=== PATIENT | male | born 1940 | race Caucasian/White ===

== ENCOUNTER 2020-03-07 14:46 | Emergency (ER) | payer MEDICARE, SELFPAY ==
[2020-03-07 14:57] VITALS: BP 207/82; PULSE 69; RESP 16; TEMP 36.8; O2SAT 96; BMI 23.0
--- NOTE | 2020-03-07 15:05 | CTR_ITS ---
PROCEDURE INFORMATION: Exam: CT Head Without Contrast Exam date and time: 03/07/2020 3:22 PM Age: 79 years old Clinical indication: Injury or trauma; Fall; Additional info: Head injury TECHNIQUE: Imaging protocol: Computed tomography of the head without contrast. Radiation optimization: All CT scans at this facility use at least one of these dose optimization techniques: automated exposure control; mA and/or kV adjustment per patient size (includes targeted exams where dose is matched to clinical indication); or iterative reconstruction. COMPARISON: No relevant prior studies available. RADIATION DOSE METRICS: Total DLP (mGy-cm): 750 FINDINGS: Brain: Moderate white matter disease and volume loss are identified. There is no acute infarct or edema. No hemorrhage. Ventricles: Normal. No ventriculomegaly. Bones/joints: Unremarkable. No acute fracture. Sinuses: Visualized sinuses are unremarkable. No fluid levels. Mastoid air cells: Visualized mastoid air cells are well aerated. Soft tissues: There is soft tissue swelling along the right frontal calvarium and in the right periorbital region. CT/CT head wo con* [id number] IMPRESSION: No acute fracture or intracranial hemorrhage. Radiation Dose CTDIVOL = (mGy): DLP = 750 (mGy-cm)
--- NOTE | 2020-03-07 15:06 | CTR_ITS ---
PROCEDURE INFORMATION: Exam: CT Maxillofacial Without Contrast Exam date and time: 03/07/2020 3:22 PM Age: 79 years old Clinical indication: Injury or trauma; Fall; Initial encounter; Blunt trauma (contusions or hematomas); Orbit/periorbital; Right; Injury date: Today; Additional info: Head trauma TECHNIQUE: Imaging protocol: Computed tomography images of the face without contrast. Radiation optimization: All CT scans at this facility use at least one of these dose optimization techniques: automated exposure control; mA and/or kV adjustment per patient size (includes targeted exams where dose is matched to clinical indication); or iterative reconstruction. COMPARISON: No relevant prior studies available. RADIATION DOSE METRICS: Total DLP (mGy-cm): 856.91 FINDINGS: Orbits: The globes are intact. Bones/joints: No acute fracture. Sinuses: Normal. No air-fluid levels. Soft tissues: There is right periorbital hematoma. CT/CT facial bones wo con* [id number] IMPRESSION: There is no evidence for acute fracture or malalignment. Radiation Dose CTDIVOL = (mGy): DLP = 856.91 (mGy-cm)
--- NOTE | 2020-03-07 15:07 | XRR_ITS ---
PROCEDURE INFORMATION: Exam: XR Right Tibia and Fibula Exam date and time: 03/07/2020 3:07 PM Age: 79 years old Clinical indication: Injury or trauma; Fall; Initial encounter; Blunt trauma; Lower leg; Right TECHNIQUE: Imaging protocol: XR Right tibia and fibula. Views: 2 views. COMPARISON: No relevant prior studies available. FINDINGS: Bones/joints: Negative for acute bony abnormality Soft tissues: Normal. XR/XR tibia fibula RT 2V [id number] IMPRESSION: No acute findings.
[2020-03-07 15:08] VITALS: BP 201/107; O2SAT 96
--- NOTE | 2020-03-07 15:10 | ED_ITS ---
HPI - Head Injury General: Chief complaint: Head Injury Stated complaint: fall-hit head Time Seen by Provider: 03/07/20 14:56 History of Present Illness: HPI Narrative: 79-year-old male patient presents to the emergency department with his , he sustained a fall prior to arrival. Reports was walking down steps, carrying pizza boxes while at [employer] when he lost his footing and fell down the stairs. He reports may have fell down 5 flights of stairs. He is sustained swelling of the right eye, several abrasions. He denies neck pain. He denies loss of consciousness or nausea vomiting. Right ear laceration. Associated symptoms: Deny nausea or vomiting Review of Systems General: Reports: 10 or more systems reviewed and unremarkable except in HPI and below Const: Denies: fever(s), chills or diaphoresis Eyes: Reports: other (Inability to open the right eye due to swelling); Denies: blurry vision or eye redness ENMT: Reports: ear or mastoid pain (Right, right ear abrasion); Denies: throat pain, mouth pain, dental pain or disequilibrium Card: Denies: chest pain, palpitations or irregular heart rhythm Resp: Denies: dyspnea, productive cough, non-productive cough or wheezing GI: Denies: abdominal pain, nausea or vomiting : Denies: dysuria Musc: Reports: extremity pain (Right lower extremity, tib-fib); Denies: back pain Skin/Breast: Reports: skin tenderness (Skin tear to the thenar rt hand, abrasion to the RLE shaver); Denies: rash or pruritus Neuro: Reports: headache(s) and difficulty walking (RLE pain - lower leg); Denies: numbness in extremities, weakness in extremities or behavioral changes Williams/Lymph: Denies: easy bruising Physical Exam Const: COMMON NORMALS: no acute distress, patient oriented x3, healthy appearing and alert GENERAL APPEARANCE: cooperative and well hydrated HENMT: COMMON NORMALS: Normal external nose present and moist oral mucous membranes FACE & SINUS: sinuses nontender FACE & SINUS IMAGES: 1. ecchymosis and edema with tenderness 2. large superficial abrasion NOSE: Normal external nose present EAR IMAGES: 1. 2 cm laceration/abrasion 2. abrasion THROAT: posterior oropharynx normal Eye: COMMON NORMALS: Equal, round and reactive pupils present and EOMs intact bilaterally GENERAL EYE: appearance normal, both eyes and all related structures and other (robert-orbital ecchymosis and edema due to hematoma/contusion) VISUAL ACUITY: Yes other (right eye opened to evaluate pu pil and cornea/sclera) EYELID: eyelid abnormality right upper eyelid erythema and swelling and right lower eyelid erythema and swelling PUPIL: Yes Equal, round and reactive pupils present Neck/C-Spine: COMMON NORMALS: full ROM and no lymphadenopathy GENERAL: Yes normal visual inspection and Yes trachea midline CERVICAL SPINE: Yes cervical ROM normal, No Paracervical muscle tenderness and Yes other (no point tenderness - pain could be distracted due to pain of the right eye) OTHER: and pain to the tib/fib Lymph: LYMPHATIC: no lymphadenopathy noted Chest: COMMONS NORMALS: normal inspection of the chest Resp: COMMON NORMALS: normal respiratory effort and clear to auscultation b ilaterally AUSCULTATION: clear to auscultation bilaterally Cardio: COMMON NORMALS: regular rhythm, S1 normal heart sound present and S2 normal heart sound present RHYTHM: regular rhythm HEART SOUNDS: S1 normal heart sound present and S2 normal heart sound present GI: COMMON NORMALS: Soft to palpation and non-tender INSPECTION: Yes normal to inspection PALPATION: Yes Soft to palpation : COMMON NORMALS: Yes no CVA tenderness BLADDER/KIDNEY EXAM: Yes no CVA tenderness Back/Pelvis: COMMON NORMALS: no CVA tenderness and thoracic and lumbar spine normal to inspection Extremity: COMMON NORMALS: normal to inspection and capillary refill normal EXTREMITY IMAGE (FRONT): 1. abrasion - no bleeding - pain with palpation of the middle tib/fib anterior - bowing deformity EXTREMITY IMAGE (BACK): 1. skin avulsion 2 cm x 3 cm Neuro: COMMON NORMALS: patient oriented x3 and no focal motor deficits SENSORIUM/ORIENTATION: Yes alert Psych: COMMON NORMALS: mental status grossly normal, Normal thought process present and cooperative ACTIVITY/MOTOR BEHAVIOR: Yes appropriate eye contact THOUGHT PROCESS: Normal thought process present Skin: COMMON NORMALS: no rashes or lesions noted and turgor normal GENERAL SKIN EXAM: no rashes or lesions noted and turgor normal Procedures Laceration Laceration 1: Site: face (right ear - antetrugus - flap laceration) Size (cm): 2 Description: flap Depth: simple, single layer Local Anesthetic: lidocaine 1% (3) Pre-repair: wound explored, irrigated extensively, deep structures intact, extensive debridement and wound margins revised Skin layer closed with: nylon Number of sutures: 4 Course Vital Signs: Vital signs: Vital Signs Temperature 98.2 F 03/07/20 14:57 Pulse Rate 70 03/07/20 17:19 Respiratory Rate 18 03/07/20 17:19 Blood Pressure 168/87 03/07/20 17:19 Pulse Oximetry 95 03/07/20 17:19 MDM - Head Injury MDM Narrative: Medical decision making narrative: 79-year-old male patient presents to the emergency department status post fall, he had presents with ear laceration, scattered abrasions and skin tears. He also is complaining of right tib-fib pain, difficulty walking with ambulation due to right lower extremity pain. CT completed of the head and facial bones, negative fractures, CT completed of the cervical spine due to severity of ear laceration and multiple skin tears/abrasion he sustained during the fall. Results were explained to the patient and spouse, questions were answered, ear was repaired with wound care instructions. Family and patient denied questions -patient able to ambulate in the ED without difficulty prior to discharge. He has not exhibited nausea vomiting. Discharge Plan Discharge Patient Disposition: Home, Self-Care Clinical Impression: Fall (on) (from) other stairs and steps, initial encounter Closed head injury Qualifiers: Encounter type: initial encounter Qualified Code(s): S09.90XA - Unspecified injury of head, initial encounter Laceration of ear lobe Qualifiers: Encounter type: initial encounter Laterality: right Qualified Code(s): S01.311A - Laceration without foreign body of right ear, initial encounter Abrasion head Qualifiers: Encounter type: initial encounter Qualified Code(s): S00.91XA - Abrasion of unspecified part of head, initial encounter Contusion, eye Qualifiers: Encounter type: initial encounter Laterality: right Qualified Code(s): S05.11XA - Contusion of eyeball and orbital tissues, right eye, initial encounter Condition: Stable Prescriptions: New Keflex 500 mg capsule 500 mg PO TID 7 Days Qty: 21 RF: 0 No Action atorvastatin 80 mg tablet 80 mg PO DAILY RF: 0 glipizide 10 mg tablet extended release 24hr 20 mg PO DAILY RF: 0 metoprolol succinate 200 mg tablet extended release 24 hr 200 mg PO DAILY RF: 0 lisinopril 20 mg tablet 20 mg PO BID RF: 0 metformin 850 mg tablet See Rx Instructions .ROUTE .COMPLEX RF: 0 potassium chloride 10 mEq tablet extended release 20 meq PO BID RF: 0 Aspir-81 81 mg Tablet,Delayed Release (Dr/Ec) 81 mg PO DAILY RF: 0 triamterene-hydrochlorothiazid 37.5-25 mg capsule 1 cap PO DAILY RF: 0 tamsulosin 0.4 mg capsule 0.4 mg PO DAILY RF: 0 amlodipine 10 mg tablet 15 mg PO DAILY RF: 0 ICaps [id number] Tablet Extended Release 1 tab PO DAILY RF: 0 Fish Oil 1,000 mg (120 mg-180 mg) Capsule 2 cap PO TID RF: 0 Jardiance 25 mg tablet 25 mg PO DAILY RF: 0 Vitamin C 1 tab PO DAILY RF: 0 Discharge Orders: Discharge Order (Routine); Ordered 03/07/20 Ordered By: Anu Fregoso Referrals: Harjit Marc MD [Primary Care Provider] - Discharge Diet: Usual diet Discharge Activity: Limit activity as instructed Patient Instructions: Suture Care (ED), Laceration (ED), Contusion in Adults (ED), Abrasion (ED) Activity Restrictions/Additional Instructions: Sleep with the head of your bed elevated. Cool compresses to the swollen area several times daily. Take Keflex as prescribed, antibiotic May change dressings to the right hand twice daily Cleanse with soap and water twice daily Follow-up with your primary care physician in 7 to 10 days for suture removal Return to the emergency department if you develop any nausea vomiting, dizziness, personality change or worsening symptoms. May take Tylenol as needed for pain Discharge Date/Time: 03/07/20 17:21 Coding Level of Care Code ED Inspector [employer] for Ranjeetg Fwd Exam Comprehensive
--- NOTE | 2020-03-07 15:11 | CTR_ITS ---
PROCEDURE INFORMATION: Exam: CT Cervical Spine Without Contrast Exam date and time: 03/07/2020 3:22 PM Age: 79 years old Clinical indication: Injury or trauma; Fall; Initial encounter; Blunt trauma; Injury date: Today; Additional info: Fall, cerivcal spine point tenderness TECHNIQUE: Imaging protocol: Computed tomography images of the cervical spine without contrast. Radiation optimization: All CT scans at this facility use at least one of these dose optimization techniques: automated exposure control; mA and/or kV adjustment per patient size (includes targeted exams where dose is matched to clinical indication); or iterative reconstruction. COMPARISON: No relevant prior studies available. RADIATION DOSE METRICS: Total DLP (mGy-cm): 567.12 FINDINGS: Vertebrae: No acute fracture. Normal alignment. Degenerative change is identified in the spine. There is disc space narrowing and osteophyte formation especially at C5/6 and C6/7. Soft tissues: Unremarkable. Lungs: Lung apices are normal. CT/CT cervical spin wo con* [id number] IMPRESSION: There is no evidence for fracture or facet dislocation. Radiation Dose CTDIVOL = (mGy): DLP = 567.12 (mGy-cm)
[2020-03-07 15:37] VITALS: BP 188/102; PULSE 72; RESP 15; O2SAT 95
[2020-03-07] MEDS: tetanus-diphtheria tox (adult) 0.5 mL SDV IM (16:37)
[2020-03-07] MEDS: lidocaine 1% INJ 20 mL INJECTION (16:45)
[2020-03-07] MEDS: acetaminophen 325 mg Tablet 650 MG PO (16:52)
[2020-03-07 17:19] VITALS: BP 168/87; PULSE 70; RESP 18; O2SAT 95
== END 2020-03-07 17:21 | disposition home or self-care (01) ==
PROVIDERS: Emergency Provider Nurse Practitioner Family; PCP Family Medicine
DX: S00.91XA Abrasion of unspecified part of head, initial encounter (principal); S05.11XA Contusion of eyeball and orbital tissues, right eye, initial encounter; S01.311A Laceration without foreign body of right ear, initial encounter; W10.8XXA Fall (on) (from) other stairs and steps, initial encounter; Z79.82 Long term (current) use of aspirin; Z23 Encounter for immunization
CPT/HCPCS: 12011; 12345; 70450; 70486; 72125; 73590; 90471; 90714; 99282; 99283

== ENCOUNTER 2020-06-03 11:47 | Outpatient (RCR) | payer MEDICARE, SELFPAY | END 2020-06-19 23:59 | disposition home or self-care (01) | LOC: SPT 11:47 | PROVIDERS: PCP Family Medicine; Referring Provider Family Medicine; Visit Provider Family Medicine | DX: M54.5 Low back pain (principal) | CPT/HCPCS: 97110; 97162; G0283 ==

== ENCOUNTER 2020-06-09 08:53 | Outpatient (CLI) | payer MEDICARE, SELFPAY ==
--- NOTE | 2020-06-09 08:57 | MR_ITS ---
WS: [id number] MRI LUMBAR SPINE NONCONTRAST TECHNIQUE: Sagittal T1, T2 and STIR imaging. Axial T1 and T2 imaging. CLINICAL INFORMATION: SCIATICA OF RT SIDE COMPARISON: None. FINDINGS: In the central cauda equina nerve rootlets at the L1-2 level there is a T2 hyperintense solid nodule measuring 5.6 x 5.9 x 10.0 mm AP by transverse by craniocaudal. This most likely represents a schwann jay and recommend further evaluation MRI lumbar spine with gadolinium enhancement. L1-L2: Normal. L2-L3: No significant disc bulging. Mild facet arthropathy. Mild right and no significant left forami nal narrowing. Spinal canal is patent. L3-L4: Mild annular bulging. Mild facet arthropathy. Spinal canal and foramen are patent. L4-L5: Right subarticular disc extrusion extending into the right subarticular recess. Disc material measures 12 x 8 mm. This impinges the traversing right L5 nerve root with mild central canal stenosis . Mild right greater than left foraminal narrowing. Mild to moderate facet arthropathy. L5-S1: Tiny central disc protrusion with a small annular tear. Contact of the traversing S1 nerve ashley ts. No significant central canal stenosis. Foramen are patent. Mild facet arthropathy. Visualized pelvic bony structures: Normal. Paravertebral soft tissues: Normal. MR/MR lumbar spine wo con* [id number] IMPRESSION: 1. Well-circumscribed T2 hyperintense nodule in the cauda equina nerve rootlet s at L1-2 suspicious for schwannoma measuring 5.6 x 5.9 x 10 mm. Recommend furt her evaluation with gadolinium. 2. Right pericentral and subarticular disc protrusion L4-5 with filling of the right subarticular recess. This impinges the traversing right L5 nerve root wi th mild central canal stenosis. Mild right L4-5 foraminal narrowing. 3. Tiny left pericentral protrusion L5-S1 with a small annular tear. Slight en croachment on traversing left greater than right S1 nerve roots. Spinal canal i s patent.
== END 2020-06-09 08:54 | disposition home or self-care (01) ==
LOC: RADSHAW 08:56
PROVIDERS: PCP Family Medicine; Visit Provider Family Medicine
DX: M54.31 Sciatica, right side (principal); M51.26 Other intervertebral disc displacement, lumbar region; M51.27 Other intervertebral disc displacement, lumbosacral region
CPT/HCPCS: 72148

== ENCOUNTER 2020-06-20 06:00 | Outpatient (RCR) | payer MEDICARE, SELFPAY | END 2020-07-19 23:59 | disposition home or self-care (01) | LOC: SPT 06:00 | PROVIDERS: PCP Family Medicine; Referring Provider Family Medicine; Visit Provider Family Medicine | DX: M54.5 Low back pain (principal) | CPT/HCPCS: 97110; G0283 ==

== ENCOUNTER → 2020-08-27 10:19 | Outpatient (BNVA) | payer MEDICARE, SELFPAY | PROVIDERS: PCP Family Medicine; Referring Provider Orthopaedic Surgery; Visit Provider Anesthesiology Pain Medicine | DX: M47.816 Spondylosis without myelopathy or radiculopathy, lumbar region (principal); M51.9 Unspecified thoracic, thoracolumbar and lumbosacral intervertebral disc disorder; M54.9 Dorsalgia, unspecified | CPT/HCPCS: 99205 ==

== ENCOUNTER → 2020-09-06 14:16 | Outpatient (BNVA) | payer MEDICARE, SELFPAY | PROVIDERS: PCP Family Medicine; Visit Provider Anesthesiology Pain Medicine | DX: M54.16 Radiculopathy, lumbar region (principal); M54.9 Dorsalgia, unspecified | CPT/HCPCS: 64483; 64484; J1100; J3490 ==

== ENCOUNTER → 2020-12-21 10:28 | Outpatient (BNVA) | payer MEDICARE, SELFPAY | PROVIDERS: PCP Family Medicine; Visit Provider Anesthesiology Pain Medicine | DX: M54.9 Dorsalgia, unspecified (principal); M47.816 Spondylosis without myelopathy or radiculopathy, lumbar region; M54.16 Radiculopathy, lumbar region; M51.9 Unspecified thoracic, thoracolumbar and lumbosacral intervertebral disc disorder | CPT/HCPCS: 99214 ==

== ENCOUNTER → 2020-12-22 12:35 | Outpatient (BNVA) | payer MEDICARE, SELFPAY | PROVIDERS: PCP Family Medicine; Visit Provider Anesthesiology Pain Medicine | DX: M54.16 Radiculopathy, lumbar region (principal); M54.9 Dorsalgia, unspecified | CPT/HCPCS: 64483; 64484 ==

== ENCOUNTER → 2020-12-29 11:21 | Outpatient (BNVA) | payer MEDICARE, SELFPAY | PROVIDERS: PCP Family Medicine; Visit Provider Anesthesiology Pain Medicine | DX: M47.816 Spondylosis without myelopathy or radiculopathy, lumbar region (principal); M54.16 Radiculopathy, lumbar region; M51.9 Unspecified thoracic, thoracolumbar and lumbosacral intervertebral disc disorder; M54.9 Dorsalgia, unspecified; Z79.891 Long term (current) use of opiate analgesic | CPT/HCPCS: 99214 ==

== ENCOUNTER → 2021-01-06 09:54 | Outpatient (BNVA) | payer MEDICARE, SELFPAY | PROVIDERS: PCP Family Medicine; Visit Provider Orthopaedic Surgery | DX: M54.16 Radiculopathy, lumbar region (principal); M47.816 Spondylosis without myelopathy or radiculopathy, lumbar region; Z20.822 Contact with and (suspected) exposure to COVID-19 | CPT/HCPCS: 72100; 87635 ==

== ENCOUNTER 2021-01-10 08:02 | Day surgery (SDC) | payer MEDICARE, SELFPAY ==
[2021-01-07 13:42] VITALS: BMI 23.7
[2021-01-10] VITALS (9 sets, daily range): BP systolic 163–230; BP diastolic 75–108; PULSE 61–73; RESP 12–250; TEMP 36.1–36.4; O2SAT 95–99
--- NOTE | 2021-01-10 | XR_ITS ---
WS: [id number] Exam: XR lumbar spine 2-3V* [id number] Date/Time of Exam: 01/10/2021 12:00 AM Reason For Exam: OR PICS A single intraoperative lateral C-arm image of the lower lumbar spine is submitted for evaluation. The image depicts a surgical port positioned in the posterior paraspinal soft tissues at the L4-5 dis c level. No other significant finding on this limited image.
--- NOTE | 2021-01-10 | SCC_ITS ---
Procedure: laminectomy L4/5 on Right 19.5 seconds of fluoroscopic guidance, for a cumulative dose of 4.90 mGy, was provided to Dr. Teixeira by the radiology department. C-arm images of the lumbar spine were saved for the patient's permanent record. [facility]
--- NOTE | 2021-01-10 07:02 | W.PM.OPSUD ---
Surgery/Procedure H&P Update DATE OF PROCEDURE: January 10, 2021 DATE H&P PERFORMED: 01/06/21 H&P UPDATE INFORMATION: I have reviewed H&P completed within last 30 days, I have examined patient prior to procedure and No changes to prior documentation PLANNED PROCEDURE: Operation Date: 01/10/21 12:40 Proposed Procedures p Lumbar Spine Decompression L4/5 27949 m48.061(Bilateral) - Ken Teixeira DO
--- NOTE | 2021-01-10 08:25 | ECG_ITS ---
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 Measurements Intervals [place] Rate: 61 P: 40 IN: 195 QRS: 24 QRSD: 102 T: 31 QT: 444 QTc: 451 Interpretive Statements SINUS RHYTHM MODERATE VOLTAGE CRITERIA FOR LVH, CONSIDER NORMAL VARIANT [MEETS CRITERIA IN ONE OF: R(aVL), S(V1), R(V5), R(V5/V6)+S(V1)] NONSPECIFIC T-WAVE ABNORMALITY No previous ECG available for comparison Electronically Signed On 01-11-2021 18:42:11 CDT by Dora Nolen M.D. [email or web address]
[2021-01-10 08:26] LABS: Glucose Point of Care 124 mg/dL (70-110)
[2021-01-10] MEDS: sodium chloride 0.9% 1,000 ML 30 ML IV (08:27)
[2021-01-10] MEDS: fentaNYL 50 mcg/mL INJ 2mL IVP (08:30)
--- NOTE | 2021-01-10 08:46 | ANES.PREANE2 ---
Pre-Anesthetic Assessment Pre-Anesthetic Assessment: Height/Weight: Height 1.8 m Weight 77.111 kg Temp Pulse Resp BP Pulse Ox 97.4 F L 65 20 H 230/108 95 01/10/21 08:19 01/10/21 08:19 01/10/21 08:30 01/10/21 08:19 01/10/21 08:30 Preop Diagnosis: Lumbar stenosis L4/5 Proposed Procedure: Operation Date: 01/10/21 12:40 Proposed Procedures p Lumbar Spine Decompression L4/5 52175 m48.061(Bilateral) - Ken Teixeira, Familial anesthetic complications: none Was Beta Sathish taken within 24 hours: Yes Was Clonidine taken within 24 hours: N/A Last intake: Intake Last Liquid Date 01/09/21 Last Liquid Time 22:00 Last Solid Date 01/09/21 Last Solid Time 22:00 Social: Social History: No alcohol and No tobacco Exam: Pre-Anes Outpt Exam: alert, oriented x 3, clear to auscultation bilaterally and regular rate & rhythm Airway: Cervical ROM: WNL MP: 3 Dentition: Full CV/HEM: CV/HEM: CAD (2012 RCA stent - only on ASA) and HTN Comments: CONCLUSION: 1. Normal right and left ventricular systolic function. 2. Left ventricular hypertrophy with diastolic noncompliance. Metabolic: Metabolic: DM and Hyperlipidemia Musc/skel: Musc/skel: OA/DJD Comments: hip pain Anesthetic Plan: ASA status: 3 Anesthesia: General Risk of > 500 ml blood loss (7ml/kg in children): No Meds/Allergies Current Medications: Current Medications Generic Name Dose Route Start Last Admin Trade Name Freq PRN Reason Stop Dose Admin Fentanyl 50 mcg 01/10/21 08:10 01/10/21 08:30 Fentanyl 50 Mcg/ Ml Inj 2ml IVP 50 mcg Q10M PRN Administration Preop Pain Sodium Chloride 1,000 mls @ 30 ml s/hr 01/10/21 08:15 01/10/21 08:27 Sodium Chloride 0.9% IV 01/11/21 08:14 30 mls/hr .Q24H STACIE Administration PFSH Anesthesia PFSH: Social History Smoking and tobacco status: never smoked Second hand smoke exposure: No Alcohol intake: never Lives independently: Yes Household members: spouse History of recent travel: No Data Anesthesia CBC & Chem 7: 01/10/21 08:25 Other Labs: Laboratory Results - last 48 hr 01/10/21 08:24 POC Glucose 124 H Cardiac Studies: No Data to Display
[2021-01-10 09:02] LABS: Anion Gap 19.4 (5-19); Blood Urea Nitrogen 21 mg/dL (8-23); Calcium 8.6 mg/dL (8.5-10.5); Carbon Dioxide 26 mmol/L (22-29); Chloride 102 mmol/L (98-107); Glucose 122 mg/dL (65-115); Osmolality Calculated 302 mOsm/kg (285-295); Potassium 3.4 mmol/L (3.5-5.1); Sodium 144 mmol/L (136-145)
--- NOTE | 2021-01-10 10:45 | PM.OP ---
Operative Report Date of procedure: January 10, 2021 Pre-op Diagnosis: Lumbar stenosis L4/5 Post-op diagnosis: same Post-op Findings: laminectomy L4/5 on Right Procedure: laminectomy L4/5 on Right Patient is brought to the operative suite. After undergoing anesthesia they are placed in the supine position. All areas of impingement are well padded. Patient is then prepped and draped in the normal sterile fashion. A skin incision is made over the L4/5 level. This is confirmed under c-arm guidance. A series of dilators are passed and the tubular retractor is docked on the L4 lamina. A bovie is used to clear the soft tissue off the lamina and the L 4/5 facet joint. A high speed alina is then used to perform the laminectomy and take down the medial aspect of the L 4/5 facet joint. A kerrison rongeure was then used to take down the remaining lamina and smooth the edge of the laminectomy up to the point where the ligamentum flavum attaches. Attention was then brought to the medial aspect of the facet joint. The remaining medial aspect of the superior and inferior aspect of the facet joint were taken down with the kerrison from the pedicle of L4 to L 5. The facet joint had significant hypertrophy. Attention was then brought to the Ligamentum Flavum. The ligament was taken down from the lamina of L4 to L5 and out medially to the remaining facet joint. The ligament was significantly thickened. The dura was then exposed. The dura was in good repair. The L4 nerve was then traced with a curette out the L4/5 foramen and found to be adequately decompressed. The L5 nerve was traced with a curette around the L5 pedicle. The lateral recess was opened with a kerrison helping to further decompress the L5 nerve. Wound is then irrigated copiously with saline and surgiflo is used to stop any bleeding. The tubular retractor is removed and the wound is closed with vicryl and monocryl suture. Glue is then used to protect the wound. A sterile dressing is then placed. Patient was then placed in the supine position and transferred to the PACU in stable condition.
--- NOTE | 2021-01-10 10:59 | P.PCN_ITS ---
PACU note PACU note: VSS, Good respiratory effort, report to GAS COLLECTION SYSTEM OPERATOR Post-Anesthesia Exam: awake
--- NOTE | 2021-01-10 10:59 | PM.PACU ---
PACU note PACU note: VSS, Good respiratory effort, report to CREDIT ANALYSIS MANAGER Post-Anesthesia Exam: awake
--- NOTE | 2021-01-10 11:03 | SUR.PHASEI ---
PT AWAKE ALERT ON RA TAKING ICE CHIPS PT ABLE TO MOVE ALL EXT TO COMMAND, PT DENIES PAIN AND NAUSEA, VSS.BP IN RANGE WITH PT PRE SURGERY BP.
[2021-01-10 11:10] LABS: Glucose Point of Care 127 mg/dL (70-110)
[2021-01-10] MEDS: HYDROcodone-acetaminophen 5-325 mg Tablet 1 TAB PO (11:45)
--- NOTE | 2021-01-10 17:45 | ANE.PACU2 ---
Inpatient post-anesthesia follow up: Airway intact: Yes Vital signs: Temperature 96.9 F Pulse Rate 61 Respiratory Rate 18 Blood Pressure 167/103 Pulse Oximetry 96 Oxygen Delivery Me thod Room Air Oxygen Flow Rate Fraction of Inspir ed Oxygen Hydration adequate: Yes Nausea and vomiting: No Pain level: 1 Mental status: Baseline
== END 2021-01-10 12:25 | disposition home or self-care (01) ==
PROVIDERS: Anesthesiology; PCP Family Medicine; Visit Provider Orthopaedic Surgery
PROC: (CPT 63005; principal; 2021-01-10 12:20)
DX: M48.061 Spinal stenosis, lumbar region without neurogenic claudication (principal); I25.10 Atherosclerotic heart disease of native coronary artery without angina pectoris; Z95.5 Presence of coronary angioplasty implant and graft; I10 Essential (primary) hypertension; Z79.82 Long term (current) use of aspirin; E11.9 Type 2 diabetes mellitus without complications; E78.5 Hyperlipidemia, unspecified
CPT/HCPCS: 63047; 36416; 72100; 76000; 80048; 82962; 93005; 96365; 96372; J0330; J0690; J2405; J2704; J3010; J3490; J7030

== ENCOUNTER → 2021-02-24 10:04 | Outpatient (BNVA) | payer MEDICARE, SELFPAY | PROVIDERS: PCP Family Medicine; Visit Provider Orthopaedic Surgery | DX: M47.896 Other spondylosis, lumbar region (principal); M54.16 Radiculopathy, lumbar region; M47.816 Spondylosis without myelopathy or radiculopathy, lumbar region; M54.9 Dorsalgia, unspecified; M48.061 Spinal stenosis, lumbar region without neurogenic claudication; Z48.89 Encounter for other specified surgical aftercare | CPT/HCPCS: 72100 ==

== ENCOUNTER → 2021-05-26 09:45 | Outpatient (BNVA) | payer MEDICARE, SELFPAY | PROVIDERS: PCP Family Medicine; Visit Provider Physician Assistant | DX: M54.16 Radiculopathy, lumbar region (principal) | CPT/HCPCS: 72120 ==

== ENCOUNTER → 2022-05-23 13:22 | Outpatient (BNVA) | payer MEDICARE, SELFPAY | PROVIDERS: PCP Family Medicine; Visit Provider Physician Assistant | DX: M51.36 Other intervertebral disc degeneration, lumbar region (principal); Z98.890 Other specified postprocedural states | CPT/HCPCS: 72100; 99213; 99214 ==

== ENCOUNTER 2022-06-12 06:26 | Outpatient (CLI) | payer MEDICARE, SELFPAY ==
--- NOTE | 2022-06-12 06:55 | CT_ITS ---
WS: [id number] CT NECK TECHNIQUE: Noncontrast CT of the neck with coronal and sagittal reformatted images. CLINICAL INFORMATION: LUMP IN NECK COMPARISON: Ultrasound May 22, 2022 DLP: 245.[address] scans at [facility] use at least one of these dose optimization techniques: automated e xposure control; mA and/or kV adjustment per patient size (includes targeted exams where dose is matc hed to clinical indication); or iterative reconstruction. FINDINGS: Small to moderate bilateral pleural effusions partially visualized. Paranasal sinuses and mastoid air cells well aerated. Normal posterior nasopharynx. Normal parapharyngeal fat. No evidence of supraglo ttic or glottic mass. Normal subglottic airway. Normal thyroid gland. No cervical lymphadenopathy. Palpable marker over the RIGHT lower neck. Low-attenuation ovoid fluid collection in the RIGHT parave rtebral musculature in the lower neck measuring 1.7 x 1.5 x 2.7 cm. This likely corresponds to findin gs on prior ultrasound. This abuts the RIGHT C7 transverse process and may be related to the spine or facet. CT/CT neck wo con [id number] IMPRESSION: 1. Palpable marker RIGHT lower neck. In the RIGHT paravertebral musculature in the lower neck there is a low-attenuation ovoid fluid collection measuring1.7 x 1.5 x 2.7 cm likely corresponding to the previously described collection on t he prior ultrasound. This is indeterminant but may represent resolving hematoma or inflammatory fluid. Contrast not administered today. Recommend 4-[address] follow-up with contrast to assess change. 2. Small to moderate bilateral pleural effusions partially visualized. Recomme nd chest CT for further evaluation. 3. No evidence of supraglottic or glottic mass. 4. Salivary glands are normal normal. 5. No cervical lymphadenopathy.
== END 2022-06-12 06:27 | disposition home or self-care (01) ==
LOC: RAD 06:28
PROVIDERS: PCP Family Medicine; Visit Provider Family Medicine
DX: R22.1 Localized swelling, mass and lump, neck (principal); J90 Pleural effusion, not elsewhere classified
CPT/HCPCS: 70490

== ENCOUNTER → 2022-06-15 14:02 | Outpatient (BNVA) | payer MEDICARE, SELFPAY | PROVIDERS: PCP Family Medicine; Visit Provider Physician Assistant | DX: M54.50 Low back pain, unspecified (principal); M79.604 Pain in right leg | CPT/HCPCS: 99212; 99213 ==

== ENCOUNTER 2022-06-30 19:52 | Inpatient (IN) | payer MEDICARE, SELFPAY ==
[2022-06-30 20:19] VITALS: BP 181/73; PULSE 92; RESP 18; TEMP 37; O2SAT 95; BMI 25.8
--- NOTE | 2022-06-30 20:29 | ECG_ITS ---
[facility] Test Date: 2022-06-30 Pat Name: Quang Hunter Department: Room: Gender: Male Home Based Assistant: : 1940 Requested By: Raymon Aaron Order Number: [id number] Ivan MD: Alexus Hutson M.D. Measurements Intervals [place] Rate: 81 P: 54 [place]: 201 QRS: 53 QRSD: 88 T: 83 QT: 414 QTc: 483 Interpretive Statements SINUS RHYTHM MINIMAL VOLTAGE CRITERIA FOR LVH, CONSIDER NORMAL VARIANT [MEETS CRITERIA IN ONE OF: R(aVL), S(V1), R(V5), R(V5/V6)+S(V1)] Compared to ECG 01/10/2021 08:46:00 T-wave abnormality no longer present Electronically Signed On 07-01-2022 15:08:03 SUPERVISOR URANIUM PROCESSING by Alexus Hutson M.D. [id number]
--- NOTE | 2022-06-30 20:30 | XRR_ITS ---
PROCEDURE INFORMATION: Exam: XR Chest Exam date and time: 06/30/2022 9:04 PM Age: 81 years old Clinical indication: Shortness of breath and other: Weakness; Additional info: SOB TECHNIQUE: Imaging protocol: Radiologic exam of the chest. Views: 1 view. COMPARISON: CT neck wo con [id number] 06/12/2022 7:01 AM FINDINGS: Lungs: There is some mild atelectasis at the lung bases. There is question of some minimal infiltrate in the right mid lung. Pleural spaces: There is moderate bilateral pleural effusions. Heart/Mediastinum: Heart is within normal limits of size. Vasculature: There are atherosclerotic calcifications of the aortic arch. Bones/joints: Unremarkable. XR/XR chest 1V portable [id number] IMPRESSION: 1. Bilateral pleural effusion 2. Question of minimal infiltrate right mid lung 3. Mild basilar atelectasis.
[2022-06-30 21:28] LABS: Basophils % 0.5 %; Eosinophils # 0.1 10^3/uL (0.0-0.8); Eosinophils % 0.9 %; Hemoglobin 9.3 g/dL (11.7-16.6); Lymphocytes # 0.9 10^3/uL (0.8-4.8); Lymphocytes % 11.8 %; Mean Corpuscular HGB Conc 33.2 g/dL (30.0-36.0); Mean Corpuscular Hemoglobin 29.2 pg (28.0-34.0); Mean Corpuscular Volume 88.1 fl (80-94); Mean Platelet Volume 9.3 fL (7.4-10.4); Monocytes # 0.5 10^3/uL (0.2-0.9); Monocytes % 7.2 %; Neutrophils # 5.96 10^3/uL (1.8-7.7); Neutrophils % 79.1 %; Nucleated Red Blood Cells % 0 %; Platelet Count 257 10^3/cmm (130-400); Red Blood Count 3.18 10^6/uL (4.1-5.3); Red Cell Distribution Width 13.9 % (12.1-15.1); White Blood Count 7.5 10^3/uL (4.0-10.0)
[2022-06-30] MEDS: nitroglycerin 1 gm/inch oint Pkt 2 INCH TOPICAL (21:32)
[2022-06-30] MEDS: labetalol 5 mg/mL SDV 20mL 20 MG IVP (21:33)
[2022-06-30 21:34] VITALS: BP 199/87; PULSE 72; O2SAT 95
[2022-06-30] MEDS: FUROsemide 10 mg/mL SDV 10mL 60 MG IVP (21:36)
[2022-06-30 21:48] LABS: Troponin(5th) Baseline 74 ng/L (0-15)
[2022-06-30 21:57] LABS: Anion Gap 18.8 (5-19); Blood Urea Nitrogen 26 mg/dL (8-23); Calcium 8.1 mg/dL (8.5-10.5); Carbon Dioxide 19 mmol/L (22-29); Chloride 103 mmol/L (98-107); Glucose 155 mg/dL (65-115); NT Pro B Type Natriuretic Pept 3433 pg/mL (0-450); Osmolality Calculated 292 mOsm/kg (285-295); Potassium 3.8 mmol/L (3.5-5.1); Sodium 137 mmol/L (136-145)
[2022-06-30 22:30] VITALS: BP 145/71; PULSE 65; RESP 18; O2SAT 96
--- NOTE | 2022-06-30 23:23 | ECG_ITS ---
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 Measurements Intervals [place] Rate: 70 P: 61 AL: 191 QRS: 60 QRSD: 90 T: 81 QT: 460 QTc: 497 Interpretive Statements SINUS RHYTHM MINIMAL VOLTAGE CRITERIA FOR LVH, CONSIDER NORMAL VARIANT [MEETS CRITERIA IN ONE OF: R(aVL), S(V1), R(V5), R(V5/V6)+S(V1)] PROLONGED QT INTERVAL Compared to ECG 06/30/2022 20:34:33 Prolonged QT interval now present Electronically Signed On 07-01-2022 15:30:04 SUPERVISOR PRODUCT INSPECTION by Alexus Hutson M.D. [id number]
[2022-06-30 23:41] VITALS: BP 173/83; PULSE 64; RESP 18; O2SAT 96
[2022-06-30 23:45] LABS: Add Urine Microscopic? YES; Bilirubin Urine Neg (Negative); Blood Urine Neg (Negative); Glucose Urine UA Trace (Normal); Ketones Urine Negative (Negative); Leukocyte Esterase Urine Negative (Negative); Nitrate Urine Negative (Negative); Protein Urine 3+ (Negative); Specific Gravity, Urine 1.015 (1.005-1.030); Urine Appearance Clear (CLEAR); Urine Color Yellow (Yellow); Urobilinogen Urine Neg (Negative); pH Urine 5 (5-7)
[2022-06-30 23:47] LABS: Add Urine Culture? No; Hyaline Casts Urine 0-4 /lpf; Squamous Epithelial Cell Urine 0-4 /hpf (0-5)
--- NOTE | 2022-06-30 23:47 | ED_ITS ---
HPI - SOB/Dyspnea General: Chief Complaint: Shortness of Breath/Dyspnea Stated Complaint: SOB\Weakness Time Seen by Provider: 06/30/22 21:14 Source: patient and family History of Present Illness: HPI Narrative: [id number] male with a history of coronary disease. He tells me that he had stents placed in [facility]. He also tells me he has a history of some kidney disease even prior to his stent placement. He presents with shortness of breath last couple of days it seems to be worse at night. He notes that when he sits down at night it is very hard to breathe. He denies significant cough or fever. He does note some lower extremity swelling. MD elicited complaint: shortness of breath Pertinent past history: congestive heart failure and other Onset (ago): hour(s) Context: occurred during exertion Timing: intermittent and progressively worsening Severity: moderate Exacerbating factors: lying flat, exertion, movement and coughing Relieving factors: rest Known history of: congestive heart failure Associated symptoms: Reports lightheadedness; Deny abdominal pain, chest congestion, chest pain, dizziness, fever(s) or palpitations Review of Systems Const: Denies: fever(s) or chills Eyes: Denies: change in vision ENMT: Denies: throat pain Card: Reports: lightheadedness; Denies: chest pain or palpitations Resp: Reports: dyspnea; Denies: productive cough, non-productive cough or chest congestion GI: Denies: abdominal pain Neuro: Denies: headache(s) or dizziness PFSH ED PFSH: Medical History CAD (coronary artery disease) CKD (chronic kidney disease) Diabetes mellitus Hypercholesterolemia Hypertension Lumbosacral radiculopathy Surgical History History of back surgery Stented coronary artery Family History Father Cancer Other Diabetes Hypertension Social History Smoking and tobacco status: never smoked Second hand smoke exposure: No Alcohol intake: never Substance/Drug Use: never Lives independently: Yes Household members: spouse Marital status: History of recent travel: No Physical Exam Const: GENERAL APPEARANCE: cooperative, ill appearing and frail appearing HENMT: COMMON NORMALS: normocephalic, atraumatic and Normal external nose present HEAD & SCALP: normocephalic and atraumatic NOSE: Normal external nose present Eye: COMMON NORMALS: Equal, round and reactive pupils present and EOMs intact bilaterally PUPIL: Yes Equal, round and reactive pupils present Neck/C-Spine: COMMON NORMALS: full ROM Chest: CHEST: Yes Symmetrical chest wall rise Resp: COMMON NORMALS: clear to auscultation bilaterally EFFORT & INSPECTION: Yes tachypneic and No respiratory distress AUSCULTATION: clear to auscultation bilaterally and diminished lung sounds Cardio: COMMON NORMALS: regular rate and regular rhythm RATE: regular rate RHYTHM: regular rhythm GI: COMMON NORMALS: Normal to inspection, nondistended, normoactive bowel sounds present, Soft to palpation and non-tender PALPATION: Yes Soft to palpation Extremity: GENERAL: Yes edema (2+) Neuro: BECK COMA SCALE: document GCS findings [place] coma scale eye opening: Spontaneous Beck coma scale verbal response: Orientated Beck coma scale motor response: Obey commands Beck coma scale total score: 15 Course Vital Signs: Vital signs: Vital Signs Temperature 97.6 F 07/01/22 01:30 Pulse Rate 77 07/01/22 01:30 Respiratory Rate 15 07/01/22 01:30 Blood Pressure 198/80 07/01/22 01:30 Pulse Oximetry 93 07/01/22 01:30 Oxygen Delivery Me thod 07/01/22 00:22 MDM - SOB/Dyspnea Medical Decision Making Patient with significant shortness of breath, worse at night. He has lower extremity edema. X-ray shows bilateral pleural effusions. He has hemoglobin of 9. A creatinine of 2.8. White blood cell count of 7.5. There may be a minimal infiltrate in the right lung, although the patient does not have clinical signs of pneumonia. He is given nitroglycerin paste for hypertension, and afterload effect. He is given Lasix IV here. He will be admitted for diuresis with careful observation of his kidney function. Lab Data : 06/30/22 21:20 06/30/22 21:20 Labs/Radiology: Radiology Impressions Chest X-Ray 06/30/22 20:30 IMPRESSION: 1. Bilateral pleural effusion 2. Question of minimal infiltrate right mid lung 3. Mild basilar atelectasis. Laboratory Results WBC 7.5 10^3/uL (4.0-10.0) 06/30/22 21:20 RBC 3.18 10^6/uL (4.1-5.3) L 06/30/22 21:20 Hgb 9.3 g/dL (11.7-16.6) L 06/30/22 21:20 Hct 28.0 % (42.0-52.0) L 06/30/22 21:20 MCV 88.1 fl (80-94) 06/30/22 21:20 MCH 29.2 pg (28.0-34.0) 06/30/22 21:20 MCHC 33.2 g/dL (30.0-36.0) 06/30/22 21:20 RDW 13.9 % (12.1-15.1) 06/30/22 21:20 Plt Count 257 10^3/cmm (130-400) 06/30/22 21:20 MPV 9.3 fL (7.4-10.4) 06/30/22 21:20 Neut % (Auto) 79.1 % 06/30/22 21:20 Lymph % (Auto) 11.8 % 06/30/22 21:20 Wheeler % (Auto) 7.2 % 06/30/22 21:20 Eos % (Auto) 0.9 % 06/30/22 21:20 Baso % (Auto) 0.5 % 06/30/22 21:20 Neut # (Auto) 5.96 10^3/uL (1.8-7.7) 06/30/22 21:20 Lymph # (Auto) 0.9 10^3/uL (0.8-4.8) 06/30/22 21:20 Wheeler # (Auto) 0.5 10^3/uL (0.2-0.9) 06/30/22 21:20 Eos # (Auto) 0.1 10^3/uL (0.0-0.8) 06/30/22 21:20 Baso # (Auto) 0.0 10^3/uL (0.0-0.1) 06/30/22 21:20 Nucleated RBC % (auto) 0 % 06/30/22 21:20 Nucleated RBCs # 0.0 /100WBC 06/30/22 21:20 Sodium 137 mmol/L (136-145) 06/30/22 21:20 Potassium 3.8 mmol/L (3.5-5.1) 06/30/22 21:20 Chloride 103 mmol/L (98-107) 06/30/22 21:20 Carbon Dioxide 19 mmol/L (22-29) L 06/30/22 21:20 Anion Gap 18.8 (5-19) 06/30/22 21:20 BUN 26 mg/dL (8-23) H 06/30/22 21:20 Creatinine 2.8 mg/dL (0.7-1.2) H 06/30/22 21:20 GFR Calculation Not Reportable 06/30/22 21:20 Glucose 155 mg/dL (65-115) H 06/30/22 21:20 Calculated Osmolality 292 mOsm/kg (285-295) 06/30/22 21:20 Calcium 8.1 mg/dL (8.5-10.5) L 06/30/22 21:20 Troponin T Baseline 74 ng/L (0-15) H 06/30/22 21:20 NT-Pro-B Natriuret Pep 3433 pg/mL (0-450) H 06/30/22 21:20 Discharge Plan Discharge Patient Disposition: Admitted As Inpatient Admit Provider: Louis Cruz Clinical Impression: Congestive heart failure, Acute kidney injury superimposed on chronic kidney disease Condition: Stable Coding Level of Care Code ED Public Health Aides Teacher for Mervat Ignacio
[2022-06-30 23:52] VITALS: BP 159/79; PULSE 60; RESP 18; O2SAT 96
[2022-07-01] VITALS (9 sets, daily range): BP systolic 148–209; BP diastolic 68–84; PULSE 65–83; RESP 15–18; TEMP 36.3–36.8; O2SAT 92–96
[2022-07-01 00:03] LABS: Troponin 5 2HR 75.38 ng/L (0-15)
[2022-07-01 00:06] LABS: Troponin 5 2HR Delta 1.38 ABS# (0-10)
--- NOTE | 2022-07-01 01:47 | USCV_ITS ---
Quang Hunter Age: 81 Gender: M : 1940 Exam Date: 07/01/2022 07:43 Ordering Phys: Louis Cruz MD Technologist: DENISA Exam Location: [facility] [place] Indication: CHRONIC HEART FAILURE, CAD BP: 159 / 79 HR: 72 Rhythm: Sinus Technical Quality: Adequate MEASUREMENTS (Male / Female) Normal Values 2D ECHO LVOT Diameter 2.0 cm LV Ejection Fraction MOD 2C 59.4 % LV Ejection Fraction 2C AL 60.2 % LA Diameter 3.4 cm LA Width 3.7 cm LA Height 4.4 cm RA Width 4.3 cm RA Height 4.8 cm Aorta at Sinotubular Diameter 2.1 cm IVC Diameter 1.5 cm M-MODE Aortic Annulus Diameter 2.8 cm LA Ao Ratio MM 1.2 MV E Point Septal Separation 0.4 cm DOPPLER AV Peak Velocity 179.5 cm/s LVOT Peak Velocity 113.0 cm/s AV Area Cont Eq vti 2.0 cm squared AV Area Cont Eq pk 2.0 cm squared MV Peak Velocity 126.0 cm/s MV Area PHT 4.0 cm squared Mitral E to A Ratio 0.8 MV E' Velocity 60.5 cm/s Mitral E to MV E' Ratio 11.3 Mitral E to LV E' Lateral Ratio 10.7 Mitral E to LV E' Septal Ratio 11.9 TR Peak Velocity 256.2 cm/s TR Peak Gradient 26.3 mmHg TR Mean Velocity 188.0 cm/s TR Mean Gradient 15.7 mmHg TR Velocity Time Integral 72.1 cm TV Peak E Velocity 75.0 cm/s Right Atrial Pressure 3.0 mmHg Pulmonary Artery Systolic Pressu 29.3 mmHg PV Peak Velocity 100.0 cm/s RV Acceleration Time 0.1 s RV Ejection Time 0.3 s RV AcT/ET 0.4 FINDINGS Left Ventricle Normal left ventricular size and systolic function, EF 59 %. No regional wall motion abnormalities. Mild left ventricular hypertrophy. Grade I/IV diastolic dysfunction (abnormal relaxation filling pattern), normal to mildly elevated filling pressures. Right Ventricle The right ventricle is normal in size and function. Right Atrium The right atrium is normal in size. Left Atrium Thickened atrial septum, suggesting lipomatous dystrophy.mildly increased left atrial size. Mitral Valve Trace mitral valve regurgitation. Aortic Valve Thickened aortic valve. Aortic valve sclerosis. Tricuspid Valve Mild tricuspid valve regurgitation. Pulmonic Valve No gross abnormalities noted Pericardium Normal pericardium without effusion. Aorta Normal ascending aorta dimension. IVC Normal inferior vena cava. CONCLUSIONS Normal left ventricular size and systolic function, EF 59 %. No regional wall motion abnormalities. Mild left ventricular hypertrophy. Grade I/IV diastolic dysfunction (abnormal relaxation filling pattern), normal to mildly elevated filling pressures. Features of aortic valve sclerosis Mild tricuspid valve regurgitation. Estimated pulmonary artery peak systolic pressure 29 mmHg There is no pericardial effusion. There are no intracardiac masses. No similar previous studies are available for comparison Dr Alexus Hutson MD FACC (Electronically Signed) Final Date: 01 July 2022 10:58 S
--- NOTE | 2022-07-01 01:49 | P.HP_ITS ---
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 Reaching his thighs. Denies any chest pain or pressure. He denies any fever, chills, cough, phlegm production. ER he is noted with lower extremity edema, saturation is good on room air. Hemoglobin noted 9.3, known prior. Creatinine 2.8, BUN 26. Bicarb 19. Baseline troponin 74, 12.25.38. NT proBNP 3433. G with sinus rhythm LVH. Chest x-ray with moderate bilateral pleural effusions. Question minimal protruding right midlung. Mild basilar atelectasis. Review of Systems Const: Denies: fever(s), chills, body aches or malaise Eyes: Denies: change in vision, eye discomfort or eye redness ENMT: Denies: throat pain, oral sores or ear or mastoid pain Card: Reports: edema and dyspnea on exertion; Denies: chest pain or pre-syncope Resp: Reports: dyspnea; Denies: productive cough, change in phlegm color or hemoptysis GI: Denies: abdominal pain, nausea, vomiting, diarrhea, constipation, hematochezia or melena : Denies: flank pain, difficulty urinating, urinary frequency or hematuria Musc: Denies: back pain, joint swelling or joint redness Skin/Breast: Denies: rash or new lesions Neuro: Denies: headache(s), numbness in extremities, weakness in extremities, dizziness, confusion or seizure-like activity Endo: Denies: polyuria or polydipsia Williams/Lymph: Denies: easy bleeding or tender lymph nodes All/Imm: Denies: urticaria or tongue swelling Medications/Allergies Home Medications Medication Instructions Recorded Confirmed Last Taken Type aspirin 81 mg tablet,delayed 81 mg PO DAILY 03/07/20 07/01/22 06/30/22 History release (Aspir-) atorvastatin 80 mg tablet 80 mg PO BEDTIME 03/07/20 07/01/22 06/30/22 History glipizide 10 mg tablet, extended 10 mg PO BID 03/07/20 07/01/22 06/30/22 History release 24 hr lisinopril 20 mg tablet 20 mg PO BID 03/07/20 07/01/22 06/30/22 History metformin 850 mg tablet See Rx Instructions .Route .COMPLEX 03/07/20 07/01/22 06/30/22 History metoprolol succinate 200 mg 200 mg PO BEDTIME 03/07/20 07/01/22 06/30/22 History tablet,extended release 24 hr omega 5-wjw-vlu-fish oil 1,000 mg 3 cap PO BID 03/07/20 07/01/22 06/30/22 History (120 mg-180 mg) capsule (Fish Oil) potassium chloride 10 mEq 30 meq PO BID 03/07/20 07/01/22 06/30/22 History tablet,extended release tamsulosin 0.4 mg capsule 0.4 mg PO BEDTIME 03/07/20 07/01/22 06/30/22 History insulin glargine 100 unit/mL 10 unit SUBCUT DAILY 12/21/20 07/01/22 06/30/22 History subcutaneous solution (Lantus U-100 Insulin) amlodipine 10 mg tablet 10 mg PO BEDTIME 01/10/21 07/01/22 06/30/22 History hydrocodone 5 mg-acetaminophen 325 1 - 2 tab PO .Q4-6H #40 tabs 01/10/21 07/01/22 06/30/22 Rx mg tablet hydralazine 50 mg tablet 50 mg PO TID 07/01/22 07/01/22 06/30/22 History isosorbide mononitrate 30 mg 30 mg PO DAILY 07/01/22 07/01/22 06/30/22 History tablet,extended release 24 hr multivitamin 1 tab PO DAILY 07/01/22 07/01/22 06/30/22 History ticagrelor 90 mg tablet 90 mg PO BID 07/01/22 07/01/22 06/30/22 History Allergies Allergy/AdvReac Type Severity Reaction Status Date / Time [facility] Allergy Unknown Verified 06/15/22 15:10 sitagliptin [From Januvia] Allergy ADR-Blurry Verified 06/15/22 15:10 Vision PFSH Acute PFSH: Medical History CAD (coronary artery disease) CKD (chronic kidney disease) Diabetes mellitus Hypercholesterolemia Hypertension Lumbosacral radiculopathy Surgical History History of back surgery Stented coronary artery Family History Father Cancer Other Diabetes Hypertension Social History Smoking and tobacco status: never smoked Second hand smoke exposure: No Alcohol intake: never Substance/Drug Use: never Lives independently: Yes Household members: spouse Marital status: History of recent travel: No Vitals/I&O/Wt Last Vital Signs Temp 98.6 F 06/30/22 20:19 Pulse 60 06/30/22 23:52 Resp 18 06/30/22 23:52 BP 159/79 06/30/22 23:52 Pulse Ox 96 06/30/22 23:52 O2 Del Method 07/01/22 00:22 Weight last 48 hrs Weight 81.647 kg Physical Exam Narrative: at bedside. Const: COMMON NORMALS: patient oriented x3 and alert GENERAL APPEARANCE: cooperative ORIENTATION/CONSCIOUSNESS: Yes awake HENMT: COMMON NORMALS: oropharynx normal Neck/C-Spine: COMMON NORMALS: no JVD Resp: COMMON NORMALS: normal respiratory effort and clear to auscultation bilaterally AUSCULTATION: clear to auscultation bilaterally Cardio: COMMON NORMALS: no JVD, regular rhythm, S1 normal heart sound present, S2 normal heart sound present and No murmurs present (Cardio) RHYTHM: regular rhythm HEART SOUNDS: S1 normal heart sound present and S2 normal heart sound present GI: COMMON NORMALS: Normal to inspection, nondistended, normoactive bowel sounds present, Soft to palpation and non-tender PALPATION: Yes Soft to palpation Extremity: COMMON NORMALS: no joint enlargement GENERAL: Yes edema (Edema extends up to proximal thighs. Lower legs 3+, thighs 1+) Neuro: COMMON NORMALS: patient oriented x3 and moves all extremities SENSORIUM/ORIENTATION: Yes alert Skin: COMMON NORMALS: no rashes or lesions noted GENERAL SKIN EXAM: no rashes or lesions noted Data : 06/30/22 21:20 06/30/22 21:20 A&P Assessment and plan (1) Congestive heart failure: Acute congestive heart failure, type undetermined at this time. With lower extremity edema, exertional intolerance. New bilateral moderate pleural effusions. Diuresis with Lasix 60 mg IV every 12 hours for now. Please reassess volume status, response and renal function. Hold lisinopril for now. Complete troponin EKG series. Noted moderate troponin abnormality although without rise. He is chest pain-free. Assess TTE Consider follow-up in response of pleural effusions. Amlodipine possibly contributing to lower extremity edema as well. Hold for now. Should be medicated by FELIBERTO inhibitor. (2) Acute kidney injury superimposed on chronic kidney disease: Possible LEANNE on CKD or progression of CKD, creatinine is 2.8. Last creatinine in December 2020 was 1.2. Unfortunately he is also fluid overloaded, possibly with right heart failure, possibly just nephropathy contributing to LEANNE. Hold lisinopril for now. Diuresis as above. Urine electrolytes. Will assess also with kidney ultrasound. (3) Pleural effusion, bilateral: Suspect related to congestive heart failure. As above. Follow-up response/resolution. (4) Anemia: Unknown chronicity of anemia. Normocytic. May be related to CKD. Will start work-up with iron studies, Hemoccult. Antiplatelets with recent stenting. Continue. Reassess hemoglobin. Plan Questionable infiltrate right middle lobe: Clinically does not present with signs or symptoms of pneumonia. Possibly related to some asymmetric edema. Di uresis as above. Does have atelectasis as well, I-S. Please reassess for any change in symptoms that may suggest active infection. CAD: Continue aspirin, Brilinta, metoprolol, atorvastatin, Imdur DM2: Continue Lantus, SSI. CC diet. HTN: Continue metoprolol, hydralazine, Imdur. Hold lisinopril for now. If not resumed, please reassess if needs to be resumed depending on blood pressures. HLD: Continue statin DDD, lumbosacral radiculopathy Attestations Medical Necessity Statement*: Admission of over 2 midnights anticipated for assessment of management of CHF and gentleman with underlying CAD with prior stenting. Coding Level of Care Code Acute Well Logging Mud Analysis Captain for Chg Fwd Diagnoses Congestive heart failure I50.9 Acute kidney injury superimposed on chronic kidney disease N17.9; N18.9 Pleural effusion, bilateral J90 Anemia D64.9
--- NOTE | 2022-07-01 02:01 | USR_ITS ---
PROCEDURE INFORMATION: Exam: US Retroperitoneal Complete, Kidneys Aorta IVC. Exam date and time: 07/01/2022 7:57 AM Age: 81 years old Clinical indication: Abnormal findings; Abnormal lab test; Abnormal function test of other organs/systems; Additional info: Jarrett TECHNIQUE: Imaging protocol: Real-time ultrasound of the retroperitoneum with image documentation. Complete exam. COMPARISON: US renal BI* [id number] 06/01/2022 10:53 AM FINDINGS: Right kidney: The right kidney measures 9.8 x 4.0 x 4.4 cm. Right renal cortical diameter 1.3 cm. Left kidney: The left kidney measures 10.4 x 4.1 x 5.4 cm. Left renal cortical diameter 1.3 cm. Aorta: Abdominal aorta diameter 1.8 cm. The aorta is limited in visualization. Common iliac arteries: Not visualized. Inferior vena cava: Not well visualized. Urinary bladder: Bladder diameter 9.9 x 11.0 x 8.2 cm with a calculated bladder volume 469 mL. Other findings: No hydronephrosis. US/US renal BI* [id number] IMPRESSION: 1. Maintenance of renal size without hydronephrosis. 2. Prominent bladder distension.
[2022-07-01 02:23] LABS: Urine Creatinine 69 mg/dL (39-259); Urine Random Sodium 61 mmol/L
--- NOTE | 2022-07-01 03:23 | ECG_ITS ---
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 Measurements Intervals [place] Rate: 68 P: 56 NV: 203 QRS: 52 QRSD: 82 T: 75 QT: 449 QTc: 480 Interpretive Statements SINUS RHYTHM MODERATE VOLTAGE CRITERIA FOR LVH, CONSIDER NORMAL VARIANT [MEETS CRITERIA IN ONE OF: R(aVL), S(V1), R(V5), R(V5/V6)+S(V1)] POSSIBLE SEPTAL MYOCARDIAL INFARCTION , PROBABLY OLD [30 ms Q WAVE IN V1/V2] Compared to ECG 06/30/2022 23:23:32 Myocardial infarct finding now present Prolonged QT interval no longer present Electronically Signed On 07-01-2022 15:31:21 RADIO OFFICER by Alexus Hutson M.D. [id number]
[2022-07-01 03:56] LABS: Troponin 5 6HR 70.75 ng/L (0-15)
[2022-07-01 03:58] LABS: Troponin 5 6HR Delta -3.25 ng/L (0-12)
[2022-07-01 04:03] LABS: Iron 26 ug/dL (59-158); Percent Saturation 11.2 % (20-50); Total Iron Binding Capacity 231 mcg/dl; Unsaturated Iron Binding 205 ug/dL (112-347)
[2022-07-01 04:04] LABS: Ferritin 43 ng/mL (30-400)
[2022-07-01] MEDS: FUROsemide 10 mg/mL SDV 10mL 60 MG IVP ×2 (05:34→15:08)
[2022-07-01] MEDS: isosorbide mononitrate ER 30 mg Tablet PO (08:11)
[2022-07-01] MEDS: potassium chloride ER 10 mEq Tablet 30 MEQ PO ×2 (08:11→17:58)
[2022-07-01] MEDS: hyDRALAzine 50 mg Tablet PO ×2 (08:12→12:42)
[2022-07-01] MEDS: aspirin 81 mg EC Tablet PO (08:13)
[2022-07-01] MEDS: ticagrelor 90 mg Tablet PO ×2 (08:19→17:58)
[2022-07-01 10:07] LABS: Glucose Point of Care 118 mg/dL (70-110)
--- NOTE | 2022-07-01 10:08 | PC.NURSE ---
Dr. Weber notified that patients insulin held for blood sugar of 108
[2022-07-01 11:42] LABS: Glucose Point of Care 178 mg/dL (70-110)
--- NOTE | 2022-07-01 12:38 | PM.MISC ---
Miscellaneous Note Note: BP high throughout the night and this AM Increase hydralazine to 100 TID. Will give additional 50 mg x1 to equal 100 morning dose. Rest of management as per HnP. Pt seen at bedside. No longer feeling SOB. Cr 2.8 last night. Rechecks labs today. labs consistent with Iron def anemia order IV iron Echo Normal left ventricular size and systolic function, EF 59 %. ?No regional wall motion abnormalities. ?Mild left ventricular hypertrophy. ?Grade I/IV diastolic dysfunction (abnormal relaxation filling ?pattern), normal to mildly elevated filling pressures. ?Features of aortic valve sclerosis ?Mild tricuspid valve regurgitation. ?Estimated pulmonary artery peak systolic pressure 29 mmHg ?There is no pericardial effusion. ?There are no intracardiac masses. ?No similar previous studies are available for comparison
[2022-07-01] MEDS: insulin lispro 100 unit/1 mL SUBCUT ×3 (12:42→20:57)
[2022-07-01] MEDS: iron sucrose 200 MG in sodium chloride 0.9% (100 ml) 100 ML 220 MG IV (13:14)
[2022-07-01 13:53] LABS: Anion Gap 18.9 (5-19); Blood Urea Nitrogen 26 mg/dL (8-23); Calcium 7.9 mg/dL (8.5-10.5); Carbon Dioxide 21 mmol/L (22-29); Chloride 101 mmol/L (98-107); Glucose 274 mg/dL (65-115); Osmolality Calculated 299 mOsm/kg (285-295); Potassium 3.9 mmol/L (3.5-5.1); Sodium 137 mmol/L (136-145)
[2022-07-01] MEDS: hyDRALAzine 50 mg Tablet 100 MG PO ×2 (15:08→20:56)
[2022-07-01] MEDS: heparin 5,000 unit/mL INJ 1 mL 5000 UNIT SUBCUT (15:16)
[2022-07-01] MEDS: amlodipine 10 mg Tablet PO (15:42)
[2022-07-01 17:27] LABS: Glucose Point of Care 202 mg/dL (70-110)
[2022-07-01] MEDS: ondansetron 2 mg/ML SDV 2 mL 4 MG IVP (19:12)
[2022-07-01] MEDS: HYDROcodone-acetaminophen 5-325 mg Tablet 1 TAB PO (19:12)
--- NOTE | 2022-07-01 19:17 | PC.NURSE ---
Pt c/o left hip pain and nausea w/epigastric discomfort. PRN [place]/apap and zofran administered. remains at bedside. Pt requests to have already scheduled MRI completed prior to d/c home.
[2022-07-01 20:06] LABS: Glucose Point of Care 282 mg/dL (70-110)
[2022-07-01] MEDS: atorvastatin 40 mg Tablet 80 MG PO (20:56)
[2022-07-01] MEDS: metoprolol succinate ER (24 HR) 100 mg Tablet 200 MG PO (20:56)
[2022-07-01] MEDS: tamsulosin 0.4 mg Capsule PO (20:57)
[2022-07-02] VITALS (8 sets, daily range): BP systolic 131–201; BP diastolic 58–81; PULSE 57–76; RESP 15–18; TEMP 36.4–36.7; O2SAT 91–95
--- NOTE | 2022-07-02 00:06 | PC.NURSE ---
Pt resting quielty in bed at this time. No s/sx of pain present or voiced, remains asleep at bedside.
[2022-07-02] MEDS: heparin 5,000 unit/mL INJ 1 mL 5000 UNIT SUBCUT (02:06)
[2022-07-02 05:26] LABS: Basophils % 0.5 %; Eosinophils # 0.1 10^3/uL (0.0-0.8); Eosinophils % 1.2 %; Hematocrit 22.9 % (42.0-52.0); Hemoglobin 7.4 g/dL (11.7-16.6); Lymphocytes # 0.8 10^3/uL (0.8-4.8); Lymphocytes % 17.9 %; Mean Corpuscular HGB Conc 32.3 g/dL (30.0-36.0); Mean Corpuscular Hemoglobin 28.7 pg (28.0-34.0); Mean Corpuscular Volume 88.8 fl (80-94); Mean Platelet Volume 9.7 fL (7.4-10.4); Monocytes # 0.4 10^3/uL (0.2-0.9); Monocytes % 9.3 %; Neutrophils # 3.05 10^3/uL (1.8-7.7); Neutrophils % 70.9 %; Nucleated Red Blood Cells % 0 %; Platelet Count 202 10^3/cmm (130-400); Red Blood Count 2.58 10^6/uL (4.1-5.3); Red Cell Distribution Width 14.2 % (12.1-15.1); White Blood Count 4.3 10^3/uL (4.0-10.0)
[2022-07-02] MEDS: FUROsemide 10 mg/mL SDV 10mL 60 MG IVP ×2 (05:37→16:52)
[2022-07-02 05:48] LABS: Alanine Aminotransferase 13 U/L (0-41); Albumin Level 2.8 g/dL (3.5-5.2); Alkaline Phosphatase 80 U/L (40-130); Anion Gap 14.2 (5-19); Aspartate Amino Transferase 16 U/L (0-40); Blood Urea Nitrogen 29 mg/dL (8-23); Calcium 7.5 mg/dL (8.5-10.5); Carbon Dioxide 25 mmol/L (22-29); Chloride 107 mmol/L (98-107); Globulin 2.1 g/dL (1.3-4.6); Glucose 90 mg/dL (65-115); Magnesium 1.7 mg/dL (1.7-2.3); Osmolality Calculated 301 mOsm/kg (285-295); Potassium 3.2 mmol/L (3.5-5.1); Sodium 143 mmol/L (136-145); Total Bilirubin 0.3 mg/dL (0.15-1.2); Total Protein 4.9 g/dL (6.6-8.7)
--- NOTE | 2022-07-02 05:52 | PC.NURSE ---
Received Pt CBC results back 06/30 9.3 now 7.1. Referred to corporation secretary physician for review. NO received and noted. Lab to type and cross pt for blood products. Pt and made aware of lab results and new orders. Pt and verbalized understanding.
[2022-07-02] MEDS: pantoprazole 40 mg SDV IVP ×2 (06:02→16:52)
[2022-07-02 06:36] LABS: Glucose Point of Care 111 mg/dL (70-110)
[2022-07-02] MEDS: sodium chloride 0.9% (100 ml) 100 ML (08:39)
[2022-07-02] MEDS: isosorbide mononitrate ER 30 mg Tablet PO (08:40)
[2022-07-02] MEDS: hyDRALAzine 50 mg Tablet 100 MG PO ×3 (08:40→20:57)
[2022-07-02] MEDS: amlodipine 10 mg Tablet PO (08:40)
[2022-07-02] MEDS: potassium chloride ER 10 mEq Tablet 30 MEQ PO ×2 (08:40→16:52)
[2022-07-02] MEDS: ticagrelor 90 mg Tablet PO ×2 (10:06→16:53)
[2022-07-02 11:52] LABS: Glucose Point of Care 346 mg/dL (70-110)
--- NOTE | 2022-07-02 12:21 | P.PN_ITS ---
Subjective Subjective: Seen this morning. Overnight hemoglobin dropped to 7.4. He was ordered 1 unit of blood. Aspirin was held. Heparin DVT prophylaxis was also stopped. Patient to continue on Brilinta. He recently had a stent placed in April 2022. This was in [place]. We will request his cardiology r ecords. He does state he has blood in his stool from time to time. Colonoscopy was years ago. Has not had a bowel movement in hospital yet. FOBT has been ordered. Denies any shortness of breath or chest pain at this time. Creatinine worsened today. I did discuss with him regarding his situation of being on aspirin and Brilinta and having a low hemoglobin. Risk of ID and stent thrombosis is present. Patient voiced understanding. Vitals/I&O/Wt Last Vital Signs Temp 97.7 F 07/02/22 11:53 Pulse 73 07/02/22 11:53 Resp 16 07/02/22 11:53 BP 176/79 07/02/22 11:53 Pulse Ox 93 07/02/22 11:53 O2 Del Method 07/02/22 11:53 07/01/22 07/02/22 07/02/22 22:59 06:59 14:59 Intake Total 480 / 830 480 / 480 Output Total 600 / 600 600 / 1200 Balance -120 / 230 -600 / -370 480 / 480 Weight last 48 hrs Weight 65.272 kg Weight 81.647 kg Physical Exam Narrative: at bedside. Const: COMMON NORMALS: patient oriented x3 and alert GENERAL APPEARANCE: co operative ORIENTATION/CONSCIOUSNESS: Yes awake HENMT: COMMON NORMALS: oropharynx normal Neck/C-Spine: COMMON NORMALS: no JVD Resp: COMMON NORMALS: normal respiratory effort and clear to auscultation bilaterally AUSCULTATION: clear to auscultation bilaterally Cardio: COMMON NORMALS: no JVD, regular rhythm, S1 normal heart sound present, S2 normal heart sound present and No murmurs present (Cardio) RHYTHM: regular rhythm HEART SOUNDS: S1 normal heart sound present and S2 normal heart sound present GI: COMMON NORMALS: Normal to inspection, nondistended, normoactive bowel sounds present, Soft to palpation and non-tender PALPATION: Yes Soft to palpation Extremity: COMMON NORMALS: no joint enlargement GENERAL: Yes edema (Edema extends up to proximal thighs. Lower legs 3+, thighs 1+) Neuro: COMMON NORMALS: patient oriented x3 and moves all extremities SENSORIUM/ORIENTATION: Yes alert Skin: COMMON NORMALS: no rashes or lesions noted GENERAL SKIN EXAM: no rashes or lesions noted Data : 07/02/22 04:39 07/02/22 04:39 A&P Assessment and plan (1) Congestive heart failure: Acute congestive heart failure, type undetermined at this time. With lower extremity edema, exertional intolerance. New bilateral moderate pleural effusions. Lasix 60 mg IV every 12 hours for now. Complete troponin EKG series. Noted moderate troponin abnormality although without rise. He is chest pain-free. Echo showed normal LVEF 59%, no regional wall motion abnormalities Chest chest xray today Request cardiac records from [place]. RN notified. Medical records closed today. They will obtain records sunday. chest xray of pleural effusions. (2) Acute kidney injury superimposed on chronic kidney disease: Possible LEANNE on CKD or progression of CKD, creatinine is 2.8. Last creatinine in December 2020 was 1.2. Unfortunately he is also fluid overloaded, possibly with right heart failure, possibly just nephropathy contributing to LEANNE. Hold lisinopril for now. Diuresis as above. Urine electrolytes. Renal u/s no hydronephroris Consult nephrology (3) Pleural effusion, bilateral: Suspect related to congestive heart failure. As above. Follow-up response/resolution. (4) Anemia: Unknown chronicity of anemia. Normocytic. May be related to CKD?. Will start work-up with iron studies, Hemoccult. Order 1 unit PRBC overnight Order iron for iron def anemia. Will give 3 doses total Antiplatelets with recent stenting. Continue. Reassess hemoglobin. hold aspirin today.Continue brilinta hold heparin sub c discussed with patient regarding dual antiplatelet and low hb. r/o GI bleed. May consider restarting within 24 hours if clinically no sign of bleeding. So far no hematochezia or hematamasis COntinue brilinta today. Request records from [place]. Plan Questionable infiltrate right middle lobe: Clinically does not present with signs or symptoms of pneumonia. Possibly related to some asymmetric edema. Diuresis as above. Does have atelectasis as well, I-S. Please reassess for any change in symptoms that may suggest active infection. CAD: Continue aspirin, Brilinta, metoprolol, atorvastatin, Imdur DM2: Continue Lantus, SSI. CC diet. HTN: Continue metoprolol, hydralazine, Imdur. Hold lisinopril for now. If not resumed, please reassess if needs to be resumed depending on blood pressures. HLD: Continue statin DDD, lumbosacral radiculopathy Hypertension - hydralazine 100 tid - amlodipine 10 daily - continue metoprolol - Continue imdur - Hold lisinopril 2/2 leanne. Attestations Medical Necessity Statement*: Admission of over 2 midnights anticipated for assessment of management of CHF and gentleman with underlying CAD with prior stenting. Coding Level of Care Code Acute Building Construction Ironworker for Mervat Ignacio Diagnoses Congestive heart failure I50.9 Acute kidney injury superimposed on chronic kidney disease N17.9; N18.9 Pleural effusion, bilateral J90 Anemia D64.9
[2022-07-02] MEDS: insulin lispro 100 unit/1 mL SUBCUT ×3 (12:37→20:58)
--- NOTE | 2022-07-02 12:44 | XRR_ITS ---
PROCEDURE INFORMATION: Exam: XR Chest Exam date and time: 07/02/2022 3:24 PM Age: 81 years old Clinical indication: Other: F/u pleural effusion TECHNIQUE: Imaging protocol: Radiologic exam of the chest. Views: 1 view. COMPARISON: CR (CHEST, ) 06/30/2022 9:04 PM FINDINGS: Lungs: No consolidation. Limited evaluation of the right lung base in the setting of pleural effusion. Pleural spaces: The moderate volume layering right pleural effusion appears unchanged. Minimal left effusion appears improved. No visible pneumothorax. Heart/Mediastinum: Cardiac silhouette upper normal. Bones/joints: No acute bony abnormality. XR/XR chest 1V portable [id number] IMPRESSION: Moderate volume layering right pleural effusion unchanged. Minimal left effusion appears improved.
[2022-07-02 12:45] LABS: Hematocrit 29.6 % (42.0-52.0); Hemoglobin 9.7 g/dL (11.7-16.6)
[2022-07-02] MEDS: iron sucrose 200 MG in sodium chloride 0.9% (100 ml) 100 ML 220 MG IV (14:38)
[2022-07-02 16:35] LABS: Glucose Point of Care 264 mg/dL (70-110)
[2022-07-02 20:19] LABS: Glucose Point of Care 224 mg/dL (70-110)
[2022-07-02 20:28] LABS: Hematocrit 27.7 % (42.0-52.0); Hemoglobin 9.3 g/dL (11.7-16.6)
[2022-07-02] MEDS: metoprolol succinate ER (24 HR) 100 mg Tablet 200 MG PO (20:57)
[2022-07-02] MEDS: tamsulosin 0.4 mg Capsule PO (20:57)
[2022-07-02] MEDS: atorvastatin 40 mg Tablet 80 MG PO (20:58)
[2022-07-03] VITALS (12 sets, daily range): BP systolic 152–199; BP diastolic 69–95; PULSE 56–72; RESP 15–16; TEMP 36.4–36.8; O2SAT 93–97
[2022-07-03 05:04] LABS: Basophils % 0.4 %; Eosinophils # 0.1 10^3/uL (0.0-0.8); Eosinophils % 2.3 %; Hematocrit 27.1 % (42.0-52.0); Hemoglobin 9.1 g/dL (11.7-16.6); Lymphocytes # 0.9 10^3/uL (0.8-4.8); Mean Corpuscular HGB Conc 33.6 g/dL (30.0-36.0); Mean Corpuscular Hemoglobin 29.3 pg (28.0-34.0); Mean Corpuscular Volume 87.1 fl (80-94); Mean Platelet Volume 9.8 fL (7.4-10.4); Monocytes # 0.4 10^3/uL (0.2-0.9); Monocytes % 9.2 %; Neutrophils # 3.29 10^3/uL (1.8-7.7); Neutrophils % 68.7 %; Nucleated Red Blood Cells % 0 %; Platelet Count 223 10^3/cmm (130-400); Red Blood Count 3.11 10^6/uL (4.1-5.3); Red Cell Distribution Width 14.8 % (12.1-15.1); White Blood Count 4.8 10^3/uL (4.0-10.0)
[2022-07-03] MEDS: FUROsemide 10 mg/mL SDV 10mL 60 MG IVP (05:13)
[2022-07-03] MEDS: pantoprazole 40 mg SDV IVP ×2 (05:13→17:28)
[2022-07-03 05:34] LABS: Alanine Aminotransferase 13 U/L (0-41); Albumin Level 3.1 g/dL (3.5-5.2); Alkaline Phosphatase 86 U/L (40-130); Anion Gap 17.1 (5-19); Aspartate Amino Transferase 16 U/L (0-40); Blood Urea Nitrogen 36 mg/dL (8-23); Calcium 7.7 mg/dL (8.5-10.5); Carbon Dioxide 25 mmol/L (22-29); Chloride 104 mmol/L (98-107); Globulin 2.4 g/dL (1.3-4.6); Glucose 167 mg/dL (65-115); Magnesium 1.7 mg/dL (1.7-2.3); Osmolality Calculated 308 mOsm/kg (285-295); Potassium 3.1 mmol/L (3.5-5.1); Sodium 143 mmol/L (136-145); Total Bilirubin 0.4 mg/dL (0.15-1.2); Total Protein 5.5 g/dL (6.6-8.7)
[2022-07-03 06:21] LABS: Glucose Point of Care 201 mg/dL (70-110)
[2022-07-03 06:26] LABS: Urine Appearance Clear (CLEAR); Urine Color Yellow (Yellow)
[2022-07-03 06:27] LABS: Bilirubin Urine Neg (Negative); Blood Urine Neg (Negative); Glucose Urine UA Trace (Normal); Ketones Urine Negative (Negative); Leukocyte Esterase Urine Negative (Negative); Nitrate Urine Negative (Negative); Protein Urine 3+ (Negative); Urobilinogen Urine Norm (Negative); pH Urine 6 (5-7)
[2022-07-03 06:29] LABS: Squamous Epithelial Cell Urine 0-4 /hpf (0-5)
[2022-07-03 06:30] LABS: Add Urine Culture? No
[2022-07-03 06:37] LABS: Potassium, Radom Urine 29 mmol/L; Urine Random Chloride 115 mmol/L; Urine Random Sodium 108 mmol/L
--- NOTE | 2022-07-03 06:42 | PC.NURSE ---
Referred pt to hospitalist manufacturing storeperson for review of downward trending K+ levels, and current medications he is receiving. Awaiting orders.
[2022-07-03] MEDS: potassium chloride ER 20 mEq Tablet PO (08:24)
[2022-07-03] MEDS: hyDRALAzine 50 mg Tablet 100 MG PO ×3 (08:25→21:55)
[2022-07-03] MEDS: isosorbide mononitrate ER 30 mg Tablet PO (08:25)
[2022-07-03] MEDS: amlodipine 10 mg Tablet PO (08:25)
[2022-07-03] MEDS: potassium chloride ER 10 mEq Tablet 30 MEQ PO ×2 (08:26→17:30)
[2022-07-03] MEDS: insulin glargine 100 units/1 mL 10 UNIT SUBCUT (08:31)
[2022-07-03] MEDS: ticagrelor 90 mg Tablet PO ×2 (08:31→18:17)
[2022-07-03] MEDS: insulin lispro 100 unit/1 mL SUBCUT ×4 (08:32→20:55)
[2022-07-03] MEDS: cloNIDine 0.1 mg Tablet PO ×2 (09:46→17:29)
[2022-07-03 11:33] LABS: Glucose Point of Care 238 mg/dL (70-110)
--- NOTE | 2022-07-03 12:23 | PC.CHAP ---
Pastoral Care Encounter/Spiritual Assessment Type of Contact [] Declined multi spindle operator visit [] Patient/Family/Request visit [] Outpatient visit [] Follow-up visit [] Physician referral [] Code/Alert [x] Routine visit [] Staff referral [] Actively dying [] Patient sleeping [x] Family support [] [] Out of room [] Palliative care [] [] Receiving care in room [] Pre-surgical visit [] Trauma [] Long length of stay [] ICU visit [] Other: Relational/Emotional Strength [] Patient feels connected with others/family/visitors/staff [] Distress [] Loneliness/isolation [] Abandonment Spirituality of Patient [] Person of Maru [] Attends Anabaptism of their Maru [] Believes in Prayer [] Reads Bible or Roman Catholic materials [] There are Spiritual issues to be addressed Firmware Software Verification Engineer Interventions [x] Prayer [] Active listening [] Non-anxious presence [] Spiritual/emotional support [] Crisis/trauma care [] Spiritual counseling [] Bereavement support [] Provided bereavement packet [] Provided Bible/devotional materials [] Provided toy/stuffed animal, coloring book to patient or family member [] Provided Communion [] Anointing/[place] [] Salvation [x] Completed spiritual assessment [] Other: Impact on Illness or Injury [] Angry [] Fearful [] Anxious [] Often cries [] Exhaustion [] Unable to work [] Unable to attend confucianist [] Unable to walk/stand [] Unable to read [] Unable to drive [] Unable to eat/drink [] Unable to sleep [] Unable to be with family [] Patient intubated [] Other: Summary Time spent with patient
--- NOTE | 2022-07-03 12:45 | P.CONIM_ITS ---
Providers/Reason For Consult Consulting Physician/Specialty*: Reason for Consult*: Acute on CKD Attending Physician: Angel Ortiz MD Primary Care Provider: Harjit Marc MD History of Present Illness History of Present Illness Patient is a 81-year-old male with past medical history of coronary artery disease status post stents, history of CHF, chronic kidney disease with a baseline creatinine of 1-2 range, diabetes presented to the hospital on 07/01/2022 for shortness of breath and worsening lower extremity edema and orthopnea. Lab data sent for creatinine of 2.8 proBNP ferritin more than 3000. Chest x-ray bilateral effusions and pulmonary vascular congestion. Patient was started on diuretics with IV Lasix 60 mg every 12 hours. Patient's creatinine was 2.8 on presentation, last creatinine was 1.2 in December 2020. Patient was supposed to see a leather goods sales representative as outpatient and has an appointment on July 24. Renal ultrasound with no hydronephrosis. Currently FELIBERTO inhibitor is on hold. Creatinine is up to 3.3 currently. Review of Systems Const: Denies: fever(s), chills, body aches or malaise Eyes: Denies: change in vision, eye discomfort or eye redness ENMT: Denies: throat pain, oral sores or ear or mastoid pain Card: Reports: edema and dyspnea on exertion; Denies: chest pain or pre-syncope Resp: Reports: dyspnea; Denies: productive cough, change in phlegm color or hemoptysis GI: Denies: abdominal pain, nausea, vomiting, diarrhea, constipation, hematochezia or melena : Denies: flank pain, difficulty urinating, urinary frequency or hematuria Musc: Denies: back pain, joint swelling or joint redness Skin/Breast: Denies: rash or new lesions Neuro: Denies: headache(s), numbness in extremities, weakness in extremities, dizziness, confusion or seizure-like activity Endo: Denies: polyuria or polydipsia Williams/Lymph: Denies: easy bleeding or tender lymph nodes All/Imm: Denies: urticaria or tongue swelling Medications/Allergies Home Medications Medication Instructions Recorded Confirmed Last Taken Type aspirin 81 mg tablet,delayed 81 mg PO DAILY 03/07/20 07/01/22 06/30/22 History release (Aspir-) atorvastatin 80 mg tablet 80 mg PO BEDTIME 03/07/20 07/01/22 06/30/22 History glipizide 10 mg tablet, extended 10 mg PO BID 03/07/20 07/01/22 06/30/22 History release 24 hr lisinopril 20 mg tablet 20 mg PO BID 03/07/20 07/01/22 06/30/22 History metformin 850 mg tablet See Rx Instructions .Route .COMPLEX 03/07/20 07/01/22 06/30/22 History metoprolol succinate 200 mg 200 mg PO BEDTIME 03/07/20 07/01/22 06/30/22 History tablet,extended release 24 hr omega 4-gtl-jht-fish oil 1,000 mg 3 cap PO BID 03/07/20 07/01/22 06/30/22 History (120 mg-180 mg) capsule (Fish Oil) potassium chloride 10 mEq 30 meq PO BID 03/07/20 07/01/22 06/30/22 History tablet,extended release tamsulosin 0.4 mg capsule 0.4 mg PO BEDTIME 03/07/20 07/01/22 06/30/22 History insulin glargine 100 unit/mL 10 unit SUBCUT DAILY 12/21/20 07/01/22 06/30/22 History subcutaneous solution (Lantus U-100 Insulin) amlodipine 10 mg tablet 10 mg PO BEDTIME 01/10/21 07/01/22 06/30/22 History hydrocodone 5 mg-acetaminophen 325 1 - 2 tab PO .Q4-6H #40 tabs 01/10/21 07/01/22 06/30/22 Rx mg tablet hydralazine 50 mg tablet 50 mg PO TID 07/01/22 07/01/22 06/30/22 History isosorbide mononitrate 30 mg 30 mg PO DAILY 07/01/22 07/01/22 06/30/22 History tablet,extended release 24 hr multivitamin 1 tab PO DAILY 07/01/22 07/01/22 06/30/22 History ticagrelor 90 mg tablet 90 mg PO BID 07/01/22 07/01/22 06/30/22 History Allergies Allergy/AdvReac Type Severity Reaction Status Date / Time dulaglutide [From Trulicity] Allergy Unknown Verified 06/15/22 15:10 sitagliptin [From Januvia] Allergy ADR-Blurry Verified 06/15/22 15:10 Vision Current Medications Generic Name Dose Route Start Last Admin Trade Name Rocio PRN Reason Stop Dose Admin Hydrocodone Bitart/Acetaminophen 1 tab 07/01/22 02:45 07/01/22 19:12 Hydrocodone-Acetaminophen 5-325 Mg Tablet PO 1 tab Q4H PRN Administration PAIN Amlodipine Besylate 10 mg 07/01/22 15:30 07/03/22 08:25 Amlodipine 10 Mg Tablet PO 10 mg DAILY STACIE Administration Aspirin 81 mg 07/01/22 09:00 07/03/22 09:47 Aspirin 81 Mg Ec Tablet PO Not Given DAILY STACIE Atorvastatin Calcium 80 mg 07/01/22 21:00 07/02/22 20:58 Atorvastatin 40 Mg Tablet PO 80 mg BEDTIME STACIE Administration Clonidine HCl 0.1 mg 07/03/22 09:00 07/03/22 09:46 Clonidine 0.1 Mg Tablet PO 0.1 mg BID STACIE Administration Hydralazine HCl 100 mg 07/01/22 15:00 07/03/22 08:25 Hydralazine 50 Mg Tablet PO 100 mg TID STACIE Administration Iron Sucrose 200 mg/ Sodium 110 mls @ 220 mls/hr 07/01/22 13:30 07/02/22 15:0 8 Chloride IV 07/03/22 13:59 Infused Q24H STACIE Infusion Insulin Glargine 10 unit 07/01/22 09:00 07/03/22 08:31 Insulin Glargine 100 Units/1 Ml SUBCUT 10 unit DAILY STACIE Administration Insulin Human Lispro 0 unit 07/01/22 08:00 07/03/22 12:04 Insulin Lispro 100 Unit/1 Ml SUBCUT 6 unit WM&BEDTIME STACIE Administration Protocol Isosorbide Mononitrate 30 mg 07/01/22 09:00 07/03/22 08:25 Isosorbide Mononitrate Er 30 Mg Tablet PO 30 mg DAILY STACIE Administration Metoprolol Succinate 200 mg 07/01/22 21:00 07/02/22 20:57 Metoprolol Succinate Er (24 Hr) 100 Mg Tablet PO 200 mg BEDTIME STACIE Administration Ondansetron HCl 4 mg 07/01/22 01:52 07/01/22 19:12 Ondansetron 2 Mg/Ml Sdv 2 Ml IVP 4 mg Q8H PRN Administration vomiting, or N/V if npo Pantoprazole Sodium 40 mg 07/02/22 05:45 07/03/22 05:13 Pantoprazole 40 Mg Sdv IVP 40 mg Q12H STACIE Administration Potassium Chloride 30 meq 07/01/22 09:00 07/03/22 08:26 Potassium Chloride Er 10 Meq Tablet PO 30 meq BID STACIE Administration Tamsulosin HCl 0.4 mg 07/01/22 21:00 07/02/22 20:57 Tamsulosin 0.4 Mg Capsule PO 0.4 mg BEDTIME STACIE Administration Ticagrelor 90 mg 07/01/22 09:00 07/03/22 08:31 Ticagrelor 90 Mg Tablet PO 90 mg BID STACIE Administration PFSH Acute PFSH: Medical History CAD (coronary artery disease) CKD (chronic kidney disease) Diabetes mellitus Hypercholesterolemia Hypertension Lumbosacral radiculopathy Surgical History History of back surgery Stented coronary artery Family History Father Cancer Other Diabetes Hypertension Social History Smoking and tobacco status: never smoked Second hand smoke exposure: No Alcohol intake: never Substance/Drug Use: never Lives independently: Yes Household members: spouse Marital status: History of recent travel: No Vitals/I&O/Wt Last Vital Signs Temp 97.6 F 07/03/22 11:38 Pulse 65 07/03/22 11:38 Resp 16 07/03/22 11:38 BP 160/95 07/03/22 11:38 Pulse Ox 94 07/03/22 11:38 O2 Del Method 07/03/22 11:38 07/02/22 07/03/22 07/03/22 22:59 06:59 14:59 Intake Total 830 / 1900 360 / 360 Output Total 600 / 600 Balance 830 / 1900 -600 / 1300 360 / 360 Weight last 48 hrs Weight 66.179 kg Weight 65.272 kg Physical Exam Const: COMMON NORMALS: alert GENERAL APPEARANCE: cooperative ORIENTATION/CONSCIOUSNESS: Yes awake Resp: COMMON NORMALS: normal respiratory effort Cardio: COMMON NORMALS: regular rhythm RHYTHM: regular rhythm GI: COMMON NORMALS: Normal to inspection, nondistended, normoactive bowel sounds present Extremity: COMMON NORMALS: no joint enlargement GENERAL: Yes edema (Edema extends up to proximal thighs. Lower legs 3+, thighs 1+) Neuro: COMMON NORMALS: moves all extremities SENSORIUM/ORIENTATION: Yes alert Skin: COMMON NORMALS: no rashes or lesions noted GENERAL SKIN EXAM: no deng hes or lesions noted Data : 07/03/22 04:26 07/03/22 04:26 A&P Assessment and plan (1) Acute kidney injury superimposed on chronic kidney disease: 1. ACute on chronic kidney disease stage III: Baseline creatinine probably in the 1-2 range, no recent creatinine available. Last creatinine was 1.2 in December 2020. Patient now presented with a creatinine of 2.8 currently at 3.3. Likely renal. Ultrasound with no hydronephrosis. Continue to monitor renal function. No indication for dialysis. -On Lasix 40 mg IV twice daily, will add IV albumin to augment diuresis -2 g sodium restriction and 1500 mL fluid restriction. -We will need to arrange nephrology follow-up at discharge 2. Hypertension: Blood pressure slightly elevated, above goal. Will adjust meds, FELIBERTO inhibitor's are on hold . 3. Hypokalemia: Repleted 4. Anemia : From CKD and iron deficiency, has low TSAT of 12%, would benefit from IV iron if acute infection and rule out, Hemoccult pending. Status post 1 unit of blood transfusion. 5. Coronary artery disease with recent stents: On dual antiplatelet therapy and statin Patient evaluated using audiovisual content. 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
[2022-07-03] MEDS: ipratropium-albuterol 3 mL Neb INHALATION (12:51)
[2022-07-03 12:55] LABS: Hematocrit 33.8 % (42.0-52.0); Hemoglobin 10.9 g/dL (11.7-16.6)
--- NOTE | 2022-07-03 13:38 | XR_ITS ---
WS: [id number] Exam: XR chest 1V portable [id number] Date/Time of Exam: 07/03/2022 1:38 PM Reason For Exam: sob Comparison 07/02/2022. The lungs are fully expanded. Improved right-sided pleural effusion since the last exam. Cardiomedias tinal silhouette is unremarkable for technique. Bony structures are intact. Monitoring leads superimp ose the chest. Areas of mild plaque atelectasis throughout the left lung and the right basal region. XR/XR chest 1V portable [id number] IMPRESSION: 1. Improved right sided pleural effusion. 2. No consolidating infiltrate or pneumothorax.
--- NOTE | 2022-07-03 13:41 | PM.PN ---
Subjective Subjective: Patient was seen this morning, patient's is at bedside, he continues to complain of weakness, fatigue, no shortness of breath, no lower edema, no chest pain, he tells me that he does monitor go home, but he feels too fatigued and tired, he tells me that his right hip has been bothering him, he has an outpatient MRI, he has severe disc disease in his back, he has had back surgery, now he has right-sided sciatic related pain that bothers him, he tries to use hydrocodone sparingly Vitals/I&O/Wt Last Vital Signs Temp 97.6 F 07/03/22 11:38 Pulse 72 07/03/22 12:57 Resp 16 07/03/22 12:54 BP 160/95 07/03/22 11:38 Pulse Ox 97 07/03/22 12:54 O2 Del Method 07/03/22 12:54 07/02/22 07/03/22 07/03/22 22:59 06:59 14:59 Intake Total 830 / 1900 720 / 720 Output Total 600 / 600 Balance 830 / 1900 -600 / 1300 720 / 720 Weight last 48 hrs Weight 66.179 kg Weight 65.272 kg Physical Exam Const: COMMON NORMALS: no acute distress and patient oriented x3 Resp: COMMON NORMALS: normal respiratory effort, No retractions, No use of accessory muscles and clear to auscultation bilaterally AUSCULTATION: clear to auscultation bilaterally Cardio: COMMON NORMALS: regular rate, regular rhythm, S1 normal heart sound present and S2 normal heart sound present RATE: regular rate RHYTHM: regular rhythm HEART SOUNDS: S1 normal heart sound present and S2 normal heart sound present GI: COMMON NORMALS: Normal to inspection, nondistended, normoactive bowel sounds present and non-tender Extremity: COMMON NORMALS: no clubbing, cyanosis or edema and no pedal edema Neuro: COMMON NORMALS: patient oriented x3 Psych: COMMON NORMALS: mental status grossly normal Data : 07/03/22 12:33 07/03/22 04:26 A&P Assessment and plan (1) Congestive heart failure: Acute congestive heart failure, type undetermined at this time. With lower extremity edema, exertional intolerance. New bilateral moderate pleural effusions. Decrease Lasix to 40 IV every 24 hours, hopefully will transition to p.o. in the next 24 hours Complete troponin EKG series. Noted moderate troponin abnormality although without rise. He is chest pain-free. Echo showed normal LVEF 59%, no regional wall motion abnormalities Request cardiac records from [place]. RN notified. Medical records closed today. They will obtain records sunday. chest xray of pleural effusions. (2) Acute kidney injury superimposed on chronic kidney disease: Possible LEANNE on CKD or progression of CKD, creatinine is 3.2. Last creatinine in December 2020 was 1.2. Unfortunately he is also fluid overloaded, possibly with right heart failure, possibly just nephropathy contributing to LEANNE. Hold lisinopril for now. Diuresis as above. Urine electrolytes. Renal u/s no hydronephroris Nephrology on consult (3) Pleural effusion, bilateral: Suspect related to congestive heart failure. As above. Follow-up response/resolution. (4) Anemia: Unknown chronicity of anemia. Normocytic. May be related to CKD?. Will start work-up with iron studies, Hemoccult. Order 1 unit PRBC overnight Order iron for iron def anemia. Will give 3 doses total Antiplatelets with recent stenting. Continue. Reassess hemoglobin. Resume aspirin, continue brilinta hold heparin sub c discussed with patient regarding dual antiplatelet and low hb. r/o GI bleed. May consider restarting within 24 hours if clinically no sign of bleeding. So far no hematochezia or hematamasis Plan Questionable infiltrate right middle lobe: Clinically does not present with signs or symptoms of pneumonia. Possibly related to some asymmetric edema. Diuresis as above. Does have atelectasis as well, I-S. Please reassess for any change in symptoms that may suggest active infection. CAD: Continue aspirin, Brilinta, metoprolol, atorvastatin, Imdur DM2: Continue Lantus, SSI. CC diet. HTN: Continue metoprolol, hydralazine, Imdur. Hold lisinopril for now. If not resumed, please reassess if needs to be resumed depending on blood pressures. HLD: Continue statin DDD, lumbosacral radiculopathy Hypertension - hydralazine 100 tid - amlodipine 10 daily - continue metoprolol - Continue imdur Deconditioning, PT OT Speech therapy eval Attestations Medical Necessity Statement*: Patient requires a position for fluid overload, anemia, CAD Coding Level of Care Code Acute Preload Supervisor for Chg Fwd Diagnoses Congestive heart failure I50.9 Acute kidney injury superimposed on chronic kidney disease N17.9; N18.9 Pleural effusion, bilateral J90 Anemia D64.9
[2022-07-03] MEDS: HYDROcodone-acetaminophen 5-325 mg Tablet 1 TAB PO (13:46)
--- NOTE | 2022-07-03 13:51 | ECG_ITS ---
[facility] Test Date: 2022-07-03 Pat Name: Quang Hunter Department: Room: 252 Gender: Male Manager Small Business: : 1940 Requested By: Angel Ortiz Order Number: [id number] Ivna MD: Alexus Hutson M.D. Measurements Intervals [place] Rate: 65 P: 18 GA: 187 QRS: 6 QRSD: 98 T: 20 QT: 459 QTc: 478 Interpretive Statements SINUS RHYTHM VOLTAGE CRITERIA FOR LVH [MEETS CRITERIA IN ONE OF: R(aVL), S(V1), R(V5), R(V5/V6)+S(V1)] NONSPECIFIC T-WAVE ABNORMALITY PROLONGED QT INTERVAL Compared to ECG 07/01/2022 03:34:25 T-wave abnormality now present Prolonged QT interval now present Myocardial infarct finding no longer present Electronically Signed On 07-04-2022 7:08:44 MAKE READY WORKER by Alexus Hutson M.D. [id number]
[2022-07-03 14:50] LABS: ABG PCO2 36.7 mmHg (35-45); ABG PH Result 7.49 (7.35-7.45); Arterial Blood Gas Hematocrit 28.5 % (42-52); Base Excess ABG 4.1 mmol/L (-2.0-2.0); Blood Gas Allen Test Pos; Blood Gas Operator Identificat glc; Blood Gas Sample Site Radial, left; Blood Gas Sample Type Arterial; HCO3 ABG 27.7 mmol/L (22-26); Oxygen Device ROOM AIR; PO2 ABG 71.4 mmHg (80.0-100.0)
--- NOTE | 2022-07-03 15:13 | ECG_ITS ---
[facility] Test Date: 2022-07-03 Pat Name: Quang Hunter Department: Room: 252 Gender: Male Chief Enterprise Architect: : 1940 Requested By: Angel Ortiz Order Number: [id number] Reading MD: Isra Simons Measurements Intervals [place] Rate: 63 P: 53 VT: 192 QRS: 61 QRSD: 94 T: 84 QT: 468 QTc: 480 Interpretive Statements SINUS RHYTHM VOLTAGE CRITERIA FOR LVH [MEETS CRITERIA IN ONE OF: R(aVL), S(V1), R(V5), R(V5/V6)+S(V1)] PROLONGED QT INTERVAL Compared to ECG 07/03/2022 13:51:37 T-wave abnormality no longer present Electronically Signed On 07-04-2022 18:12:04 COMPOUNDER STERILE PRODUCTS by Isra Simons [email or web address]
[2022-07-03 15:15] LABS: Troponin(5th) Baseline 69 ng/L (0-15)
[2022-07-03 15:25] LABS: NT Pro B Type Natriuretic Pept 2492 pg/mL (0-450)
[2022-07-03] MEDS: iron sucrose 200 MG in sodium chloride 0.9% (100 ml) 100 ML 220 MG IV (15:45)
[2022-07-03 16:46] LABS: Glucose Point of Care 215 mg/dL (70-110)
[2022-07-03] MEDS: FUROsemide 10 mg/mL SDV 4mL 40 MG IVP (17:27)
[2022-07-03] MEDS: CLONazepam 0.5 mg Tablet 0.25 MG PO (17:30)
[2022-07-03 17:36] LABS: Troponin 5 2HR 67.12 ng/L (0-15)
[2022-07-03 17:37] LABS: Troponin 5 2HR Delta -1.88 ABS# (0-10)
[2022-07-03 20:20] LABS: Glucose Point of Care 318 mg/dL (70-110)
[2022-07-03 20:50] LABS: Hematocrit 27.9 % (42.0-52.0); Hemoglobin 9.2 g/dL (11.7-16.6)
[2022-07-03] MEDS: atorvastatin 40 mg Tablet 80 MG PO (20:55)
[2022-07-03] MEDS: tamsulosin 0.4 mg Capsule PO (20:55)
[2022-07-03] MEDS: metoprolol succinate ER (24 HR) 100 mg Tablet 200 MG PO (21:56)
[2022-07-04] VITALS (11 sets, daily range): BP systolic 131–197; BP diastolic 65–80; PULSE 57–66; RESP 14–18; TEMP 36.4–36.8; O2SAT 94–98
[2022-07-04 05:35] LABS: Basophils % 0.4 %; Eosinophils # 0.1 10^3/uL (0.0-0.8); Eosinophils % 2.4 %; Hematocrit 27.6 % (42.0-52.0); Hemoglobin 9.1 g/dL (11.7-16.6); Lymphocytes # 0.8 10^3/uL (0.8-4.8); Mean Corpuscular Hemoglobin 29.2 pg (28.0-34.0); Mean Corpuscular Volume 88.5 fl (80-94); Mean Platelet Volume 9.9 fL (7.4-10.4); Monocytes # 0.4 10^3/uL (0.2-0.9); Monocytes % 7.8 %; Neutrophils # 4.01 10^3/uL (1.8-7.7); Neutrophils % 74.8 %; Nucleated Red Blood Cells % 0 %; Platelet Count 223 10^3/cmm (130-400); Red Blood Count 3.12 10^6/uL (4.1-5.3); Red Cell Distribution Width 14.6 % (12.1-15.1); White Blood Count 5.4 10^3/uL (4.0-10.0)
[2022-07-04] MEDS: FUROsemide 10 mg/mL SDV 4mL 40 MG IVP (05:53)
[2022-07-04] MEDS: pantoprazole 40 mg SDV IVP ×2 (05:54→18:07)
[2022-07-04 06:01] LABS: Alanine Aminotransferase 12 U/L (0-41); Albumin Level 3.1 g/dL (3.5-5.2); Alkaline Phosphatase 82 U/L (40-130); Anion Gap 17.2 (5-19); Aspartate Amino Transferase 16 U/L (0-40); Blood Urea Nitrogen 41 mg/dL (8-23); Calcium 7.9 mg/dL (8.5-10.5); Carbon Dioxide 25 mmol/L (22-29); Chloride 102 mmol/L (98-107); Globulin 2.2 g/dL (1.3-4.6); Glucose 119 mg/dL (65-115); Magnesium 1.8 mg/dL (1.7-2.3); Osmolality Calculated 303 mOsm/kg (285-295); Potassium 3.2 mmol/L (3.5-5.1); Sodium 141 mmol/L (136-145); Total Bilirubin 0.4 mg/dL (0.15-1.2); Total Protein 5.3 g/dL (6.6-8.7)
[2022-07-04 06:59] LABS: Glucose Point of Care 151 mg/dL (70-110)
[2022-07-04] MEDS: insulin lispro 100 unit/1 mL SUBCUT ×4 (08:17→21:15)
[2022-07-04] MEDS: cloNIDine 0.1 mg Tablet PO ×2 (08:18→21:16)
[2022-07-04] MEDS: amlodipine 10 mg Tablet PO (08:18)
[2022-07-04] MEDS: aspirin 81 mg EC Tablet PO (08:18)
[2022-07-04] MEDS: insulin glargine 100 units/1 mL 10 UNIT SUBCUT (08:19)
[2022-07-04] MEDS: isosorbide mononitrate ER 30 mg Tablet PO (08:19)
[2022-07-04] MEDS: hyDRALAzine 50 mg Tablet 100 MG PO ×3 (08:19→21:20)
[2022-07-04] MEDS: potassium chloride ER 10 mEq Tablet 30 MEQ PO ×2 (08:19→18:05)
[2022-07-04] MEDS: ticagrelor 90 mg Tablet PO ×2 (08:20→18:15)
[2022-07-04 11:32] LABS: Glucose Point of Care 322 mg/dL (70-110)
--- NOTE | 2022-07-04 11:39 | P.PN_ITS ---
Subjective Subjective: Patient was seen this morning, patient's is at bedside, he does continue to complain of weakness, no nausea, no vomiting, no chest pain, no bloody or black stools, he remains hypertensive, no headache, no blurry vision Vitals/I&O/Wt Last Vital Signs Temp 98.2 F 07/04/22 04:00 Pulse 63 07/04/22 08:41 Resp 18 07/04/22 08:41 BP 197/80 07/04/22 08:18 Pulse Ox 96 07/04/22 08:41 O2 Del Method 07/04/22 08:41 07/03/22 07/04/22 07/04/22 22:59 06:59 14:59 Intake Total 710 / 1430 0 / 1430 300 / 300 Output Total 400 / 400 700 / 1100 300 / 300 Balance 310 / 1030 -700 / 330 0 / 0 Weight last 48 hrs Weight 61.405 kg Weight 66.179 kg Physical Exam Const: COMMON NORMALS: no acute distress Resp: COMMON NORMALS: normal respiratory effort, No retractions, No use of accessory muscles and clear to auscultation bilaterally AUSCULTATION: clear to auscultation bilaterally Cardio: COMMON NORMALS: regular rate, regular rhythm, S1 normal heart sound present and S2 normal heart sound present RATE: regular rate RHYTHM: regular rhythm HEART SOUNDS: S1 normal heart sound present and S2 normal heart sound present GI: COMMON NORMALS: Normal to inspection, nondistended, normoactive bowel sounds present and non-tender Extremity: COMMON NORMALS: no pedal edema Data 07/04/22 04:07 07/04/22 04:07 A&P Assessment and plan (1) Congestive heart failure: Acute congestive heart failure, type undetermined at this time. With lower extremity edema, exertional intolerance. New bilateral moderate pleural effusions. Will transition to Lasix 40 p.o. twice daily starting at 6 PM, will give his kidney outbreak this morning, his creatinine is 3.5 Complete troponin EKG series. Noted moderate troponin abnormality although without rise. He is chest pain-free. Echo showed normal LVEF 59%, no regional wall motion abnormalities Request cardiac records from [place]. RN notified. Medical records closed today. They will obtain records sunday. chest xray of pleural effusions. (2) Acute kidney injury superimposed on chronic kidney disease: Possible LEANNE on CKD or progression of CKD, creatinine is 3.5. Last creatinine in December 2020 was 1.2. Unfortunately he is also fluid overloaded, possibly with right heart failure, possibly just nephropathy contributing to LEANNE. Hold lisinopril for now. Diuresis as above. Urine electrolytes. Renal u/s no hydronephroris Nephrology on consult (3) Pleural effusion, bilateral: Suspect related to congestive heart failure. As above. Follow-up response/resolution. (4) Anemia: Unknown chronicity of anemia. Normocytic. May be related to CKD?. Will start work-up with iron studies, Hemoccult. Order 1 unit PRBC overnight Order iron for iron def anemia. Will give 3 doses total Antiplatelets with recent stenting. Continue. Reassess hemoglobin. Resume aspirin, continue brilinta hold heparin sub c discussed with patient regarding dual antiplatelet and low hb. r/o GI bleed. May consider restarting within 24 hours if clinically no sign of bleeding. So fa r no hematochezia or hematamasis Plan Questionable infiltrate right middle lobe: Clinically does not present with signs or symptoms of pneumonia. Possibly related to some asymmetric edema. Diuresis as above. Does have atelectasis as well, I-S. Please reassess for any change in symptoms that may suggest active infection. CAD: Continue aspirin, Brilinta, metoprolol, atorvastatin, Imdur DM2: Continue Lantus, SSI. CC diet. HTN: Continue metoprolol, hydralazine, Imdur. Hold lisinopril for now. If not resumed, please reassess if needs to be resumed depending on blood pressures. 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
--- NOTE | 2022-07-04 12:10 | PM.PN ---
Subjective Subjective: off O2 no SOB Vitals/I&O/Wt Last Vital Signs Temp 98.2 F 07/04/22 04:00 Pulse 63 07/04/22 08:41 Resp 18 07/04/22 08:41 BP 197/80 07/04/22 08:18 Pulse Ox 96 07/04/22 08:41 O2 Del Method 07/04/22 08:41 07/03/22 07/04/22 07/04/22 22:59 06:59 14:59 Intake Total 710 / 1430 0 / 1430 300 / 300 Output Total 400 / 400 700 / 1100 300 / 300 Balance 310 / 1030 -700 / 330 0 / 0 Weight last 48 hrs Weight 61.405 kg Weight 66.179 kg Physical Exam Const: COMMON NORMALS: no acute distress Resp: COMMON NORMALS: normal respiratory effort, No retractions and No use of accessory muscles Cardio: COMMON NORMALS: regular rate and regular rhythm RATE: regular rate RHYTHM: regular rhythm Extremity: COMMON NORMALS: no pedal edema Data : 07/04/22 04:07 07/04/22 04:07 A&P Assessment and plan (1) Acute kidney injury superimposed on chronic kidney disease: [place] [address] Consult Note Signed Patient: Quang Hunter MR#: [id number] : 1940 Age/Sex: 82 / M ADM Date: 07/01/22 Loc: [facility]? Room/Bed: [facility] Encounter Date: 07/03/[address]: Angel Ortiz MD Report Number: [id number] Providers/Reason For Consult Consulting Physician/Specialty*:?? Reason for Consult*:?? Acute on CKD Attending Physician:?? Angel Ortiz MD ? Primary Care Provider:?? Harjit Marc MD ? History of Present Illness History of Present Illness Patient is a 81-year-old male with past medical history of coronary artery disease status post stents, history of CHF, chronic kidney disease with a baseline creatinine of 1-2 range, diabetes presented to the hospital on 07/01/2022 for shortness of breath and worsening lower extremity edema and orthopnea.? Lab data sent for creatinine of 2.8 proBNP ferritin more than 3000.? Chest x-ray bilateral effusions and pulmonary vascular congestion.? Patient was started on diuretics with IV Lasix 60 mg every 12 hours.? Patient's creatinine was 2.8 on presentation, last creatinine was 1.2 in December 2020.? Patient was supposed to see a ecotherapist as outpatient and has an appointment on July 24.? Renal ultrasound with no hydronephrosis.? Currently FELIBERTO inhibitor is on hold.? Creatinine is up to? 3.3 currently. ? Review of Systems Const:?? Denies: fever(s), chills, body aches or malaise Eyes:?? Denies: change in vision, eye discomfort or eye redness ENMT:?? Denies: throat pain, oral sores or ear or mastoid pain Card:?? Reports: edema and dyspnea on exertion; Denies: chest pain or pre-syncope Resp:?? Reports: dyspnea; Denies: productive cough, change in phlegm color or hemoptysis GI:?? Denies: abdominal pain, nausea, vomiting, diarrhea, constipation, hematochezia or melena :?? Denies: flank pain, difficulty urinating, urinary frequency or hematuria Musc:?? Denies: back pain, joint swelling or joint redness Skin/Breast:?? Denies: rash or new lesions Neuro:?? Denies: headache(s), numbness in extremities, weakness in extremities, dizziness, confusion or seizure-like activity Endo:?? Denies: polyuria or polydipsia Williams/Lymph:?? Denies: easy bleeding or tender lymph nodes All/Imm:?? Denies: urticaria or tongue swelling Medications/Allergies Home Medications ?Medication ?Instructions ?Recorded ?Confirmed ?Last Taken ?Type aspirin 81 mg tablet,delayed 81 mg PO DAILY 03/07/20 07/01/22 06/30/22 History release (Aspir-) ? atorvastatin 80 mg tablet 80 mg PO BEDTIME 03/07/20 07/01/22 06/30/22 History glipizide 10 mg tablet, extended 10 mg PO BID 03/07/20 07/01/22 06/30/22 History release 24 hr ? lisinopril 20 mg tablet 20 mg PO BID 03/07/20 07/01/2222 History metformin 850 mg tablet See Rx Instructions .Route .COMPLEX 03/07/20 07/01/22 06/30/22 History metoprolol succinate 200 mg 200 mg PO BEDTIME 03/07/20 07/01/22 06/30/22 History tablet,extended release 24 hr ? omega 6-pjw-hql-fish oil 1,000 mg 3 cap PO BID 03/07/20 07/01/22 06/30/22 History (120 mg-180 mg) capsule (Fish Oil) ? potassium chloride 10 mEq 30 meq PO BID 03/07/20 07/01/22 06/30/22 History tablet,extended release ? tamsulosin 0.4 mg capsule 0.4 mg PO BEDTIME 03/07/20 07/01/22 06/30/22 History insulin glargine 100 unit/mL 10 unit SUBCUT DAILY 12/21/20 07/01/22 06/30/22 History subcutaneous solution (Lantus ? U-100 Insulin) ? amlodipine 10 mg tablet 10 mg PO BEDTIME 01/10/21 07/01/22 06/30/22 History hydrocodone 5 mg-acetaminophen 325 1 - 2 tab PO .Q4-6H #40 tabs 01/10/21 07/01/22 06/30/22 Rx mg tablet ? hydralazine 50 mg tablet 50 mg PO TID 07/01/22 07/01/22 06/30/22 History isosorbide mononitrate 30 mg 30 mg PO DAILY 07/01/22 07/01/22 06/30/22 History tablet,extended release 24 hr ? multivitamin 1 tab PO DAILY 07/01/22 07/01/22 06/30/22 History ticagrelor 90 mg tablet 90 mg PO BID 07/01/22 07/01/22 06/30/22 History Allergies Allergy/AdvReac Type Severity Reaction Status Date / Time dulaglutide [From Trulicity] Allergy ? Unknown Verified 06/15/22 15:10 sitagliptin [From Januvia] Allergy ? ADR-Blurry Verified 06/15/22 15:10 ? ? ? Vision ? ? Current Medications Generic Name Dose Route Start Last Admin ? Trade Name Freq? PRN Reason Stop Dose Admin Hydrocodone Bitart/Acetaminophen ?1 tab ?07/01/22 02:45 ?07/01/22 19:12 ? Hydrocodone-Acetaminophen 5-325 Mg Tablet ?PO ? ?1 tab ? ?Q4H PRN ? ?Administration ? ?PAIN ? ? Amlodipine Besylate ?10 mg ?07/01/22 15:30 ?07/03/22 08:25 ? Amlodipine 10 Mg Tablet ?PO ? ?10 mg ? ?DAILY STACIE ? ?Administration Aspirin ?81 mg ?07/01/22 09:00 ?07/03/22 09:47 ? Aspirin 81 Mg Ec Tablet ?PO ? ?Not Given ? ?DAILY STACIE ? ? Atorvastatin Calcium ?80 mg ?07/01/22 21:00 ?07/02/22 20:58 ? Atorvastatin 40 Mg Tablet ?PO ? ?80 mg ? ?BEDTIME STACIE ? ?Administration Clonidine HCl ?0.1 mg ?07/03/22 09:00 ?07/03/22 09:46 ? Clonidine 0.1 Mg Tablet ?PO ? ?0.1 mg ? ?BID STACIE ? ?Administration Hydralazine HCl ?100 mg ?07/01/22 15:00 ?07/03/22 08:25 ? Hydralazine 50 Mg Tablet ?PO ? ?100 mg ? ?TID STACIE ? ?Administration Iron Sucrose 200 mg/ Sodium ?110 mls @ 220 mls/hr ?07/01/22 13:30 ?07/02/22 15:08 ? Chloride ?IV ?07/03/22 13:59 ?Infused ? ?Q24H STACIE ? ?Infusion Insulin Glargine ?10 unit ?07/01/22 09:00 ?07/03/22 08:31 ? Insulin Glargine 100 Units/1 Ml ?SUBCUT ? ?10 unit ? ?DAILY STACIE ? ?Administration Insulin Human Lispro ?0 unit ?07/01/22 08:00 ?07/03/22 12:04 ? Insulin Lispro 100 Unit/1 Ml ?SUBCUT ? ?6 unit ? ?WM&BEDTIME STACIE ? ?Administration ? ?Protocol ? ? Isosorbide Mononitrate ?30 mg ?07/01/22 09:00 ?07/03/22 08:25 ? Isosorbide Mononitrate Er 30 Mg Tablet ?PO ? ?30 mg ? ?DAILY STACIE ? ?Administration Metoprolol Succinate ?200 mg ?07/01/22 21:00 ?07/02/22 20:57 ? Metoprolol Succinate Er (24 Hr) 100 Mg Tablet ?PO ? ?200 mg ? ?BEDTIME STACIE ? ?Administration Ondansetron HCl ?4 mg ?07/01/22 01:52 ?07/01/22 19:12 ? Ondansetron 2 Mg/Ml Sdv 2 Ml ?IVP ? ?4 mg ? ?Q8H PRN ? ?Administration ? ?vomiting, or N/V if npo ? ? Pantoprazole Sodium ?40 mg ?07/02/22 05:45 ?07/03/22 05:13 ? Pantoprazole 40 Mg Sdv ?IVP ? ?40 mg ? ?Q12H STACIE ? ?Administration Potassium Chloride ?30 meq ?07/01/22 09:00 ?07/03/22 08:26 ? Potassium Chloride Er 10 Meq Tablet ?PO ? ?30 meq ? ?BID STACIE ? ?Administration Tamsulosin HCl ?0.4 mg ?07/01/22 21:00 ?07/02/22 20:57 ? Tamsulosin 0.4 Mg Capsule ?PO ? ?0.4 mg ? ?BEDTIME STACIE ? ?Administration Ticagrelor ?90 mg ?07/01/22 09:00 ?07/03/22 08:31 ? Ticagrelor 90 Mg Tablet ?PO ? ?90 mg ? ?BID STACIE ? ?Administration PFSH Acute PFSH:?? Medical History? CAD (coronary artery disease) CKD (chronic kidney disease) Diabetes mellitus Hypercholesterolemia Hypertension Lumbosacral radiculopathy ??Surgical History? History of back surgery Stented coronary artery ??Family History? Father CancerOther DiabetesHypertension ? Social History? Smoking and tobacco status:? never smoked Second hand smoke exposure:? No Alcohol intake:? never Substance/Drug Use:? never Lives independently:? Yes Household members:? spouse Marital status:? History of recent travel:? No ? Vitals/I&O/Wt Last Vital Signs Temp ?97.6 F ?07/03/22 11:38 Pulse ?65 ?07/03/22 11:38 Resp ?16 ?07/03/22 11:38 BP ?160/95 ?07/03/22 11:38 Pulse Ox ?94 ?07/03/22 11:38 O2 Del Method ? ?07/03/22 11:38 ? 07/02/22 07/03/22 07/03/22 ? 22:59 06:59 14:59 Intake Total 830 / 1900 ? 360 / 360 Output Total ? 600 / 600 ? Balance 830 / 1900 -600 / 1300 360 / 360 Weight last 48 hrs Weight? 66.179 kg ? Weight? 65.272 kg ? Physical Exam Const:?? COMMON NORMALS: alert? GENERAL APPEARANCE: cooperative? ORIENTATION/CONSCIOUSNESS: Yes awake Resp:?? COMMON NORMALS: normal respiratory effort Cardio:?? COMMON NORMALS: regular rhythm? RHYTHM: regular rhythm GI:?? COMMON NORMALS: Normal to inspection, nondistended, normoactive bowel sounds present Extremity:?? COMMON NORMALS: no joint enlargement? GENERAL: Yes edema (Edema extends up to proximal thighs.? Lower legs 3+, thighs 1+) Neuro:?? COMMON NORMALS: moves all extremities? SENSORIUM/ORIENTATION: Yes alert Skin:?? COMMON NORMALS: no rashes or lesions noted? GENERAL SKIN EXAM: no rashes or lesions noted Data : 07/03/22 04:26? 07/03/22 04:26? A&P Assessment and plan (1) Acute kidney injury superimposed on chronic kidney disease: 1.? ACute on chronic kidney disease stage III: Baseline creatinine probably in the 1-2 range, no recent creatinine available.? Last creatinine was 1.2 in December 2020.? Patient now presented with a creatinine of 2.8 currently at 3.3.? Likely renal.? Ultrasound with no hydronephrosis.? Continue to monitor renal function.? No indication for dialysis. -On Lasix 40 mg IV twice daily, decreased to 40 mg iv daily , will add IV albumin to augment diuresis -2 g sodium restriction and 1500 mL fluid restriction. -We will need to arrange nephrology follow-up at discharge 2.? Hypertension: Blood pressure slightly elevated, above goal.? Will adjust meds, FELIBERTO inhibitor's are on hold . 3. Hypokalemia: Repleted 4.? Anemia : From CKD and iron deficiency,? has low TSAT of 12%, would benefit from IV iron if acute infection and rule out, ? ? Hemoccult pending.? Status post 1 unit of blood transfusion. 5.? Coronary artery disease with recent stents: On dual antiplatelet therapy and statin Patient evaluated using audiovisual content.?? Plan [address] [address] Consult Note Signed Patient: Quang Hunter MR#: [id number] : 1940 Age/Sex: 82 / M ADM Date: 07/01/22 Loc: [facility]? Room/Bed: 252-1 Encounter Date: 07/03/[address]: Angel Ortiz MD Report Number: [id number] Providers/Reason For Consult Consulting Physician/Specialty*:?? Reason for Consult*:?? Acute on CKD Attending Physician:?? Angel Ortiz MD ? Primary Care Provider:?? Harjit Marc MD ? History of Present Illness History of Present Illness Patient is a 81-year-old male with past medical history of coronary artery disease status post stents, history of CHF, chronic kidney disease with a baseline creatinine of 1-2 range, diabetes presented to the hospital on 07/01/2022 for shortness of breath and worsening lower extremity edema and orthopnea.? Lab data sent for creatinine of 2.8 proBNP ferritin more than 3000.? Chest x-ray bilateral effusions and pulmonary vascular congestion.? Patient was started on diuretics with IV Lasix 60 mg every 12 hours.? Patient's creatinine was 2.8 on presentation, last creatinine was 1.2 in December 2020.? Patient was supposed to see a ecotherapist as outpatient and has an appointment on July 24.? Renal ultrasound with no hydronephrosis.? Currently FELIBERTO inhibitor is on hold.? Creatinine is up to? 3.3 currently. ? Review of Systems Const:?? Denies: fever(s), chills, body aches or malaise Eyes:?? Denies: change in vision, eye discomfort or eye redness ENMT:?? Denies: throat pain, oral sores or ear or mastoid pain Card:?? Reports: edema and dyspnea on exertion; Denies: chest pain or pre-syncope Resp:?? Reports: dyspnea; Denies: productive cough, change in phlegm color or hemoptysis GI:?? Denies: abdominal pain, nausea, vomiting, diarrhea, constipation, hematochezia or melena :?? Denies: flank pain, difficulty urinating, urinary frequency or hematuria Musc:?? Denies: back pain, joint swelling or joint redness Skin/Breast:?? Denies: rash or new lesions Neuro:?? Denies: headache(s), numbness in extremities, weakness in extremities, dizziness, confusion or seizure-like activity Endo:?? Denies: polyuria or polydipsia Williams/Lymph:?? Denies: easy bleeding or tender lymph nodes All/Imm:?? Denies: urticaria or tongue swelling Medications/Allergies Home Medications ?Medication ?Instructions ?Recorded ?Confirmed ?Last Taken ?Type aspirin 81 mg tablet,delayed 81 mg PO DAILY 03/07/20 07/01/22 06/30/22 History release (Aspir-) ? atorvastatin 80 mg tablet 80 mg PO BEDTIME 03/07/20 07/01/22 06/30/22 History glipizide 10 mg tablet, extended 10 mg PO BID 03/07/20 07/01/22 06/30/22 History release 24 hr ? lisinopril 20 mg tablet 20 mg PO BID 03/07/20 07/01/22 06/30/22 History metformin 850 mg tablet See Rx Instructions .Route .COMPLEX 03/07/20 07/01/22 06/30/22 History metoprolol succinate 200 mg 200 mg PO BEDTIME 03/07/20 07/01/22 06/30/22 History tablet,extended release 24 hr ? omega 0-bjq-uqz-fish oil 1,000 mg 3 cap PO BID 03/07/20 07/01/22 06/30/22 History (120 mg-180 mg) capsule (Fish Oil) ? potassium chloride 10 mEq 30 meq PO BID 03/07/20 07/01/22 06/30/22 History tablet,extended release ? tamsulosin 0.4 mg capsule 0.4 mg PO BEDTIME 03/07/20 07/01/22 06/30/22 History insulin glargine 100 unit/mL 10 unit SUBCUT DAILY 12/21/20 07/01/22 06/30/22 History subcutaneous solution (Lantus ? U-100 Insulin) ? amlodipine 10 mg tablet 10 mg PO BEDTIME 01/10/21 07/01/22 06/30/22 History hydrocodone 5 mg-acetaminophen 325 1 - 2 tab PO .Q4-6H #40 tabs 01/10/21 07/01/22 06/30/22 Rx mg tablet ? hydralazine 50 mg tablet 50 mg PO TID 07/01/22 07/01/22 06/30/22 History isosorbide mononitrate 30 mg 30 mg PO DAILY 07/01/22 07/01/22 06/30/22 History tablet,extended release 24 hr ? multivitamin 1 tab PO DAILY 07/01/22 07/01/22 06/30/22 History ticagrelor 90 mg tablet 90 mg PO BID 07/01/22 07/01/22 06/30/22 History Allergies Allergy/AdvReac Type Severity Reaction Status Date / Time dulaglutide [From Trulicity] Allergy ? Unknown Verified 06/15/22 15:10 sitagliptin [From Januvia] Allergy ? ADR-Blurry Verified 06/15/22 15:10 ? ? ? Vision ? ? Current Medications Generic Name Dose Route Start Last Admin ? Trade Name Freq? PRN Reason Stop Dose Admin Hydrocodone Bitart/Acetaminophen ?1 tab ?07/01/22 02:45 ?07/01/22 19:12 ? Hydrocodone-Acetaminophen 5-325 Mg Tablet ?PO ? ?1 tab ? ?Q4H PRN ? ?Administration ? ?PAIN ? ? Amlodipine Besylate ?10 mg ?07/01/22 15:30 ?07/03/22 08:25 ? Amlodipine 10 Mg Tablet ?PO ? ?10 mg ? ?DAILY STACIE ? ?Administration Aspirin ?81 mg ?07/01/22 09:00 ?07/03/22 09:47 ? Aspirin 81 Mg Ec Tablet ?PO ? ?Not Given ? ?DAILY STACIE ? ? Atorvastatin Calcium ?80 mg ?07/01/22 21:00 ?07/02/22 20:58 ? Atorvastatin 40 Mg Tablet ?PO ? ?80 mg ? ?BEDTIME STACIE ? ?Administration Clonidine HCl ?0.1 mg ?07/03/22 09:00 ?07/03/22 09:46 ? Clonidine 0.1 Mg Tablet ?PO ? ?0.1 mg ? ?BID STACIE ? ?Administration Hydralazine HCl ?100 mg ?07/01/22 15:00 ?07/03/22 08:25 ? Hydralazine 50 Mg Tablet ?PO ? ?100 mg ? ?TID STACIE ? ?Administration Iron Sucrose 200 mg/ Sodium ?110 mls @ 220 mls/hr ?07/01/22 13:30 ?07/02/22 15:08 ? Chloride ?IV ?07/03/22 13:59 ?Infused ? ?Q24H STACIE ? ?Infusion Insulin Glargine ?10 unit ?07/01/22 09:00 ?07/03/22 08:31 ? Insulin Glargine 100 Units/1 Ml ?SUBCUT ? ?10 unit ? ?DAILY STACIE ? ?Administration Insulin Human Lispro ?0 unit ?07/01/22 08:00 ?07/03/22 12:04 ? Insulin Lispro 100 Unit/1 Ml ?SUBCUT ? ?6 unit ? ?WM&BEDTIME STACIE ? ?Administration ? ?Protocol ? ? Isosorbide Mononitrate ?30 mg ?07/01/22 09:00 ?07/03/22 08:25 ? Isosorbide Mononitrate Er 30 Mg Tablet ?PO ? ?30 mg ? ?DAILY STACIE ? ?Administration Metoprolol Succinate ?200 mg ?07/01/22 21:00 ?07/02/22 20:57 ? Metoprolol Succinate Er (24 Hr) 100 Mg Tablet ?PO ? ?200 mg ? ?BEDTIME STACIE ? ?Administration Ondansetron HCl ?4 mg ?07/01/22 01:52 ?07/01/22 19:12 ? Ondansetron 2 Mg/Ml Sdv 2 Ml ?IVP ? ?4 mg ? ?Q8H PRN ? ?Administration ? ?vomiting, or N/V if npo ? ? Pantoprazole Sodium ?40 mg ?07/02/22 05:45 ?07/03/22 05:13 ? Pantoprazole 40 Mg Sdv ?IVP ? ?40 mg ? ?Q12H STACIE ? ?Administration Potassium Chloride ?30 meq ?07/01/22 09:00 ?07/03/22 08:26 ? Potassium Chloride Er 10 Meq Tablet ?PO ? ?30 meq ? ?BID STACIE ? ?Administration Tamsulosin HCl ?0.4 mg ?07/01/22 21:00 ?07/02/22 20:57 ? Tamsulosin 0.4 Mg Capsule ?PO ? ?0.4 mg ? ?BEDTIME STACIE ? ?Administration Ticagrelor ?90 mg ?07/01/22 09:00 ?07/03/22 08:31 ? Ticagrelor 90 Mg Tablet ?PO ? ?90 mg ? ?BID STACIE ? ?Administration PFSH Acute PFSH:?? Medical History? CAD (coronary artery disease) CKD (chronic kidney disease) Diabetes mellitus Hypercholesterolemia Hypertension Lumbosacral radiculopathy ??Surgical History? History of back surgery Stented coronary artery ??Family History? Father CancerOther DiabetesHypertension ? Social History? Smoking and tobacco status:? never smoked Second hand smoke exposure:? No Alcohol intake:? never Substance/Drug Use:? never Lives independently:? Yes Household members:? spouse Marital status:? History of recent travel:? No ? Vitals/I&O/Wt Last Vital Signs Temp ?97.6 F ?07/03/22 11:38 Pulse ?65 ?07/03/22 11:38 Resp ?16 ?07/03/22 11:38 BP ?160/95 ?07/03/22 11:38 Pulse Ox ?94 ?07/03/22 11:38 O2 Del Method ? ?07/03/22 11:38 ? 07/02/22 07/03/22 07/03/22 ? 22:59 06:59 14:59 Intake Total 830 / 1900 ? 360 / 360 Output Total ? 600 / 600 ? Balance 830 / 1900 -600 / 1300 360 / 360 Weight last 48 hrs Weight? 66.179 kg ? Weight? 65.272 kg ? Physical Exam Const:?? COMMON NORMALS: alert? GENERAL APPEARANCE: cooperative? ORIENTATION/CONSCIOUSNESS: Yes awake Resp:?? COMMON NORMALS: normal respiratory effort Cardio:?? COMMON NORMALS: regular rhythm? RHYTHM: regular rhythm GI:?? COMMON NORMALS: Normal to inspection, nondistended, normoactive bowel sounds present Extremity:?? COMMON NORMALS: no joint enlargement? GENERAL: Yes edema (Edema extends up to proximal thighs.? Lower legs 3+, thighs 1+) Neuro:?? COMMON NORMALS: moves all extremities? SENSORIUM/ORIENTATION: Yes alert Skin:?? COMMON NORMALS: no rashes or lesions noted? GENERAL SKIN EXAM: no rashes or lesions noted Data : 07/03/22 04:26? 07/03/22 04:26? 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
--- NOTE | 2022-07-04 12:12 | PC.CHAP ---
Pastoral Care Encounter/Spiritual Assessment Type of Contact [] Declined comparator operator visit [] Patient/Family/Request visit [] Outpatient visit [] Follow-up visit [] Physician referral [] Code/Alert [] Routine visit [] Staff referral [] Actively dying [] Patient sleeping [] Family support [] [] Out of room [] Palliative care [] [] Receiving care in room [] Pre-surgical visit [] Trauma [] Long length of stay [] ICU visit [] Other: Relational/Emotional Strength [] Patient feels connected with others/family/visitors/staff [] Distress [] Loneliness/isolation [] Abandonment Spirituality of Patient [] Person of Maru [] Attends Buddhist of their Maru [] Believes in Prayer [] Reads Bible or Judaism materials [] There are Spiritual issues to be addressed Diaper Folder Interventions [] Prayer [] Active listening [] Non-anxious presence [] Spiritual/emotional support [] Crisis/trauma care [] Spiritual counseling [] Bereavement support [] Provided bereavement packet [] Provided Bible/devotional materials [] Provided toy/stuffed animal, coloring book to patient or family member [] Provided Communion [] Anointing/[place] [] Salvation [] Completed spiritual assessment [] Other: Impact on Illness or Injury [] Angry [] Fearful [] Anxious [] Often cries [] Exhaustion [] Unable to work [] Unable to attend yazidism [] Unable to walk/stand [] Unable to read [] Unable to drive [] Unable to eat/drink [] Unable to sleep [] Unable to be with family [] Patient intubated [] Other: Summary Time spent with patient
[2022-07-04 17:10] LABS: Glucose Point of Care 306 mg/dL (70-110)
[2022-07-04 20:38] LABS: Glucose Point of Care 290 mg/dL (70-110)
[2022-07-04] MEDS: tamsulosin 0.4 mg Capsule PO (21:16)
[2022-07-04] MEDS: atorvastatin 40 mg Tablet 80 MG PO (21:16)
[2022-07-05] VITALS (8 sets, daily range): BP systolic 151–187; BP diastolic 65–83; PULSE 57–79; RESP 13–18; TEMP 36.5–36.8; O2SAT 92–98
[2022-07-05] MEDS: pantoprazole 40 mg SDV IVP (05:57)
[2022-07-05 06:04] LABS: Basophils % 0.7 %; Eosinophils # 0.1 10^3/uL (0.0-0.8); Eosinophils % 2.2 %; Hematocrit 27.7 % (42.0-52.0); Hemoglobin 8.9 g/dL (11.7-16.6); Lymphocytes # 0.8 10^3/uL (0.8-4.8); Lymphocytes % 17.5 %; Mean Corpuscular HGB Conc 32.1 g/dL (30.0-36.0); Mean Corpuscular Hemoglobin 28.4 pg (28.0-34.0); Mean Corpuscular Volume 88.5 fl (80-94); Monocytes # 0.4 10^3/uL (0.2-0.9); Monocytes % 9.4 %; Neutrophils # 3.19 10^3/uL (1.8-7.7); Neutrophils % 69.8 %; Nucleated Red Blood Cells % 0 %; Platelet Count 224 10^3/cmm (130-400); Red Blood Count 3.13 10^6/uL (4.1-5.3); Red Cell Distribution Width 14.5 % (12.1-15.1); White Blood Count 4.6 10^3/uL (4.0-10.0)
[2022-07-05 06:32] LABS: Anion Gap 17.6 (5-19); Blood Urea Nitrogen 46 mg/dL (8-23); Carbon Dioxide 25 mmol/L (22-29); Chloride 102 mmol/L (98-107); Glucose 159 mg/dL (65-115); Magnesium 1.9 mg/dL (1.7-2.3); NT Pro B Type Natriuretic Pept 1453 pg/mL (0-450); Osmolality Calculated 307 mOsm/kg (285-295); Potassium 3.6 mmol/L (3.5-5.1); Sodium 141 mmol/L (136-145)
[2022-07-05 06:50] LABS: Glucose Point of Care 288 mg/dL (70-110)
[2022-07-05] MEDS: insulin lispro 100 unit/1 mL SUBCUT ×2 (08:35→12:11)
[2022-07-05] MEDS: ticagrelor 90 mg Tablet PO (08:36)
[2022-07-05] MEDS: amlodipine 10 mg Tablet PO (08:36)
[2022-07-05] MEDS: aspirin 81 mg EC Tablet PO (08:36)
[2022-07-05] MEDS: cloNIDine 0.1 mg Tablet PO (08:36)
[2022-07-05] MEDS: hyDRALAzine 50 mg Tablet 100 MG PO (08:36)
[2022-07-05] MEDS: potassium chloride ER 10 mEq Tablet 30 MEQ PO (08:37)
[2022-07-05] MEDS: isosorbide mononitrate ER 30 mg Tablet PO (08:37)
[2022-07-05] MEDS: FUROsemide 40 mg Tablet PO (08:37)
[2022-07-05] MEDS: insulin glargine 100 units/1 mL 10 UNIT SUBCUT (08:43)
[2022-07-05] MEDS: HYDROcodone-acetaminophen 5-325 mg Tablet 1 TAB PO (08:43)
--- NOTE | 2022-07-05 10:49 | PM.PN ---
Subjective Subjective: doing well Medications: Reviewed: Yes Vitals/I&O/Wt Last Vital Signs Temp 97.7 F 07/05/22 08:00 Pulse 64 07/05/22 08:15 Resp 16 07/05/22 08:15 BP 187/73 07/05/22 08:36 Pulse Ox 98 07/05/22 08:15 O2 Del Method 07/05/22 08:15 07/04/22 07/05/22 07/05/22 22:59 06:59 14:59 Intake Total 480 / 1140 300 / 1440 480 / 480 Balance 480 / 840 300 / 1140 480 / 480 Weight last 48 hrs Weight 58.967 kg Weight 61.405 kg Physical Exam Const: COMMON NORMALS: no acute distress Resp: COMMON NORMALS: normal respiratory effort, No retractions and No use of accessory muscles Cardio: COMMON NORMALS: regular rate and regular rhythm RATE: regular rate RHYTHM: regular rhythm Extremity: COMMON NORMALS: no pedal edema Data 07/05/22 04:51 07/05/22 04:51 A&P Assessment and plan (1) Acute kidney injury superimposed on chronic kidney disease: Plan 1.? ACute on chronic kidney disease stage III: Baseline creatinine probably in the 1-2 range, no recent creatinine available.? Last creatinine was 1.2 in December 2020.? Patient now presented with a creatinine of 2.8 currently at 3.4.? Likely renal.? Ultrasound with no hydronephrosis.? Continue to monitor renal function.? No indication for dialysis. -On Lasix 40 mg PO twice daily, -2 g sodium restriction and 1500 mL fluid restriction. -We will need to arrange nephrology follow-up at discharge 2.? Hypertension: Blood pressure slightly elevated, above goal.? Will adjust meds, FELIBERTO inhibitor's are on hold . 3. Hypokalemia: Repleted 4.? Anemia : From CKD and iron deficiency,? has low TSAT of 12%, would benefit from IV iron if acute infection and rule out, ? ? Hemoccult pending.? Status post 1 unit of blood transfusion. 5.? Coronary artery disease with recent stents: On dual antiplatelet therapy and statin Patient evaluated using audiovisual content.? 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
[2022-07-05] MEDS: metoprolol tartrate 50 mg Tablet PO (10:58)
[2022-07-05 11:44] LABS: Glucose Point of Care 287 mg/dL (70-110)
--- NOTE | 2022-07-05 14:09 | P.DS_ITS ---
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 Reaching his thighs.? Denies any chest pain or pressure. Patient presented to [facility] for acute congestive heart failure, with lower extreme edema, bilateral pleural effusions, received diuretic therapy, overall clinically improved, with diuresis therapy, discharged on Lasix therapy 40 mg once daily with close follow-up with cardiology as outpatient Patient has CKD a baseline, developed LEANNE, creatinine as high as 3.5, nephrology was consulted, diuresis regiment was adjusted, renal ultrasound no hydronephrosis. Creatinine at discharge 3.4, recheck kidney function in 48 hours with primary care follow-up with nephrology as outpatient. Patient had evidence of iron deficiency anemia during his hospitalization, he is on aspirin, Brilinta, required 1 unit PRBC, hemoglobin remained stable at discharge. Discharged on Protonix, Carafate with close follow-up with primary care provider as recheck hemoglobin in 48 hours, follow with general surgery for consideration EGD in 1 month Patient also had elevated blood pressures throughout his hospitalization requiring blood pressure medication modification. Given his decreased GFR, his glipizide and metformin have been discontinued. Once his GFR improves, then can resume glipizide and metformin. Physical Exam Const: COMMON NORMALS: no acute distress and patient oriented x3 Resp: COMMON NORMALS: normal respiratory effort, No retractions, No use of accessory muscles and clear to auscultation bilaterally AUSCULTATION: clear to auscultation bilaterally Cardio: COMMON NORMALS: regular rate, regular rhythm, S1 normal heart sound present and S2 normal heart sound present RATE: regular rate RHYTHM: regular rhythm HEART SOUNDS: S1 normal heart sound present and S2 normal heart sound present GI: COMMON NORMALS: Normal to inspection, nondistended, normoactive bowel sounds present and non-tender Extremity: COMMON NORMALS: no pedal edema Neuro: COMMON NORMALS: patient oriented x3 Psych: COMMON NORMALS: mental status grossly normal Discharge Data Studies Completed and Pending Completed Studies During Hospitalization Category Date Time Status XR chest 1V portable [id number] Stat Exams 06/30/22 20:30 Completed XR chest 1V portable [id number] Stat Exams 07/03/22 13:38 Completed XR chest 1V portable [id number] Urgent Exams 07/02/22 12:44 Completed CV. echo complete* [id number] Routine Ultrasound 07/01/22 01:47 Completed US renal BI* [id number] Routine Ultrasound 07/01/22 02:01 Completed Pending at discharge Category Date Time Status Basic Metabolic Panel AM LABS Lab 07/06/22 04:00 Ordered Basic Metabolic Panel AM LABS Lab 07/07/22 04:00 Ordered Complete Blood Count w/Auto AM LABS Lab 07/06/22 04:00 Ordered Complete Blood Count w/Auto AM LABS Lab 07/07/22 04:00 Ordered Magnesium AM LABS Lab 07/06/22 04:00 Ordered Magnesium AM LABS Lab 07/07/22 04:00 Ordered NT Pro B Type Natriuretic Pept QAM Lab 07/06/22 06:00 Ordered NT Pro B Type Natriuretic Pept QAM Lab 07/07/22 06:00 Ordered Occult Blood Stool [Immunochemical Fecal OCB] Routine Lab 07/01/22 01:59 Uncollected Radiology Impressions Renal Ultrasound 07/01/22 02:01 IMPRESSION: 1. Maintenance of renal size without hydronephrosis. 2. Prominent bladder distension. Chest X-Ray 07/03/22 13:38 IMPRESSION: 1. Improved right sided pleural effusion. 2. No consolidating infiltrate or pneumothorax. Laboratory Results WBC 4.6 10^3/uL (4.0-10.0) 07/05/22 04:51 RBC 3.13 10^6/uL (4.1-5.3) L 07/05/22 04:51 Hgb 8.9 g/dL (11.7-16.6) L 07/05/22 04:51 Hct 27.7 % (42.0-52.0) L 07/05/22 04:51 MCV 88.5 fl (80-94) 07/05/22 04:51 MCH 28.4 pg (28.0-34.0) 07/05/22 04:51 MCHC 32.1 g/dL (30.0-36.0) 07/05/22 04:51 RDW 14.5 % (12.1-15.1) 07/05/22 04:51 Plt Count 224 10^3/cmm (130-400) 07/05/22 04:51 MPV 10.0 fL (7.4-10.4) 07/05/22 04:51 Neut % (Auto) 69.8 % 07/05/22 04:51 Lymph % (Auto) 17.5 % 07/05/22 04:51 [place] % (Auto) 9.4 % 07/05/22 04:51 Eos % (Auto) 2.2 % 07/05/22 04:51 Baso % (Auto) 0.7 % 07/05/22 04:51 Neut # (Auto) 3.19 10^3/uL (1.8-7.7) 07/05/22 04:51 Lymph # (Auto) 0.8 10^3/uL (0.8-4.8) 07/05/22 04:51 [place] # (Auto) 0.4 10^3/uL (0.2-0.9) 07/05/22 04:51 Eos # (Auto) 0.1 10^3/uL (0.0-0.8) 07/05/22 04:51 Baso # (Auto) 0.0 10^3/uL (0.0-0.1) 07/05/22 04:51 Nucleated RBC % (auto) 0 % 07/05/22 04:51 Nucleated RBCs # 0.0 /100WBC 07/05/22 04:51 Specimen Type Arterial 07/03/22 14:38 Sample Site Radial, left 07/03/22 14:38 ABG pH 7.49 (7.35-7.45) H 07/03/22 14:38 ABG pCO2 36.7 mmHg (35-45) 07/03/22 14:38 ABG pO2 71.4 mmHg (80.0-100.0) L 07/03/22 14:38 ABG HCO3 27.7 mmol/L (22-26) H 07/03/22 14:38 ABG Base Excess 4.1 mmol/L (-2.0-2.0) H 07/03/22 14:38 Livan Test Pos 07/03/22 14:38 Hematocrit 28.5 % (42-52) L 07/03/22 14:38 O2 Delivery Device Room air 07/03/22 14:38 FiO2 21.0 % 07/03/22 14:38 Roofer Helper Vinyl Coating ID glc 07/03/22 14:38 Sodium 141 mmol/L (136-145) 07/05/22 04:51 Potassium 3.6 mmol/L (3.5-5.1) 07/05/22 04:51 Chloride 102 mmol/L (98-107) 07/05/22 04:51 Carbon Dioxide 25 mmol/L (22-29) 07/05/22 04:51 Anion Gap 17.6 (5-19) 07/05/22 04:51 BUN 46 mg/dL (8-23) H 07/05/22 04:51 Creatinine 3.4 mg/dL (0.7-1.2) H 07/05/22 04:51 GFR Calculation Not Reportable 07/05/22 04:51 Glucose 159 mg/dL (65-115) H 07/05/22 04:51 POC Glucose 287 mg/dL (70-110) H 07/05/22 11:39 Calculated Osmolality 307 mOsm/kg (285-295) H 07/05/22 04:51 Calcium 8.0 mg/dL (8.5-10.5) L 07/05/22 04:51 Magnesium 1.9 mg/dL (1.7-2.3) 07/05/22 04:51 Iron 26 ug/dL (59-158) L 07/01/22 03:21 TIBC 231 mcg/dl 07/01/22 03:21 % Saturation 11.2 % (20-50) L 07/01/22 03:21 Unsat Iron Binding 205 ug/dL (112-347) 07/01/22 03:21 Ferritin 43 ng/mL (30-400) 07/01/22 03:21 Total Bilirubin 0.4 mg/dL (0.15-1.2) 07/04/22 04:07 AST 16 U/L (0-40) 07/04/22 04:07 ALT 12 U/L (0-41) 07/04/22 04:07 Alkaline Phosphatase 82 U/L (40-130) 07/04/22 04:07 Troponin T Baseline 69 ng/L (0-15) H 07/03/22 14:35 Troponin T 120 Minute 67.12 ng/L (0-15) H 07/03/22 16:35 Delta Troponin T -1.88 ABS# (0-10) L 07/03/22 16:35 Troponin T Hi Sens 6Hr 63.70 ng/L (0-15) H 07/03/22 20:38 Troponin T Hi Sens 6Hr Delta -5.30 ng/L (0-12) L 07/03/22 20:38 NT-Pro-B Natriuret Pep 1453 pg/mL (0-450) H 07/05/22 04:51 Total Protein 5.3 g/dL (6.6-8.7) L 07/04/22 04:07 Albumin 3.1 g/dL (3.5-5.2) L 07/04/22 04:07 Globulin 2.2 g/dL (1.3-4.6) 07/04/22 04:07 Urine Color Yellow (Yellow) 07/03/22 06:00 Urine Appearance Clear (CLEAR) 07/03/22 06:00 Urine pH 6 (5-7) 07/03/22 06:00 Ur Specific [place] 1.010 (1.005-1.030) 07/03/22 06:00 Urine Protein 3+ (Negative) H 07/03/22 06:00 Urine Glucose (UA) Trace (Normal) H 07/03/22 06:00 Urine Ketones Negative (Negative) 07/03/22 06:00 Urine Blood Neg (Negative) 07/03/22 06:00 Urine Nitrate Negative (Negative) 07/03/22 06:00 Urine Bilirubin Neg (Negative) 07/03/22 06:00 Urine Urobilinogen Norm mg/dL (Negative) 07/03/22 06:00 Ur Leukocyte Esterase Negative (Negative) 07/03/22 06:00 Urine RBC None /hpf (0-2) 07/03/22 06:00 Urine WBC None /hpf (0-5) 07/03/22 06:00 Ur Squamous Epith Cells 0-4 /hpf (0-5) H 07/03/22 06:00 Amorphous Sediment Not Reportable 07/03/22 06:00 Urine Bacteria None /hpf (NONE) 07/03/22 06:00 Hyaline Casts 0-4 /lpf H 06/30/22 23:25 Ur Random Sodium 108 mmol/L 07/03/22 06:00 Ur Random Potassium 29 mmol/L 07/03/22 06:00 Ur Random Chloride 115 mmol/L 07/03/22 06:00 Urine Creatinine 69 mg/dL (39-259) 06/30/22 23:25 Blood Type O Positive 07/02/22 05:52 Rho(D) Type Positive 07/02/22 05:52 Antibody Screen Negative 07/02/22 05:52 Crossmatch See Detail 07/02/22 05:52 Vitals Last Vital Signs Temp 98.3 F 07/05/22 12:00 Pulse 79 07/05/22 12:00 Resp 18 07/05/22 12:00 BP 152/83 07/05/22 12:00 Pulse Ox 94 07/05/22 12:00 O2 Del Method 07/05/22 12:00 Discharge Plan Discharge Patient Disposition: Home Condition: Stable Prescriptions: New clonazepam 0.5 mg Tablet 0.25 mg PO Q24H PRN (Reason: anxiety) 8 Days Qty: 4 0RF furosemide 40 mg Tablet 40 mg PO DAILY 30 Days Qty: 30 0RF metoprolol tartrate 50 mg Tablet 50 mg PO Q12H 30 Days Qty: 60 0RF pantoprazole [Protonix] 40 mg tablet,delayed release (DR/EC) 40 mg PO BID 30 Days Qty: 60 0RF sucralfate [Carafate] 1 gram tablet 1 g PO BID 30 Days Qty: 60 0RF Continued Lantus U-100 Insulin 100 unit/mL solution 10 unit SUBCUT DAILY amlodipine 10 mg tablet 10 mg PO BEDTIME hydrocodone-acetaminophen 5-325 mg tablet 1 - 2 tab PO .Q4-6H Qty: 40 0RF atorvastatin 80 mg tablet 80 mg PO BEDTIME potassium chloride 10 mEq tablet extended release 30 meq PO BID aspirin [Aspir-81] 81 mg Tablet,Delayed Release (Dr/Ec) 81 mg PO DAILY tamsulosin 0.4 mg capsule 0.4 mg PO BEDTIME omega 5-maz-gtw-fish oil [Fish Oil] 1,000 mg (120 mg-180 mg) Capsule 3 cap PO BID multivitamin Tablet 1 tab PO DAILY isosorbide mononitrate 30 mg Tablet Extended Release 24 Hr 30 mg PO DAILY ticagrelor 90 mg Tablet 90 mg PO BID Changed hydralazine 50 mg Tablet 100 mg PO TID 30 Days Qty: 120 0RF Discontinued glipizide 10 mg tablet extended release 24hr 10 mg PO BID metoprolol succinate 200 mg tablet extended release 24 hr 200 mg PO BEDTIME lisinopril 20 mg tablet 20 mg PO BID metformin 850 mg tablet See Rx Instructions .ROUTE .COMPLEX Rx Instructions: 1,700 mg orally qam and 850mg po qpm Discharge Orders: Discharge Order (Routine); Ordered 07/05/22 Ordered By: Angel Ortiz Referrals: Yuan Solano DO [Physician] - 1 month (egd) Magdaleno Almanzar MD [Referring] - 7-10 days Alexus Hutson MD [Physician] - 1 week Discharge Diet: Regular and Cardiac Discharge Activity: Resume usual activity Patient Instructions: Opioid Safety Activity Restrictions/Additional Instructions: - Please follow-up with your primary care provider in the next 48 hours for recheck blood pressure -Please take blood pressure medications as prescribed -Because of your kidney function we will have to discontinue glipizide, and metformin -Please continue to have your primary care provider monitor your kidney function, creatinine on discharge is 3.4 -I am going to discharge you with a close follow-up with nephrology -Follow-up with cardiology in 1 week -If any worsening shortness of breath please go to emergency room Discharge Attestations Time Spent in Discharge Care*: less than 30 min Quality Metrics Clinical Quality Measures [ No reported AMI, CVA or VTE this stay] Coding Level of Care Code Acute Chg FW DC note Diagnoses Acute kidney injury superimposed on chronic kidney disease N17.9; N18.9
--- NOTE | 2022-07-05 15:14 | PC.OT ---
OT TREATMENT HELD TODAY DUE TO SCHEDULED PATIENT D/C
--- NOTE | 2022-07-05 16:03 | PC.NURSE ---
Discharge Note Patient discharged to HOME via private vehicle accompanied by . Discharge instructions reviewed with patient and/or outside sales representative insurance. Mobile pharmacy medications and/or prescriptions provided. Belongings/home medications returned.
== END 2022-07-05 16:30 | disposition home or self-care (01) | DRG 291 ==
LOC: ER 23:06 → MEDSURG 23:49
PROVIDERS: Emergency Medicine; Internal Medicine; Admitting Provider Internal Medicine; Emergency Provider Emergency Medicine; PCP Family Medicine; Visit Provider Family Medicine
DX: I13.0 Hypertensive heart and chronic kidney disease with heart failure and stage 1 through stage 4 chronic kidney disease, or unspecified chronic kidney disease (principal); I50.43 Acute on chronic combined systolic (congestive) and diastolic (congestive) heart failure; N17.9 Acute kidney failure, unspecified; N18.30 Chronic kidney disease, stage 3 unspecified; E11.22 Type 2 diabetes mellitus with diabetic chronic kidney disease; I25.10 Atherosclerotic heart disease of native coronary artery without angina pectoris; Z95.5 Presence of coronary angioplasty implant and graft; E78.5 Hyperlipidemia, unspecified; M51.17 Intervertebral disc disorders with radiculopathy, lumbosacral region; E78.00 Pure hypercholesterolemia, unspecified; D63.1 Anemia in chronic kidney disease; D50.9 Iron deficiency anemia, unspecified; Z88.8 Allergy status to other drugs, medicaments and biological substances; E87.6 Hypokalemia; E87.70 Fluid overload, unspecified; Z79.4 Long term (current) use of insulin; Z79.891 Long term (current) use of opiate analgesic; Z79.82 Long term (current) use of aspirin
CPT/HCPCS: 12345; 36415; 36416; 36600; 71045; 76770; 80048; 80053; 81001; 82436; 82570; 82728; 82803; 82962; 83540; 83550; 83735; 83880; 84133; 84300; 84484; 85014; 85018; 85025; 86850; 86900; 86920; 92523; 92610; 93005; 93306; 94640; 96372; 96374; 96375; 97110; 97116; 97161; 97166; 97530; 97535; 99285; C9113; J1644; J1756; J1815; J1940; J2405; J3490; P9016; Q3014

== ENCOUNTER 2022-07-18 14:50 | Outpatient (CLI) | payer MEDICARE, SELFPAY ==
--- NOTE | 2022-07-18 15:15 | MR_ITS ---
WS: [id number] MRI LUMBAR SPINE NONCONTRAST HISTORY: lower back pain COMPARISON: 06/09/2020 TECHNIQUE: Sagittal and axial multisequence imaging is submitted. Posterior lumbar alignment is normal. Osteopenia and mild heterogeneity within the bones. Mild disc space narrowing and desiccation throughout the lumbar spine. The previously described nodul e within the cauda equina nerve rootlets at L1-2 is not as well seen today. Best seen on the axial im aging measuring 5.7 x 5.0 mm, unchanged. Conus terminates normally at L1. L1-L2: Mild facet disease. No stenosis. L2-L3: Mild annular disc bulging with ligamentum flavum and facet arthritis. No significant stenosis. L3-L4: Mild annular disc bulging with osteophytic ridging. Mild ligamentum flavum and facet arthritis with a small amount of fluid in the facet joints. Mild disc encroachment into the subarticular reces ses. No significant change or progression. L4-L5: Diffuse annular disc bulging with a large central to RIGHT paracentral and RIGHT subarticular recess disc protrusion. Disc extends 1.9 cm in length and extends caudad from the disc level and solano sversely by 1.6 cm. There is significant mass effect upon the central and RIGHT lateral thecal sac an d traversing L5 nerve root. Significant central and subarticular recess and foraminal stenosis. These findings were described on 06/09/2020 with progression and increase in size of the disc protrusion a nd stenosis. There is also moderate LEFT foraminal stenosis. Small amount of fluid in the facet joint s. RIGHT laminectomy defect. L5-S1: Mild disc bulging and facet arthritis. Paravertebral soft tissues are negative. MR/MR lumbar spine wo con* [id number] IMPRESSION: 1. Since the prior examination patient has undergone a RIGHT hemilaminectomy d efect at L4-5. 2. Previously described RIGHT paracentral and subarticular disc protrusion at L4-5 is reidentified and increased in size. There is significant mass effect up on the RIGHT lateral thecal sac and subarticular recess and nerve root encroach ment. Most significant nerve root encroachment upon the RIGHT traversing L5 ner ve root. Central and bilateral foraminal stenosis and subarticular recess steno sis. 3. Mild disc encroachment into the subarticular recesses at L3-4. 4. Well-circumscribed soft tissue nodule in the cauda equina nerve rootlets at L1-2 is not as well seen today but does appear to be present and not changed i n size.
== END 2022-07-18 14:51 | disposition home or self-care (01) ==
PROVIDERS: PCP Family Medicine; Visit Provider Physician Assistant
DX: M51.26 Other intervertebral disc displacement, lumbar region (principal)
CPT/HCPCS: 72148

== ENCOUNTER 2022-07-19 08:10 | Outpatient (CLI) | payer MEDICARE, SELFPAY ==
--- NOTE | 2022-07-19 08:26 | CT_ITS ---
WS: [id number] CT CHEST TECHNIQUE: Noncontrast CT of the chest with coronal and sagittal reformatted images. CLINICAL INFORMATION: PLEURAL EFFUSION COMPARISON: None. DLP: 662.[address] scans at [facility] use at least one of these dose optimization techniques: automated e xposure control; mA and/or kV adjustment per patient size (includes targeted exams where dose is matc hed to clinical indication); or iterative reconstruction. FINDINGS: Aortic calcification. Coronary calcification. No mediastinal or hilar lymphadenopathy. No axillary ly mphadenopathy. RIGHT adrenal adenoma measuring 2.1 cm. LEFT adrenal gland is normal. Splenic artery c alcification. Normal GE junction. Cholelithiasis. A few calcified granulomas. No focal pneumonia. Bibasilar atelectasis. Trace pleural effusions LEFT greater than RIGHT. Noncalcif ied nodule RIGHT lower lobe measuring 6.4 mm.. Noncalcified nodule LEFT lower lobe measuring 6 mm. Ti ny hazy nodule LEFT lower lobe measuring 3.3 mm. Additional subcentimeter pulmonary nodules in RIGHT upper lobe largest measuring 3.[address]/CT chest wo con [id number] IMPRESSION: 1. Tiny trace LEFT greater than RIGHT pleural effusions. 2. No acute pulmonary infiltrates. 3. Several noncalcified nodules largest in the lung bases measuring 6 mm. Job mmend 6 month follow-up chest CT. 4. Cholelithiasis. 5. 2.1 cm RIGHT adrenal adenoma. 6. Vascular calcification including coronary.
== END 2022-07-19 08:11 | disposition home or self-care (01) ==
LOC: RAD 08:11
PROVIDERS: PCP Family Medicine; Visit Provider Family Medicine
DX: J90 Pleural effusion, not elsewhere classified (principal); R91.8 Other nonspecific abnormal finding of lung field; K80.20 Calculus of gallbladder without cholecystitis without obstruction; D35.01 Benign neoplasm of right adrenal gland; I25.10 Atherosclerotic heart disease of native coronary artery without angina pectoris
CPT/HCPCS: 71250

== ENCOUNTER → 2022-07-20 11:14 | Outpatient (BNVA) | payer MEDICARE, SELFPAY | PROVIDERS: PCP Family Medicine; Visit Provider Physician Assistant | DX: M79.604 Pain in right leg (principal) | CPT/HCPCS: 99213 ==

== ENCOUNTER → 2022-08-08 08:08 | Outpatient (BNVA) | payer MEDICARE, SELFPAY | PROVIDERS: PCP Family Medicine; Visit Provider Surgery | DX: Z09 Encounter for follow-up examination after completed treatment for conditions other than malignant neoplasm (principal); D64.9 Anemia, unspecified | CPT/HCPCS: 99203 ==

== ENCOUNTER 2022-09-09 12:32 | Inpatient (IN) | payer MEDICARE, SELFPAY ==
[2022-09-09] VITALS (19 sets, daily range): BP systolic 153–222; BP diastolic 75–105; PULSE 72–98; RESP 16–28; TEMP 36.6–37.1; O2SAT 89–100
--- NOTE | 2022-09-09 12:48 | W.ED.SOB ---
HPI - SOB/Dyspnea General: Chief Complaint: Shortness of Breath/Dyspnea Stated Complaint: SOB Time Seen by Provider: 09/09/22 12:48 History of Present Illness: HPI Narrative: Mr. Hunter is an 82-year-old gentleman with significant past medical history of CKD, CHF, anemia presenting to the emergency department for respiratory symptoms. He notes 3 days of gradual onset dyspnea which is worse with exertion and laying flat. Has noticed mild associated leg swelling. Denies infectious symptoms. Intensity of symptoms is now moderate to severe. Course has worsened. Patient noted to be tachypneic and requiring new supplemental oxygen due to hypoxemia in triage. No other specific changes in health, exacerbating, or alleviating factors identified. Onset (ago): day(s) Timing: progressively worsening Exacerbating factors: lying flat and exertion Relieving factors: nothing Known history of: congestive heart failure Associated symptoms: Reports orthopnea Review of Systems General: Reports: 10 or more systems reviewed and unremarkable except in HPI and below Card: Reports: orthopnea [facility] ED PFSH: Medical History (Updated 09/14/22 @ 00:00 by CHRISTINE Lock) CAD (coronary artery disease) CKD (chronic kidney disease) Diabetes mellitus Hypercholesterolemia Hypertension Lumbosacral radiculopathy Surgical History History of back surgery Stented coronary artery Family History Father Cancer Other Diabetes Hypertension Social History Smoking and tobacco status: never smoked Second hand smoke exposure: No Alcohol intake: never Lives independently: Yes Household members: spouse Marital status: History of recent travel: No Physical Exam Const: COMMON NORMALS: alert GENERAL APPEARANCE: cooperative, well developed and ill appearing (Somewhat) HENMT: COMMON NORMALS: normocephalic and atraumatic HEAD & SCALP: normocephalic and atraumatic Eye: COMMON NORMALS: conjunctivae normal CONJUNCTIVA: Yes conjunctivae normal SCLERA: sclerae normal Neck/C-Spine: COMMON NORMALS: supple GENERAL: Yes trachea midline Resp: EFFORT & INSPECTION: Yes tachypneic AUSCULTATION: crackles (Bilateral bases) and wheezes (Right upper) Cardio: COMMON NORMALS: regular rhythm RATE: tachycardic RHYTHM: regular rhythm GI: COMMON NORMALS: Soft to palpation PALPATION: Yes Soft to palpation and No Tenderness to palpation present (GI) Extremity: GENERAL: Yes normal exam except as noted and Yes edema (1+ at ankles) Neuro: COMMON NORMALS: moves all extremities SENSORIUM/ORIENTATION: Yes alert and No Orientation impaired Psych: COMMON NORMALS: mental status grossly normal and Normal thought process present THOUGHT PROCESS: Normal thought process present Course Vital Signs: Vital signs: Vital Signs Temperature 97.3 F L 09/13/22 12:57 Pulse Rate 57 L 09/13/22 12:57 Respiratory Rate 18 09/13/22 12:57 Blood Pressure 142/67 09/13/22 12:57 Pulse Oximetry 93 09/13/22 12:57 Oxygen Delivery Me thod 09/13/22 12:00 Oxygen Flow Rate 2 09/12/22 08:00 Fraction of Inspir ed Oxygen 30 09/10/22 23:48 MDM - SOB/Dyspnea Medical Decision Making 82-year-old gentleman presenting with 3-day history of worsening respiratory symptoms. Patient does have tachypnea on exam and is requiring supplemental oxygen which is new. EKG notable for sinus rhythm with nonspecific ST segment abnormalities, normal intervals and axis, no STEMI. Similar on repeat and in comparison to prior. Labs notable for leukocytosis and normocytic anemia with normal platelet count and no evidence of active hemorrhage. Metabolic panel with elevated creatinine and no evidence of metabolic stress. Negative range 2-hour delta troponin. BNP is elevated. Chest x-ray demonstrates opacity within both lungs with possible superimposed increased pulmonary vascular congestion, no pneumothorax. ABG with hypoxemia. During ED course patient treated with DuoNeb, Lasix, antibiotics for community-acquired pneumonia. Patient appears mildly improved though still requiring oxygen. Most likely etiology of symptoms is community-acquired pneumonia, heart failure exacerbation, CKD with volume overload. Given combination of etiologies and clinical history as well as overall clinical appearance with new oxygen requirement I believe that inpatient management is the most appropriate as the patient is not low risk for morbidity/mortality. The results of ED evaluation were discussed with the patient including plan for admission due to requirement for level of care not available if discharged to prevent significant worsening/deterioration. Patient agreeable with plan. Discussed with hospitalist service who was agreeable to admit patient. Medical Records I reviewed the patient's medical records. Lab Data I reviewed the patient's lab results. 09/09/22 12:55 09/09/22 12:55 Labs/Radiology: Radiology Impressions Venous Duplex 09/09/22 18:59 IMPRESSION: No evidence of deep vein thrombosis. Pulmonary Perfusion Imaging 09/11/22 06:00 IMPRESSION: 1. Low probability for pulmonary embolus. Chest X-Ray 09/11/22 07:00 IMPRESSION: 1. Improving bilateral pulmonary infiltrates. Resolved small bibasal pleural effusions since prior study. Laboratory Results WBC 10.8 10^3/uL (4.0-10.0) H 09/09/22 12:55 RBC 3.23 10^6/uL (4.1-5.3) L 09/09/22 12:55 Hgb 9.5 g/dL (11.7-16.6) L 09/09/22 12:55 Hct 28.9 % (42.0-52.0) L 09/09/22 12:55 MCV 89.5 fl (80-94) 09/09/22 12:55 MCH 29.4 pg (28.0-34.0) 09/09/22 12:55 MCHC 32.9 g/dL (30.0-36.0) 09/09/22 12:55 RDW 13.8 % (12.1-15.1) 09/09/22 12:55 Plt Count 225 10^3/cmm (130-400) 09/09/22 12:55 MPV 9.3 fL (7.4-10.4) 09/09/22 12:55 Neut % (Auto) 80.3 % 09/09/22 12:55 Lymph % (Auto) 10.6 % 09/09/22 12:55 [place] % (Auto) 5.8 % 09/09/22 12:55 Eos % (Auto) 2.3 % 09/09/22 12:55 Baso % (Auto) 0.5 % 09/09/22 12:55 Neut # (Auto) 8.66 10^3/uL (1.8-7.7) H 09/09/22 12:55 Lymph # (Auto) 1.1 10^3/uL (0.8-4.8) 09/09/22 12:55 [place] # (Auto) 0.6 10^3/uL (0.2-0.9) 09/09/22 12:55 Eos # (Auto) 0.3 10^3/uL (0.0-0.8) 09/09/22 12:55 Baso # (Auto) 0.1 10^3/uL (0.0-0.1) 09/09/22 12:55 Nucleated RBC % (auto) 0 % 09/09/22 12:55 Nucleated RBCs # 0.0 /100WBC 09/09/22 12:55 D-Dimer 1.40 ug/mIFEU (0-0.59) H 09/09/22 12:58 Specimen Type Arterial 09/09/22 13:11 Sample Site Radial, left 09/09/22 13:11 ABG pH 7.42 (7.35-7.45) 09/09/22 13:11 ABG pCO2 33.6 mmHg (35-45) L 09/09/22 13:11 ABG pO2 79.4 mmHg (80.0-100.0) L 09/09/22 13:11 ABG HCO3 21.9 mmol/L (22-26) L 09/09/22 13:11 ABG O2 Saturation 96.8 09/09/22 13:11 ABG Base Excess -1.8 mmol/L (-2.0-2.0) 09/09/22 13:11 Livan Test Pos 09/09/22 13:11 A-a O2 Gradient 3.6 mmHg (5-10) L 09/09/22 13:11 Hematocrit 47.3 % (42-52) 09/09/22 13:11 Hgb O2 Saturation 94.7 % (95-100) L 09/09/22 13:11 Carboxyhemoglobin 1.3 %THgb (0.4-20.1) 09/09/22 13:11 Methemoglobin 0.8 % (0.4-1.5) 09/09/22 13:11 Total Hemoglobin 15.4 g/dL (14-18) 09/09/22 13:11 Sodium 144.0 mmol/L (131-143) H 09/09/22 13:11 Potassium 3.9 mmol/L (3.5-5.0) 09/09/22 13:11 Glucose 224.0 mg/dL (70-115) H 09/09/22 13:11 Ionized Calcium 1.0 mmol/L (1.1-1.4) L 09/09/22 13:11 O2 Delivery Device Nc 09/09/22 13:11 O2 Liters/Min 2.0 % 09/09/22 13:11 Cargo Vessel Stewardess ID Ramon 09/09/22 13:11 Sodium 140 mmol/L (136-145) 09/09/22 12:55 Potassium 4.0 mmol/L (3.5-5.1) 09/09/22 12:55 Chloride 104 mmol/L (98-107) 09/09/22 12:55 Carbon Dioxide 20 mmol/L (22-29) L 09/09/22 12:55 Anion Gap 20.0 (5-19) H 09/09/22 12:55 BUN 46 mg/dL (8-23) H 09/09/22 12:55 Creatinine 3.6 mg/dL (0.7-1.2) H 09/09/22 12:55 GFR Calculation Not Reportable 09/09/22 12:55 Glucose 194 mg/dL (65-115) H 09/09/22 12:55 Calculated Osmolality 307 mOsm/kg (285-295) H 09/09/22 12:55 Lactic Acid 0.7 mmol/L (0.5-2.2) 09/09/22 15:24 Calcium 8.1 mg/dL (8.5-10.5) L 09/09/22 12:55 Total Bilirubin 0.5 mg/dL (0.15-1.2) 09/09/22 12:55 AST 28 U/L (0-40) 09/09/22 12:55 ALT 19 U/L (0-41) 09/09/22 12:55 Alkaline Phosphatase 114 U/L (40-130) 09/09/22 12:55 Troponin T Baseline 80 ng/L (0-15) H 09/09/22 12:55 Troponin T 120 Minute 72.00 ng/L (0-15) H 09/09/22 15:02 Delta Troponin T -8.00 ABS# (0-10) L 09/09/22 15:02 NT-Pro-B Natriuret Pep 3269 pg/mL (0-450) H 09/09/22 12:55 Total Protein 6.8 g/dL (6.6-8.7) 09/09/22 12:55 Albumin 3.8 g/dL (3.5-5.2) 09/09/22 12:55 Globulin 3.0 g/dL (1.3-4.6) 09/09/22 12:55 Procalcitonin 0.17 ng/mL (0-0.5) 09/09/22 12:55 TSH 4.35 uIU/mL (0.27-4.20) H 09/09/22 12:55 Free T4 1.24 ng/dL (0.82-1.77) 09/09/22 12:55 Influenza Type A Ag negative (Negative) 09/09/22 13:09 Influenza Type B Ag negative (Negative) 09/09/22 13:09 SARS-CoV-2 Ag (Rapid) negative (Negative) 09/09/22 13:09 Discharge Plan Discharge Patient Disposition: Placed in Observation Admit Provider: Louis Cruz Clinical Impression: Acute on chronic congestive heart failure, Pulmonary edema, Pneumonia, CKD (chronic kidney disease), Hypoxia, Anemia Discharge Diet: Cardiac Discharge Activity: Resume usual activity Coding Level of Care Code ED Lithograph Printer for Mervat Fwd Exam Comprehensive
--- NOTE | 2022-09-09 12:54 | XRR_ITS ---
PROCEDURE INFORMATION: Exam: XR Chest Exam date and time: 09/09/2022 1:25 PM Age: 82 years old Clinical indication: Shortness of breath; Additional info: SOB TECHNIQUE: Imaging protocol: Radiologic exam of the chest. Views: 1 view. COMPARISON: CT chest con [id number] 07/19/2022 8:49 AM FINDINGS: Lungs: Mild increased markings with patchy infiltrate versus edema mid to upper right lung and both lung bases. Pleural spaces: Suggestion of trace effusion. No pneumothorax. Heart/Mediastinum: Cardiac silhouette is upper limits of normal in size. Vasculature: Arteriosclerosis of the thoracic aorta. Bones/joints: Degenerative change thoracic spine. XR/XR chest 1V portable [id number] IMPRESSION: Mild patchy infiltrate mid to upper right lung laterally and ill-defined opacity or infiltrate within both lung bases, along with mild increased pulmonary markings or pulmonary vascularity. Suggestion of trace effusions. Findings likely represent combination of CHF and pneumonia, for follow-up.
--- NOTE | 2022-09-09 12:56 | ECG_ITS ---
[facility] Test Date: 2022-09-09 Pat Name: Quang Hunter Department: Room: Gender: Male Clinical Education Manager: : 1940 Requested By: Fausto Tripp Order Number: [id number] Ivan MD: Dora Nolen M.D. Measurements Intervals [place] Rate: 92 P: 78 ME: 195 QRS: 74 QRSD: 92 T: 115 QT: 373 QTc: 462 Interpretive Statements SINUS RHYTHM NONSPECIFIC T-WAVE ABNORMALITY Compared to ECG 07/03/2022 15:13:57 T-wave abnormality now present Left ventricular hypertrophy no longer present Prolonged QT interval no longer present Electronically Signed On 09-10-2022 8:49:13 HOOP MACHINE OPERATOR by Dora Nolen M.D. [id number]
[2022-09-09] MEDS: ipratropium-albuterol 3 mL Neb INHALATION (13:03)
[2022-09-09 13:05] LABS: Basophils # 0.1 10^3/uL (0.0-0.1); Basophils % 0.5 %; Eosinophils # 0.3 10^3/uL (0.0-0.8); Eosinophils % 2.3 %; Hematocrit 28.9 % (42.0-52.0); Hemoglobin 9.5 g/dL (11.7-16.6); Lymphocytes # 1.1 10^3/uL (0.8-4.8); Lymphocytes % 10.6 %; Mean Corpuscular HGB Conc 32.9 g/dL (30.0-36.0); Mean Corpuscular Hemoglobin 29.4 pg (28.0-34.0); Mean Corpuscular Volume 89.5 fl (80-94); Mean Platelet Volume 9.3 fL (7.4-10.4); Monocytes # 0.6 10^3/uL (0.2-0.9); Monocytes % 5.8 %; Neutrophils # 8.66 10^3/uL (1.8-7.7); Neutrophils % 80.3 %; Nucleated Red Blood Cells % 0 %; Platelet Count 225 10^3/cmm (130-400); Red Blood Count 3.23 10^6/uL (4.1-5.3); Red Cell Distribution Width 13.8 % (12.1-15.1); White Blood Count 10.8 10^3/uL (4.0-10.0)
[2022-09-09 13:23] LABS: ABG PCO2 33.6 mmHg (35-45); ABG PH Result 7.42 (7.35-7.45); Alveolar-Arterial Oxygen Gradi 3.6 mmHg (5-10); Arterial Blood Gas Hematocrit 47.3 % (42-52); Base Excess ABG -1.8 mmol/L (-2.0-2.0); Blood Gas Allen Test Pos; Blood Gas Sample Site Radial, left; Blood Gas Sample Type Arterial; Carboxyhemoglobin 1.3 %THgb (0.4-20.1); HCO3 ABG 21.9 mmol/L (22-26); HGB O2 Sat 94.7 % (95-100); Methemoglobin 0.8 % (0.4-1.5); Oxygen Device NC; Oxygen Saturation ABG 96.8; PO2 ABG 79.4 mmHg (80.0-100.0); Potassium Level - ABG 3.9 mmol/L (3.5-5.0); Total Hemoglobin 15.4 g/dL (14-18)
[2022-09-09 13:37] LABS: Lactic Sepsis W/Reflex 1.3 mmol/L (0.5-2.2)
[2022-09-09 13:38] LABS: Troponin(5th) Baseline 80 ng/L (0-15)
[2022-09-09 13:44] LABS: SARS Covid-2 Antigen negative (Negative)
[2022-09-09 13:45] LABS: Influenza A by IFA negative (Negative); Influenza B by IFA negative (Negative)
[2022-09-09 13:45] LABS: NT Pro B Type Natriuretic Pept 3269 pg/mL (0-450); Procalcitonin 0.17 ng/mL (0-0.5); Thyroid Stimulating Hormone 4.35 uIU/mL (0.27-4.20)
[2022-09-09 13:56] LABS: Alanine Aminotransferase 19 U/L (0-41); Albumin Level 3.8 g/dL (3.5-5.2); Alkaline Phosphatase 114 U/L (40-130); Aspartate Amino Transferase 28 U/L (0-40); Blood Urea Nitrogen 46 mg/dL (8-23); Calcium 8.1 mg/dL (8.5-10.5); Carbon Dioxide 20 mmol/L (22-29); Chloride 104 mmol/L (98-107); Glucose 194 mg/dL (65-115); Osmolality Calculated 307 mOsm/kg (285-295); Sodium 140 mmol/L (136-145); Total Bilirubin 0.5 mg/dL (0.15-1.2); Total Protein 6.8 g/dL (6.6-8.7)
[2022-09-09 15:08] LABS: Free T4 Free Thyroxine 1.24 ng/dL (0.82-1.77)
[2022-09-09] MEDS: FUROsemide 10 mg/mL SDV 4mL 40 MG IVP (15:31)
[2022-09-09] MEDS: doxycycline 100 MG in sodium chloride 0.9% (plus) 100 ML IV (15:35)
[2022-09-09 16:02] LABS: Lactic Sepsis W/Reflex 0.7 mmol/L (0.5-2.2)
[2022-09-09] MEDS: cefTRIAXone 1,000 MG in sodium chloride 0.9% (plus) 50 ML 100 MG IV (16:59)
--- NOTE | 2022-09-09 17:27 | P.HP_ITS ---
Providers/Chief Complaint Primary Care Provider: Harjit Marc MD Chief Complaint: SOB History of Present Illness Pleasant 82-year-old gentleman with history of diastolic CHF, CAD S/p stenting in Apr 2022, CKD, DM2, HTN, HLD, lumbosacral radiculopathy with bulged disc and chronic back pain, he thinks may be contributing to his hypertension with blood pressures running high, presents to the hospital due to chronic progressive dy spnea on exertion, recently also at rest, states he has gained about 8 or 9 pounds in the last 3 months. He has not contacted his cardiology office about it. He has been having worsening lower extremity edema. Symptoms particularly worsening for the last 3 days. He is unable to lie down flat. He gets very dyspneic with exertion. He has almost persistent dyspnea. He denies using oxygen at home normally. He has dry cough. Denies chest pain. Denies hemoptysis. Bilateral lower extremity edema is symmetrical. CXR with CHF, possibly also pneumonia. He is afebrile. Minimal leukocytosis 1 0.8. Review of Systems Const: Denies: fever(s), chills, body aches or malaise Eyes: Denies: change in vision, eye discomfort or eye redness ENMT: Denies: throat pain, oral sores or ear or mastoid pain Card: Reports: edema, swelling of feet/ankles, dyspnea on exertion and orthopnea; Denies: chest pain or pre-syncope Resp: Reports: dyspnea and non-productive cough; Denies: productive cough, change in phlegm color or hemoptysis GI: Denies: abdominal pain, nausea, vomiting, diarrhea, constipation, hematochezia or melena : Denies: flank pain, difficulty urinating, urinary frequency or hematuria Musc: Denies: back pain, joint swelling or joint redness Skin/Breast: Reports: other (Follows with emergency generator mechanic regarding scalp and left ear lesions.); Denies: rash or new lesions Neuro: Denies: headache(s), numbness in extremities, weakness in extremities, dizziness, confusion or seizure-like activity Endo: Denies: polyuria or polydipsia Williams/Lymph: Denies: easy bleeding or tender lymph nodes All/Imm: Denies: urticaria or tongue swelling Medications/Allergies Home Medications Medication Instructions Recorded Confirmed Last Taken Type aspirin 81 mg tablet,delayed 81 mg PO DAILY 03/07/20 09/09/22 09/09/22 History release (Aspir-) atorvastatin 80 mg tablet 80 mg PO BEDTIME 03/07/20 09/09/22 09/08/22 History omega 5-qew-myh-fish oil 1,000 mg 3 cap PO BID 03/07/20 09/09/22 09/09/22 History (120 mg-180 mg) capsule (Fish Oil) potassium chloride 10 mEq 20 meq PO TID 03/07/20 09/09/22 09/09/22 History tablet,extended release tamsulosin 0.4 mg capsule 0.4 mg PO BEDTIME 03/07/20 09/09/22 09/08/22 History insulin glargine 100 unit/mL 20 - 40 unit SUBCUT DAILY 12/21/20 09/09/22 09/09/22 History subcutaneous solution (Lantus U-100 Insulin) amlodipine 10 mg tablet 10 mg PO BEDTIME 01/10/21 09/09/22 09/08/22 History multivitamin 1 tab PO DAILY 07/01/22 09/09/22 09/09/22 History hydralazine 50 mg tablet 100 mg PO TID 30 days #120 tabs 07/05/22 09/09/22 09/09/22 Rx clopidogrel 75 mg tablet (Plavix) 75 mg PO DAILY 08/08/22 09/09/22 09/09/22 History ferrous sulfate 325 mg (65 mg 325 mg PO DAILY 09/09/22 09/09/22 09/09/22 History iron) tablet (FeroSul) furosemide 40 mg tablet 40 mg PO DAILY 09/09/22 09/09/22 09/09/22 History hydrocodone 5 mg-acetaminophen 325 1 - 2 tab PO .Q4-6H PRN Pain 09/09/22 09/09/22 Unknown History mg tablet isosorbide mononitrate 60 mg 60 mg PO DAILY 09/09/22 09/09/22 09/09/22 History tablet,extended release 24 hr metoprolol tartrate 50 mg tablet 50 mg PO DAILY 09/09/22 09/09/22 09/09/22 History turmeric 400 mg capsule 400 mg PO DAILY 09/09/22 09/09/22 09/09/22 History Allergies Allergy/AdvReac Type Severity Reaction Status Date / Time dulaglutide [From Trulicity] Allergy Unknown Verified 08/31/22 09:45 sitagliptin [From Januvia] Allergy ADR-Blurry Verified 08/31/22 09:45 Vision PFSH Acute PFSH: Medical History (Updated 09/09/22 @ 17:39 by Louis Cruz MD) CAD (coronary artery disease) CKD (chronic kidney disease) Diabetes mellitus Hypercholesterolemia Hypertension Lumbosacral radiculopathy Surgical History History of back surgery Stented coronary artery Family History Father Cancer Other Diabetes Hypertension Social History Smoking and tobacco status: never smoked Second hand smoke exposure: No Alcohol intake: never Lives independently: Yes Household members: spouse Marital status: History of recent travel: No Vitals/I&O/Wt Last Vital Signs Temp 97.9 F 09/09/22 12:43 Pulse 77 09/09/22 17:00 Resp 16 09/09/22 17:00 BP 184/105 09/09/22 17:00 Pulse Ox 95 09/09/22 17:00 O2 Del Method 09/09/22 17:00 O2 Flow Rate 2 09/09/22 17:00 09/09/22 09/09/22 09/09/22 06:59 14:59 22:59 Intake Total 150 / 150 Balance 150 / 150 Weight last 48 hrs Weight 79.379 kg Physical Exam Narrative: Accompanied by his Const: COMMON NORMALS: patient oriented x3 and alert GENERAL APPEARANCE: cooperative ORIENTATION/CONSCIOUSNESS: Yes awake HENMT: COMMON NORMALS: oropharynx normal Neck/C-Spine: COMMON NORMALS: no JVD Resp: COMMON NORMALS: normal respiratory effort and clear to auscultation bilaterally AUSCULTATION: rales bilateral at the base and wheezes lower bilaterally Cardio: COMMON NORMALS: no JVD, regular rhythm, S1 normal heart sound present, S2 normal heart sound present and No murmurs present (Cardio) RHYTHM: regular rhythm HEART SOUNDS: S1 normal heart sound present and S2 normal heart sound present GI: COMMON NORMALS: Normal to inspection, nondistended, normoactive bowel sounds present, Soft to palpation and non-tender PALPATION: Yes Soft to palpation Extremity: COMMON NORMALS: no joint enlargement GENERAL: Yes edema (3+ BL) Neuro: COMMON NORMALS: patient oriented x3 and moves all extremities SENSORIUM/ORIENTATION: Yes alert Skin: COMMON NORMALS: no rashes or lesions noted GENERAL SKIN EXAM: no rashes or lesions noted Data 09/09/22 12:55 09/09/22 12:55 Micro: Microbiology 09/09/22 15:24 Blood Culture - Preliminary Blood SPECIMEN COLLECTED 09/09/22 15:26 Blood Culture - Preliminary Blood SPECIMEN COLLECTED A&P Assessment and plan (1) Acute on chronic congestive heart failure: Acute diastolic congestive heart failure. Received 40 mg IV Lasix. Continue Lasix 60 twice daily, continue Imdur. Discussed with him possible difficulties with treatment of CHF given underlying CKD. Monitor I&O, weights. Monitor on telemetry. Reassess limited TTE. Complete troponin EKG series. Denies chest pain. Unclear trigger, has been hypotensive, also possible pneumonia. (2) Pulmonary edema: As above. (3) Pneumonia: Possible combination CHF and pneumonia as per x-ray. He does have a dry cough. No sputum production. Minimal leukocytosis, afebrile. Discussed with him additional assessment for possibility of PE which will be more challenging due to his chronic kidney disease. D-dimer has been requested. Bilateral lower extremity swelling, assess duplex ultrasound for DVT. Received ceftriaxone and doxycycline. For now continue antibiotic. Will reassess symptoms and check procalcitonin. Rapid COVID-19 and rapid flu negative. (4) CKD (chronic kidney disease): Creatinine appears close to or possibly slightly worse than baseline. 3.6. May make treatment of CHF difficult. Follow renal function. I&O. (5) Hypoxia: New hypoxia with new oxygen requirement, combination acute congestive heart failure and possibly pneumonia. (6) Anemia: Normocytic anemia, appears at baseline. With history of combined ACD and iron deficiency anemia. (7) Hypertension: Poorly controlled hypertension. Hypertensive in ER 184/105. Diuretic use escalated. Continue Imdur, hydralazine, amlodipine. (8) Subclinical hypothyroidism: TSH 4.35, free T4 1.24. Follow-up outpatient. Plan CAD: Status post stenting in April, on aspirin and Plavix. BPH DM2 HLD Lumbosacral radiculopathy Attestations Medical Necessity Statement*: Patient of over 2 midnights anticipated for assessment of management of decompensated HFpEF, possibly with combination with pneumonia and gentleman with underlying CKD, with new hypoxia, poorly controlled hypertension. Coding Level of Care Code Acute Code for Chg Fwd Diagnoses Acute on chronic congestive heart failure I50.9 Pulmonary edema J81.1 Pneumonia J18.9 CKD (chronic kidney disease) N18.9 Hypoxia R09.02 Anemia D64.9 Hypertension I10 Subclinical hypothyroidism E03.8
--- NOTE | 2022-09-09 18:54 | ECG_ITS ---
[facility] Test Date: 2022-09-09 Pat Name: Quang Hunter Department: Room: 258 Gender: Male Design Project Manager: : 1940 Requested By: Fausto Tripp Order Number: [id number] Ivan MD: Dora Nolen M.D. Measurements Intervals [place] Rate: 84 P: 36 [place]: 176 QRS: 37 QRSD: 94 T: 60 QT: 402 QTc: 477 Interpretive Statements SINUS RHYTHM NONSPECIFIC T-WAVE ABNORMALITY Compared to ECG 09/09/2022 12:56:00 No significant changes Electronically Signed On 09-10-2022 9:14:04 CHIEF ENTERPRISE ARCHITECT by Dora Nolen M.D. [id number]
--- NOTE | 2022-09-09 18:59 | USR_ITS ---
PROCEDURE INFORMATION: Exam: US Duplex Lower Extremity Veins, Bilateral Exam date and time: 09/09/2022 7:44 PM Age: 82 years old Clinical indication: Edema, localized; Lower extremity, bilateral; Additional info: Assess for dvt TECHNIQUE: Imaging protocol: Real-time duplex ultrasound of the bilateral extremities with 2-D gillette scale, color Doppler flow and spectral waveform analysis including responses to compression and other maneuvers (when performed) with image documentation. Complete exam focused on the lower extremity veins. COMPARISON: US renal BI* [id number] 06/01/2022 10:53 AM FINDINGS: Right deep veins: Unremarkable. The common femoral, femoral, proximal profunda femoral and popliteal veins are patent without thrombus. Normal Doppler waveforms. Normal compressibility and/or augmentation response. Right superficial veins: Saphenofemoral junction is patent without thrombus. Left deep veins: Unremarkable. The common femoral, femoral, proximal profunda femoral and popliteal veins are patent without thrombus. Normal Doppler waveforms. Normal compressibility and/or augmentation response. Left superficial veins: Saphenofemoral junction is patent without thrombus. Soft tissues: Soft tissue edema within the lower legs bilaterally. US/[place] [id number] IMPRESSION: No evidence of deep vein thrombosis.
[2022-09-09 19:06] LABS: Troponin 5 6HR 73.23 ng/L (0-15)
[2022-09-09 19:07] LABS: Troponin 5 6HR Delta -6.77 ng/L (0-12)
[2022-09-09] MEDS: hyDRALAzine 50 mg Tablet 100 MG PO (19:28)
[2022-09-09] MEDS: atorvastatin 40 mg Tablet 80 MG PO (19:29)
[2022-09-09] MEDS: amlodipine 10 mg Tablet PO (19:29)
[2022-09-09] MEDS: tamsulosin 0.4 mg Capsule PO (19:29)
[2022-09-09] MEDS: azithromycin 500 MG in sodium chloride 0.9% 250 ML 250 MG IV (19:36)
[2022-09-09] MEDS: heparin 5,000 unit/mL INJ 1 mL 5000 UNIT SUBCUT (19:37)
[2022-09-09 20:48] LABS: ABG PCO2 32.5 mmHg (35-45); ABG PH Result 7.45 (7.35-7.45); Base Excess ABG -0.9 mmol/L (-2.0-2.0); Blood Gas Allen Test Pos; Blood Gas Sample Site Radial, right; Blood Gas Sample Type Arterial; HCO3 ABG 22.7 mmol/L (22-26); Oxygen Device NC; PO2 ABG 68.1 mmHg (80.0-100.0)
[2022-09-09] MEDS: FUROsemide 10 mg/mL SDV 10mL 60 MG IVP (21:18)
[2022-09-09] MEDS: heparin drip 25,000 UNIT/500 ML PREMIX 23 UNIT IV (21:28)
[2022-09-09] MEDS: nitroglycerin 1 gm/inch oint Pkt 1 INCH TOPICAL (21:42)
[2022-09-09] MEDS: metOLazone 5 MG Tablet PO (21:42)
[2022-09-09 21:46] LABS: Partial Thromboplastin Time 36.1 SECONDS (23.9-36.7)
[2022-09-10] VITALS (11 sets, daily range): BP systolic 151–180; BP diastolic 73–81; PULSE 50–79; RESP 15–18; TEMP 36.6–37; O2SAT 95–96
[2022-09-10] MEDS: nitroglycerin 1 gm/inch oint Pkt 1 INCH TOPICAL ×4 (03:29→21:44)
[2022-09-10 03:59] LABS: Basophils % 0.6 %; Eosinophils # 0.2 10^3/uL (0.0-0.8); Eosinophils % 4.4 %; Hematocrit 22.8 % (42.0-52.0); Hemoglobin 7.4 g/dL (11.7-16.6); Lymphocytes # 0.7 10^3/uL (0.8-4.8); Lymphocytes % 14.6 %; Mean Corpuscular HGB Conc 32.5 g/dL (30.0-36.0); Mean Corpuscular Hemoglobin 29.8 pg (28.0-34.0); Mean Corpuscular Volume 91.9 fl (80-94); Mean Platelet Volume 9.7 fL (7.4-10.4); Monocytes # 0.4 10^3/uL (0.2-0.9); Monocytes % 9.1 %; Neutrophils # 3.41 10^3/uL (1.8-7.7); Neutrophils % 70.9 %; Nucleated Red Blood Cells % 0 %; Platelet Count 179 10^3/cmm (130-400); Red Blood Count 2.48 10^6/uL (4.1-5.3); Red Cell Distribution Width 13.9 % (12.1-15.1); White Blood Count 4.8 10^3/uL (4.0-10.0)
[2022-09-10 04:15] LABS: Partial Thromboplastin Time 129.3 SECONDS (23.9-36.7)
[2022-09-10 04:22] LABS: Anion Gap 17.4 (5-19); Blood Urea Nitrogen 48 mg/dL (8-23); Calcium 7.6 mg/dL (8.5-10.5); Carbon Dioxide 22 mmol/L (22-29); Chloride 107 mmol/L (98-107); Glucose 136 mg/dL (65-115); Osmolality Calculated 311 mOsm/kg (285-295); Potassium 3.4 mmol/L (3.5-5.1); Sodium 143 mmol/L (136-145)
[2022-09-10 04:24] LABS: Procalcitonin 0.27 ng/mL (0-0.5)
--- NOTE | 2022-09-10 05:39 | PC.NURSE ---
Notified Dr. Ortiz of patient's hemogloibin of 7.4. No new orders.
--- NOTE | 2022-09-10 06:00 | USCV_ITS ---
Quang Hunter Age: 82 Gender: M : 1940 Exam Date: 09/10/2022 13:25 Ordering Phys: Louis Cruz MD Technologist: MINGO [place] [facility] [place]: chf, ef BP: 164 / 77 HR: 77 Rhythm: Sinus Technical Quality: Adequate MEASUREMENTS (Male / Female) Normal Values 2D ECHO LV Diastolic Diameter PLAX 4.6 cm 4.2 - 5.9 / 3.9 - 5.3 cm LV Systolic Diameter PLAX 3.1 cm IVS Diastolic Thickness 0.7 cm 0.6 - 1.0 / 0.6 - 0.9 cm IVS Systolic Thickness 1.1 cm LVPW Diastolic Thickness 0.7 cm 0.6 - 1.0 / 0.6 - 0.9 cm LVPW Systolic Thickness 0.9 cm LV Ejection Fraction 2D Teich 61.1 % DOPPLER TR Peak Velocity 151.0 cm/s TR Peak Gradient 9.1 mmHg FINDINGS Left Ventricle Normal left ventricular size, systolic function and increased wall thickness, with no regional wall motion abnormalities. Left ventricular ejection fraction is estimated at 60 %. Right Ventricle Normal right ventricular size and systolic function. RVSP could not be calculated due to incomplete tricuspid regurgitation velocity profile. Right Atrium Normal right atrial size. Left Atrium Mildly increased left atrial size. Mitral Valve Mildly thickened mitral valve. No mitral valve regurgitation. Aortic Valve Structurally normal trileaflet aortic valve. Tricuspid Valve Structurally normal tricuspid valve. Mild tricuspid valve regurgitation. Pulmonic Valve Structurally normal pulmonic valve. Pericardium No pericardial effusion. Aorta Normal size aortic root and proximal ascending aorta. IVC Normal IVC dimension with >50% respiratory change of the inferior vena cava. CONCLUSIONS 1. Normal left ventricular size, systolic function and increased wall thickness, with no regional wall motion abnormalities. Left ventricular ejection fraction is estimated at 60 %. 2. No significant change when compared to study dated 07/01/2022. Dora Nolen MD (Electronically Signed) Final Date: 10 September 2022 22:45 S
[2022-09-10] MEDS: ferrous sulfate EC 325 mg Tablet PO (10:12)
[2022-09-10] MEDS: clopidogrel 75 mg Tablet PO (10:13)
[2022-09-10] MEDS: FUROsemide 10 mg/mL SDV 10mL 60 MG IVP ×2 (10:13→20:37)
[2022-09-10] MEDS: isosorbide mononitrate ER 60 mg Tablet PO (10:13)
[2022-09-10] MEDS: hyDRALAzine 50 mg Tablet 100 MG PO ×3 (10:13→20:36)
[2022-09-10] MEDS: metoprolol tartrate 50 mg Tablet PO (10:14)
[2022-09-10] MEDS: insulin glargine 100 units/1 mL 20 UNIT SUBCUT (10:35)
[2022-09-10 11:08] LABS: Partial Thromboplastin Time 94.7 SECONDS (23.9-36.7)
[2022-09-10] MEDS: heparin drip 25,000 UNIT/500 ML PREMIX 15 UNIT IV (12:11)
[2022-09-10] MEDS: cefTRIAXone 1,000 MG in sodium chloride 0.9% (plus) 50 ML 100 MG IV (15:54)
[2022-09-10] MEDS: azithromycin 500 MG in sodium chloride 0.9% 250 ML 250 MG IV (17:50)
[2022-09-10 18:01] LABS: Partial Thromboplastin Time 67.3 SECONDS (23.9-36.7)
[2022-09-10] MEDS: tamsulosin 0.4 mg Capsule PO (20:35)
[2022-09-10] MEDS: atorvastatin 40 mg Tablet 80 MG PO (20:36)
[2022-09-10] MEDS: amlodipine 10 mg Tablet PO (20:36)
--- NOTE | 2022-09-10 20:40 | P.PN_ITS ---
Subjective Subjective: Today he is feeling better. Last night he had a difficult evening being short of breath, with wheezing. Currently wheezing has subsided. He denies chest pain. Some dry cough. No headache, nausea or vomiting. Vitals/I&O/Wt Last Vital Signs Temp 98.6 F 09/10/22 20:00 Pulse 77 09/10/22 20:00 Resp 16 09/10/22 20:00 BP 180/78 09/10/22 20:00 Pulse Ox 95 09/10/22 20:00 O2 Del Method 09/10/22 20:00 O2 Flow Rate 3 09/10/22 20:00 FiO2 30 09/10/22 03:07 09/10/22 09/10/22 09/10/22 06:59 14:59 22:59 Intake Total 161.383 / 561.383 858.6 / 858.6 540 / 1398.6 Output Total 1200 / 1525 200 / 200 Balance -1038.617 / -963.617 858.6 / 858.6 340 / 1198.6 Weight last 48 hrs Weight 85.899 kg Weight 79.379 kg Physical Exam Narrative: Accompanied by his and daughter Const: COMMON NORMALS: patient oriented x3 and alert GENERAL APPEARANCE: cooperative ORIENTATION/CONSCIOUSNESS: Yes awake HENMT: COMMON NORMALS: oropharynx normal Neck/C-Spine: COMMON NORMALS: no JVD Resp: COMMON NORMALS: normal respiratory effort AUSCULTATION: no wheezes and diminished lung sounds bilateral in the lower lung uribe Cardio: COMMON NORMALS: no JVD, regular rhythm, S1 normal heart sound present, S2 normal heart sound present and No murmurs present (Cardio) RHYTHM: regular rhythm HEART SOUNDS: S1 normal heart sound present and S2 normal heart sound present GI: COMMON NORMALS: Normal to inspection, nondistended, normoactive bowel sounds present, Soft to palpation and non-tender PALPATION: Yes Soft to palpation Extremity: COMMON NORMALS: no joint enlargement GENERAL: Yes edema (2+ BL) Neuro: COMMON NORMALS: patient oriented x3 and moves all extremities SENSORIUM/ORIENTATION: Yes alert Skin: COMMON NORMALS: no rashes or lesions noted GENERAL SKIN EXAM: no rashes or lesions noted Data 09/10/22 03:25 09/10/22 03:25 Micro: Microbiology 01/21/23 15:26 Blood Culture - Preliminary Blood NEGATIVE TO DATE 09/09/22 15:24 Blood Culture - Preliminary Blood NEGATIVE TO DATE A&P Assessment and plan (1) Acute on chronic congestive heart failure: Yesterday difficult evening with more dyspnea, also hypertensive. Was started on BiPAP, added Nitropaste. Received a dose of metolazone. With improving CHF symptoms and blood pressure. As per discussion unfortunately some worsening of renal function, this may make treatment of CHF difficult. His edema is better today, however. He may not require prolonged diuretic therapy. Pending assessment also by TTE for reassessment of ejection fraction, valves. Long-term will need optimization of control of hypertension due to poorly contro lled blood pressures which may have triggered the CHF. Discussed with him and his family also limiting fluid and salt intake, as well as contacting his cardiology office in case of weight gain, edema, orthopnea, RANGEL to adjust diuretic dosing earlier. He is still having some dry cough. Questionable pneumonia. Remains without leukocytosis, afebrile. Have continued antibiotics for now, although procalcitonin appears to also not be elevated. In case no further signs of infection may be able to de-escalate antibiotics. Discussed with him possible difficulties with treatment of CHF given underlying CKD. Monitor I&O, weights. Monitor on telemetry. Reassess limited TTE. Unclear trigger, has been hypertensive, also possible pneumonia. Empirically also has been started on heparin drip due to abnormal D-dimer, no CTA due to concern for renal function. Once respiratory failure improving, lungs are clear, may be able to undergo VQ scan to exclude PE and de-escalate anticoagulation. (2) Pulmonary edema: As above. (3) Pneumonia: Possible combination CHF and pneumonia as per x-ray. He does have a dry cough. No sputum production. Minimal leukocytosis, afebrile. Pro-Main is not elevated. If continues without signs of acute infection may be able to de-escalate antibiotics. Rapid COVID-19 and rapid flu negative. (4) CKD (chronic kidney disease): Creatinine was worsening up to 4. LEANNE on CKD. Poorly controlled hypertension. Monitor renal function with diuresis. Poor renal response to CHF treatment may portend worse prognosis. Creatinine appears close to or possibly slightly worse than baseline. 3.6. May make treatment of CHF difficult. Follow renal function. I&O. (5) Hypoxia: Today with mild improvement. New hypoxia with new oxygen requirement, combination acute congestive heart failure and possibly pneumonia. (6) Anemia: Normocytic anemia, appears at baseline. With history of combined ACD and iron deficiency anemia. (7) Hypertension: Poorly controlled hypertension. Hypertensive in ER 184/105. Diuretic use escalated. Continue Imdur, hydralazine, amlodipine. (8) Subclinical hypothyroidism: TSH 4.35, free T4 1.24. Follow-up outpatient. Plan CAD: Status post stenting in April, on aspirin and Plavix. BPH DM2 HLD Lumbosacral radiculopathy Attestations Medical Necessity Statement*: Continue admission for management of decompensated CHF with acute hypoxic respiratory failure, and a gentleman with LEANNE on CKD. Possible pneumonia. Coding Level of Care Code Acute Code for [facility] Fwd Diagnoses Acute on chronic congestive heart failure I50.9 Pulmonary edema J81.1 Pneumonia J18.9 CKD (chronic kidney disease) N18.9 Hypoxia R09.02 Anemia D64.9 Hypertension I10 Subclinical hypothyroidism E03.8
[2022-09-11] VITALS (11 sets, daily range): BP systolic 153–181; BP diastolic 69–76; PULSE 63–87; RESP 14–18; TEMP 36.7–36.8; O2SAT 92–97
[2022-09-11] MEDS: heparin drip 25,000 UNIT/500 ML PREMIX 15 UNIT IV ×2 (01:04→11:09)
[2022-09-11 01:50] LABS: Basophils % 0.6 %; Eosinophils # 0.2 10^3/uL (0.0-0.8); Eosinophils % 4.2 %; Hematocrit 24.2 % (42.0-52.0); Hemoglobin 7.9 g/dL (11.7-16.6); Lymphocytes % 20.7 %; Mean Corpuscular HGB Conc 32.6 g/dL (30.0-36.0); Mean Corpuscular Hemoglobin 29.9 pg (28.0-34.0); Mean Corpuscular Volume 91.7 fl (80-94); Mean Platelet Volume 9.4 fL (7.4-10.4); Monocytes # 0.6 10^3/uL (0.2-0.9); Monocytes % 11.9 %; Neutrophils # 2.97 10^3/uL (1.8-7.7); Neutrophils % 62.2 %; Nucleated Red Blood Cells % 0 %; Platelet Count 187 10^3/cmm (130-400); Red Blood Count 2.64 10^6/uL (4.1-5.3); Red Cell Distribution Width 13.8 % (12.1-15.1); White Blood Count 4.8 10^3/uL (4.0-10.0)
[2022-09-11 02:12] LABS: Anion Gap 17.2 (5-19); Blood Urea Nitrogen 52 mg/dL (8-23); Calcium 7.6 mg/dL (8.5-10.5); Carbon Dioxide 24 mmol/L (22-29); Chloride 103 mmol/L (98-107); Glucose 169 mg/dL (65-115); Osmolality Calculated 310 mOsm/kg (285-295); Potassium 3.2 mmol/L (3.5-5.1); Sodium 141 mmol/L (136-145)
[2022-09-11 02:13] LABS: C Reactive Protein 23.7 mg/L (0.0-4.9)
[2022-09-11 02:23] LABS: D Dimer 0.89 ug/mIFEU (0-0.59)
[2022-09-11 02:24] LABS: NT Pro B Type Natriuretic Pept 2839 pg/mL (0-450); Procalcitonin 0.32 ng/mL (0-0.5)
[2022-09-11 02:43] LABS: Partial Thromboplastin Time 53.4 SECONDS (23.9-36.7)
[2022-09-11] MEDS: nitroglycerin 1 gm/inch oint Pkt 1 INCH TOPICAL ×4 (03:15→20:21)
[2022-09-11] MEDS: heparin 5,000 unit/mL INJ 1 mL IV (03:15)
--- NOTE | 2022-09-11 06:00 | NM_ITS ---
WS: [id number] NUCLEAR MEDICINE LUNG VENTILATION AND PERFUSION CLINICAL INFORMATION: sob TECHNIQUE: Ventilation/perfusion lung scan with 30.5 mCi technetium 99m DTPA. 5.0 mCi mAA COMPARISON: Chest radiograph September 11, 2022 FINDINGS: Relatively symmetric bilateral slightly heterogeneous perfusion bilaterally. Patchy radiotracer depos ition on the ventilatory images compatible with COPD. Radiotracer deposition along the central bronch i on the ventilatory images. No mismatched or lobar ventilation/perfusion defects to indicate pulmona ry embolus. NM/NM pul vent and perfus* [id number] IMPRESSION: 1. Low probability for pulmonary embolus.
[2022-09-11] MEDS: potassium chloride ER 20 mEq Tablet 40 MEQ PO (06:25)
[2022-09-11 06:43] LABS: Ferritin 124 ng/mL (30-400); Iron 34 ug/dL (59-158)
[2022-09-11 06:59] LABS: Vitamin B12 477 pg/mL (232-1245)
--- NOTE | 2022-09-11 07:00 | XR_ITS ---
WS: [id number] Exam: XR chest 1V portable [id number] Date/Time of Exam: 09/11/2022 7:00 AM Reason For Exam: sob Comparison 09/09/2022. Bibasal infiltrates have improved. Small pleural effusions have resolved. There are still patchy infi ltrates in the mid right lung and along the left heart border. Cardiomediastinal silhouette is unrema rkable for technique. No pneumothorax. Bony structures are intact. XR/XR chest 1V portable [id number] IMPRESSION: 1. Improving bilateral pulmonary infiltrates. Resolved small bibasal pleural ef fusions since prior study.
[2022-09-11 07:06] LABS: Folate Level 19.3 ng/mL (4.5-32.2)
[2022-09-11] MEDS: metoprolol tartrate 50 mg Tablet PO (09:52)
[2022-09-11] MEDS: clopidogrel 75 mg Tablet PO (09:52)
[2022-09-11] MEDS: ferrous sulfate EC 325 mg Tablet PO (09:52)
[2022-09-11] MEDS: isosorbide mononitrate ER 60 mg Tablet PO (09:52)
[2022-09-11] MEDS: hyDRALAzine 50 mg Tablet 100 MG PO ×3 (09:53→20:21)
[2022-09-11] MEDS: insulin glargine 100 units/1 mL 20 UNIT SUBCUT (10:00)
[2022-09-11 10:59] LABS: Partial Thromboplastin Time 79.1 SECONDS (23.9-36.7)
[2022-09-11] MEDS: cefTRIAXone 1,000 MG in sodium chloride 0.9% (plus) 50 ML 100 MG IV (15:42)
[2022-09-11 17:23] LABS: Partial Thromboplastin Time 37.5 SECONDS (23.9-36.7)
--- NOTE | 2022-09-11 17:33 | PM.PN ---
Subjective Subjective: Patient was seen this morning, is at bedside, he feels a lot better, no fevers, no chills, no nausea, no vomiting he is able to ambulate he is on 3 L Vitals/I&O/Wt Last Vital Signs Temp 98.3 F 09/11/22 15:51 Pulse 68 09/11/22 15:51 Resp 16 09/11/22 15:51 BP 174/76 09/11/22 15:51 Pulse Ox 93 09/11/22 15:51 O2 Del Method 09/11/22 15:51 O2 Flow Rate 2 09/11/22 09:10 FiO2 30 09/10/22 23:48 09/11/22 09/11/22 09/11/22 06:59 14:59 22:59 Intake Total 226.75 / 1625.35 1093.45 / 1093.45 117.5 / 1210.95 Output Total 450 / 950 Balance -223.25 / 675.35 1093.45 / 1093.45 117.5 / 1210.95 Weight last 48 hrs Weight 83.489 kg Weight 85.899 kg Physical Exam Const: COMMON NORMALS: no acute distress and patient oriented x3 Resp: COMMON NORMALS: normal respiratory effort, No retractions, No use of accessory muscles and clear to auscultation bilaterally AUSCULTATION: clear to auscultation bilaterally Cardio: COMMON NORMALS: regular rate, regular rhythm, S1 normal heart sound present and S2 normal heart sound present RATE: regular rate RHYTHM: regular rhythm HEART SOUNDS: S1 normal heart sound present and S2 normal heart sound present GI: COMMON NORMALS: Normal to inspection, nondistended, normoactive bowel sounds present and non-tender Extremity: COMMON NORMALS: no pedal edema Neuro: COMMON NORMALS: patient oriented x3 Psych: COMMON NORMALS: mental status grossly normal Data 09/11/22 01:25 09/11/22 01:25 Micro: Microbiology 09/09/22 15:26 Blood Culture - Preliminary Blood NEGATIVE TO DATE 09/09/22 15:24 Blood Culture - Preliminary Blood NEGATIVE TO DATE A&P Assessment and plan (1) Acute on chronic congestive heart failure: (2) Pulmonary edema: (3) Pneumonia: (4) CKD (chronic kidney disease): (5) Hypoxia: (6) Anemia: (7) Hypertension: (8) Subclinical hypothyroidism: Plan Acute CHF exacerbation -We will give his kidneys a break hold Lasix for today -Monitor respiratory status closely Pneumonia, continue azithromycin, continue Rocephin LEANNE on CKD creatinine 4.0 hold Lasix for today creatinine seems like its plateaued Evidence of iron deficiency anemia, with low iron levels, low ferritin levels, Protonix, Carafate Concerns for pulmonary embolism, VQ scan low probability, heparin drip stopped Deconditioning, continue PT OT plan on discharge home with Plan today is to continue to clinically monitor, monitor hemoglobin, monitor creatinine, monitor respiratory status potentially discharge tomorrow morning CAD: Status post stenting in April, on aspirin and Plavix. BPH DM2 HLD Lumbosacral radiculopathy Attestations Medical Necessity Statement*: Patient requires hospitalization, for CHF exacerbation, developing LEANNE, iron deficiency anemia Coding Level of Care Code Acute Code for [facility] Fwd Diagnoses Acute on chronic congestive heart failure I50.9 Pulmonary edema J81.1 Pneumonia J18.9 CKD (chronic kidney disease) N18.9 Hypoxia R09.02 Anemia D64.9 Hypertension I10 Subclinical hypothyroidism E03.8
[2022-09-11] MEDS: pantoprazole 40 mg SDV IVP (18:37)
[2022-09-11] MEDS: sucralfate 1 gm Tablet PO (18:37)
--- NOTE | 2022-09-11 20:16 | PC.NURSE ---
at bedside and states she has been dumping patient's urinal. educated that we need to document measurements and to let us know when it needs to be emptied.
[2022-09-11] MEDS: azithromycin 500 MG in sodium chloride 0.9% 250 ML 250 MG IV (20:20)
[2022-09-11] MEDS: heparin 5,000 unit/mL INJ 1 mL 5000 UNIT SUBCUT (20:21)
[2022-09-11] MEDS: amlodipine 10 mg Tablet PO (20:21)
[2022-09-11] MEDS: tamsulosin 0.4 mg Capsule PO (20:21)
[2022-09-11] MEDS: atorvastatin 40 mg Tablet 80 MG PO (20:21)
[2022-09-12] VITALS (17 sets, daily range): BP systolic 153–180; BP diastolic 70–80; PULSE 63–91; RESP 15–18; TEMP 36.6–36.9; O2SAT 91–96
[2022-09-12] MEDS: nitroglycerin 1 gm/inch oint Pkt 1 INCH TOPICAL ×4 (03:32→20:13)
[2022-09-12] MEDS: pantoprazole 40 mg SDV IVP ×2 (05:13→18:22)
[2022-09-12] MEDS: sucralfate 1 gm Tablet PO ×2 (05:13→18:32)
[2022-09-12 06:29] LABS: Basophils % 0.5 %; Eosinophils # 0.2 10^3/uL (0.0-0.8); Eosinophils % 3.8 %; Hematocrit 23.2 % (42.0-52.0); Hemoglobin 7.5 g/dL (11.7-16.6); Lymphocytes # 0.8 10^3/uL (0.8-4.8); Lymphocytes % 19.6 %; Mean Corpuscular HGB Conc 32.3 g/dL (30.0-36.0); Mean Corpuscular Hemoglobin 29.4 pg (28.0-34.0); Mean Platelet Volume 9.4 fL (7.4-10.4); Monocytes # 0.4 10^3/uL (0.2-0.9); Monocytes % 9.7 %; Neutrophils # 2.79 10^3/uL (1.8-7.7); Neutrophils % 65.9 %; Nucleated Red Blood Cells % 0 %; Platelet Count 179 10^3/cmm (130-400); Red Blood Count 2.55 10^6/uL (4.1-5.3); Red Cell Distribution Width 13.7 % (12.1-15.1); White Blood Count 4.2 10^3/uL (4.0-10.0)
[2022-09-12 07:10] LABS: Anion Gap 16.2 (5-19); Blood Urea Nitrogen 60 mg/dL (8-23); Calcium 7.8 mg/dL (8.5-10.5); Carbon Dioxide 25 mmol/L (22-29); Chloride 105 mmol/L (98-107); Glucose 134 mg/dL (65-115); NT Pro B Type Natriuretic Pept 2321 pg/mL (0-450); Osmolality Calculated 315 mOsm/kg (285-295); Potassium 3.2 mmol/L (3.5-5.1); Sodium 143 mmol/L (136-145)
[2022-09-12] MEDS: aspirin 81 mg EC Tablet PO (08:11)
[2022-09-12] MEDS: hyDRALAzine 50 mg Tablet 100 MG PO ×3 (08:11→20:12)
[2022-09-12] MEDS: clopidogrel 75 mg Tablet PO (08:12)
[2022-09-12] MEDS: metoprolol tartrate 50 mg Tablet PO ×2 (08:12→20:13)
[2022-09-12] MEDS: ferrous sulfate EC 325 mg Tablet PO (08:12)
[2022-09-12] MEDS: isosorbide mononitrate ER 60 mg Tablet PO (08:12)
[2022-09-12] MEDS: heparin 5,000 unit/mL INJ 1 mL 5000 UNIT SUBCUT ×2 (08:13→20:13)
[2022-09-12] MEDS: insulin glargine 100 units/1 mL 20 UNIT SUBCUT (08:15)
[2022-09-12] MEDS: cloNIDine 0.1 mg Tablet PO ×2 (08:44→18:31)
[2022-09-12] MEDS: potassium chloride ER 20 mEq Tablet 40 MEQ PO (08:44)
[2022-09-12] MEDS: amlodipine 10 mg Tablet PO (08:45)
[2022-09-12] MEDS: sodium chloride 0.9% 100 ML 50 ML IV (11:41)
--- NOTE | 2022-09-12 13:08 | PM.PN ---
Subjective Subjective: - Patient was seen, he feels better, still having intermittent wheezing, no nausea, no vomiting, no chest pain Vitals/I&O/Wt Last Vital Signs Temp 98.0 F 09/12/22 12:28 Pulse 71 09/12/22 12:28 Resp 18 09/12/22 12:28 BP 162/73 09/12/22 12:13 Pulse Ox 95 09/12/22 12:28 O2 Del Method 09/12/22 11:26 O2 Flow Rate 2 09/12/22 08:00 FiO2 30 09/10/22 23:48 09/11/22 09/12/22 09/12/22 22:59 06:59 14:59 Intake Total 607.5 / 1700.95 360 / 2060.95 720 / 720 Output Total 700 / 700 530 / 1230 400 / 400 Balance -92.5 / 1000.95 -170 / 830.95 320 / 320 Weight last 48 hrs Weight 85.842 kg Weight 83.489 kg Physical Exam Const: COMMON NORMALS: no acute distress and patient oriented x3 Resp: COMMON NORMALS: normal respiratory effort, No retractions and No use of accessory muscles AUSCULTATION: wheezes Cardio: COMMON NORMALS: regular rate, regular rhythm, S1 normal heart sound present and S2 normal heart sound present RATE: regular rate RHYTHM: regular rhythm HEART SOUNDS: S1 normal heart sound present and S2 normal heart sound present GI: COMMON NORMALS: Normal to inspection, nondistended, normoactive bowel sounds present Extremity: COMMON NORMALS: no pedal edema Neuro: COMMON NORMALS: patient oriented x3 Psych: COMMON NORMALS: mental status grossly normal Data 09/12/22 05:59 09/12/22 05:59 A&P Assessment and plan (1) Acute on chronic congestive heart failure: (2) Pulmonary edema: (3) Pneumonia: (4) CKD (chronic kidney disease): (5) Hypoxia: (6) Anemia: (7) Hypertension: (8) Subclinical hypothyroidism: Plan Acute CHF exacerbation -We will give his kidneys a break hold Lasix for today -Monitor respiratory status closely -Continues to have wheezing today, will do 1 dose of Solu-Medrol Pneumonia, continue azithromycin, continue Rocephin LEANNE on CKD creatinine 4.3 hold Lasix for today creatinine seems like its plateaued Evidence of iron deficiency anemia, with low iron levels, low ferritin levels, Protonix, Carafate -Transfuse 1 unit PRBC Concerns for pulmonary embolism, VQ scan low probability, heparin drip stopped Deconditioning, continue PT OT plan on discharge home with Plan today is to continue to clinically monitor, transfuse 1 unit PRBC, monitor hemoglobin, monitor creatinine, monitor respiratory status potentially discharge tomorrow morning CAD: Status post stenting in April, on aspirin and Plavix. BPH DM2 HLD Lumbosacral radiculopathy Attestations Medical Necessity Statement*: Patient requires hospitalization for CHF exacerbation persistent wheezing, LEANNE, anemia requiring transfusion Coding Level of Care Code Acute Code for [facility] Fwd Diagnoses Acute on chronic congestive heart failure I50.9 Pulmonary edema J81.1 Pneumonia J18.9 CKD (chronic kidney disease) N18.9 Hypoxia R09.02 Anemia D64.9 Hypertension I10 Subclinical hypothyroidism E03.8
[2022-09-12] MEDS: cefTRIAXone 1,000 MG in sodium chloride 0.9% (plus) 50 ML 100 MG IV (15:55)
[2022-09-12 18:09] LABS: Hematocrit 30.9 % (42.0-52.0); Hemoglobin 10.3 g/dL (11.7-16.6)
[2022-09-12] MEDS: azithromycin 500 MG in sodium chloride 0.9% 250 ML 250 MG IV (18:23)
[2022-09-12] MEDS: atorvastatin 40 mg Tablet 80 MG PO (20:13)
[2022-09-12] MEDS: tamsulosin 0.4 mg Capsule PO (20:13)
[2022-09-12] MEDS: lanolin oint 7 gm 1 APPLIC TOPICAL (20:44)
--- NOTE | 2022-09-12 21:31 | PC.NURSE ---
Patient c/o shortness of breath with exertion. Patient states he does not feel short of breath when at rest, but states that when he walks to the bathroom, he becomes short of breath. Oxygen saturation currently 92 percent on room air. Will monitor.
--- NOTE | 2022-09-12 22:37 | PC.NURSE ---
Addendum entered by Tamiko Aguero RN 09/12/22 22:38: RT notified. Original Note: Patient states I'll wear my Bipap if I absolutely have to, but I'd really prefer not to. Patient's oxygen saturation currently 92 percent on room air. Will monitor.
[2022-09-13] VITALS (8 sets, daily range): BP systolic 142–191; BP diastolic 67–81; PULSE 57–79; RESP 15–18; TEMP 36.3–36.6; O2SAT 92–98
[2022-09-13] MEDS: nitroglycerin 1 gm/inch oint Pkt 1 INCH TOPICAL ×2 (03:52→08:03)
[2022-09-13] MEDS: sucralfate 1 gm Tablet PO (03:52)
[2022-09-13] MEDS: pantoprazole 40 mg SDV IVP (03:52)
[2022-09-13 04:49] LABS: Hematocrit 27.6 % (42.0-52.0); Hemoglobin 9.2 g/dL (11.7-16.6); Lymphocytes # 0.5 10^3/uL (0.8-4.8); Lymphocytes % 14.2 %; Mean Corpuscular HGB Conc 33.3 g/dL (30.0-36.0); Mean Corpuscular Hemoglobin 30.1 pg (28.0-34.0); Mean Corpuscular Volume 90.2 fl (80-94); Mean Platelet Volume 9.9 fL (7.4-10.4); Monocytes # 0.1 10^3/uL (0.2-0.9); Monocytes % 3.2 %; Neutrophils # 2.85 10^3/uL (1.8-7.7); Neutrophils % 82.3 %; Nucleated Red Blood Cells % 0 %; Platelet Count 180 10^3/cmm (130-400); Red Blood Count 3.06 10^6/uL (4.1-5.3); Red Cell Distribution Width 13.3 % (12.1-15.1); White Blood Count 3.5 10^3/uL (4.0-10.0)
[2022-09-13 05:08] LABS: Anion Gap 19.3 (5-19); Blood Urea Nitrogen 63 mg/dL (8-23); Calcium 7.6 mg/dL (8.5-10.5); Carbon Dioxide 21 mmol/L (22-29); Chloride 99 mmol/L (98-107); Glucose 452 mg/dL (65-115); Osmolality Calculated 318 mOsm/kg (285-295); Potassium 4.3 mmol/L (3.5-5.1); Sodium 135 mmol/L (136-145)
[2022-09-13] MEDS: metoprolol tartrate 50 mg Tablet PO (07:50)
[2022-09-13] MEDS: amlodipine 10 mg Tablet PO (07:51)
[2022-09-13] MEDS: insulin glargine 100 units/1 mL 20 UNIT SUBCUT (08:02)
[2022-09-13] MEDS: hyDRALAzine 50 mg Tablet 100 MG PO (08:02)
[2022-09-13] MEDS: potassium chloride ER 20 mEq Tablet 40 MEQ PO (08:02)
[2022-09-13] MEDS: isosorbide mononitrate ER 60 mg Tablet PO (08:02)
[2022-09-13] MEDS: prazosin 1 mg Capsule PO (08:02)
[2022-09-13] MEDS: aspirin 81 mg EC Tablet PO (08:02)
[2022-09-13] MEDS: cloNIDine 0.1 mg Tablet PO (08:03)
[2022-09-13] MEDS: ferrous sulfate EC 325 mg Tablet PO (08:03)
[2022-09-13] MEDS: heparin 5,000 unit/mL INJ 1 mL 5000 UNIT SUBCUT (08:03)
[2022-09-13] MEDS: clopidogrel 75 mg Tablet PO (08:14)
--- NOTE | 2022-09-13 09:40 | P.DS_ITS ---
Discharge Providers Date of Admission: 09/09/22 16:47 Date of Discharge: September 13, 2022 Attending Provider at Admission: Louis Cruz Attending Provider at Discharge: Angel Ortiz MD Primary Care Provider: Harjit Marc MD Diagnoses at Discharge Discharge Diagnosis (1) Acute on chronic congestive heart failure: Status: Acute (2) Pulmonary edema: Status: Acute (3) Pneumonia: Status: Acute (4) CKD (chronic kidney disease): Status: Acute (5) Hypoxia: Status: Acute (6) Anemia: Status: Acute (7) Hypertension: Status: Acute (8) Subclinical hypothyroidism: Status: Acute Reason for Visit Reason for Visit: SOB Brief History: Pleasant 82-year-old gentleman with history of diastolic CHF, CAD S/p stenting in Apr 2022, CKD, DM2, HTN, HLD, lumbosacral radiculopathy with bulged disc and chronic back pain, he thinks may be contributing to his hypertension with blood pressures running high, presents to the hospital due to chronic progressive dyspnea on exertion, recently also at rest, states he has gained about 8 or 9 pounds in the last 3 months.? He has not contacted his cardiology office about it.? He has been having worsening lower extremity edema.? Symptoms particularly worsening for the last 3 days.? He is unable to lie down flat.? He gets very dyspneic with exertion.? He has almost persistent dyspnea.? He denies using oxygen at home normally.? He has dry cough.? Denies chest pain.? Denies hemoptysis.? Bilateral lower extremity edema is symmetrical. CXR with CHF, possibly also pneumonia.? He is afebrile.? Minimal leukocytosis 10.8. Patient was admitted to [facility] for acute on chronic systolic diastolic CHF exacerbation received inpatient diuresis, overall clinically improved however developed LEANNE. Lasix had to be held for 24 hours, resumed at 40 mg once daily with potassium replacement on discharge. Creatinine on discharge was 4.0, follow-up with primary care provider in the next few days for recheck kidney function LEANNE on CKD, creatinine on discharge 4.0, follow-up with primary care provider in the next few days for recheck kidney function For patient's pneumonia, managed with broad-spectrum antibiotic therapy, discharged on doxycycline Initially there was concerns for pulmonary embolism given elevated D-dimer, managed with heparin drip, VQ Q scan low probability, anticoagulation stopped. Patient had evidence of iron deficiency anemia during his hospitalization, with low iron levels, low ferritin levels, transfuse 1 unit PRBC. Discharged on Protonix, Carafate and iron replacement therapy follow-up primary care provider recheck hemoglobin in 1 week. Follow-up with general surgery in 1 month for consideration of EGD given he that he is on aspirin and Plavix. For type 2 diabetes mellitus, discharged on Lantus and an insulin sliding scale with instructions as below Hospital Course Hospital Course Pleasant 82-year-old gentleman with history of diastolic CHF, CAD S/p stenting in Apr 2022, CKD, DM2, HTN, HLD, lumbosacral radiculopathy with bulged disc and chronic back pain, he thinks may be contributing to his hypertension with blood pressures running high, presents to the hospital due to chronic progressive dyspnea on exertion, recently also at rest, states he has gained about 8 or 9 pounds in the last 3 months.? He has not contacted his cardiology office about it.? He has been having worsening lower extremity edema.? Symptoms particularly worsening for the last 3 days.? He is unable to lie down flat.? He gets very dyspneic with exertion.? He has almost persistent dyspnea.? He denies using oxygen at home normally.? He has dry cough.? Denies chest pain.? Denies hemoptysis.? Bilateral lower extremity edema is symmetrical. CXR with CHF, possibly also pneumonia.? He is afebrile.? Minimal leukocytosis 10.8. Patient was admitted to [facility] for acute on chronic systolic diastolic CHF exacerbation received inpatient diuresis, overall clinically improved however developed LEANNE. Lasix had to be held for 24 hours, resumed at 40 mg once daily with potassium replacement on discharge. Creatinine on discharge was 4.0, follow-up with primary care provider in the next few days for recheck kidney function LEANNE on CKD, creatinine on discharge 4.0, follow-up with primary care provider in the next few days for recheck kidney function For patient's pneumonia, managed with broad-spectrum antibiotic therapy, discharged on doxycycline Initially there was concerns for pulmonary embolism given elevated D-dimer, managed with heparin drip, VQ Q scan low probability, anticoagulation stopped. Patient had evidence of iron deficiency anemia during his hospitalization, with low iron levels, low ferritin levels, transfuse 1 unit PRBC. Discharged on Protonix, Carafate and iron replacement therapy follow-up primary care provider recheck hemoglobin in 1 week. Follow-up with general surgery in 1 month for consideration of EGD given he that he is on aspirin and Plavix. For type 2 diabetes mellitus, discharged on Lantus and an insulin sliding scale with instructions as below -For heart failure exacerbation discharge on Lasix 40 mg once daily with potassium -For your pneumonia and discharged on doxycycline -For blood pressure at discharge on metoprolol 50 twice daily, prazosin 1 mg twice daily clonidine 0.1 mg twice daily -Take Lantus 20 units every 24 hours ?-Inject?humalog 3 times daily, after meals, based on sliding provided below -Insulin sliding fingerstick? Insulin 141-180?2 units/sq 181-220?4 units/sq 221-260?6 units/sq 261-300?8 units/sq 301-350 10 units/sq 351-400 12 units/sq > 400? 14 units/sq ? -Please monitor your blood sugars closely -Monitor your blood sugars 3 times daily as after meals -Please record your blood sugars, and a blood sugar log -For your NovoLog -Please inject blood sugar after meals based on sliding scale provided -Do not inject insulin if you do not eat as hypoglycemia kills -This is a NovoLog sliding scale -Insulin sliding ?fingerstick? Insulin ?141-180?2 units/sq 181-220?4 units/sq ?221-260?6 units/sq ?261-300?8 units/sq ?301-350 10 units/sq ?351-400 12 units/sq > 400? 14 units/sq -If your blood sugar is greater than 500 go to the emergency room -If your blood sugar is less than 60 or at anytime you feel lightheaded or dizzy or diaphoretic or have chest palpitations check your blood sugar, and eat a hard candy or drink orange juice and go immediately to the emergency room -Remember hypoglycemia kills, so if his blood sugar is less than 60 we have to increase it by taking in a sugary meal such as a hard candy or orange juice and go to the emergency room -If you have any questions please call us where here to help -Please see your primary care provider 1 week Physical Exam Const: COMMON NORMALS: no acute distress and patient oriented x3 Resp: COMMON NORMALS: normal respiratory effort, No retractions, No use of accessory muscles and clear to auscultation bilaterally AUSCULTATION: clear to auscultation bilaterally Cardio: COMMON NORMALS: regular rate, regular rhythm, S1 normal heart sound present and S2 normal heart sound present RATE: regular rate RHYTHM: regular rhythm HEART SOUNDS: S1 normal heart sound present and S2 normal heart sound present GI: COMMON NORMALS: Normal to inspection, nondistended, normoactive bowel sounds present and non-tender Extremity: COMMON NORMALS: no pedal edema Neuro: COMMON NORMALS: patient oriented x3 Psych: COMMON NORMALS: mental status grossly normal Discharge Data Studies Completed and Pending Completed Studies During Hospitalization Category Date Time Status XR chest 1V portable [id number] Routine Exams 09/11/22 07:00 Completed XR chest 1V portable [id number] Stat Exams 09/09/22 12:54 Completed NM pulmonary ventilation and perfusion [NM pul vent and Nuc Med 09/11/22 06:00 Completed perfus* [id number]] [place] [id number] Routine Ultrasound 09/09/22 18:59 Completed CV. echo limited [id number] Stat Ultrasound 09/10/22 06:00 Completed Pending at discharge Category Date Time Status Basic Metabolic Panel AM LABS Lab 09/14/22 04:00 Ordered Basic Metabolic Panel AM LABS Lab 09/15/22 04:00 Ordered Blood Culture Stat Lab 09/09/22 15:24 Results Complete Blood Count w/Auto AM LABS Lab 09/14/22 04:00 Ordered Complete Blood Count w/Auto AM LABS Lab 09/15/22 04:00 Ordered Occult Blood Stool [Immunochemical Fecal OCB] Routine Lab 09/10/22 23:48 Uncollected Radiology Impressions Venous Duplex 09/09/22 18:59 IMPRESSION: No evidence of deep vein thrombosis. Pulmonary Perfusion Imaging 09/11/22 06:00 IMPRESSION: 1. Low probability for pulmonary embolus. Chest X-Ray 09/11/22 07:00 IMPRESSION: 1. Improving bilateral pulmonary infiltrates. Resolved small bibasal pleural effusions since prior study. Laboratory Results WBC 3.5 10^3/uL (4.0-10.0) L 09/13/22 04:23 RBC 3.06 10^6/uL (4.1-5.3) L 09/13/22 04: Hgb 9.2 g/dL (11.7-16.6) L 09/13/22 04: Hct 27.6 % (42.0-52.0) L 09/13/22 04: MCV 90.2 fl (80-94) 09/13/22 04: MCH 30.1 pg (28.0-34.0) 09/13/22 04: MCHC 33.3 g/dL (30.0-36.0) 09/13/22 04: RDW 13.3 % (12.1-15.1) 09/13/22 04: Plt Count 180 10^3/cmm (130-400) 09/13/22 04: MPV 9.9 fL (7.4-10.4) 09/13/22 04: Neut % (Auto) 82.3 % 09/13/22 04: Lymph % (Auto) 14.2 % 09/13/22 04: [place] % (Auto) 3.2 % 09/13/22 04: Eos % (Auto) 0.0 % 09/13/22 04: Baso % (Auto) 0.0 % 09/13/22 04: Neut # (Auto) 2.85 10^3/uL (1.8-7.7) 09/13/22 04: Lymph # (Auto) 0.5 10^3/uL (0.8-4.8) L 09/13/22 04: [place] # (Auto) 0.1 10^3/uL (0.2-0.9) L 09/13/22 04: Eos # (Auto) 0.0 10^3/uL (0.0-0.8) 09/13/22 04: Baso # (Auto) 0.0 10^3/uL (0.0-0.1) 09/13/22 04: Nucleated RBC % (auto) 0 % 09/13/22 04: Nucleated RBCs # 0.0 /100WBC 09/13/22 04: APTT 37.5 SECONDS (23.9-36.7) H D 09/11/22 16:45 D-Dimer 0.89 ug/mIFEU (0-0.59) H 09/11/22 01:25 Specimen Type Arterial 09/09/22 20:30 Sample Site Radial, right 09/09/22 20:30 ABG pH 7.45 (7.35-7.45) 09/09/22 20:30 ABG pCO2 32.5 mmHg (35-45) L 09/09/22 20:30 ABG pO2 68.1 mmHg (80.0-100.0) L 09/09/22 20:30 ABG HCO3 22.7 mmol/L (22-26) 09/09/22 20:30 ABG O2 Saturation 96.8 09/09/22 13:11 ABG Base Excess -0.9 mmol/L (-2.0-2.0) 09/09/22 20:30 Livan Test Pos 09/09/22 20:30 A-a O2 Gradient 3.6 mmHg (5-10) L 09/09/22 13:11 Hematocrit 25.0 % (42-52) L 09/09/22 20:30 Hgb O2 Saturation 94.7 % (95-100) L 09/09/22 13:11 Carboxyhemoglobin 1.3 %THgb (0.4-20.1) 09/09/22 13:11 Methemoglobin 0.8 % (0.4-1.5) 09/09/22 13:11 Total Hemoglobin 15.4 g/dL (14-18) 09/09/22 13:11 Sodium 144.0 mmol/L (131-143) H 09/09/22 13:11 Potassium 3.9 mmol/L (3.5-5.0) 09/09/22 13:11 Glucose 224.0 mg/dL (70-115) H 09/09/22 13:11 Ionized Calcium 1.0 mmol/L (1.1-1.4) L 09/09/22 13:11 O2 Delivery Device Nc 09/09/22 20:30 O2 Liters/Min 3.0 % 09/09/22 20:30 Communications Assistant ID boris 09/09/22 20:30 Sodium 135 mmol/L (136-145) L 09/13/22 04:23 Potassium 4.3 mmol/L (3.5-5.1) 01/25/23 04:23 Chloride 99 mmol/L (98-107) 09/13/22 04:23 Carbon Dioxide 21 mmol/L (22-29) L 09/13/22 04:23 Anion Gap 19.3 (5-19) H 09/13/22 04:23 BUN 63 mg/dL (8-23) H 09/13/22 04:23 Creatinine 4.0 mg/dL (0.7-1.2) H 09/13/22 04:23 GFR Calculation Not Reportable 09/13/22 04:23 Glucose 452 mg/dL (65-115) H 09/13/22 04:23 Calculated Osmolality 318 mOsm/kg (285-295) H 09/13/22 04:23 Lactic Acid 0.7 mmol/L (0.5-2.2) 09/09/22 15:24 Calcium 7.6 mg/dL (8.5-10.5) L 09/13/22 04:23 Iron 34 ug/dL (59-158) L 09/11/22 01:25 Ferritin 124 ng/mL (30-400) 09/11/22 01:25 Total Bilirubin 0.5 mg/dL (0.15-1.2) 09/09/22 12:55 AST 28 U/L (0-40) 09/09/22 12:55 ALT 19 U/L (0-41) 09/09/22 12:55 Alkaline Phosphatase 114 U/L (40-130) 09/09/22 12:55 Troponin T Baseline 80 ng/L (0-15) H 09/09/22 12:55 Troponin T 120 Minute 72.00 ng/L (0-15) H 09/09/22 15:02 Delta Troponin T -8.00 ABS# (0-10) L 09/09/22 15:02 Troponin T Hi Sens 6Hr 73.23 ng/L (0-15) H 09/09/22 18:40 Troponin T Hi Sens 6Hr Delta -6.77 ng/L (0-12) L 09/09/22 18:40 C-Reactive Protein 23.7 mg/L (0.0-4.9) H 09/11/22 01:25 NT-Pro-B Natriuret Pep 2321 pg/mL (0-450) H 09/12/22 05:59 Total Protein 6.8 g/dL (6.6-8.7) 09/09/22 12:55 Albumin 3.8 g/dL (3.5-5.2) 09/09/22 12:55 Globulin 3.0 g/dL (1.3-4.6) 09/09/22 12:55 Vitamin B12 477 pg/mL (232-1245) 09/11/22 01:25 Folate 19.3 ng/mL (4.5-32.2) 09/11/22 01:25 Procalcitonin 0.32 ng/mL (0-0.5) 09/11/22 01:25 TSH 4.35 uIU/mL (0.27-4.20) H 09/09/22 12:55 Free T4 1.24 ng/dL (0.82-1.77) 09/09/22 12:55 Influenza Type A Ag negative (Negative) 09/09/22 13:09 Influenza Type B Ag negative (Negative) 09/09/22 13:09 SARS-CoV-2 Ag (Rapid) negative (Negative) 09/09/22 13:09 Blood Type O Positive 09/12/22 08:45 Rho(D) Type Positive 09/12/22 08:45 Antibody Screen Negative 09/12/22 08:45 Crossmatch See Detail 09/12/22 08:45 Vitals Last Vital Signs Temp 97.8 F 09/13/22 08:00 Pulse 79 09/13/22 08:00 Resp 16 09/13/22 08:00 BP 189/81 09/13/22 08:03 Pulse Ox 94 09/13/22 08:00 O2 Del Method 09/13/22 08:00 O2 Flow Rate 2 09/12/22 08:00 FiO2 30 09/10/22 23:48 Discharge Plan Discharge Patient Disposition: Home Condition: Stable Prescriptions: New clonidine HCl 0.1 mg Tablet 0.1 mg PO BID 30 Days Qty: 60 0RF prazosin 1 mg Capsule 1 mg PO Q12H 30 Days Qty: 60 0RF sucralfate 1 gram Tablet 1 g PO Q12H 30 Days Qty: 60 0RF Klor-Con M20 20 mEq Tablet,Er Particles/Crystals 40 meq PO DAILY 30 Days Qty: 30 0RF Humalog KwikPen Insulin 100 unit/mL insulin pen See Rx Instructions .ROUTE .COMPLEX MDD 40 Qty: 15 0RF Rx Instructions: Inject, subcu, 3 times daily, after meals, based on sliding scale provided doxycycline hyclate 100 mg tablet 100 mg PO BID 7 Days Qty: 14 0RF pantoprazole [Protonix] 40 mg tablet,delayed release (DR/EC) 40 mg PO BID 30 Days Qty: 60 0RF Continued clopidogrel [Plavix] 75 mg tablet 75 mg PO DAILY amlodipine 10 mg tablet 10 mg PO BEDTIME atorvastatin 80 mg tablet 80 mg PO BEDTIME aspirin [Aspir-81] 81 mg Tablet,Delayed Release (Dr/Ec) 81 mg PO DAILY tamsulosin 0.4 mg capsule 0.4 mg PO BEDTIME omega 6-aau-fms-fish oil [Fish Oil] 1,000 mg (120 mg-180 mg) Capsule 3 cap PO BID multivitamin Tablet 1 tab PO DAILY hydralazine 50 mg Tablet 100 mg PO TID 30 Days Qty: 120 0RF isosorbide mononitrate 60 mg tablet extended release 24 hr 60 mg PO DAILY FeroSul 325 mg (65 mg iron) tablet 325 mg PO DAILY turmeric 400 mg Capsule 400 mg PO DAILY hydrocodone-acetaminophen 5-325 mg tablet 1 - 2 tab PO .Q4-6H PRN (Reason: Pain) furosemide 40 mg tablet 40 mg PO DAILY 30 Days Qty: 30 0RF Changed insulin glargine 100 unit/mL solution 20 unit SUBCUT DAILY 30 Days Qty: 10 0RF metoprolol tartrate 50 mg tablet 50 mg PO Q12H 30 Days Qty: 60 0RF Discontinued potassium chloride 10 mEq tablet extended release 20 meq PO TID Discharge Orders: Discharge Order (Routine); Ordered 09/13/22 Ordered By: Angel Ortiz Referrals: Alexus Hutson MD [Physician] - 1-3 days Harjit Marc MD [Primary Care Provider] - 1 week Discharge Diet: Cardiac Discharge Activity: Resume usual activity Patient Instructions: Opioid Safety Activity Restrictions/Additional Instructions: -For heart failure exacerbation discharge on Lasix 40 mg once daily with potassium -For your pneumonia and discharged on doxycycline -For blood pressure at discharge on metoprolol 50 twice daily, prazosin 1 mg twice daily clonidine 0.1 mg twice daily -Take Lantus 20 units every 24 hours ?-Inject?humalog 3 times daily, after meals, based on sliding provided below -Insulin sliding fingerstick? Insulin 141-180?2 units/sq 181-220?4 units/sq 221-260?6 units/sq 261-300?8 units/sq 301-350 10 units/sq 351-400 12 units/sq > 400? 14 units/sq ? -Please monitor your blood sugars closely -Monitor your blood sugars 3 times daily as after meals -Please record your blood sugars, and a blood sugar log -For your NovoLog -Please inject blood sugar after meals based on sliding scale provided -Do not inject insulin if you do not eat as hypoglycemia kills -This is a NovoLog sliding scale -Insulin sliding ?fingerstick? Insulin ?141-180?2 units/sq 181-220?4 units/sq ?221-260?6 units/sq ?261-300?8 units/sq ?301-350 10 units/sq ?351-400 12 units/sq > 400? 14 units/sq -If your blood sugar is greater than 500 go to the emergency room -If your blood sugar is less than 60 or at anytime you feel lightheaded or dizzy or diaphoretic or have chest palpitations check your blood sugar, and eat a hard candy or drink orange juice and go immediately to the emergency room -Remember hypoglycemia kills, so if his blood sugar is less than 60 we have to increase it by taking in a sugary meal such as a hard candy or orange juice and go to the emergency room -If you have any questions please call us where here to help -Please see your primary care provider 1 week Discharge Attestations Time Spent in Discharge Care*: greater than 30 min Quality Metrics Clinical Quality Measures [ No reported AMI, CVA or VTE this stay] Coding Level of Care Code Acute Chg FW DC note Diagnoses Acute on chronic congestive heart failure I50.9 Pulmonary edema J81.1 Pneumonia J18.9 CKD (chronic kidney disease) N18.9 Hypoxia R09.02 Anemia D64.9 Hypertension I10 Subclinical hypothyroidism E03.8
[2022-09-13] MEDS: spironolactone 25 mg Tablet PO (10:00)
[2022-09-13] MEDS: FUROsemide 10 mg/mL SDV 4mL 40 MG IVP (10:00)
[2022-09-13] MEDS: insulin lispro 100 unit/1 mL 14 UNIT SUBCUT (10:01)
[2022-09-13 11:15] LABS: Glucose Point of Care 356 mg/dL (70-110)
[2022-09-13 11:15] LABS: Glucose Point of Care 457 mg/dL (70-110)
[2022-09-13] MEDS: insulin lispro 100 unit/1 mL SUBCUT (11:21)
--- NOTE | 2022-09-13 13:00 | PC.NURSE ---
Discharge education reviewed with patient at bedside, in depth detail education on medications patient is being sent home on along with changes to medications. All questions answered at this time and verbally acknowledges discharge plan.
== END 2022-09-13 13:32 | disposition home or self-care (01) | DRG 291 ==
LOC: ER 16:04 → MEDSURG 18:49
PROVIDERS: Admitting Provider Internal Medicine; Emergency Provider Emergency Medicine; PCP Family Medicine; Visit Provider Family Medicine
DX: I13.0 Hypertensive heart and chronic kidney disease with heart failure and stage 1 through stage 4 chronic kidney disease, or unspecified chronic kidney disease (principal); I50.33 Acute on chronic diastolic (congestive) heart failure; J18.9 Pneumonia, unspecified organism; N17.9 Acute kidney failure, unspecified; N18.9 Chronic kidney disease, unspecified; E11.22 Type 2 diabetes mellitus with diabetic chronic kidney disease; D63.1 Anemia in chronic kidney disease; E03.8 Other specified hypothyroidism; I25.10 Atherosclerotic heart disease of native coronary artery without angina pectoris; Z95.5 Presence of coronary angioplasty implant and graft; E78.5 Hyperlipidemia, unspecified; G89.29 Other chronic pain; M54.17 Radiculopathy, lumbosacral region; D50.9 Iron deficiency anemia, unspecified; Z79.02 Long term (current) use of antithrombotics/antiplatelets; Z79.82 Long term (current) use of aspirin; Z79.891 Long term (current) use of opiate analgesic; E78.00 Pure hypercholesterolemia, unspecified
CPT/HCPCS: 36415; 36416; 36430; 36600; 71045; 78014; 80048; 80051; 80053; 82330; 82607; 82728; 82746; 82803; 82805; 82962; 83540; 83605; 83880; 84145; 84439; 84443; 84484; 85014; 85018; 85025; 85378; 85730; 86140; 86850; 86900; 86920; 87040; 87426; 87804; 93005; 93308; 93970; 94640; 94660; 94664; 94760; 96365; 96367; 96372; 96375; 97110; 97116; 97161; 97530; 99285; A9540; A9567; C9113; J0456; J0696; J1644; J1815; J1940; J2930; J3490; J7050; P9016

== ENCOUNTER 2022-11-24 23:07 | Emergency (ER) | payer MEDICARE, SELFPAY ==
[2022-11-24 23:17] VITALS: BP 197/89; PULSE 78; RESP 93; TEMP 36.6; O2SAT 93; BMI 26.2
--- NOTE | 2022-11-24 23:35 | PC.NURSE ---
Pt's indwelling hyman catheter removed, tolerated well.
--- NOTE | 2022-11-24 23:41 | ED_ITS ---
HPI - Male Genitourinary General: Chief complaint: Urogenital-Male Stated complaint: cath problems Time Seen by Provider: 11/24/22 23:12 Source: patient Mode of arrival: ambulatory Limitations: no limitations History of Present Illness: 82-year-old male states he had a Alcaraz placed a month ago due to urinary retention has been following with urologist at [place] he states he had this Alcaraz in place for a month states tonight he has had difficulty with any urination out of the Alcaraz states he is having some suprapubic pain and is not emptying his bladder he denies any fevers denies any worsening proving factors denies any vomiting. Review of Systems Const: Denies: fever(s), chills, body aches or change in appetite Eyes: Denies: blurry vision or eye discomfort ENMT: Denies: throat pain or dental pain Card: Denies: chest pain Resp: Denies: dyspnea GI: Reports: abdominal pain : Reports: difficulty urinating Musc: Denies: neck pain or back pain Skin/Breast: Denies: rash Neuro: Denies: headache(s) Psych: Denies: depression Williams/Lymph: Denies: easy bruising All/Imm: Denies: urticaria PFSH ED PFSH: Medical History CAD (coronary artery disease) CKD (chronic kidney disease) Diabetes mellitus Hypercholesterolemia Hypertension Lumbosacral radiculopathy Surgical History History of back surgery Stented coronary artery Family History Father Cancer Other Diabetes Hypertension Social History Smoking and tobacco status: never smoked Second hand smoke exposure: No Alcohol intake: never Lives independently: Yes Household members: spouse Marital status: Physical Exam Const: COMMON NORMALS: no acute distress, patient oriented x3 and healthy appearing HENMT: COMMON NORMALS: normocephalic and atraumatic HEAD & SCALP: normocephalic and atraumatic Eye: COMMON NORMALS: Equal, round and reactive pupils present and EOMs intact bilaterally PUPIL: Yes Equal, round and reactive pupils present Neck/C-Spine: COMMON NORMALS: full ROM and supple Chest: COMMONS NORMALS: normal inspection of the chest and normal palpation of entire chest wall Resp: COMMON NORMALS: normal respiratory effort, No retractions, No use of accessory muscles and clear to auscultation bilaterally AUSCULTATION: clear to auscultation bilaterally Cardio: COMMON NORMALS: regular rate, regular rhythm and No murmurs present (Cardio) RATE: regular rate RHYTHM: regular rhythm GI: COMMON NORMALS: Normal to inspection, nondistended, normoactive bowel sounds present, Soft to palpation and no masses PALPATION: Yes Soft to palpation OTHER: suprapubic tenderness Extremity: COMMON NORMALS: normal to inspection and full ROM Neuro: COMMON NORMALS: patient oriented x3, moves all extremities and no focal motor deficits Psych: COMMON NORMALS: mental status grossly normal, Normal thought process present and cooperative THOUGHT PROCESS: Normal thought process present Skin: COMMON NORMALS: no rashes or lesions noted and no wounds GENERAL SKIN EXAM: no rashes or lesions noted Course Vital Signs: Vital signs: Vital Signs Temperature 97.9 F 11/24/22 23:17 Pulse Rate 78 11/24/22 23:17 Respiratory Rate 93 H 11/24/22 23:17 Blood Pressure 197/89 11/24/22 23:17 Pulse Oximetry 93 11/24/22 23:17 MDM - Male Medical Decision Making Patient presents here with clogged Alcaraz catheter he did replace his catheter he had over 800 out in the Alcaraz he feels much improved we will place him on antibiotics and he is to follow-up with his urologist [place] he is return if worsening he understands agrees plan. Discharge Plan Discharge Patient Disposition: Home Clinical Impression: Complication, blocked Alcaraz catheter Condition: Stable Prescriptions: New sulfamethoxazole-trimethoprim [Bactrim DS] 800-160 mg tablet 1 tab PO BID 10 Days Qty: 20 0RF No Action clopidogrel [Plavix] 75 mg tablet 75 mg PO DAILY amlodipine 10 mg tablet 10 mg PO BEDTIME atorvastatin 80 mg tablet 80 mg PO BEDTIME aspirin [Aspir-81] 81 mg Tablet,Delayed Release (Dr/Ec) 81 mg PO DAILY tamsulosin 0.4 mg capsule 0.4 mg PO BEDTIME omega 4-cfu-dcn-fish oil [Fish Oil] 1,000 mg (120 mg-180 mg) Capsule 3 cap PO BID multivitamin Tablet 1 tab PO DAILY hydralazine 50 mg Tablet 100 mg PO TID 30 Days Qty: 120 0RF isosorbide mononitrate 60 mg tablet extended release 24 hr 60 mg PO DAILY FeroSul 325 mg (65 mg iron) tablet 325 mg PO DAILY turmeric 400 mg Capsule 400 mg PO DAILY hydrocodone-acetaminophen 5-325 mg tablet 1 - 2 tab PO .Q4-6H PRN (Reason: Pain) Humalog KwikPen Insulin 100 unit/mL insulin pen See Rx Instructions .ROUTE .COMPLEX MDD 40 Qty: 15 0RF Rx Instructions: Inject, subcu, 3 times daily, after meals, based on sliding scale provided furosemide 40 mg tablet 40 mg PO DAILY 30 Days Qty: 30 0RF insulin glargine 100 unit/mL solution 20 unit SUBCUT DAILY 30 Days Qty: 10 0RF metoprolol tartrate 50 mg tablet 50 mg PO Q12H 30 Days Qty: 60 0RF Discharge Orders: Discharge ED (Routine); Ordered 11/25/22 Ordered By: Og Matthews Referrals: Harjit Marc MD [Primary Care Provider] - Discharge Diet: Advance as tolerated Discharge Activity: Resume usual activity Patient Instructions: Alcaraz Catheter Placement and Care (ED) Coding Level of Care Code ED Client Service Coordinator for Mervat Ignacio
[2022-11-25 00:28] LABS: Protein Urine 3+ (Negative); Specific Gravity, Urine 1.015 (1.005-1.030); Urine Appearance Hazy (CLEAR); Urine Color Straw (Yellow); pH Urine 5 (5-7)
[2022-11-25 00:29] LABS: Add Urine Microscopic? YES; Bilirubin Urine Neg (Negative); Blood Urine 3+ (Negative); Glucose Urine UA 4+ (Normal); Ketones Urine 1+ (Negative); Leukocyte Esterase Urine 1+ (Negative); Nitrate Urine Negative (Negative); Urobilinogen Urine Norm (Negative)
--- NOTE | 2022-11-25 00:30 | PC.NURSE ---
Leg bag placed
[2022-11-25 00:31] LABS: RBC Urine 50-80 /hpf (0-2); Squamous Epithelial Cell Urine 0-4 /hpf (0-5); WBC Urine >100 /hpf (0-5)
[2022-11-25 00:32] LABS: Add Urine Culture? Yes; Bacteria Urine 4+ /hpf
== END 2022-11-25 00:59 | disposition home or self-care (01) ==
PROVIDERS: Emergency Provider Emergency Medicine; PCP Family Medicine
DX: T83.098A Other mechanical complication of other urinary catheter, initial encounter (principal); Y73.8 Miscellaneous gastroenterology and urology devices associated with adverse incidents, not elsewhere classified; Z79.82 Long term (current) use of aspirin; Z79.02 Long term (current) use of antithrombotics/antiplatelets; Z79.4 Long term (current) use of insulin; I25.10 Atherosclerotic heart disease of native coronary artery without angina pectoris; E11.22 Type 2 diabetes mellitus with diabetic chronic kidney disease; I12.9 Hypertensive chronic kidney disease with stage 1 through stage 4 chronic kidney disease, or unspecified chronic kidney disease; N18.9 Chronic kidney disease, unspecified
CPT/HCPCS: 51702; 81001; 87077; 87086; 87186; 99283

== ENCOUNTER 2022-11-28 13:47 | Emergency (ER) | payer MEDICARE, SELFPAY ==
[2022-11-28 13:56] VITALS: BP 172/67; PULSE 77; RESP 16; TEMP 36.6; O2SAT 96
--- NOTE | 2022-11-28 14:43 | ED_ITS ---
HPI - Male Genitourinary General: Chief complaint: Urogenital-Male Stated complaint: catheter problems Time Seen by Provider: 11/28/22 14:33 History of Present Illness: Patient is an 82-year-old male comes to the ED for StatLock for catheter. Patient says he had a Alcaraz catheter placed here in the ED back on November 24. His StatLock fell off and needs to get it replaced. Denies any other symptoms such as fevers, chills, nausea/vomiting, abdominal pain, flank pain, dysuria or hematuria. Associated symptoms: Deny dysuria, hematuria, nausea or vomiting Review of Systems Const: Denies: fever(s), chills or fatigue Eyes: Denies: change in vision or eye discomfort ENMT: Denies: throat pain, odynophagia, nasal discharge or nasal congestion Card: Denies: chest pain, palpitations, edema, swelling of feet/ankles, dyspnea on exertion or orthopnea Resp: Denies: dyspnea, productive cough or non-productive cough GI: Denies: abdominal pain, nausea, vomiting, diarrhea, constipation or hematochezia : Reports: other (Alcaraz catheter problem-needs StatLock); Denies: flank pain, difficulty urinating, dysuria, hematuria or genital pain Musc: Denies: neck pain, back pain or extremity swelling Skin/Breast: Denies: rash or new lesions Neuro: Denies: headache(s), numbness in extremities or weakness in extremities PFS ED PFSH: Medical History CAD (coronary artery disease) CKD (chronic kidney disease) Diabetes mellitus Hypercholesterolemia Hypertension Lumbosacral radiculopathy Surgical History History of back surgery Stented coronary artery Family History Father Cancer Other Diabetes Hypertension Social History Smoking and tobacco status: never smoked Second hand smoke exposure: No Alcohol intake: never Lives independently: Yes Household members: spouse Marital status: Physical Exam Const: COMMON NORMALS: patient oriented x3 HENMT: COMMON NORMALS: normocephalic HEAD & SCALP: normocephalic MOUTH: Normal oral and palatal mucosa present THROAT: posterior oropharynx normal and uvula midline Neck/C-Spine: COMMON NORMALS: supple GENERAL: Yes normal visual inspection Resp: COMMON NORMALS: normal respiratory effort, No retractions, No use of accessory muscles and clear to auscultation bilaterally AUSCULTATION: clear to auscultation bilaterally Cardio: COMMON NORMALS: regular rate, regular rhythm, S1 normal heart sound present, S2 normal heart sound present, No gallops present (Cardio), No clicks present (Cardio), No murmurs present (Cardio) and Peripheral pulses 2+ throughout RATE: regular rate RHYTHM: regular rhythm HEART SOUNDS: S1 normal heart sound present and S2 normal heart sound present PERIPHERAL PULSES: Peripheral pulses 2+ throughout GI: COMMON NORMALS: Normal to inspection, nondistended, normoactive bowel sounds present, Soft to palpation, non-tender and no masses PALPATION: Yes Soft to palpation : COMMON NORMALS: Yes no CVA tenderness BLADDER/KIDNEY EXAM: Yes no CVA tenderness Back/Pelvis: COMMON NORMALS: no CVA tenderness Extremity: COMMON NORMALS: normal to inspection Neuro: COMMON NORMALS: patient oriented x3 GAIT: Yes Normal gait present Skin: GENERAL SKIN EXAM: dry skin Course Vital Signs: Vital signs: Vital Signs Temperature 97.8 F 11/28/22 13:56 Pulse Rate 77 11/28/22 13:56 Respiratory Rate 16 11/28/22 13:56 Blood Pressure 172/67 11/28/22 13:56 Pulse Oximetry 96 11/28/22 13:56 Oxygen Delivery Me thod 11/28/22 13:56 [facility] - Male Medical Decision Making Patient is a 82-year-old male comes to the ED with Alcaraz catheter complaint. Patient Alcaraz catheter placed in ED back on November 24. His StatLock fell off and he needs a new one. Denies any other complaints or problems with Alcaraz catheter. Denies any fevers, chills, nausea/vomiting, abdominal pain, flank pain, dysuria or hematuria. Nurse applied new StatLock for Alcaraz catheter and he was stable for discharge home. He has a follow-up with Dr. Gutiérrez's office in 2 weeks. Return to ED precautions given. Patient understood and agreed with plan. Discharge Plan Discharge Patient Disposition: Home Clinical Impression: Alcaraz catheter problem Qualifiers: Encounter type: initial encounter Qualified Code(s): T83.9XXA - Unspecified complication of genitourinary prosthetic device, implant and graft, initial encounter Condition: Stable Prescriptions: No Action clopidogrel [Plavix] 75 mg tablet 75 mg PO DAILY amlodipine 10 mg tablet 10 mg PO BEDTIME atorvastatin 80 mg tablet 80 mg PO BEDTIME aspirin [Aspir-81] 81 mg Tablet,Delayed Release (Dr/Ec) 81 mg PO DAILY tamsulosin 0.4 mg capsule 0.4 mg PO BEDTIME omega 1-cow-hjo-fish oil [Fish Oil] 1,000 mg (120 mg-180 mg) Capsule 3 cap PO BID multivitamin Tablet 1 tab PO DAILY hydralazine 50 mg Tablet 100 mg PO TID 30 Days Qty: 120 0RF isosorbide mononitrate 60 mg tablet extended release 24 hr 60 mg PO DAILY FeroSul 325 mg (65 mg iron) tablet 325 mg PO DAILY turmeric 400 mg Capsule 400 mg PO DAILY hydrocodone-acetaminophen 5-325 mg tablet 1 - 2 tab PO .Q4-6H PRN (Reason: Pain) Humalog KwikPen Insulin 100 unit/mL insulin pen See Rx Instructions .ROUTE .COMPLEX MDD 40 Qty: 15 0RF Rx Instructions: Inject, subcu, 3 times daily, after meals, based on sliding scale provided furosemide 40 mg tablet 40 mg PO DAILY 30 Days Qty: 30 0RF insulin glargine 100 unit/mL solution 20 unit SUBCUT DAILY 30 Days Qty: 10 0RF metoprolol tartrate 50 mg tablet 50 mg PO Q12H 30 Days Qty: 60 0RF Bactrim DS 800-160 mg tablet 1 tab PO BID 10 Days Qty: 20 0RF Discharge Orders: Discharge ED (Routine); Ordered 11/28/22 Ordered By: Jef Ling Referrals: Harjit Marc MD [Primary Care Provider] - Discharge Diet: Regular Discharge Activity: Increase activity as tolerated Activity Restrictions/Additional Instructions: Follow-up with medical provider as directed. Return to the ER or your medical provider if condition worsens. Please read and understand discharge instructions. Thank you for choosing [facility] for your healthcare needs today. Leroy barron realize this is an emergency room and that we are providing you with a medical screening exam and this may not be complete and all inclusive of all the testing and or work up that you may need to determine your ailment or severity of your illness. It is very important that you follow up as instructed or that you return to the Emergency Department should you have concerns or if your condition changes or worsens in any way. Coding Level of Care Code ED Ticket Speculator for Mervat Ignacio
--- NOTE | 2022-11-29 11:19 | DCPLANNER ---
international project manager had message to speak with patient about his catheter and supplies - case supervisor unable to speak with patient at this time, and unable to leave a voicemail for patient.
== END 2022-11-28 15:26 | disposition home or self-care (01) ==
PROVIDERS: Emergency Provider Physician Assistant; PCP Family Medicine
DX: T83.098A Other mechanical complication of other urinary catheter, initial encounter (principal); Z79.82 Long term (current) use of aspirin; Z79.02 Long term (current) use of antithrombotics/antiplatelets; Z79.4 Long term (current) use of insulin; I25.10 Atherosclerotic heart disease of native coronary artery without angina pectoris; I12.9 Hypertensive chronic kidney disease with stage 1 through stage 4 chronic kidney disease, or unspecified chronic kidney disease; E11.22 Type 2 diabetes mellitus with diabetic chronic kidney disease; N18.9 Chronic kidney disease, unspecified; X58.XXXA Exposure to other specified factors, initial encounter
CPT/HCPCS: 99282

== ENCOUNTER 2022-12-05 21:47 | Emergency (ER) | payer MEDICARE, SELFPAY ==
[2022-12-05 21:56] VITALS: BP 177/73; PULSE 85; RESP 18; TEMP 36.6; O2SAT 97; BMI 26.4
--- NOTE | 2022-12-05 21:56 | ECG_ITS ---
[facility] Test Date: 2022-12-05 Pat Name: Quang Hunter Department: Room: Gender: Male Occupational Medicine Officer: : 1940 Requested By: Og Matthews Order Number: [id number] Ivan MD: David Ochoa M.D. Measurements Intervals [place] Rate: 70 P: 63 MS: 176 QRS: 45 QRSD: 91 T: 125 QT: 411 QTc: 446 Interpretive Statements SINUS RHYTHM ABNORMAL QRS-T ANGLE [QRS-T AXIS DIFFERENCE > 60] Compared to ECG 09/09/2022 19:29:12 T-wave abnormality no longer present Electronically Signed On 12-06-2022 1:42:49 CDT by David Ochoa M.D. [id number]
--- NOTE | 2022-12-05 23:15 | XRR_ITS ---
PROCEDURE INFORMATION: Exam: XR Chest Exam date and time: 12/05/2022 11:31 PM Age: 82 years old Clinical indication: Shortness of breath; Prior surgery; Surgery date: 6+ months; Surgery type: Stents; Additional info: SOB TECHNIQUE: Imaging protocol: Radiologic exam of the chest. Views: 1 view. COMPARISON: CR XR chest 1V portable [id number] 09/11/2022 7:00 AM FINDINGS: Lungs: Bibasilar atelectasis versus infiltrate. Pleural spaces: Small bilateral pleural effusions. Heart/Mediastinum: Cardiomegaly and mild pulmonary vascular congestion. Bones/joints: Unremarkable. XR/XR chest 1V portable [id number] IMPRESSION: 1. Small bilateral pleural effusions. 2. Bibasilar atelectasis versus infiltrate. 3. Cardiomegaly and mild pulmonary vascular congestion.
[2022-12-06] VITALS (8 sets, daily range): BP systolic 159–179; BP diastolic 69–85; PULSE 67–72; RESP 14–25; O2SAT 93–98
--- NOTE | 2022-12-06 01:05 | W.ED.SOB ---
HPI - SOB/Dyspnea General: Chief Complaint: Shortness of Breath/Dyspnea Stated Complaint: sob Time Seen by Provider: 12/05/22 22:49 Source: patient Mode of arrival: ambulatory Limitations: no limitations History of Present Illness: HPI Narrative: 82-year-old male has a history congestive heart failure he states he also has chronic kidney disease he states he had been on Lasix and then stopped in August due to his kidney function. States that since then he has been having intermittent worsening shortness of breath and has had multiple admissions he states over the last week he has had increasing dyspnea and is felt like he is put on water weight he denies any pain currently denies any cough or fever he states usually he cannot breathe at this time. Associated symptoms: Deny abdominal pain, chest pain, fever(s), nausea or vomiting Review of Systems Const: Denies: fever(s), chills, body aches or change in appetite Eyes: Reports: eye discomfort ENMT: Denies: throat pain or dental pain Card: Denies: chest pain Resp: Reports: dyspnea GI: Denies: abdominal pain, nausea, vomiting or diarrhea : Denies: dysuria Musc: Denies: neck pain or back pain Skin/Breast: Denies: rash Neuro: Denies: headache(s) Psych: Denies: depression PFSH ED PFSH: Medical History CAD (coronary artery disease) CKD (chronic kidney disease) Diabetes mellitus Hypercholesterolemia Hypertension Lumbosacral radiculopathy Surgical History History of back surgery Stented coronary artery Family History Father Cancer Other Diabetes Hypertension Social History Smoking and tobacco status: never smoked Second hand smoke exposure: No Alcohol intake: never Lives independently: Yes Household members: spouse Marital status: Physical Exam Const: COMMON NORMALS: patient oriented x3 HENMT: COMMON NORMALS: normocephalic and atraumatic HEAD & SCALP: normocephalic and atraumatic Eye: COMMON NORMALS: conjunctivae normal CONJUNCTIVA: Yes conjunctivae normal Neck/C-Spine: COMMON NORMALS: full ROM and supple Chest: COMMONS NORMALS: normal inspection of the chest and normal palpation of entire chest wall Resp: COMMON NORMALS: No retractions and No use of accessory muscles EFFORT & INSPECTION: Yes tachypneic and Yes labored Cardio: COMMON NORMALS: regular rate, regular rhythm and No murmurs present (Cardio) RATE: regular rate RHYTHM: regular rhythm GI: COMMON NORMALS: Normal to inspection, nondistended, normoactive bowel sounds present, Soft to palpation, non-tender and no masses PALPATION: Yes Soft to palpation Extremity: COMMON NORMALS: normal to inspection and full ROM Neuro: COMMON NORMALS: patient oriented x3, moves all extremities and no focal motor deficits Psych: COMMON NORMALS: mental status grossly normal, Normal thought process present and cooperative THOUGHT PROCESS: Normal thought process present Skin: COMMON NORMALS: no rashes or lesions noted and no wounds GENERAL SKIN EXAM: no rashes or lesions noted Course Vital Signs: Vital signs: Vital Signs Temperature 97.9 F 12/05/22 21:56 Pulse Rate 85 12/05/22 21:56 Respiratory Rate 18 12/05/22 21:56 Blood Pressure 177/73 12/05/22 21:56 Pulse Oximetry 97 12/05/22 21:56 Oxygen Delivery Me thod Room Air 12/05/22 21:56 MDM - SOB/Dyspnea Medical Decision Making Patient presented here with shortness of breath he does appear to be fluid overloaded he does have acute on chronic renal failure with hyperkalemia and an acidosis likely from his renal failure. Do not have ICU availability here I did give him albuterol along with insulin and calcium gluconate he does not appear to have any EKG changes at this time. I did speak to physician at [place] and will transfer there for higher level of care by ICU availability he has been stable while here. Lab Data 12/06/22 01:38 12/06/22 Unknown Labs/Radiology: Radiology Impressions Chest X-Ray 12/05/22 23:15 IMPRESSION: 1. Small bilateral pleural effusions. 2. Bibasilar atelectasis versus infiltrate. 3. Cardiomegaly and mild pulmonary vascular congestion. Laboratory Results WBC 5.1 10^3/uL (4.0-10.0) 12/06/22 01:38 RBC 2.89 10^6/uL (4.1-5.3) L 12/06/22 01:38 Hgb 8.6 g/dL (11.7-16.6) L 12/06/22 01:38 Hct 28.3 % (42.0-52.0) L 12/06/22 01:38 MCV 97.9 fl (80-94) H 12/06/22 01:38 MCH 29.8 pg (28.0-34.0) 12/06/22 01:38 MCHC 30.4 g/dL (30.0-36.0) 12/06/22 01:38 RDW 13.6 % (12.1-15.1) 12/06/22 01:38 Plt Count 180 10^3/cmm (130-400) 12/06/22 01:38 MPV 9.4 fL (7.4-10.4) 12/06/22 01:38 Neut % (Auto) 84.9 % 12/06/22 01:38 Lymph % (Auto) 8.6 % 12/06/22 01:38 Mineral % (Auto) 4.7 % 12/06/22 01:38 Eos % (Auto) 1.2 % 12/06/22 01:38 Baso % (Auto) 0.2 % 12/06/22 01:38 Neut # (Auto) 4.33 10^3/uL (1.8-7.7) 12/06/22 01:38 Lymph # (Auto) 0.4 10^3/uL (0.8-4.8) L 12/06/22 01:38 Mineral # (Auto) 0.2 10^3/uL (0.2-0.9) 12/06/22 01:38 Eos # (Auto) 0.1 10^3/uL (0.0-0.8) 12/06/22 01:38 Baso # (Auto) 0.0 10^3/uL (0.0-0.1) 12/06/22 01:38 Nucleated RBC % (auto) 0 % 12/06/22 01:38 Nucleated RBCs # 0.0 /100WBC 12/06/22 01:38 Specimen Type Arterial 12/06/22 02:25 Sample Site Radial, right 12/06/22 02:25 ABG pH 7.30 (7.35-7.45) L 12/06/22 02:25 ABG pCO2 28.6 mmHg (35-45) L 12/06/22 02:25 ABG pO2 75.8 mmHg (80.0-100.0) L 12/06/22 02:25 ABG HCO3 14.0 mmol/L (22-26) L 12/06/22 02:25 ABG Base Excess -11.3 mmol/L (-2.0-2.0) L 12/06/22 02:25 Livan Test Pos 12/06/22 02:25 Hematocrit 26.3 % (42-52) L 12/06/22 02:25 O2 Delivery Device None 12/06/22 02:25 FiO2 21.0 % 12/06/22 02:25 Record Changer Tester ID [email or web address] 12/06/22 02:25 Sodium 136 mmol/L (136-145) 12/06/22 Unknown Potassium 6.9 mmol/L (3.5-5.1) H* 12/06/22 Unknown Chloride 108 mmol/L (98-107) H 12/06/22 Unknown Carbon Dioxide 13 mmol/L (22-29) L 12/06/22 Unknown Anion Gap 21.9 (5-19) H 12/06/22 Unknown BUN 62 mg/dL (8-23) H 12/06/22 Unknown Creatinine 5.2 mg/dL (0.7-1.2) H 12/06/22 Unknown GFR Calculation Not Reportable 12/06/22 Unknown Glucose 163 mg/dL (65-115) H 12/06/22 Unknown Calculated Osmolality 303 mOsm/kg (285-295) H 12/06/22 Unknown Calcium 7.4 mg/dL (8.5-10.5) L 12/06/22 Unknown Total Bilirubin 0.2 mg/dL (0.15-1.2) 12/06/22 01:38 AST 27 U/L (0-40) 12/06/22 01:38 ALT 27 U/L (0-41) 12/06/22 01:38 Alkaline Phosphatase 102 U/L (40-130) 12/06/22 01:38 NT-Pro-B Natriuret Pep 5293 pg/mL (0-450) H 12/06/22 01:38 Total Protein 6.6 g/dL (6.6-8.7) 12/06/22 01:38 Albumin 3.8 g/dL (3.5-5.2) 12/06/22 01:38 Globulin 2.8 g/dL (1.3-4.6) 12/06/22 01:38 EKG Data EKG 1: I personally reviewed and interpreted this EKG as follows: EKG Interpretation Date: 12/05/22 EKG interpretation time: 21:56 Interpretation: nsr hr [address] or t wave abnormalities qrs 91 qtc 432 Critical Care Time Critical Care Time: Critical Care Time: Yes Total Critical Care Time: 45 Attestation: The high probability of a clinically significant, sudden or life threatening deterioration of the patient's renal system(s) required my full and direct attention, intervention and personal management. The critical care time is as shown. This time is in addition to time spent performing any reported procedures but includes the following: [x] Data and vital sign review and interpretation [x] Patient assessment, examination and intervention [x] Documentation [x] Medication orders and management Discharge Plan Discharge Patient Disposition: Xfer Short-Term Hosp Clinical Impression: Acute on chronic kidney failure, Acute hyperkalemia Condition: Stable Prescriptions: No Action clopidogrel [Plavix] 75 mg tablet 75 mg PO DAILY amlodipine 10 mg tablet 10 mg PO BEDTIME atorvastatin 80 mg tablet 80 mg PO BEDTIME aspirin [Aspir-81] 81 mg Tablet,Delayed Release (Dr/Ec) 81 mg PO DAILY tamsulosin 0.4 mg capsule 0.4 mg PO BEDTIME omega 2-txu-kck-fish oil [Fish Oil] 1,000 mg (120 mg-180 mg) Capsule 3 cap PO BID multivitamin Tablet 1 tab PO DAILY hydralazine 50 mg Tablet 100 mg PO TID 30 Days Qty: 120 0RF isosorbide mononitrate 60 mg tablet extended release 24 hr 60 mg PO DAILY FeroSul 325 mg (65 mg iron) tablet 325 mg PO DAILY turmeric 400 mg Capsule 400 mg PO DAILY hydrocodone-acetaminophen 5-325 mg tablet 1 - 2 tab PO .Q4-6H PRN (Reason: Pain) Humalog KwikPen Insulin 100 unit/mL insulin pen See Rx Instructions .ROUTE .COMPLEX MDD 40 Qty: 15 0RF Rx Instructions: Inject, subcu, 3 times daily, after meals, based on sliding scale provided furosemide 40 mg tablet 40 mg PO DAILY 30 Days Qty: 30 0RF insulin glargine 100 unit/mL solution 20 unit SUBCUT DAILY 30 Days Qty: 10 0RF metoprolol tartrate 50 mg tablet 50 mg PO Q12H 30 Days Qty: 60 0RF Referrals: Harjit Marc MD [Primary Care Provider] - Coding Level of Care Code ED Chemical Strength Tester for Mervat Ignacio
[2022-12-06 01:46] LABS: Basophils % 0.2 %; Eosinophils # 0.1 10^3/uL (0.0-0.8); Eosinophils % 1.2 %; Hematocrit 28.3 % (42.0-52.0); Hemoglobin 8.6 g/dL (11.7-16.6); Lymphocytes # 0.4 10^3/uL (0.8-4.8); Lymphocytes % 8.6 %; Mean Corpuscular HGB Conc 30.4 g/dL (30.0-36.0); Mean Corpuscular Hemoglobin 29.8 pg (28.0-34.0); Mean Corpuscular Volume 97.9 fl (80-94); Mean Platelet Volume 9.4 fL (7.4-10.4); Monocytes # 0.2 10^3/uL (0.2-0.9); Monocytes % 4.7 %; Neutrophils # 4.33 10^3/uL (1.8-7.7); Neutrophils % 84.9 %; Nucleated Red Blood Cells % 0 %; Platelet Count 180 10^3/cmm (130-400); Red Blood Count 2.89 10^6/uL (4.1-5.3); Red Cell Distribution Width 13.6 % (12.1-15.1); White Blood Count 5.1 10^3/uL (4.0-10.0)
[2022-12-06 02:12] LABS: Alanine Aminotransferase 27 U/L (0-41); Albumin Level 3.8 g/dL (3.5-5.2); Alkaline Phosphatase 102 U/L (40-130); Anion Gap 21.3 (5-19); Aspartate Amino Transferase 27 U/L (0-40); Blood Urea Nitrogen 62 mg/dL (8-23); Calcium 7.6 mg/dL (8.5-10.5); Carbon Dioxide 14 mmol/L (22-29); Chloride 108 mmol/L (98-107); Globulin 2.8 g/dL (1.3-4.6); Glucose 174 mg/dL (65-115); NT Pro B Type Natriuretic Pept 5293 pg/mL (0-450); Osmolality Calculated 304 mOsm/kg (285-295); Sodium 136 mmol/L (136-145); Total Bilirubin 0.2 mg/dL (0.15-1.2); Total Protein 6.6 g/dL (6.6-8.7)
[2022-12-06 02:14] LABS: Creatinine Clr Calc Pharmacy 12.6497
[2022-12-06 02:16] LABS: Potassium 7.3 mmol/L (3.5-5.1)
[2022-12-06 02:33] LABS: ABG PCO2 28.6 mmHg (35-45); Arterial Blood Gas Hematocrit 26.3 % (42-52); Base Excess ABG -11.3 mmol/L (-2.0-2.0); Blood Gas Allen Test Pos; Blood Gas Sample Site Radial, right; Blood Gas Sample Type Arterial; PO2 ABG 75.8 mmHg (80.0-100.0)
[2022-12-06] MEDS: insulin regular-human 100 units/1 mL 10 UNIT IVP (02:41)
[2022-12-06] MEDS: calcium gluconate 0.1 gm/mL 10% SDV 10mL 1 GM IVP (02:41)
[2022-12-06 02:57] LABS: Anion Gap 21.9 (5-19); Blood Urea Nitrogen 62 mg/dL (8-23); Calcium 7.4 mg/dL (8.5-10.5); Carbon Dioxide 13 mmol/L (22-29); Chloride 108 mmol/L (98-107); Glucose 163 mg/dL (65-115); Osmolality Calculated 303 mOsm/kg (285-295); Sodium 136 mmol/L (136-145)
[2022-12-06 02:59] LABS: Potassium 6.9 mmol/L (3.5-5.1)
[2022-12-06] MEDS: albuterol 2.5 mg/3 mL Neb INHALATION (03:48)
[2022-12-06] MEDS: hyDRALAzine 20 mg/mL INJ 1 mL 10 MG IVP (04:25)
== END 2022-12-06 05:28 | disposition short-term general hospital (02) ==
PROVIDERS: Emergency Provider Emergency Medicine; PCP Family Medicine
DX: E11.22 Type 2 diabetes mellitus with diabetic chronic kidney disease (principal); I12.9 Hypertensive chronic kidney disease with stage 1 through stage 4 chronic kidney disease, or unspecified chronic kidney disease; N18.9 Chronic kidney disease, unspecified; I25.10 Atherosclerotic heart disease of native coronary artery without angina pectoris; E87.5 Hyperkalemia; Z79.02 Long term (current) use of antithrombotics/antiplatelets; Z79.82 Long term (current) use of aspirin; Z79.4 Long term (current) use of insulin; J90 Pleural effusion, not elsewhere classified
CPT/HCPCS: 36600; 71045; 80048; 80053; 82803; 83880; 85025; 93005; 94640; 96374; 96375; 99291; J0360; J0612; J1815; J7613

== ENCOUNTER 2022-12-30 23:03 | Emergency (ER) | payer MEDICARE, SELFPAY ==
[2022-12-30 23:14] VITALS: BP 133/61; PULSE 58; RESP 15; TEMP 36.7; O2SAT 100; BMI 24.8
--- NOTE | 2022-12-30 23:18 | XRR_ITS ---
PROCEDURE INFORMATION: Exam: XR Chest Exam date and time: 12/30/2022 11:23 PM Age: 82 years old Clinical indication: Other: Weakness/hypotensive; Prior surgery; Surgery date: 6+ months; Surgery type: Coronary stents. Dialysis cath; Patient HX: C/O weakness with hypotension after dialysis this morning. TECHNIQUE: Imaging protocol: Radiologic exam of the chest. Views: 1 view. COMPARISON: CR (CHEST, ) 12/05/2022 11:31 PM FINDINGS: Tubes, catheters and devices: Right central venous catheter tip in superior vena cava. Lungs: Unremarkable. No consolidation. Pleural spaces: Unremarkable. No pleural effusion. No pneumothorax. Heart/Mediastinum: Unremarkable. No cardiomegaly. Bones/joints: Unremarkable. XR/XR chest 1V portable [id number] IMPRESSION: Negative for infiltrate.
--- NOTE | 2022-12-30 23:20 | ECG_ITS ---
[facility] Test Date: 2022-12-31 Pat Name: Quang Hunter Department: Room: Gender: Male Steward/Stewardess Room: : 1940 Requested By: Ravi Whitehead Order Number: [id number] Ivan MD: Alexus Hutson M.D. Measurements Intervals [place] Rate: 55 P: 54 MO: 200 QRS: 42 QRSD: 101 T: 66 QT: 512 QTc: 490 Interpretive Statements SINUS BRADYCARDIA POSSIBLE LEFT VENTRICULAR HYPERTROPHY [VOLTAGE CRITERIA PLUS LAE OR QRS WIDENING] PROLONGED QT INTERVAL CRITICAL TEST RESULT Compared to ECG 12/05/2022 21:56:44 Prolonged QT interval now present Sinus rhythm no longer present Electronically Signed On 12-31-2022 21:06:34 CDT by Alexus Hutson M.D. [id number]
--- NOTE | 2022-12-30 23:21 | W.ED.DIZZY ---
HPI - Dizziness General: Chief Complaint: Dizziness Stated Complaint: low bp Time Seen by Provider: 12/30/22 23:18 History of Present Illness: HPI Narrative: 82-year-old male patient comes in today for complaints of lightheadedness. Patient had dialysis this morning and everything seemed fine he went home at around 4:30 in the afternoon and stated he felt well. This evening he started feeling lightheaded when he started to get up and get around to get ready for bed. Patient checked his blood pressure several times and noted a systolic blood pressure of 90-100. Patient had no improvement in symptoms and came into the ER. Patient was also concerned to decrease in the amount of fluid output from his Alcaraz catheter. Associated symptoms: Denies chest pain, headache(s), nausea or vomiting Review of Systems General: Reports: 10 or more systems reviewed and unremarkable except in HPI and below Card: Denies: chest pain Resp: Denies: dyspnea GI: Denies: nausea or vomiting : Reports: other (Decreased urine output) Musc: Denies: neck pain or back pain Skin/Breast: Reports: other; Denies: rash Neuro: Denies: headache(s) PFSH ED PFSH: Medical History CAD (coronary artery disease) CKD (chronic kidney disease) Diabetes mellitus Hypercholesterolemia Hypertension Lumbosacral radiculopathy Surgical History History of back surgery Stented coronary artery Family History Father Cancer Other Diabetes Hypertension Social History Smoking and tobacco status: never smoked Second hand smoke exposure: No Alcohol intake: never Substance/Drug Use: never Lives independently: Yes Household members: spouse Marital status: Physical Exam Const: COMMON NORMALS: alert HENMT: COMMON NORMALS: normocephalic HEAD & SCALP: normocephalic Neck/C-Spine: COMMON NORMALS: full ROM and no JVD Resp: COMMON NORMALS: normal respiratory effort and clear to auscultation bilaterally AUSCULTATION: clear to auscultation bilaterally Cardio: COMMON NORMALS: no JVD, regular rate and regular rhythm RATE: regular rate RHYTHM: regular rhythm GI: COMMON NORMALS: non-tender Extremity: COMMON NORMALS: no pedal edema Neuro: SENSORIUM/ORIENTATION: Yes alert Skin: COMMON NORMALS: turgor normal GENERAL SKIN EXAM: turgor normal Course Vital Signs: Vital signs: Vital Signs Temperature 98.0 F 12/30/22 23:14 Pulse Rate 58 L 12/30/22 23:14 Respiratory Rate 15 12/30/22 23:14 Blood Pressure 133/61 12/30/22 23:14 Pulse Oximetry 100 12/30/22 23:14 MDM - Dizziness Medical Decision Making 82-year-old male patient comes in for lightheadedness and low blood pressure this evening. Patient was seen for dialysis today and stated he felt fine after dialysis but after going home and watching TV and enjoying his evening he started getting around from bed and felt really lightheaded. At that time patient notices blood pressure was 100 systolic and as low as 90 systolic. Patient reports no other abnormalities except for some changes in his urine of his indwelling Alcaraz catheter. On exam respirations are even lungs are clear to auscultation. Skin is warm and dry. Vital signs are normal. Differential diagnosis includes but not limited to hypovolemia due to dialysis, UTI, anemia, electrolyte imbalance. Laboratory values noted some mild anemia at 9.2 hemoglobin, sodium was 135 and potassium was 4.1, creatinine was 3.1. Chest x-ray showed no effusion or signs of infiltrate. Urinalysis noted large amount of white blood cells. We will go ahead and treat with cephalexin for abnormality relating urine. Patient was infused with 500 mL of saline and blood pressure came up to 160 systolic and patient felt better. Patient was released to home with recommendations to continue routine care and follow-up with primary care with need to return for worsening symptoms or new concerns. Lab Data 12/30/22 23:26 12/30/22 23:26 Laboratory Results WBC 3.8 10^3/uL (4.0-10.0) L 12/30/22 23:26 RBC 3.07 10^6/uL (4.1-5.3) L 12/30/22 23:26 Hgb 9.2 g/dL (11.7-16.6) L 12/30/22 23:26 Hct 28.8 % (42.0-52.0) L 12/30/22 23: MCV 93.8 fl (80-94) 12/30/22 23: MCH 30.0 pg (28.0-34.0) 12/30/22: MCHC 31.9 g/dL (30.0-36.0) 12/30/22: RDW 13.7 % (12.1-15.1) 12/30/22: Plt Count 210 10^3/cmm (130-400) 12/30/22: MPV 9.5 fL (7.4-10.4) 12/30/22: Neut % (Auto) 64.1 % 12/30/22: Lymph % (Auto) 22.9 % 12/30/22: [place] % (Auto) 10.4 % 12/30/22: Eos % (Auto) 1.8 % 12/30/22: Baso % (Auto) 0.5 % 12/30/22: Neut # (Auto) 2.46 10^3/uL (1.8-7.7) 12/30/22: Lymph # (Auto) 0.9 10^3/uL (0.8-4.8) 12/30/22: [place] # (Auto) 0.4 10^3/uL (0.2-0.9) 12/30/22: Eos # (Auto) 0.1 10^3/uL (0.0-0.8) 12/30/22: Baso # (Auto) 0.0 10^3/uL (0.0-0.1) 12/30/22: Nucleated RBC % (auto) 0 % 12/30/22: Nucleated RBCs # 0.0 /100WBC 12/30/22: Sodium 135 mmol/L (136-145) L 12/30/22: Potassium 4.1 mmol/L (3.5-5.1) 12/30/22: Chloride 93 mmol/L (98-107) L 12/30/22: Carbon Dioxide 26 mmol/L (22-29) 12/30/22:26 Anion Gap 20.1 (5-19) H 12/30/22 23:26 BUN 22 mg/dL (8-23) 12/30/22 23:26 Creatinine 3.1 mg/dL (0.7-1.2) H 12/30/22 23:26 GFR Calculation Not Reportable 12/30/22 23:26 Glucose 157 mg/dL (65-115) H 12/30/22 23:26 Calculated Osmolality 287 mOsm/kg (285-295) 12/30/22 23: Lactate 1.2 mmol/L (0.5-2.2) 12/30/22 23: Calcium 8.2 mg/dL (8.5-10.5) L 12/30/22 23:26 Magnesium 2.0 mg/dL (1.7-2.3) 12/30/22 23: Total Bilirubin 0.3 mg/dL (0.15-1.2) 12/30/22 23:26 AST 20 U/L (0-40) 12/30/22 23: ALT 11 U/L (0-41) 12/30/22 23:26 Alkaline Phosphatase 77 U/L (40-130) 12/30/22 23:26 NT-Pro-B Natriuret Pep 3181 pg/mL (0-450) H 12/30/22 23:26 Total Protein 6.7 g/dL (6.6-8.7) 12/30/22 23:26 Albumin 4.0 g/dL (3.5-5.2) 12/30/22 23:26 Globulin 2.7 g/dL (1.3-4.6) 12/30/22 23:26 Urine Color Brown (Yellow) 12/30/22 23:57 Urine Appearance Hazy (CLEAR) A 12/30/22 23:57 Urine pH 6.5 (5-7) 12/30/22 23:57 Ur Specific [place] 1.010 (1.005-1.030) 12/30/22 23:57 Urine Protein 3+ (Negative) H 12/30/22 23:57 Urine Glucose (UA) 2+ (Normal) H 12/30/22 23:57 Urine Ketones Negative (Negative) 12/30/22 23: Urine Blood 3+ (Negative) H 12/30/22 23:57 Urine Nitrate Negative (Negative) 12/30/22 23:57 Urine Bilirubin 1+ (Negative) H 12/30/22 23:57 Urine Urobilinogen Norm mg/dL (Negative) 12/30/22 23:57 Ur Leukocyte Esterase 2+ (Negative) H 12/30/22 23:57 Urine RBC 80-100 /hpf (0-2) H 12/30/22 23:57 Urine WBC Too numerous to cnt /hpf (0-5) H 12/30/22 23:57 Ur Squamous Epith Cells 5-10 /hpf (0-5) H 12/30/22 23:57 Amorphous Sediment Not Reportable 12/30/22 23:57 Urine Bacteria 3+ /hpf (NONE) H 12/30/22 23:57 EKG Data EKG 1: EKG interpretation date: 12/31/22 EKG interpretation time: 00:11 Prior EKG tracings: not available for review Interpretation: EKG shows sinus bradycardia with prolonged QT interval. Regular rate at [address] elevation or ectopy is noted. No prior EKG was noted for comparison. Discharge Plan Discharge Patient Disposition: Home Clinical Impression: Hypovolemia UTI (urinary tract infection) due to urinary indwelling catheter Qualifiers: Indwelling urinary catheter type: indwelling urethral catheter Encounter type: initial encounter Qualified Code(s): T83.511A - Infection and inflammatory reaction due to indwelling urethral catheter, initial encounter Condition: Stable Prescriptions: New cephalexin 500 mg capsule 500 mg PO BID 7 Days Qty: 14 0RF No Action clopidogrel [Plavix] 75 mg tablet 75 mg PO DAILY amlodipine 10 mg tablet 10 mg PO BEDTIME atorvastatin 80 mg tablet 80 mg PO BEDTIME aspirin [Aspir-81] 81 mg Tablet,Delayed Release (Dr/Ec) 81 mg PO DAILY tamsulosin 0.4 mg capsule 0.4 mg PO BEDTIME omega 3-uws-kce-fish oil [Fish Oil] 1,000 mg (120 mg-180 mg) Capsule 3 cap PO BID multivitamin Tablet 1 tab PO DAILY hydralazine 50 mg Tablet 100 mg PO TID 30 Days Qty: 120 0RF isosorbide mononitrate 60 mg tablet extended release 24 hr 60 mg PO DAILY FeroSul 325 mg (65 mg iron) tablet 325 mg PO DAILY turmeric 400 mg Capsule 400 mg PO DAILY hydrocodone-acetaminophen 5-325 mg tablet 1 - 2 tab PO .Q4-6H PRN (Reason: Pain) Humalog KwikPen Insulin 100 unit/mL insulin pen See Rx Instructions .ROUTE .COMPLEX MDD 40 Qty: 15 0RF Rx Instructions: Inject, subcu, 3 times daily, after meals, based on sliding scale provided furosemide 40 mg tablet 40 mg PO DAILY 30 Days Qty: 30 0RF insulin glargine 100 unit/mL solution 20 unit SUBCUT DAILY 30 Days Qty: 10 0RF metoprolol tartrate 50 mg tablet 50 mg PO Q12H 30 Days Qty: 60 0RF Discharge Orders: Discharge ED (Routine); Ordered 12/31/22 Ordered By: Ravi Zambrano Referrals: Harjit Marc MD [Primary Care Provider] - Discharge Diet: Usual diet Discharge Activity: Increase activity as tolerated Patient Instructions: Urinary Tract Infection in Older Adults (ED) Activity Restrictions/Additional Instructions: Continue with routine care as directed. Drink plenty of fluids with antibiotic. Follow-up with primary care in 1 week for recheck of urine. Return to emergency room for high fever, inability to hold fluids down, or new concerns. Continue with routine dialysis care as directed. Coding Level of Care Code ED Mainstreaming Facilitator for Mervat Ignacio
[2022-12-30 23:35] LABS: Basophils % 0.5 %; Eosinophils # 0.1 10^3/uL (0.0-0.8); Eosinophils % 1.8 %; Hematocrit 28.8 % (42.0-52.0); Hemoglobin 9.2 g/dL (11.7-16.6); Lymphocytes # 0.9 10^3/uL (0.8-4.8); Lymphocytes % 22.9 %; Mean Corpuscular HGB Conc 31.9 g/dL (30.0-36.0); Mean Corpuscular Volume 93.8 fl (80-94); Mean Platelet Volume 9.5 fL (7.4-10.4); Monocytes # 0.4 10^3/uL (0.2-0.9); Monocytes % 10.4 %; Neutrophils # 2.46 10^3/uL (1.8-7.7); Neutrophils % 64.1 %; Nucleated Red Blood Cells % 0 %; Platelet Count 210 10^3/cmm (130-400); Red Blood Count 3.07 10^6/uL (4.1-5.3); Red Cell Distribution Width 13.7 % (12.1-15.1); White Blood Count 3.8 10^3/uL (4.0-10.0)
[2022-12-30 23:46] LABS: Lactate (Lactic Acid level) 1.2 mmol/L (0.5-2.2)
[2022-12-30] MEDS: sodium chloride 0.9% 500 ML IV (23:53)
[2022-12-30 23:56] LABS: Alanine Aminotransferase 11 U/L (0-41); Alkaline Phosphatase 77 U/L (40-130); Aspartate Amino Transferase 20 U/L (0-40); Blood Urea Nitrogen 22 mg/dL (8-23); Carbon Dioxide 26 mmol/L (22-29); Globulin 2.7 g/dL (1.3-4.6); Osmolality Calculated 287 mOsm/kg (285-295); Total Bilirubin 0.3 mg/dL (0.15-1.2); Total Protein 6.7 g/dL (6.6-8.7)
[2022-12-30 23:58] LABS: Slide Review Slide Review Perform
[2022-12-31 00:07] LABS: Chloride 93 mmol/L (98-107); Glucose 157 mg/dL (65-115); NT Pro B Type Natriuretic Pept 3181 pg/mL (0-450); Sodium 135 mmol/L (136-145)
[2022-12-31 00:08] LABS: Anion Gap 20.1 (5-19); Calcium 8.2 mg/dL (8.5-10.5); Potassium 4.1 mmol/L (3.5-5.1)
[2022-12-31 00:23] LABS: Add Urine Microscopic? YES; Bilirubin Urine 1+ (Negative); Blood Urine 3+ (Negative); Glucose Urine UA 2+ (Normal); Ketones Urine Negative (Negative); Leukocyte Esterase Urine 2+ (Negative); Nitrate Urine Negative (Negative); Protein Urine 3+ (Negative); Urine Appearance Hazy (CLEAR); Urine Color Brown (Yellow); Urobilinogen Urine Norm (Negative); pH Urine 6.5 (5-7)
[2022-12-31 00:24] LABS: WBC Urine TOO NUMEROUS TO CNT /hpf (0-5)
[2022-12-31 00:25] LABS: RBC Urine 80-100 /hpf (0-2)
[2022-12-31 00:26] LABS: Add Urine Culture? Yes; Bacteria Urine 3+ /hpf
[2022-12-31 00:48] VITALS: BP 124/53; BP 154/64; PULSE 57; PULSE 58; PULSE 60
[2022-12-31] MEDS: cephALEXin 500 mg Capsule PO (00:50)
== END 2022-12-31 00:53 | disposition home or self-care (01) ==
PROVIDERS: Emergency Provider Nurse Practitioner Family; PCP Family Medicine
DX: T83.511A Infection and inflammatory reaction due to indwelling urethral catheter, initial encounter (principal); E86.1 Hypovolemia; Z79.82 Long term (current) use of aspirin; Z79.02 Long term (current) use of antithrombotics/antiplatelets; Z79.4 Long term (current) use of insulin; I25.10 Atherosclerotic heart disease of native coronary artery without angina pectoris; I12.9 Hypertensive chronic kidney disease with stage 1 through stage 4 chronic kidney disease, or unspecified chronic kidney disease; E11.22 Type 2 diabetes mellitus with diabetic chronic kidney disease; N18.9 Chronic kidney disease, unspecified; Y73.8 Miscellaneous gastroenterology and urology devices associated with adverse incidents, not elsewhere classified
CPT/HCPCS: 71045; 80053; 81001; 83605; 83735; 83880; 85025; 87077; 87086; 87186; 93005; 99285; J7040

== ENCOUNTER 2023-01-17 13:25 | Oncology outpatient (recurring) (ONCR) | payer MEDICARE, SELFPAY ==
[2023-01-17 16:06] LABS: Basophils % 0.5 %; Eosinophils # 0.1 10^3/uL (0.0-0.8); Eosinophils % 1.9 %; Hematocrit 35.1 % (42.0-52.0); Hemoglobin 11.5 g/dL (11.7-16.6); Lymphocytes % 26.9 %; Mean Corpuscular HGB Conc 32.8 g/dL (30.0-36.0); Mean Corpuscular Volume 94.6 fl (80-94); Mean Platelet Volume 9.5 fL (7.4-10.4); Monocytes # 0.3 10^3/uL (0.2-0.9); Monocytes % 8.8 %; Neutrophils # 2.31 10^3/uL (1.8-7.7); Neutrophils % 61.6 %; Nucleated Red Blood Cells % 0 %; Platelet Count 156 10^3/cmm (130-400); Red Blood Count 3.71 10^6/uL (4.1-5.3); Red Cell Distribution Width 13.2 % (12.1-15.1); Reticulocyte % 1.6 % (0.5-2.0); White Blood Count 3.8 10^3/uL (4.0-10.0)
[2023-01-17 16:27] LABS: LAB Peripheral Smear Sent for Review
[2023-01-17 18:33] LABS: Alanine Aminotransferase 15 U/L (0-41); Albumin Level 4.5 g/dL (3.5-5.2); Alkaline Phosphatase 88 U/L (40-130); Anion Gap 18.9 (5-19); Aspartate Amino Transferase 20 U/L (0-40); Blood Urea Nitrogen 37 mg/dL (8-23); Calcium 7.5 mg/dL (8.5-10.5); Carbon Dioxide 27 mmol/L (22-29); Chloride 95 mmol/L (98-107); Globulin 2.4 g/dL (1.3-4.6); Glucose 184 mg/dL (65-115); Iron 64 ug/dL (59-158); Lactate Dehydrogenase 181 U/L (135-225); Osmolality Calculated 297 mOsm/kg (285-295); Percent Saturation 27.1 % (20-50); Potassium 3.9 mmol/L (3.5-5.1); Sodium 137 mmol/L (136-145); Total Bilirubin 0.4 mg/dL (0.15-1.2); Total Iron Binding Capacity 236 mcg/dl; Total Protein 6.9 g/dL (6.6-8.7); Unsaturated Iron Binding 172 ug/dL (112-347)
[2023-01-17 18:42] LABS: Folate Level 17.8 ng/mL (4.5-32.2)
[2023-01-17 18:43] LABS: Vitamin B12 632 pg/mL (232-1245)
[2023-01-18 15:19] LABS: KAPPA LIGHT CHAIN, FREE, SERUM 117.5 mg/L (3.3-19.4); KAPPA/LAMBDA LIGHT CHAINS FREE 1.82 (0.26-1.65); LAMBDA LIGHT CHAIN, FREE, SERU 64.4 mg/L (5.7-26.3)
[2023-01-19 13:30] LABS: PROTEIN, TOTAL 6.9 g/dL (6.1-8.1)
[2023-01-22 10:14] LABS: Erythropoietin 45.9 mIU/mL (2.6-18.5)
[2023-01-23 11:14] LABS: ABNORMAL PROTEIN BAND 1 0.2 g/dL (NONE DETECTED); ALBUMIN 4.5 g/dL (3.8-4.8); ALPHA 1 GLOBULIN 0.3 g/dL (0.2-0.3); ALPHA 2 GLOBULIN 0.7 g/dL (0.5-0.9); BETA 1 GLOBULIN 0.4 g/dL (0.4-0.6); BETA 2 GLOBULIN 0.2 g/dL (0.2-0.5); GAMMA GLOBULIN 0.8 g/dL (0.8-1.7)
== END 2023-01-17 23:59 | disposition home or self-care (01) ==
PROVIDERS: PCP Family Medicine; Visit Provider Internal Medicine Medical Oncology
DX: I12.0 Hypertensive chronic kidney disease with stage 5 chronic kidney disease or end stage renal disease (principal); N18.6 End stage renal disease; D63.1 Anemia in chronic kidney disease; D50.9 Iron deficiency anemia, unspecified; D47.2 Monoclonal gammopathy; Z79.899 Other long term (current) drug therapy; Z87.891 Personal history of nicotine dependence; Z99.2 Dependence on renal dialysis
CPT/HCPCS: 36415; 80053; 82607; 82668; 82746; 83010; 83540; 83550; 83615; 83883; 84155; 84165; 85025; 85045; 99204

== ENCOUNTER 2023-02-05 11:01 | Outpatient (CLI) | payer MEDICARE, SELFPAY ==
--- NOTE | 2023-02-05 11:15 | US_ITS ---
WS: [id number] RENAL ULTRASOUND REASON FOR EXAM: ACUTE KIDNEY INJURY COMPARISON: None available. ORDER DATE: 02/05/2023 11:40 AM TECHNIQUE: Grayscale and Doppler ultrasound examination of the kidneys. FINDINGS: Right kidney: Right kidney measures 8.8 cm x 4.3 cm x 4.3 cm. Renal cortex 10.6 mm Left kidney: Left kidney measures 9.4 cm x 4.6 cm x 4.8 cm. Renal cortex 13.8 mm The urinary bladder is decompressed by a Alcaraz catheter US/US renal BI with PV bladder IMPRESSION: No acute abnormality.
== END 2023-02-05 11:02 | disposition home or self-care (01) ==
PROVIDERS: PCP Family Medicine; Visit Provider Nurse Practitioner Gerontology
DX: N17.9 Acute kidney failure, unspecified (principal)
CPT/HCPCS: 76770; 76857

== ENCOUNTER 2023-03-25 16:21 | Emergency (ER) | payer MEDICARE, SELFPAY ==
[2023-03-25 16:24] VITALS: BP 235/87; PULSE 67; RESP 14; TEMP 36.6; O2SAT 99; BMI 25.1
--- NOTE | 2023-03-25 16:33 | ED_ITS ---
HPI - Abdominal Pain General: Chief Complaint: Abdominal Pain Stated Complaint: constipation Time Seen by Provider: 03/25/23 16:32 History of Present Illness: 82-year-old male presents emerged department complaints of constipation. He states his last bowel movement was approximately 3 days ago. He states he has tried multiple times to have a bowel movement and feels like he is unable to. He states he does have dialysis on Sunday and Sunday. He states he is also taken to by mouth pills of senna stool softener. He states that he feels like his blood pressure slightly elevated as well and has not taken his evening medications. Associated Symptoms: Reports constipation Review of Systems General: Reports: 10 or more systems reviewed and unremarkable except in HPI and below GI: Reports: constipation; Denies: abdominal pain PFSH ED PFSH: Medical History (Updated 03/25/23 @ 19:08 by Ming Del Valle MD) CAD (coronary artery disease) DDD (degenerative disc disease), lumbar Diabetes mellitus End-stage renal disease on hemodialysis Hypercholesterolemia Hypertension Lumbosacral radiculopathy Surgical History (Updated 01/17/23 @ 19:33 by Quang Sheridan MD) History of coronary artery stent placement (01/10/21) History of hernia repair History of lumbar laminectomy (2021) Family History Father Cancer Other Diabetes Hypertension Social History (Updated 01/17/23 @ 14:07 by Stacey Nicole LPN) Smoking and tobacco status: former smoker Quit status (tobacco): has quit using tobacco Former quit date comment: smoked x 1 year in teen years Second hand smoke exposure: No Alcohol intake: never Substance/Drug Use: never Lives independently: Yes Household members: spouse Marital status: Physical Exam Const: COMMON NORMALS: no acute distress, patient oriented x3 and alert HENMT: COMMON NORMALS: normocephalic and moist oral mucous membranes HEAD & SCALP: normocephalic Eye: COMMON NORMALS: Equal, round and reactive pupils present and EOMs intact bilaterally PUPIL: Yes Equal, round and reactive pupils present Neck/C-Spine: COMMON NORMALS: full ROM, supple and no meningeal signs Resp: COMMON NORMALS: normal respiratory effort and clear to auscultation bilaterally AUSCULTATION: clear to auscultation bilaterally Cardio: COMMON NORMALS: regular rate, regular rhythm, S1 normal heart sound present and S2 normal heart sound present RATE: regular rate RHYTHM: regular rhythm HEART SOUNDS: S1 normal heart sound present and S2 normal heart sound present GI: COMMON NORMALS: Normal to inspection, nondistended, normoactive bowel sounds present, Soft to palpation and non-tender PALPATION: Yes Soft to palpation Extremity: COMMON NORMALS: normal to inspection, capillary refill normal and no pedal edema Neuro: COMMON NORMALS: patient oriented x3, moves all extremities, no sensory deficits noted and deep tendon reflexes 2+ bilaterally SENSORIUM/ORIENTATION: Yes alert MENINGEAL SIGNS: Yes no meningeal signs Psych: COMMON NORMALS: mental status grossly normal and Normal thought process present THOUGHT PROCESS: Normal thought process present Skin: COMMON NORMALS: no rashes or lesions noted GENERAL SKIN EXAM: no rashes or lesions noted Course Vital Signs: Vital signs: Vital Signs Temperature 97.9 F 03/25/23 16:24 Pulse Rate 63 03/25/23 18:04 Respiratory Rate 16 03/25/23 18:04 Blood Pressure 237/87 03/25/23 18:27 Pulse Oximetry 95 03/25/23 18:04 Oxygen Delivery Me thod Room Air 03/25/23 18:04 MDM - Abdominal Pain Medical Decision Making Physical exam completed and documented we will obtain a plain film abdominal x- ray to evaluate the patient's concern for constipation. We will also provide him by mouth medication for his uncontrolled hypertension. If there is no significant improvement we will provide him IV access as well as IV hydralazine. I have discussed supportive care regarding his constipation to include senna S and enemas as needed. Medical Records I reviewed the patient's medical records. Lab Data Labs/Radiology: Radiology Impressions Abdomen X-Ray 03/25/23 17:20 IMPRESSION: Limited portable exam. I personally reviewed the abdominal plain film there does appear to be a mo derate amount of stool burden and gaseous distention Discharge Plan Discharge Patient Disposition: Home Clinical Impression: Hypertension, uncontrolled, Constipation Condition: Stable Prescriptions: New Senna-S 8.6-50 mg tablet 2 tab-cap PO BID Qty: 60 0RF Fleet Mineral Oil Enema [address] DAILY PRN (Reason: constipation) Qty: 133 0RF Rx Instructions: discard any unused portion No Action clopidogrel [Plavix] 75 mg tablet 75 mg PO DAILY nifedipine 30 mg tablet extended release 24hr 30 mg PO TID atorvastatin 40 mg tablet 40 mg PO DAILY clonidine HCl 0.1 mg tablet 0.05 mg PO BID bisacodyl 10 mg suppository [address] DAILY PRN calcitriol 0.25 mcg capsule 0.25 mcg PO DAILY finasteride 5 mg tablet 5 mg PO DAILY Farxiga 10 mg tablet 10 mg PO DAILY prazosin 1 mg capsule 1 mg PO BID spironolactone 25 mg tablet 25 mg PO DAILY pantoprazole 40 mg tablet,delayed release (DR/EC) 40 mg PO DAILY nitroglycerin 0.4 mg tablet, sublingual 0.4 mg sublingual Q5M PRN Rx Instructions: do not exceed 3 doses per episode aspirin [Aspir-81] 81 mg Tablet,Delayed Release (Dr/Ec) 81 mg PO DAILY tamsulosin 0.4 mg capsule 0.4 mg PO BEDTIME hydralazine 50 mg Tablet 100 mg PO TID 30 Days Qty: 120 0RF Humalog KwikPen Insulin 100 unit/mL insulin pen See Rx Instructions .ROUTE .COMPLEX MDD 40 Qty: 15 0RF Rx Instructions: Inject, subcu, 3 times daily, after meals, based on sliding scale provided furosemide 40 mg tablet 40 mg PO DAILY 30 Days Qty: 30 0RF insulin glargine 100 unit/mL solution 20 unit SUBCUT DAILY 30 Days Qty: 10 0RF metoprolol tartrate 50 mg tablet 50 mg PO Q12H 30 Days Qty: 60 0RF Discharge Orders: Discharge ED (Routine); Ordered 03/25/23 Ordered By: Ming Del Valle Referrals: Harjit Marc MD [Primary Care Provider] - Patient Instructions: Opioid Safety, Pain Management Coding Level of Care Code ED Chemistry Quality Control Technician for Mervat Ignacio
[2023-03-25 17:13] VITALS: BP 243/101; PULSE 50; RESP 16; O2SAT 99
--- NOTE | 2023-03-25 17:20 | XRR_ITS ---
PROCEDURE INFORMATION: Exam: XR Abdomen Exam date and time: 03/25/2023 5:26 PM Age: 82 years old Clinical indication: Constipation; Additional info: Abdominal pain, R/O constipation TECHNIQUE: Imaging protocol: Radiologic exam of the abdomen. Views: Frontal supine view of the abdomen. 1 View. COMPARISON: CR XR chest 1V portable [id number] 12/30/2022 11:23 PM FINDINGS: Tubes, catheters and devices: Central venous catheter tip is in the region of the cavoatrial junction. Lungs: There is some subsegmental atelectasis at the lung bases. Gastrointestinal tract: Bowel gas pattern is grossly unremarkable. Bones/joints: Unremarkable. XR/XR abdomen 1V* [id number] IMPRESSION: Limited portable exam.
[2023-03-25 18:04] VITALS: BP 233/92; PULSE 63; RESP 16; O2SAT 95
[2023-03-25 18:27] VITALS: BP 237/87
[2023-03-25] MEDS: cloNIDine 0.1 mg Tablet PO (18:27)
[2023-03-25] MEDS: hyDRALAzine 20 mg/mL INJ 1 mL 10 MG IVP ×2 (19:47→20:35)
[2023-03-25 20:36] VITALS: BP 238/85; PULSE 66; O2SAT 95
[2023-03-25 21:15] VITALS: BP 213/77; PULSE 67; RESP 16; O2SAT 96
--- NOTE | 2023-03-25 21:20 | PC.NURSE ---
PT SENT HOME WITH MINERAL OIL ENEMA PER MD ORDERS.
== END 2023-03-25 21:10 | disposition home or self-care (01) ==
PROVIDERS: Emergency Provider Internal Medicine; PCP Family Medicine
DX: K59.00 Constipation, unspecified (principal); I12.0 Hypertensive chronic kidney disease with stage 5 chronic kidney disease or end stage renal disease; N18.6 End stage renal disease; E11.22 Type 2 diabetes mellitus with diabetic chronic kidney disease; I25.10 Atherosclerotic heart disease of native coronary artery without angina pectoris; E78.00 Pure hypercholesterolemia, unspecified; Z79.899 Other long term (current) drug therapy; Z79.4 Long term (current) use of insulin; Z87.891 Personal history of nicotine dependence; Z95.5 Presence of coronary angioplasty implant and graft; Z99.2 Dependence on renal dialysis
CPT/HCPCS: 74018; 96374; 96376; 99284; J0360

== ENCOUNTER 2023-04-19 22:21 | Emergency (ER) | payer MEDICARE, SELFPAY ==
[2023-04-19 22:33] VITALS: BP 146/66; PULSE 58; RESP 16; TEMP 36.4; O2SAT 96; BMI 24.7
--- NOTE | 2023-04-19 23:01 | ED_ITS ---
HPI - Male Genitourinary General: Chief complaint: Urogenital-Male Stated complaint: hyman issues Time Seen by Provider: 04/19/23 22:48 History of Present Illness: 82-year-old male patient comes in today for complaints of of a tear in his Hyman catheter leg bag. Patient is needing a replacement for his leg bag. Patient denies any other concerns or complaints. Patient appears nontoxic. Patient denies any fever. Review of Systems General: Reports: 10 or more systems reviewed and unremarkable except in HPI and below Const: Denies: fever(s) PFSH ED PFSH: Medical History (Updated 04/19/23 @ 22:49 by GABI Georges) CAD (coronary artery disease) DDD (degenerative disc disease), lumbar Diabetes mellitus End-stage renal disease on hemodialysis Hypercholesterolemia Hypertension Lumbosacral radiculopathy Surgical History (Updated 01/17/23 @ 19:33 by Quang Sheridan MD) History of coronary artery stent placement (01/10/21) History of hernia repair History of lumbar laminectomy (2021) Family History Father Cancer Other Diabetes Hypertension Social History (Updated 01/17/23 @ 14:07 by Stacey Nicole LPN) Smoking and tobacco status: former smoker Quit status (tobacco): has quit using tobacco Former quit date comment: smoked x 1 year in teen years Second hand smoke exposure: No Alcohol intake: never Substance/Drug Use: never Lives independently: Yes Household members: spouse Marital status: Physical Exam Const: COMMON NORMALS: alert HENMT: COMMON NORMALS: normocephalic HEAD & SCALP: normocephalic Neck/C-Spine: COMMON NORMALS: full ROM Resp: COMMON NORMALS: normal respiratory effort Cardio: COMMON NORMALS: regular rate RATE: regular rate GI: COMMON NORMALS: non-tender Neuro: SENSORIUM/ORIENTATION: Yes alert Skin: COMMON NORMALS: turgor normal GENERAL SKIN EXAM: turgor normal Course Vital Signs: Vital signs: Vital Signs Temperature 97.6 F 04/19/23 22:33 Pulse Rate 58 L 04/19/23 22:33 Respiratory Rate 16 04/19/23 22:33 Blood Pressure 146/66 04/19/23 22:33 Pulse Oximetry 96 04/19/23 22:33 Oxygen Delivery Me thod Room Air 04/19/23 22:33 MDM - Male Medical Decision Making 82-year-old male patient comes in for change of his Hyman catheter leg bag that had developed a hole in it. Leg bag was replaced patient tolerated well. Patient was released to home. Discharge Plan Discharge Patient Disposition: Home Clinical Impression: Complication of Hyman catheter Qualifiers: Encounter type: initial encounter Qualified Code(s): T83.9XXA - Unspecified complication of genitourinary prosthetic device, implant and graft, initial encounter Condition: Stable Prescriptions: No Action clopidogrel [Plavix] 75 mg tablet 75 mg PO DAILY nifedipine 30 mg tablet extended release 24hr 30 mg PO TID atorvastatin 40 mg tablet 40 mg PO DAILY clonidine HCl 0.1 mg tablet 0.05 mg PO BID bisacodyl 10 mg suppository 10 mg [place] DAILY PRN calcitriol 0.25 mcg capsule 0.25 mcg PO DAILY finasteride 5 mg tablet 5 mg PO DAILY Farxiga 10 mg tablet 10 mg PO DAILY prazosin 1 mg capsule 1 mg PO BID spironolactone 25 mg tablet 25 mg PO DAILY pantoprazole 40 mg tablet,delayed release (DR/EC) 40 mg PO DAILY nitroglycerin 0.4 mg tablet, sublingual 0.4 mg sublingual Q5M PRN Rx Instructions: do not exceed 3 doses per episode aspirin [Aspir-81] 81 mg Tablet,Delayed Release (Dr/Ec) 81 mg PO DAILY tamsulosin 0.4 mg capsule 0.4 mg PO BEDTIME hydralazine 50 mg Tablet 100 mg PO TID 30 Days Qty: 120 0RF Senna-S 8.6-50 mg tablet 2 tab-cap PO BID Qty: 60 0RF Fleet Mineral Oil Enema 118 ml [place] DAILY PRN (Reason: constipation) Qty: 133 0RF Rx Instructions: discard any unused portion Humalog KwikPen Insulin 100 unit/mL insulin pen See Rx Instructions .ROUTE .COMPLEX MDD 40 Qty: 15 0RF Rx Instructions: Inject, subcu, 3 times daily, after meals, based on sliding scale provided furosemide 40 mg tablet 40 mg PO DAILY 30 Days Qty: 30 0RF insulin glargine 100 unit/mL solution 20 unit SUBCUT DAILY 30 Days Qty: 10 0RF metoprolol tartrate 50 mg tablet 50 mg PO Q12H 30 Days Qty: 60 0RF Discharge Orders: Discharge ED (Routine); Ordered 04/19/23 Ordered By: Ravi Zambrano Referrals: Harjit Marc MD [Primary Care Provider] - Discharge Diet: Usual diet Discharge Activity: Increase activity as tolerated Patient Instructions: Hyman Catheter Care, How to Change a Catheter Drainage Bag (DC) Activity Restrictions/Additional Instructions: Continue routine care. Coding Level of Care Code ED Post Doctoral Researcher for Mervat Ignacio
== END 2023-04-19 23:02 | disposition home or self-care (01) ==
PROVIDERS: Emergency Provider Nurse Practitioner Family; PCP Family Medicine
DX: T83.098A Other mechanical complication of other urinary catheter, initial encounter (principal); Y73.1 Therapeutic (nonsurgical) and rehabilitative gastroenterology and urology devices associated with adverse incidents; Z79.82 Long term (current) use of aspirin; Z79.02 Long term (current) use of antithrombotics/antiplatelets; Z79.4 Long term (current) use of insulin; Z87.891 Personal history of nicotine dependence; I25.10 Atherosclerotic heart disease of native coronary artery without angina pectoris; E11.22 Type 2 diabetes mellitus with diabetic chronic kidney disease; I12.0 Hypertensive chronic kidney disease with stage 5 chronic kidney disease or end stage renal disease; N18.6 End stage renal disease; Z99.2 Dependence on renal dialysis
CPT/HCPCS: 99283

== ENCOUNTER → 2023-05-04 07:42 | Outpatient (BNVA) | payer MEDICARE, SELFPAY | PROVIDERS: PCP Family Medicine; Referring Provider Family Medicine; Visit Provider Internal Medicine | DX: E78.2 Mixed hyperlipidemia; E11.22 Type 2 diabetes mellitus with diabetic chronic kidney disease; E11.319 Type 2 diabetes mellitus with unspecified diabetic retinopathy without macular edema; E11.40 Type 2 diabetes mellitus with diabetic neuropathy, unspecified; E11.59 Type 2 diabetes mellitus with other circulatory complications; Z79.4 Long term (current) use of insulin | CPT/HCPCS: 99204 ==

== ENCOUNTER 2023-05-09 15:11 | Oncology outpatient (recurring) (ONCR) | payer MEDICARE, SELFPAY ==
[2023-05-02 13:16] VITALS: BP 177/72; PULSE 60; RESP 16; TEMP 36.6; O2SAT 98
[2023-05-02 13:35] LABS: Basophils % 0.2 %; Eosinophils # 0.1 10^3/uL (0.0-0.8); Eosinophils % 3.2 %; Lymphocytes # 0.8 10^3/uL (0.8-4.8); Lymphocytes % 20.1 %; Mean Corpuscular HGB Conc 33.9 g/dL (30-55); Mean Corpuscular Hemoglobin 31.6 pg (27-33); Mean Corpuscular Volume 93.2 fl (82-101); Mean Platelet Volume 9.2 fL (7.4-10.4); Monocytes # 0.4 10^3/uL (0.2-0.9); Monocytes % 9.1 %; Neutrophils # 2.73 10^3/uL (1.8-7.7); Neutrophils % 66.9 %; Nucleated Red Blood Cells % 0 %; Platelet Count 142 10^3/cmm (157-399); Red Blood Count 3.54 10^6/uL (3.85-5.65); Red Cell Distribution Width 14.2 % (12.1-15.1); White Blood Count 4.08 10^3/uL (3.29-11.43)
[2023-05-02 14:03] LABS: Alanine Aminotransferase 16 U/L (0-41); Albumin Level 4.3 g/dL (3.5-5.2); Alkaline Phosphatase 105 U/L (40-130); Anion Gap 15.2 (5-19); Aspartate Amino Transferase 20 U/L (0-40); Blood Urea Nitrogen 36 mg/dL (8-23); Calcium 7.8 mg/dL (8.5-10.5); Carbon Dioxide 31 mmol/L (22-29); Chloride 93 mmol/L (98-107); Globulin 2.2 g/dL (1.3-4.6); Glucose 227 mg/dL (65-115); Immunoglobulin IGA 79 mg/dL (70-400); Immunoglobulin IGG 785 mg/dL (700-1600); Immunoglobulin IGM 41 mg/dL (40-230); Osmolality Calculated 295 mOsm/kg (285-295); Potassium 4.2 mmol/L (3.5-5.1); Sodium 135 mmol/L (136-145); Total Bilirubin 0.6 mg/dL (0.15-1.2); Total Protein 6.5 g/dL (6.6-8.7)
[2023-05-03 11:46] LABS: PROTEIN, TOTAL 6.4 g/dL (6.1-8.1)
[2023-05-03 12:08] LABS: KAPPA LIGHT CHAIN, FREE, SERUM 92.8 mg/L (3.3-19.4); LAMBDA LIGHT CHAIN, FREE, SERU 51.5 mg/L (5.7-26.3)
[2023-05-03 16:58] LABS: ALBUMIN 4.3 g/dL (3.8-4.8); ALPHA 1 GLOBULIN 0.3 g/dL (0.2-0.3); ALPHA 2 GLOBULIN 0.6 g/dL (0.5-0.9); BETA 1 GLOBULIN 0.3 g/dL (0.4-0.6); BETA 2 GLOBULIN 0.2 g/dL (0.2-0.5); GAMMA GLOBULIN 0.7 g/dL (0.8-1.7)
== END 2023-05-19 23:59 | disposition home or self-care (01) ==
PROVIDERS: PCP Family Medicine; Visit Provider Internal Medicine Medical Oncology
DX: R22.2 Localized swelling, mass and lump, trunk (principal); D47.2 Monoclonal gammopathy; D64.9 Anemia, unspecified; N18.9 Chronic kidney disease, unspecified
CPT/HCPCS: 36591; 80053; 82784; 83883; 84155; 84165; 85025; 86334; 99214

== ENCOUNTER 2023-06-02 00:50 | Emergency (ER) | payer MEDICARE, SELFPAY ==
[2023-06-02 00:54] VITALS: BP 166/78; PULSE 73; RESP 16; TEMP 36.5; O2SAT 98; BMI 24.3
--- NOTE | 2023-06-02 01:05 | W.ED.GENADLT ---
HPI - General Adult General: Chief complaint: Urogenital-Male Stated complaint: Can't use restroom (4 days) prostate surgery 05/26 Time Seen by Provider: 06/02/23 00:55 Source: patient Mode of arrival: ambulatory Limitations: no limitations History of Present Illness: 82-year-old male states he had prostate surgery a week ago at [place] he states that he had a Alcaraz and had a Alcaraz pulled earlier today states that since he had his Alcaraz pulled at 3 yesterday afternoon he has not been able to urinate. He states he has felt the urge to urinate but not been able to go. He is on dialysis he gets dialysis Sunday. He denies any vomiting or diarrhea. Associated symptoms: Deny chest pain, dyspnea, headache(s), nausea, rash or vomiting Review of Systems Const: Denies: fever(s), chills, body aches or change in appetite ENMT: Denies: throat pain or dental pain Card: Denies: chest pain Resp: Denies: dyspnea GI: Denies: abdominal pain, nausea, vomiting or diarrhea : Reports: difficulty urinating Musc: Denies: neck pain or back pain Skin/Breast: Denies: rash Neuro: Denies: headache(s) PFSH ED PFSH: Medical History CAD (coronary artery disease) DDD (degenerative disc disease), lumbar Diabetes mellitus End-stage renal disease on hemodialysis Hypercholesterolemia Hypertension Lumbosacral radiculopathy Surgical History History of coronary artery stent placement (01/10/21) History of hernia repair History of lumbar laminectomy (2021) Family History Father Cancer Other Diabetes Hypertension Social History Smoking and tobacco/nicotine status: former use of tobacco/nicotine Quit status (tobacco/nicotine): has quit using Former quit date comment: smoked x 1 year in teen years Second hand smoke exposure: No Alcohol intake: never Substance/Drug Use: never Lives independently: Yes Household members: spouse Marital status: Physical Exam Const: COMMON NORMALS: no acute distress, patient oriented x3 and healthy appearing HENMT: COMMON NORMALS: normocephalic and atraumatic HEAD & SCALP: normocephalic and atraumatic Eye: COMMON NORMALS: Equal, round and reactive pupils present and EOMs intact bilaterally PUPIL: Yes Equal, round and reactive pupils present Neck/C-Spine: COMMON NORMALS: full ROM and supple Chest: COMMONS NORMALS: normal inspection of the chest and normal palpation of entire chest wall Resp: COMMON NORMALS: normal respiratory effort, No retractions, No use of accessory muscles and clear to auscultation bilaterally AUSCULTATION: clear to auscultation bilaterally Cardio: COMMON NORMALS: regular rate, regular rhythm and No murmurs present (Cardio) RATE: regular rate RHYTHM: regular rhythm GI: COMMON NORMALS: Normal to inspection, nondistended, normoactive bowel sounds present, Soft to palpation, non-tender and no masses PALPATION: Yes Soft to palpation Extremity: COMMON NORMALS: normal to inspection and full ROM Neuro: COMMON NORMALS: patient oriented x3, moves all extremities and no focal motor deficits Psych: COMMON NORMALS: mental status grossly normal, Normal thought process present and cooperative THOUGHT PROCESS: Normal thought process present Skin: COMMON NORMALS: no rashes or lesions noted and no wounds GENERAL SKIN EXAM: no rashes or lesions noted Course Vital Signs: Vital signs: Vital Signs Temperature 97.7 F 06/02/23 00:54 Pulse Rate 64 06/02/23 02:40 Respiratory Rate 18 06/02/23 02:40 Blood Pressure 193/99 06/02/23 02:40 Pulse Oximetry 98 06/02/23 02:40 [facility] - General Adult Medical Decision Making Patient presents with urinary retention patient had a Alcaraz placed had urine out and feels much improved patient is stable for discharge he is to follow-up with his urologist next week return if worsening. Medical Records I reviewed the patient's medical records. No radiology studies performed this visit Discharge Plan Discharge Patient Disposition: Home Clinical Impression: Acute urinary retention Condition: Stable Prescriptions: No Action nifedipine 30 mg tablet extended release 24hr 30 mg PO TID atorvastatin 40 mg tablet 40 mg PO DAILY clonidine HCl 0.1 mg tablet 0.05 mg PO BID finasteride 5 mg tablet 5 mg PO DAILY spironolactone 25 mg tablet 25 mg PO DAILY pantoprazole 40 mg tablet,delayed release (DR/EC) 40 mg PO DAILY nitroglycerin 0.4 mg tablet, sublingual 0.4 mg sublingual Q5M PRN Rx Instructions: do not exceed 3 doses per episode bumetanide 1 mg tablet 1 mg PO BID RenaPlex-D 800 mcg-12.5 mg -2,000 unit tablet 1 tab PO DAILY sevelamer carbonate [Renvela] 800 mg tablet 800 mg PO DAILY Rx Instructions: must administer with a meal/food aspirin [Aspir-81] 81 mg Tablet,Delayed Release (Dr/Ec) 81 mg PO DAILY tamsulosin 0.4 mg capsule 0.4 mg PO BEDTIME hydralazine 50 mg Tablet 100 mg PO TID 30 Days Qty: 120 0RF Humalog KwikPen Insulin 100 unit/mL insulin pen See Rx Instructions .ROUTE .COMPLEX MDD 40 Qty: 15 0RF Rx Instructions: Inject, subcu, 3 times daily, after meals, based on sliding scale provided insulin glargine 100 unit/mL solution 20 unit SUBCUT DAILY 30 Days Qty: 10 0RF metoprolol tartrate 50 mg tablet 50 mg PO Q12H 30 Days Qty: 60 0RF Discharge Orders: Discharge ED (Routine); Ordered 06/02/23 Ordered By: Og Matthews Referrals: Harjit Marc MD [Primary Care Provider] - Discharge Diet: Advance as tolerated Discharge Activity: Resume usual activity Patient Instructions: Urinary Retention in Men (ED) Coding Level of Care Code ED Accounting Support Specialist for Mervat Ignacio
[2023-06-02] MEDS: lidocaine 2% Urojet 20 mL TOPICAL (01:18)
--- NOTE | 2023-06-02 02:25 | PC.NURSE ---
This nurse inserted hymna and 500 ml of hematuria came out. Doctor Cassie was notified and he ordered to instill 1000ml of sterile water for irrigation. After the irrigation was completed , the hematuria got tattoo technician.
[2023-06-02 02:40] VITALS: BP 193/99; PULSE 64; RESP 18; O2SAT 98
== END 2023-06-02 02:43 | disposition home or self-care (01) ==
PROVIDERS: Emergency Provider Emergency Medicine; PCP Family Medicine
DX: R33.9 Retention of urine, unspecified (principal); Z79.82 Long term (current) use of aspirin; Z79.4 Long term (current) use of insulin; I25.10 Atherosclerotic heart disease of native coronary artery without angina pectoris; E11.22 Type 2 diabetes mellitus with diabetic chronic kidney disease; I12.0 Hypertensive chronic kidney disease with stage 5 chronic kidney disease or end stage renal disease; N18.6 End stage renal disease; Z99.2 Dependence on renal dialysis; Z87.891 Personal history of nicotine dependence
CPT/HCPCS: 51702; 99283

== ENCOUNTER 2023-06-12 08:00 | Outpatient (CLI) | payer MEDICARE, SELFPAY ==
[2023-06-12 17:52] LABS: Basophils % 0.5 %; Eosinophils # 0.1 10^3/uL (0.0-0.8); Hematocrit 28.4 % (37-53); Lymphocytes # 0.9 10^3/uL (0.8-4.8); Lymphocytes % 14.8 %; Mean Corpuscular HGB Conc 33.1 g/dL (30-55); Mean Corpuscular Hemoglobin 31.2 pg (27-33); Mean Corpuscular Volume 94.4 fl (82-101); Mean Platelet Volume 9.9 fL (7.4-10.4); Monocytes # 0.4 10^3/uL (0.2-0.9); Monocytes % 6.8 %; Neutrophils # 4.45 10^3/uL (1.8-7.7); Neutrophils % 75.6 %; Nucleated Red Blood Cells % 0 %; Platelet Count 269 10^3/cmm (157-399); Red Blood Count 3.01 10^6/uL (3.85-5.65); Red Cell Distribution Width 12.8 % (12.1-15.1); White Blood Count 5.89 10^3/uL (3.29-11.43)
[2023-06-12 18:16] LABS: Alanine Aminotransferase 7 U/L (0-41); Albumin Level 4.1 g/dL (3.5-5.2); Alkaline Phosphatase 92 U/L (40-130); Anion Gap 14.7 (5-19); Aspartate Amino Transferase 22 U/L (0-40); Blood Urea Nitrogen 15 mg/dL (8-23); C Reactive Protein 5.6 mg/L (0.0-4.9); Calcium 8.3 mg/dL (8.5-10.5); Carbon Dioxide 31 mmol/L (22-29); Chloride 97 mmol/L (98-107); Globulin 2.7 g/dL (1.3-4.6); Glucose 106 mg/dL (65-115); Osmolality Calculated 289 mOsm/kg (285-295); Potassium 3.7 mmol/L (3.5-5.1); Sodium 139 mmol/L (136-145); Total Bilirubin 0.4 mg/dL (0.15-1.2); Total Protein 6.8 g/dL (6.6-8.7)
== END 2023-06-12 08:01 | disposition home or self-care (01) ==
LOC: LAB 10-09 08:11
PROVIDERS: PCP Family Medicine; Visit Provider Internal Medicine Infectious Disease
DX: Z48.816 Encounter for surgical aftercare following surgery on the genitourinary system (principal)
CPT/HCPCS: 80053; 85025; 86140

== ENCOUNTER 2023-07-25 08:39 | Outpatient (CLI) | payer MEDICARE, SELFPAY ==
[2023-07-25 09:09] LABS: Estmated Average Glucose 140; Hemoglobin A1C 6.5 % (4.0-6.0)
[2023-07-25 09:11] LABS: Alanine Aminotransferase 20 U/L (0-41); Albumin Level 4.5 g/dL (3.5-5.2); Alkaline Phosphatase 88 U/L (40-130); Anion Gap 15.8 (5-19); Aspartate Amino Transferase 23 U/L (0-40); Blood Urea Nitrogen 37 mg/dL (8-23); Carbon Dioxide 31 mmol/L (22-29); Chloride 96 mmol/L (98-107); Chol HDL Ratio 2.47 mg/dL (1.0-5.00); Cholesterol 116 mg/dL (0-200); Globulin 2.7 g/dL (1.3-4.6); Glucose 130 mg/dL (65-115); HDL Cholesterol 47 mg/dL (60-100); LDL Cholesterol Calculated 47 mg/dL (50-129); Osmolality Calculated 298 mOsm/kg (285-295); Potassium 3.8 mmol/L (3.5-5.1); Sodium 139 mmol/L (136-145); Total Bilirubin 0.6 mg/dL (0.15-1.2); Total Protein 7.2 g/dL (6.6-8.7); Triglycerides 110 mg/dL (0-150)
[2023-07-25 15:20] LABS: Creatinine Urine, Random 143 mg/dL (39-259)
[2023-07-25 15:36] LABS: Microalbum Creatinine Ratio Ur 2594 mg/dL (0-20); Microalbumin Random Urine 371 ug/dL (0-20)
== END 2023-07-25 08:40 | disposition home or self-care (01) ==
LOC: LAB 08:40
PROVIDERS: PCP Family Medicine; Visit Provider Internal Medicine
DX: E11.9 Type 2 diabetes mellitus without complications (principal); E78.2 Mixed hyperlipidemia; Z79.899 Other long term (current) drug therapy
CPT/HCPCS: 36415; 80053; 80061; 82044; 83036

== ENCOUNTER → 2023-08-03 08:41 | Outpatient (BNVA) | payer MEDICARE, SELFPAY | PROVIDERS: PCP Family Medicine; Visit Provider Internal Medicine | DX: E11.9 Type 2 diabetes mellitus without complications (principal); E78.2 Mixed hyperlipidemia; Z79.4 Long term (current) use of insulin | CPT/HCPCS: 99214 ==

== ENCOUNTER 2023-08-24 12:32 | Emergency (ER) | payer MEDICARE, SELFPAY ==
[2023-08-24 12:49] VITALS: BP 208/80; PULSE 59; RESP 15; TEMP 36.5; O2SAT 100
== END 2023-08-24 13:26 | disposition left against medical advice (07) ==
PROVIDERS: Emergency Provider Family Medicine; PCP Family Medicine
DX: Z53.21 Procedure and treatment not carried out due to patient leaving prior to being seen by health care provider (principal); E11.649 Type 2 diabetes mellitus with hypoglycemia without coma; E78.2 Mixed hyperlipidemia; I16.0 Hypertensive urgency; Z79.4 Long term (current) use of insulin
CPT/HCPCS: 99215

== ENCOUNTER 2023-09-23 11:38 | Inpatient (IN) | payer MEDICARE, SELFPAY ==
[2023-09-23] VITALS (8 sets, daily range): BP systolic 166–210; BP diastolic 72–107; PULSE 64–89; RESP 17–22; TEMP 36.3–36.9; O2SAT 98–100; BMI 26.5
--- NOTE | 2023-09-23 11:38 | XRR_ITS ---
PROCEDURE INFORMATION: Exam: XR Chest Exam date and time: 09/23/2023 12:22 PM Age: 83 years old Clinical indication: Pain; Chest pressure; Prior surgery; Surgery date: 6+ months; Surgery type: Stents; Additional info: Cp TECHNIQUE: Imaging protocol: Radiologic exam of the chest. Views: 1 view. COMPARISON: CR XR chest 1V portable [id number] 12/30/2022 11:23 PM FINDINGS: Tubes, catheters and devices: A right-sided tunneled central venous dialysis catheter is in good position. Lungs: Unremarkable. No consolidation or mass. Pleural spaces: Unremarkable. No pleural effusion. No pneumothorax. Heart/Mediastinum: Unremarkable. No cardiomegaly. Bones/joints: Unremarkable. XR/XR chest 1V portable [id number] IMPRESSION: I see no acute abnormality.
--- NOTE | 2023-09-23 11:43 | ECG_ITS ---
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 Measurements Intervals [place] Rate: 76 P: 44 [place]: 201 QRS: 42 QRSD: 90 T: 66 QT: 407 QTc: 459 Interpretive Statements SINUS RHYTHM LEFT VENTRICULAR HYPERTROPHY AND ST-T CHANGE [VOLTAGE CRITERIA PLUS ST/T ABNORMALITY] Compared to ECG 12/31/2022 00:01:10 ST (T wave) deviation now present Sinus bradycardia no longer present Prolonged QT interval no longer present Electronically Signed On 09-24-2023 8:38:27 NEWS VIDEO EDITOR by David Ochoa M.D. [id number]
--- NOTE | 2023-09-23 12:00 | ED_ITS ---
HPI - Chest Pain 2 General: Chief Complaint: Chest Pain Stated Complaint: chest pain Time Seen by Provider: 09/23/23 11:47 Source: patient Mode of arrival: ambulatory Limitations: no limitations History of Present Illness: 83-year-old male has a history of heart disease along with chronic kidney disease he is on dialysis he states he started having some chest pain while at [employer] today he states he is standing is having pressure in his chest states the pain is improved but still having a pain he rates a 3 out of 10 he has not taken any of his morning meds. Denies any fever denies any vomiting denies any worsening improving factors Patient also states he had right arm swelling since a procedure with his AV fistula months ago denies any pain Associated symptoms: Deny abdominal pain, dyspnea, fever(s), nausea or vomiting Review of Systems 2 Const: Denies: fever(s), chills, body aches or change in appetite ENMT: Denies: throat pain or dental pain Card: Reports: chest pain Resp: Denies: dyspnea GI: Denies: abdominal pain, nausea, vomiting or diarrhea Musc: Denies: neck pain or back pain Skin/Breast: Denies: rash Neuro: Denies: headache(s) PFSH ED 2 PFSH: Medical History End-stage renal disease on hemodialysis CAD (coronary artery disease) Lumbosacral radiculopathy Diabetes mellitus Hypertension Hypercholesterolemia DDD (degenerative disc disease), lumbar Surgical History History of hernia repair History of coronary artery stent placement (01/10/21) History of lumbar laminectomy (2021) Family History Father Cancer Other Diabetes Hypertension Social History Smoking and tobacco/nicotine status: former use of tobacco/nicotine Quit status (tobacco/nicotine): has quit using Former quit date comment: smoked x 1 year in teen years Second hand smoke exposure: No Alcohol intake: never Substance/Drug Use: never Lives independently: Yes Household members: spouse Marital status: Physical Exam 2 Const: COMMON NORMALS: patient oriented x3 HENMT: COMMON NORMALS: normocephalic and atraumatic HEAD & SCALP: n ormocephalic and atraumatic Neck/C-Spine: COMMON NORMALS: full ROM and supple Chest: COMMONS NORMALS: normal inspection of the chest Resp: COMMON NORMALS: normal respiratory effort, No retractions, No use of accessory muscles and clear to auscultation bilaterally AUSCULTATION: clear to auscultation bilaterally Cardio: COMMON NORMALS: regular rate, regular rhythm and No murmurs present (Cardio) RATE: regular rate RHYTHM: regular rhythm Extremity: COMMON NORMALS: normal to inspection and full ROM Neuro: COMMON NORMALS: patient oriented x3, moves all extremities and no focal motor deficits Psych: COMMON NORMALS: mental status grossly normal, Normal thought process present and cooperative THOUGHT PROCESS: Normal thought process present Skin: COMMON NORMALS: no rashes or lesions noted and no wounds GENERAL SKIN EXAM: no rashes or lesions noted Course 2 Vital Signs: Vital signs: Vital Signs Temperature 97.4 F L 09/23/23 11:43 Pulse Rate 64 09/23/23 14:31 Respiratory Rate 17 09/23/23 12:19 Blood Pressure 188/90 09/23/23 14:31 Pulse Oximetry 98 09/23/23 14:31 Oxygen Delivery Me thod Room Air 09/23/23 14:31 MDM - Chest Pain Medical Decision Making Patient presents here with chest pain does have a +2-hour troponin his pain has improved here spoke to the hospitalist will admit for ACS rule out does have swelling to his right arm that is been going on for months we will get an ultrasound to rule out DVT. Medical Records I reviewed the patient's medical records. Lab Data I reviewed the patient's lab results. 09/23/23 12:10 09/23/23 12:10 Radiology Impressions Chest X-Ray 09/23/23 11:38 IMPRESSION: I see no acute abnormality. Laboratory Results WBC 4.21 10^3/uL (3.29-11.43) 09/23/23 12:10 RBC 4.12 10^6/uL (3.85-5.65) 09/23/23 12:10 Hgb 12.90 g/dL (11.27-16.99) 09/23/23 12:10 Hct 40.2 % (37-53) 09/23/23 12:10 MCV 97.6 fl (82-101) 09/23/23 12:10 MCH 31.3 pg (27-33) 09/23/23 12:10 MCHC 32.1 g/dL (30-55) 09/23/23 12:10 RDW 12.9 % (12.1-15.1) 09/23/23 12:10 Plt Count 185 10^3/cmm (157-399) 09/23/23 12:10 MPV 10.0 fL (7.4-10.4) 09/23/23 12:10 Neut % (Auto) 61.1 % 09/23/23 12:10 Lymph % (Auto) 27.8 % 09/23/23 12:10 [place] % (Auto) 8.8 % 09/23/23 12:10 Eos % (Auto) 1.9 % 09/23/23 12:10 Baso % (Auto) 0.2 % 09/23/23 12:10 Neut # (Auto) 2.57 10^3/uL (1.8-7.7) 09/23/23 12:10 Lymph # (Auto) 1.2 10^3/uL (0.8-4.8) 09/23/23 12:10 [place] # (Auto) 0.4 10^3/uL (0.2-0.9) 09/23/23 12:10 Eos # (Auto) 0.1 10^3/uL (0.0-0.8) 09/23/23 12:10 Baso # (Auto) 0.0 10^3/uL (0.0-0.1) 09/23/23 12:10 Nucleated RBC % (auto) 0 % 09/23/23 12:10 Nucleated RBCs # 0.0 /100WBC 09/23/23 12:10 PT 12.40 SECONDS (12.1-14.9) 09/23/23 12:10 INR 0.90 (0.8-1.2) 09/23/23 12:10 Sodium 141 mmol/L (136-145) 09/23/23 12:10 Potassium 4.6 mmol/L (3.5-5.1) 09/23/23 12:10 Chloride 97 mmol/L (98-107) L 09/23/23 12:10 Carbon Dioxide 26 mmol/L (22-29) 09/23/23 12:10 Anion Gap 22.6 (5-19) H 09/23/23 12:10 BUN 23 mg/dL (8-23) 09/23/23 12:10 Creatinine 4.7 mg/dL (0.7-1.2) H 09/23/23 12:10 GFR Calculation Not Reportable 09/23/23 12:10 Glucose 181 mg/dL (65-115) H 09/23/23 12:10 Calculated Osmolality 300 mOsm/kg (285-295) H 09/23/23 12:10 Calcium 10.1 mg/dL (8.5-10.5) 09/23/23 12:10 Total Bilirubin 0.5 mg/dL (0.15-1.2) 09/23/23 12:10 AST 25 U/L (0-40) 09/23/23 12:10 ALT 19 U/L (0-41) 09/23/23 12:10 Alkaline Phosphatase 111 U/L (40-130) 09/23/23 12:10 Troponin T Baseline 91 ng/L (0-15) H 09/23/23 12:10 Troponin T 120 Minute 103.6 ng/L (0-15) H 09/23/23 14:25 Delta Troponin T 12.6 ABS# (0-10) H* 09/23/23 14:25 Total Protein 7.9 g/dL (6.6-8.7) 09/23/23 12:10 Albumin 5.0 g/dL (3.5-5.2) 09/23/23 12:10 Globulin 2.9 g/dL (1.3-4.6) 09/23/23 12:10 Lipase 25 U/L (13-60) 09/23/23 12:10 All radiology interpretation(s) finalized by discharge EKG Data EKG 1: I personally reviewed and interpreted this EKG as follows: EKG interpretation date: 09/23/23 EKG interpretation time: 11:43 Interpretation: nsr hr [address] or t wave abnormalities qrs 90 qtc 437 EKG 2: I personally reviewed and interpreted this EKG as follows: EKG interpretation date: 09/23/23 EKG interpretation time: 13:40 Interpretation: nsr hr [address] or t wave abnormaliies qrs 88 qtc 459 Discharge Plan Discharge Patient Disposition: Admitted As Inpatient Clinical Impression: Non-ST elevation PR (NSTEMI) Condition: Stable Prescriptions: No Action atorvastatin 40 mg tablet 40 mg PO QPM clonidine HCl 0.1 mg tablet 0.05 mg PO BID finasteride 5 mg tablet 5 mg PO DAILY spironolactone 25 mg tablet 25 mg PO DAILY pantoprazole 40 mg tablet,delayed release (DR/EC) 40 mg PO DAILY nitroglycerin 0.4 mg tablet, sublingual 0.4 mg sublingual Q5M PRN (Reason: Chest Pain) Rx Instructions: do not exceed 3 doses per episode bumetanide 1 mg tablet 1 mg PO BID RenaPlex-D 800 mcg-12.5 mg -2,000 unit tablet 1 tab PO DAILY sevelamer carbonate [Renvela] 800 mg tablet 800 mg PO DAILY Rx Instructions: must administer with a meal/food tamsulosin 0.4 mg capsule 0.4 mg PO BEDTIME hydralazine 50 mg Tablet 100 mg PO TID 30 Days Qty: 120 0RF insulin lispro [Humalog KwikPen Insulin] 100 unit/mL insulin pen See Rx Instructions .ROUTE .COMPLEX MDD 40 Qty: 15 0RF Rx Instructions: Inject, subcu, 3 times daily, after meals, based on sliding scale provided Aspir-81 81 mg Tablet,Delayed Release (Dr/Ec) 81 mg PO DAILY Iron (ferrous sulfate) 325 mg (65 mg iron) Tablet See Rx Instructions .ROUTE .COMPLEX Rx Instructions: 325 mg orally ON ,,AND SUNDAY nifedipine 60 mg tablet extended release 60 mg PO TID valsartan 40 mg Tablet 20 mg PO BID PreserVision AREDS 4,296 mcg-226 mg-90 mg Capsule 1 cap PO DAILY insulin glargine 100 unit/mL solution 22 unit SUBCUT DAILY metoprolol tartrate 50 mg tablet 50 mg PO DAILY Referrals: Harjit Marc MD [Primary Care Provider] - Coding Level of Care Code ED Waiter And Cashier for Mervat Ignacio
[2023-09-23] MEDS: aspirin 81 mg Chew Tablet 324 MG PO (12:15)
[2023-09-23] MEDS: nitroglycerin 0.4 mg sublingual Tablet SUBLINGUAL (12:16)
[2023-09-23 12:21] LABS: Basophils % 0.2 %; Eosinophils # 0.1 10^3/uL (0.0-0.8); Eosinophils % 1.9 %; Hematocrit 40.2 % (37-53); Lymphocytes # 1.2 10^3/uL (0.8-4.8); Lymphocytes % 27.8 %; Mean Corpuscular HGB Conc 32.1 g/dL (30-55); Mean Corpuscular Hemoglobin 31.3 pg (27-33); Mean Corpuscular Volume 97.6 fl (82-101); Monocytes # 0.4 10^3/uL (0.2-0.9); Monocytes % 8.8 %; Neutrophils # 2.57 10^3/uL (1.8-7.7); Neutrophils % 61.1 %; Nucleated Red Blood Cells % 0 %; Platelet Count 185 10^3/cmm (157-399); Red Blood Count 4.12 10^6/uL (3.85-5.65); Red Cell Distribution Width 12.9 % (12.1-15.1); White Blood Count 4.21 10^3/uL (3.29-11.43)
[2023-09-23 12:51] LABS: Alanine Aminotransferase 19 U/L (0-41); Alkaline Phosphatase 111 U/L (40-130); Aspartate Amino Transferase 25 U/L (0-40); Blood Urea Nitrogen 23 mg/dL (8-23); Calcium 10.1 mg/dL (8.5-10.5); Carbon Dioxide 26 mmol/L (22-29); Chloride 97 mmol/L (98-107); Globulin 2.9 g/dL (1.3-4.6); Glucose 181 mg/dL (65-115); Lipase 25 U/L (13-60); Osmolality Calculated 300 mOsm/kg (285-295); Sodium 141 mmol/L (136-145); Total Bilirubin 0.5 mg/dL (0.15-1.2); Total Protein 7.9 g/dL (6.6-8.7); Troponin(5th) Baseline 91 ng/L (0-15)
[2023-09-23 12:54] LABS: Anion Gap 22.6 (5-19); Potassium 4.6 mmol/L (3.5-5.1)
[2023-09-23] MEDS: hyDRALAzine 20 mg/mL INJ 1 mL 10 MG IVP ×2 (13:22→16:18)
--- NOTE | 2023-09-23 13:38 | ECG_ITS ---
[facility] Test Date: 2023-09-23 Pat Name: Quang Hunter Department: Room: Gender: Male Epilepsy Physician: : 1940 Requested By: Og Matthews Order Number: [id number] Ivan MD: David Ochoa M.D. Measurements Intervals [place] Rate: 64 P: 26 [place]: 206 QRS: 29 QRSD: 88 T: 57 QT: 450 QTc: 465 Interpretive Statements SINUS RHYTHM MODERATE VOLTAGE CRITERIA FOR LVH, CONSIDER NORMAL VARIANT [MEETS CRITERIA IN ONE OF: R(aVL), S(V1), R(V5), R(V5/V6)+S(V1)] Compared to ECG 12/31/2022 00:01:10 Sinus bradycardia no longer present Prolonged QT interval no longer present Electronically Signed On 09-24-2023 8:39:31 CAR HOP by David Ochoa M.D. [id number]
[2023-09-23 15:03] LABS: Troponin 5 2HR 103.6 ng/L (0-15)
[2023-09-23 15:04] LABS: Troponin 5 2HR Delta 12.6 ABS# (0-10)
--- NOTE | 2023-09-23 15:21 | USR_ITS ---
PROCEDURE INFORMATION: Exam: US Duplex Right Lower Extremity Veins, Limited Exam date and time: 09/23/2023 4:38 PM Age: 83 years old Clinical indication: Pain; Arm, upper and arm, lower; Right; Prior surgery; Surgery date: 1-6 months; Surgery type: Av fistula procedure done in July and has been swollen ever since. ; Additional info: Swelling TECHNIQUE: Imaging protocol: Real-time duplex ultrasound of the right extremity with 2-D gillette scale, color Doppler flow and spectral waveform analysis including responses to compression and other maneuvers (when performed) with image documentation. Limited exam was focused on the right lower extremity veins. COMPARISON: No relevant prior studies available. FINDINGS: Right deep veins: Unremarkable. The common femoral, femoral, proximal profunda femoral and popliteal veins are patent without thrombus. Normal Doppler waveforms. Normal compressibility and/or augmentation response. Superficial veins: Unremarkable. Saphenofemoral junction is patent without thrombus. Soft tissues: Unremarkable. Other findings: There is a patent AV fistula. US/[place] [id number] IMPRESSION: No evidence of deep vein thrombosis. Patent AV fistula
[2023-09-23 15:29] LABS: D Dimer 1.23 ug/mLFEU (0-0.59)
[2023-09-23] MEDS: heparin drip 25,000 UNIT/500 ML PREMIX 20.14 UNIT IV (15:57)
[2023-09-23] MEDS: heparin 5,000 unit/mL INJ 1 mL 4000 UNIT IVP (15:58)
--- NOTE | 2023-09-23 16:12 | ECG_ITS ---
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 Measurements Intervals [place] Rate: 78 P: 48 MA: 207 QRS: 40 QRSD: 90 T: 65 QT: 407 QTc: 464 Interpretive Statements SINUS RHYTHM LEFT VENTRICULAR HYPERTROPHY AND ST-T CHANGE [VOLTAGE CRITERIA PLUS ST/T ABNORMALITY] Compared to ECG 09/23/2023 13:40:22 ST (T wave) deviation now present Electronically Signed On 09-24-2023 8:39:22 GLASS VIAL FILLER by David Ochoa M.D. [id number]
[2023-09-23] MEDS: ondansetron 2 mg/ML SDV 2 mL 4 MG IVP (16:17)
[2023-09-23] MEDS: morphine 4 mg/mL SDV 1 mL IVP (16:19)
[2023-09-23 18:32] LABS: Troponin 5 6HR 150.3 ng/L (0-15)
[2023-09-23 18:33] LABS: Troponin 5 6HR Delta 59.3 ng/L (0-12)
--- NOTE | 2023-09-23 19:11 | P.HP_ITS ---
Providers/Chief Complaint 2 Admitting Physician: Louis Cruz Primary Care Provider: Harjit Marc MD Chief Complaint: chest pain History of Present Illness Quang Hunter is a 83 year old male with history of coronary artery disease, prior stenting back in 2020, CHF, presented after episodes of chest pain, couple days back while walking to the mailbox, then again at [facility] today with pain and pressure centrally which took a while to resolve. He did not take a nitroglycerin. He has ESRD on hemodialysis TTS, has had a fistula created in his right arm back in July by vascular surgeon in [place], however, has had a complication with right upper extremity swelling postprocedure, was imaged without venous clots reportedly, but with concern for more proximal stenosis for which she has an appointment to be addressed with dilation on the . He does note that he has had worsening swelling in the right upper extremity. Also noted erythema on the medial mid arm which seems may have gotten worse, when pointed out he states does not remember it being this noticeable. Review of Systems 2 Const: Denies: fever(s), chills, body aches or malaise ENMT: Denies: throat pain Card: Reports: chest pain; Denies: edema, pre-syncope or dyspnea on exertion Resp: Denies: dyspnea, productive cough, change in phlegm color or hemoptysis GI: Denies: abdominal pain, nausea, vomiting, diarrhea, constipation, hematochezia or melena : Denies: flank pain, difficulty urinating, urinary frequency or hematuria Musc: Reports: extremity swelling (RUE); Denies: back pain, joint swelling or joint redness Skin/Breast: Denies: rash or new lesions Neuro: Denies: headache(s), numbness in extremities, weakness in extremities, dizziness, confusion or seizure-like activity Endo: Denies: polyuria or polydipsia Medications/Allergies Home Medications Medication Instructions Recorded Confirmed Last Taken Type tamsulosin 0.4 mg capsule 0.4 mg PO BEDTIME 03/07/20 09/23/23 09/22/23 History insulin lispro 100 unit/mL See Rx Instructions .Route 09/13/22 09/23/23 09/22/23 Rx subcutaneous pen (Humalog KwikPen .COMPLEX #15 mL (U-100) Insulin) clonidine HCl 0.1 mg tablet 0.1 mg PO BID 01/17/23 09/23/23 09/22/23 History finasteride 5 mg tablet 5 mg PO DAILY 01/17/23 09/23/23 09/22/23 History nitroglycerin 0.4 mg sublingual 0.4 mg sublingual Q5M PRN Chest 01/17/23 09/23/23 Unknown History tablet Pain pantoprazole 40 mg tablet,delayed 40 mg PO DAILY 01/17/23 09/23/23 09/22/23 History release spironolactone 25 mg tablet 25 mg PO DAILY 01/17/23 09/23/23 09/22/23 History bumetanide 1 mg tablet 1 mg PO BID 05/09/23 09/23/23 09/22/23 History sevelamer carbonate 800 mg tablet 800 mg PO DAILY 05/09/23 09/23/23 09/22/23 History (Renvela) vit B,C-folic ac 800 mcg-zinc 12.5 1 tab PO DAILY 05/09/23 09/23/23 09/22/23 History mg-selen-D3 2,000 unit-vit E tablet (RenaPlex-D) aspirin 81 mg tablet,delayed 81 mg PO DAILY 09/23/23 09/23/23 09/22/23 History release atorvastatin 80 mg tablet 80 mg PO QPM 09/23/23 09/23/23 09/23/23 History hydralazine 50 mg tablet 50 mg PO DAILY 09/23/23 09/23/23 09/23/23 History insulin glargine 100 unit/mL 22 unit SUBCUT DAILY 09/23/23 09/23/23 09/22/23 History subcutaneous solution metoprolol tartrate 50 mg tablet 50 mg PO DAILY 09/23/23 09/23/23 09/22/23 History nifedipine 60 mg tablet,extended 60 mg PO DAILY 09/23/23 09/23/23 09/22/23 History release valsartan 40 mg tablet 40 mg PO DAILY 09/23/23 09/23/23 09/23/23 History vitamins A,C,B-kzdb-jvrbgl 4,296 1 cap PO DAILY 09/23/23 09/23/23 09/22/23 History mcg-226 mg-90 mg capsule (PreserVision AREDS) Allergies Allergy/AdvReac Type Severity Reaction Status Date / Time dulaglutide [From Trulicity] Allergy Unknown Verified 09/23/23 11:43 sitagliptin [From Januvia] Allergy ADR-Blurry Verified 09/23/23 11:43 Vision PFSH Acute 2 PFSH: Medical History End-stage renal disease on hemodialysis CAD (coronary artery disease) Lumbosacral radiculopathy Diabetes mellitus Hypertension Hypercholesterolemia DDD (degenerative disc disease), lumbar Surgical History History of hernia repair History of coronary artery stent placement (01/10/21) History of lumbar laminectomy (2021) Family History Father Cancer Other Diabetes Hypertension Social History Smoking and tobacco/nicotine status: former use of tobacco/nicotine Quit status (tobacco/nicotine): has quit using Former quit date comment: smoked x 1 year in teen years Second hand smoke exposure: No Alcohol intake: never Substance/Drug Use: never Lives independently: Yes Household members: spouse Marital status: Vitals/I&O/Wt Last Vital Signs Temp 97.4 F L 09/23/23 11:43 Pulse 89 09/23/23 18:34 Resp 17 09/23/23 18:34 BP 174/107 09/23/23 18:34 Pulse Ox 98 09/23/23 18:34 O2 Del Method Room Air 09/23/23 18:34 Weight last 48 hrs Weight 83.915 kg Weight 83.915 kg Physical Exam 2 Narrative: Accompanied by family. Const: COMMON NORMALS: patient oriented x3 and alert GENERAL APPEARANCE: c ooperative ORIENTATION/CONSCIOUSNESS: Yes awake HENMT: COMMON NORMALS: oropharynx normal Neck/C-Spine: COMMON NORMALS: no JVD Resp: COMMON NORMALS: normal respiratory effort and clear to auscultation bilaterally AUSCULTATION: clear to auscultation bilaterally Cardio: COMMON NORMALS: no JVD, regular rhythm, S1 normal heart sound present, S2 normal heart sound present and No murmurs present (Cardio) RHYTHM: regular rhythm HEART SOUNDS: S1 normal heart sound present and S2 normal heart sound present GI: COMMON NORMALS: Normal to inspection, nondistended, normoactive bowel sounds present, Soft to palpation and non-tender PALPATION: Yes Soft to palpation Extremity: COMMON NORMALS: no joint enlargement and no pedal edema N ARRATIVE EXTREMITY EXAM: Edema of right upper extremity. area of diffuse erythema, worse induration medially mid-arm. Neuro: COMMON NORMALS: patient oriented x3 and moves all extremities S ENSORIUM/ORIENTATION: Yes alert Skin: COMMON NORMALS: no rashes or lesions noted GENERAL SKIN EXAM: no rashes or lesions noted Data 09/23/23 12:10 09/23/23 12:10 A&P Assessment and plan (1) Non-ST elevation [place] (NSTEMI): Several episodes of chest pain within the last several days, longer episode today, positive troponins, initially flat trend but 6-hour troponin with positive delta, reviewed vitals, CBC, CMP, troponin series, EKG. Did also have hypertensive urgency in the ER. Reviewed ER note, discussed with the admission. Reviewed D-dimer, also noted abnormality. He is empirically on anticoagulation currently for NSTEMI, continue aspirin, statin, beta-eder. Monitor on telemetry with risk of arrhythmia. Requested TTE. Discussed with patient and family further plans, reassessment troponin, imaging studies, condition, consideration of further risk stratification, possible consideration of angiography depending on troponin series. 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 With noted positive troponin delta, n.p.o. after midnight with consideration of possibility of need of angiogram. Gets hemodialysis TTS. Monitor for risk of bleeding with anticoagulation, monitor for bleeding, recheck CBC. (2) Hypertension: Received a dose of IV hydralazine in ER. Reviewed vital signs. Monitor blood pressures. Resume home antihypertensives. (3) Elevated d-dimer: Abnormal D-dimer discussed with him and family. On anticoagulation empirically for now. Reviewed venous duplex of right upper extremity, without DVT. Consider additional assessment for PE, VQ scan if possible, he does still produce some urine, discussed consideration of preserving residual renal function, avoiding additional contrast with CTA. (4) Lymphedema of right arm: Elevate right upper extremity. He has been trying to elevate it while he is sleeping up to level his heart on the pillow. Was instructed on use of elastic bandage, but used it twice, was not sure if he was supposed to use it longer. Discussed with him consideration of applying a bandage snugly but not too tightly first thing in the morning before he puts down his arm to help reduce lymphedema. Currently appears to have superimposed colitis on the medial right arm above and below the elbow up to about mid upper and mid lower arm. Lymphedema occurred after creation of fistula on right arm for hemodialysis. Worsened recently. He states he was previously reassessed by vascular surgeon due to lymphedema and has a scheduled visit for dilation of more proximal vein. (5) Cellulitis: Medial mid arm superimposed on lymphedema erythema, warmth. Induration. No drainage. Start amoxicillin, doxycycline. Plan ESRD: Dialysis TTS. Next dialysis on Sunday. Nephrology not yet consulted. Currently not fluid overloaded. Nephrology not yet consulted since next dialysis was planned Congestive heart failure: Currently does not appear in exacerbation. Continue bumetanide. Dialysis. Lumbosacral radiculopathy DM2: Monitor Accu-Cheks. Continue long-acting insulin. Add sliding scale insulin. Consistent carb diet. HTN: Continue HLD: Continue statin DDD Attestations 2 Medical Necessity Statement*: Admission over 2 midnights anticipated for assessment of management of NSTEMI, further assessment of chest pain with abnormal D-dimer and gentleman with underlying ESRD, as well as lymphedema and cellulitis of right upper extremity after fistula creation. Diagnoses Non-ST elevation [place] (NSTEMI) I21.4 Hypertension I10 Elevated d-dimer R79.89 Lymphedema of right arm I89.0 Cellulitis L03.90
[2023-09-23] MEDS: heparin drip 25,000 UNIT/500 ML PREMIX 20 UNIT IV (19:22)
[2023-09-23] MEDS: hyDRALAzine 50 mg Tablet 100 MG PO (20:20)
[2023-09-23] MEDS: tamsulosin 0.4 mg Capsule PO (20:20)
--- NOTE | 2023-09-23 20:34 | PC.NURSE ---
glucose 236 per dexcom
[2023-09-23] MEDS: insulin lispro 100 unit/1 mL SUBCUT (21:09)
[2023-09-23] MEDS: amoxicillin 500 mg Capsule PO (21:10)
[2023-09-23 23:37] LABS: Partial Thromboplastin Time 69.3 SECONDS (23.9-36.7)
[2023-09-24] VITALS (47 sets, daily range): BP systolic 131–198; BP diastolic 57–110; PULSE 66–100; RESP 12–24; TEMP 36.5–37; O2SAT 90–98; BMI 27.1
[2023-09-24] MEDS: morphine 4 mg/mL SDV 1 mL 2 MG IVP (01:32)
[2023-09-24] MEDS: lidocaine 2% viscous 15 ML, aluminum-mag hydrox-simethicon 30 ML, sucralfate oral liq 1 GM PO (03:18)
[2023-09-24] MEDS: ondansetron 2 mg/ML SDV 2 mL 4 MG IVP (03:25)
--- NOTE | 2023-09-24 04:21 | XRR_ITS ---
PROCEDURE INFORMATION: Exam: XR Abdomen Exam date and time: 09/24/2023 4:56 AM Age: 83 years old Clinical indication: Abdominal pain; Generalized; Prior surgery; Surgery date: 6+ months; Surgery type: Hernia repair. Lumbar laminectomy; Patient HX: C/O diffuse abd pain with nausea TECHNIQUE: Imaging protocol: Radiologic exam of the abdomen. Views: Frontal supine view of the abdomen. 1 View. COMPARISON: CR XR abdomen 1V* [id number] 03/25/2023 5:26 PM FINDINGS: Gastrointestinal tract: No small bowel dilation or free air identified. Bones/joints: Unremarkable. XR/XR abdomen 1V* [id number] IMPRESSION: The bowel-gas pattern is nonobstructing.
[2023-09-24 04:53] LABS: Basophils % 0.4 %; Eosinophils % 0.4 %; Hematocrit 35.2 % (37-53); Lymphocytes # 0.6 10^3/uL (0.8-4.8); Lymphocytes % 10.2 %; Mean Corpuscular HGB Conc 32.7 g/dL (30-55); Mean Corpuscular Hemoglobin 31.5 pg (27-33); Mean Corpuscular Volume 96.4 fl (82-101); Mean Platelet Volume 9.5 fL (7.4-10.4); Monocytes # 0.4 10^3/uL (0.2-0.9); Monocytes % 7.8 %; Neutrophils # 4.38 10^3/uL (1.8-7.7); Neutrophils % 80.8 %; Nucleated Red Blood Cells % 0 %; Platelet Count 171 10^3/cmm (157-399); Red Blood Count 3.65 10^6/uL (3.85-5.65); Red Cell Distribution Width 13.1 % (12.1-15.1); White Blood Count 5.41 10^3/uL (3.29-11.43)
[2023-09-24 05:06] LABS: Partial Thromboplastin Time 48.1 SECONDS (23.9-36.7)
[2023-09-24 05:40] LABS: Anion Gap 22.4 (5-19); Blood Urea Nitrogen 28 mg/dL (8-23); Calcium 8.9 mg/dL (8.5-10.5); Carbon Dioxide 23 mmol/L (22-29); Chloride 98 mmol/L (98-107); Glucose 142 mg/dL (65-115); Osmolality Calculated 296 mOsm/kg (285-295); Potassium 4.4 mmol/L (3.5-5.1); Sodium 139 mmol/L (136-145)
[2023-09-24] MEDS: nitroglycerin 0.4 mg sublingual Tablet SUBLINGUAL ×3 (05:55→11:05)
--- NOTE | 2023-09-24 06:00 | USCV_ITS ---
Quang Hunter Age: 83 Gender: M : 1940 Exam Date: 09/24/2023 07:40 Ordering Phys: Louis Cruz MD Technologist: Eugenio Morris Exam Location: [facility] – [place] Indication: chest pain BP: 181 / 91 HR: 79 Rhythm: Sinus Technical Quality: Adequate MEASUREMENTS (Male / Female) Normal Values 2D ECHO LV Diastolic Diameter PLAX 4.0 cm 4.2 - 5.9 / 3.9 - 5.3 cm LV Systolic Diameter PLAX 2.8 cm IVS Diastolic Thickness 1.1 cm 0.6 - 1.0 / 0.6 - 0.9 cm IVS Systolic Thickness 1.5 cm LVPW Diastolic Thickness 1.5 cm 0.6 - 1.0 / 0.6 - 0.9 cm LVPW Systolic Thickness 2.0 cm LVOT Diameter 2.0 cm LV Ejection Fraction 2D Teich 57.5 % LV Ejection Fraction MOD 2C 81.8 % LV Ejection Fraction 2C AL 81.4 % LA Diameter 3.6 cm IVC Diameter 1.8 cm M-MODE Aortic Annulus Diameter 3.8 cm LA Ao Ratio MM 1.0 MV E Point Septal Separation 1.4 cm DOPPLER AV Peak Velocity 191.0 cm/s LVOT Peak Velocity 114.0 cm/s AV Area Cont Eq vti 2.1 cm squared AV Area Cont Eq pk 1.9 cm squared MV Area PHT 4.5 cm squared Mitral E to A Ratio 0.7 MV E' Velocity 42.5 cm/s Mitral E to MV E' Ratio 10.6 Mitral E to LV E' Lateral Ratio 10.6 Mitral E to LV E' Septal Ratio 10.6 TR Peak Velocity 147.7 cm/s TR Peak Gradient 8.7 mmHg Right Atrial Pressure 3.0 mmHg Pulmonary Artery Systolic Pressu 11.7 mmHg RV Acceleration Time 0.2 s FINDINGS Left Ventricle Left ventricle is normal size. LV systolic function is normal with EF of 50 to 55%. Mild hypokinesis mid to apical inferoseptal wall. Grade 1 diastolic dysfunction Right Ventricle Normal in size and function Right Atrium Normal in size Left Atrium Normal in size Mitral Valve Structurally normal mitral valve. Aortic Valve Aortic valve is thickened. No significant stenosis or regurgitation. Tricuspid Valve Mild tricuspid regurgitation. Insufficient TR jet to calculate RVSP Pulmonic Valve Not well visualized Pericardium Normal Aorta Normal in size IVC Appears to be normal CONCLUSIONS LV systolic function is normal with EF of 50 to 55%. Grade 1 diastolic dysfunction. Mild tricuspid regurgitation Compared to prior echocardiogram from 2022, LV systolic function is slightly reduced. David Ochoa MD (Electronically Signed) Final Date: 24 September 2023 11:16 S
[2023-09-24] MEDS: heparin 5,000 unit/mL INJ 1 mL IV (06:03)
[2023-09-24 07:45] LABS: Glucose Point of Care 180 mg/dL (70-110)
[2023-09-24] MEDS: NIFEdipine ER (24 hr) 30 mg Tablet 60 MG PO (08:01)
[2023-09-24] MEDS: hyDRALAzine 50 mg Tablet PO (08:01)
[2023-09-24] MEDS: bumetanide 1 mg Tablet PO (08:01)
[2023-09-24] MEDS: spironolactone 25 mg Tablet PO (08:01)
[2023-09-24] MEDS: aspirin 325 mg Tablet PO (08:01)
[2023-09-24] MEDS: sevelamer 800 mg Tablet PO (08:01)
[2023-09-24] MEDS: finasteride 5 mg Tablet PO (08:01)
[2023-09-24] MEDS: cloNIDine 0.1 mg Tablet 0.05 MG PO ×2 (08:02→18:27)
[2023-09-24] MEDS: losartan 50 mg Tablet PO ×2 (08:02→18:28)
[2023-09-24] MEDS: metoprolol tartrate 50 mg Tablet PO (08:02)
[2023-09-24] MEDS: pantoprazole DR 40 mg Tablet PO (08:02)
[2023-09-24] MEDS: doxycycline 100 mg Tablet PO (08:03)
[2023-09-24] MEDS: insulin lispro 100 unit/1 mL SUBCUT ×3 (08:03→21:27)
--- NOTE | 2023-09-24 08:07 | P.CONIM_ITS ---
Providers/Reason For Consult 2 Consulting Physician/Specialty*: David Ochoa MD/ Cardiology Reason for Consult*: NSTEMI Requesting Physician: Dr Cruz Attending Physician: Asael Levi MD Primary Care Provider: Harjit Marc MD History of Present Illness History of Present Illness Quang Hunter is a 83 year old male with past medical history of end-stage renal disease on dialysis, diabetes, hypertension, CAD with prior stents who presented to hospital with on and off chest pain. He first noticed it the night before presentation. Then again noticed it in the [place] yesterday. Pain was significant and substernal. EKG does not show acute ST-T wave changes. He does have significant troponin elevation from 91 at baseline to 150 at 6 hours. Review of Systems 2 Const: Denies: fever(s), chills, body aches or malaise ENMT: Denies: throat pain Card: Reports: chest pain; Denies: edema, pre-syncope or dyspnea on exertion Resp: Denies: dyspnea, productive cough, change in phlegm color or hemoptysis GI: Denies: abdominal pain, nausea, vomiting, diarrhea, constipation, hematochezia or melena : Denies: flank pain, difficulty urinating, urinary frequency or hematuria Musc: Reports: extremity swelling (RUE); Denies: back pain, joint swelling or joint redness Skin/Breast: Denies: rash or new lesions Neuro: Denies: headache(s), numbness in extremities, weakness in extremities, dizziness, confusion or seizure-like activity Endo: Denies: polyuria or polydipsia Medications/Allergies Home Medications Medication Instructions Recorded Confirmed Last Taken Type tamsulosin 0.4 mg capsule 0.4 mg PO BEDTIME 03/07/20 09/23/23 09/22/23 History insulin lispro 100 unit/mL See Rx Instructions .Route 09/13/22 09/23/23 09/22/23 Rx subcutaneous pen (Humalog KwikPen .COMPLEX #15 mL (U-100) Insulin) clonidine HCl 0.1 mg tablet 0.1 mg PO BID 01/17/23 09/23/23 09/22/23 History finasteride 5 mg tablet 5 mg PO DAILY 01/17/23 09/23/23 09/22/23 History nitroglycerin 0.4 mg sublingual 0.4 mg sublingual Q5M PRN Chest 01/17/23 09/23/23 Unknown History tablet Pain pantoprazole 40 mg tablet,delayed 40 mg PO DAILY 01/17/23 09/23/23 09/22/23 History release spironolactone 25 mg tablet 25 mg PO DAILY 01/17/23 09/23/23 09/22/23 History bumetanide 1 mg tablet 1 mg PO BID 05/09/23 09/23/23 09/22/23 History aspirin 81 mg tablet,delayed 81 mg PO DAILY 09/23/23 09/23/23 09/22/23 History release atorvastatin 80 mg tablet 80 mg PO QPM 09/23/23 09/23/23 09/23/23 History hydralazine 50 mg tablet 50 mg PO DAILY 09/23/23 09/23/23 09/23/23 History insulin glargine 100 unit/mL 22 unit SUBCUT DAILY 09/23/23 09/23/23 09/22/23 History subcutaneous solution metoprolol tartrate 50 mg tablet 50 mg PO DAILY 09/23/23 09/23/23 09/22/23 History nifedipine 60 mg tablet,extended 60 mg PO DAILY 09/23/23 09/23/23 09/22/23 History release sevelamer carbonate 800 mg tablet 800 mg PO TID 09/23/23 09/23/23 09/23/23 History (Renvela) valsartan 40 mg tablet 40 mg PO DAILY 09/23/23 09/23/23 09/23/23 History Allergies Allergy/AdvReac Type Severity Reaction Status Date / Time dulaglutide [From Trulicity] Allergy Unknown Verified 09/23/23 11:43 sitagliptin [From Januvia] Allergy ADR-Blurry Verified 09/23/23 11:43 Vision Current Medications Generic Name Dose Route Start Last Admin Trade Name Freq PRN Reason Stop Dose Admin Amoxicillin 500 mg 09/23/23 21:00 09/23/23 21:10 Amoxicillin 500 Mg Capsule PO 500 mg Q24H STACIE Administration Protocol Aspirin 325 mg 09/24/23 09:00 09/24/23 08:01 Aspirin 325 Mg Tablet PO 325 mg DAILY STACIE Administration Bumetanide 1 mg 09/24/23 09:00 09/24/23 08:01 Bumetanide 1 Mg Tablet PO 1 mg BID STACIE Administration Clonidine HCl 0.05 mg 09/24/23 09:00 09/24/23 08:02 Clonidine 0.1 Mg Tablet PO 0.05 mg BID [facility] Administration Doxycycline Monohydrate 100 mg 09/24/23 09:00 09/24/23 08:03 Doxycycline 100 Mg Tablet PO 100 mg BID [facility] Administration Protocol Finasteride 5 mg 09/24/23 09:00 09/24/23 08:01 Finasteride 5 Mg Tablet PO 5 mg DAILY STACIE Administration Heparin Sodium (Porcine) 0 unit 09/23/23 19:14 09/24/23 06:03 Heparin 5,000 Unit/Ml Inj 1 Ml IV 1,700 unit PRN PRN Administration Heparin weight-base protocol Protocol Hydralazine HCl 50 mg 09/24/23 09:00 09/24/23 08:01 Hydralazine 50 Mg Tablet PO 50 mg DAILY [facility] Administration Heparin Sodium/Sodium Chloride 25,000 unit in 500 mls @ 0 mls/hr 09/23/23 19:15 09/24/23 06:04 Heparin Drip IV 13.11 unit/kg/hr .Q0M [facility] 22 mls/hr Titration Protocol Per Protocol Insulin Human Lispro 0 unit 09/23/23 21:00 09/24/23 08:03 Insulin Lispro 100 Unit/1 Ml SUBCUT 4 unit WM&BEDTIME [facility] Administration Protocol Losartan Potassium 50 mg 09/24/23 09:00 09/24/23 08:02 Losartan 50 Mg Tablet PO 50 mg BID [facility] Administration Metoprolol Tartrate 50 mg 09/24/23 09:00 09/24/23 08:02 Metoprolol Tartrate 50 Mg Tablet PO 50 mg DAILY [facility] Administration Morphine Sulfate 2 mg 09/23/23 18:19 09/24/23 01:32 Morphine 4 Mg/Ml Sdv 1 Ml IVP 2 mg Q4H PRN Administration SEVERE PAIN Nifedipine 60 mg 09/24/23 09:00 09/24/23 08:01 Nifedipine Er (24 Hr) 30 Mg Tablet PO 60 mg DAILY [facility] Administration Nitroglycerin 0.4 mg 09/23/23 18:24 09/24/23 06:01 Nitroglycerin 0.4 Mg Sublingual Tablet SUBLINGUAL 0.4 mg Q5M PRN Administration Chest Pain Ondansetron HCl 4 mg 09/23/23 18:19 09/24/23 03:25 Ondansetron 2 Mg/Ml Sdv 2 Ml IVP 4 mg Q8H PRN Administration vomiting, or N/V if npo Pantoprazole Sodium 40 mg 09/24/23 09:00 09/24/23 08:[address] 40 Mg Tablet PO 40 mg DAILY [facility] Administration Sevelamer Carbonate 800 mg 09/24/23 08:00 09/24/23 08:01 Sevelamer 800 Mg Tablet PO 800 mg DAILY@0800 [facility] Administration Spironolactone 25 mg 09/24/23 09:00 09/24/23 08:01 Spironolactone 25 Mg Tablet PO 25 mg DAILY [facility] Administration Tamsulosin HCl 0.4 mg 09/23/23 21:00 09/23/23 20:20 Tamsulosin 0.4 Mg Capsule PO 0.4 mg BEDTIME STACIE Administration PFSH Acute 2 PFSH: Medical History End-stage renal disease on hemodialysis CAD (coronary artery disease) Lumbosacral radiculopathy Diabetes mellitus Hypertension Hypercholesterolemia DDD (degenerative disc disease), lumbar Surgical History History of hernia repair History of coronary artery stent placement (01/10/21) History of lumbar laminectomy (2021) Family History Father Cancer Other Diabetes Hypertension Social History Smoking and tobacco/nicotine status: former use of tobacco/nicotine Quit status (tobacco/nicotine): has quit using Former quit date comment: smoked x 1 year in teen years Second hand smoke exposure: No Alcohol intake: never Substance/Drug Use: never Lives independently: Yes Household members: spouse Marital status: Vitals/I&O/Wt Last Vital Signs Temp 98.2 F 09/24/23 07:58 Pulse 78 09/24/23 07:58 Resp 14 09/24/23 07:58 BP 184/86 09/24/23 07:58 Pulse Ox 96 09/24/23 07:58 O2 Del Method Room Air 09/24/23 07:58 09/23/23 09/24/23 09/24/23 22:59 06:59 14:59 Intake Total 500 / 500 214 / 714 Output Total 0 / 0 0 / 0 Balance 500 / 500 214 / 714 Weight last 48 hrs Weight 189 lb Weight 185 lb Weight 185 lb Physical Exam 2 Narrative: GENERAL: Patient is alert, awake and oriented x3. [] NECK: No jugular vein distension. [] HEENT: No cyanosis. No icterus. No pallor. [] HEART: Regular S1 and S2. No murmur, rub or gallop. [] LUNGS: Clear to auscultate bilaterally. [] CENTRAL NERVOUS SYSTEM: Grossly nonfocal. [] EXTREMITIES: Lower extremities with 1+ edema bilaterally. Data 09/24/23 04:38 09/24/23 04:38 A&P Assessment and plan (1) Non-ST elevation [place] (NSTEMI): (2) Hyperlipemia, mixed: (3) Hypertension: (4) Congestive heart failure: (5) Elevated d-dimer: (6) Lymphedema of right arm: Plan Patient has presented with typical chest pain symptoms. He has multiple CAD risk factors and history of CAD as well. Troponins have trended up significantly. Symptoms and presentation is consistent with non-ST elevation RI. We will proceed with coronary angiogram with possible percutaneous coronary intervention. Risks and benefits of the procedure have been discussed in detail with the patient. He understands the risks and benefits and wants to proceed. Continue aspirin and heparin gtt. He will need dialysis post procedure ECHO ordered VQ scan was low probability for PE. Venous duplex ruled out DVT of right upper extremity which has edema. Thank you for involving us with care of this patient. We will continue to follow. Please call with questions. Consult Attestations 2 Medical Necessity Statement: Care expected to cross 2 midnights. Coding Level of Care Code Acute Code for Chg Fwd Diagnoses Non-ST elevation RI (NSTEMI) I21.4 Hyperlipemia, mixed E78.2 Hypertension I10 Congestive heart failure I50.9 Elevated d-dimer R79.89 Lymphedema of right arm I89.0
--- NOTE | 2023-09-24 08:40 | XACV_ITS ---
Exam Room: 2 Ht: 178 cm Wt: 86 kg BSA: 2.07 m2 Gender: Male : 1940 Any Known Allergies: Other Exam Priority: Routine Procedure(s): Procedure Description: Diagnostic procedure Procedure Description: PCI procedure Procedure Description: Coronary IVUS Procedure Description: Drug Eluting Coronary Stent Procedure Description: PTCA Procedure Description: Miscellaneous Procedure Description: ACT Procedure Description: Coronary Angiography Diagnostic Cath Status: Urgent Diagnostic Findings * Left Main has no significant disease. * Circumflex has distal vessel 90% stenosis.. * Ostial RCA has mild to moderate stenosis. * Some dampening with guide engagement. Mid Right Coronary Artery: significant 80% stenosis, CHATA: 3 flow. * Proximal Left Anterior Descending to Mid Left Anterior Descending: severe 90% stenosis, CHATA: 3 flow. * Coronary angiography shows right dominance. PCI Status: Urgent PCI Indication: NSTE - ACS Interventional Findings * Procedure detail: We engaged left main artery with XB 3.5 guide catheter. IV heparin was administered to maintain anticoagulation. Using 0.014 run-through guidewire we crossed the proximal LAD stenosis and was put in distal vessel. We predilated with a 2.5 x 15 mm semicompliant balloon. This was followed by placement with 3.0 x 26 mm resolute [place] drug-eluting stent. At this time final angiogram was performed that showed excellent stent expansion, no residual stenosis and CHATA-3 flow. We then turned attention to RCA. We engaged RCA with JR4 guide catheter. Using a run-through guidewire we crossed the stenosis and was put in distal vessel. First we used IVUS catheter to confirm no significant stenosis at ostial RCA. It was not significant. We then predilated the mid RCA stenosis a 2.5 x 15 mm semicompliant balloon. This was followed by placement of 2.75 x 18 mm resolute [place] drug-eluting stent. At this time final angiogram was performed that showed excellent stent expansion, no residual stenosis and CHATA-3 flow. Guidewire and guide catheter were removed. Patient left the Electrical Service Technician with stable condition. . * Proximal Left Anterior Descending to Mid Left Anterior Descendin% stenosis treated with a AB TREK 2.50X15 RX BALLOON, and MDT R ERENDIRA 3.0X26 CANDI. 0% residual stenosis, CHATA: 3 flow. * Mid Right Coronary Artery: 80% stenosis treated with a AB TREK 2.50X15 RX BALLOON, and MDT R ERENDIRA 2.75X18 CANDI. 0% residual stenosis, CHATA: 3 flow. Conclusions 1. Severe proximal LAD stenosis s/p successful revascularization with 1 stent. 2. Severe mid RCA stenosis s/p 3. successful revascularization with 1 stent.. 4. Severe distal left circumflex artery stenosis however it is a small sized area supplied by the artery. Will be medically managed. 5. Proximal Left Anterior Descending to Mid Left Anterior Descending was treated with a Balloon, and Drug Eluting Stent. 6. Mid Right Coronary Artery was treated with a Balloon, and Drug Eluting Stent. Recommendations * Dual antiplatelet therapy with aspirin Plavix. * High intensity statin therapy. * Outpatient cardiology standpoint in 2 to 4 weeks. Interventional RX Recommendation: PCI w/o planned CABG Diagnostic RX Recommendation: PCI w/o planned CABG Anticoagulation: Heparin Pressures Phase:Rest AO : 203 / 77 ( 129 ) @ 9:27:00 AM 176 / 82 ( 125 ) @ 9:31:00 AM 189 / 76 ( 120 ) @ 9:36:00 AM 157 / 70 ( 108 ) @ 9:39:00 AM 178 / 76 ( 115 ) @ 10:02:00 AM 128 / 61 ( 91 ) @ 10:12:00 AM Clinical Evaluation EBL: 5mL-10mL Procedural Details Procedure Consent Obtained. Admit Source: In Patient. Pre-Procedure Time Out. Identified patient by full name and date of as verbalized by the patient/guarantor. Does the consent match the physician's order: Yes. Accurate & Complete Informed Consent: Yes. Inpatient/Outpatient History & Physical on Chart: Yes. If H&P is completed, is and addenduem needed: No; If yes, is the addendum complete: N/A. Visualize and Verify Site with Patient/Guarantor: N/A. Relevant Radiology Images available: Yes. Pre-op teaching completed and patient verbalized understanding. The risks, benefits, and alternatives of sedation and/or procedure were discussed by physician. The patient agrees to continue. Procedure started. [facility] Clinical Fraility Score: 4: Vulnerable. Electrical Service Technician Indications: ACS > 24 hours. Chest Pain Symptom Assessment: Typical Angina Symptoms. Correct patient, site and procedure confirmed by cath team. Current diagnosis: NSTEMI. IV Site on Arrival: 20 gauge in the left wrist. IV Fluids: 0.9% NaCl at 75ml/hr. 0 mL infused prior to laborer wrecking and salvaging. Pre Procedural Pulses: bilateral dorsalis pedis was 2+. Pre Procedural Pulses: bilateral posterior tibial was 1+. Oxygen started at 2liters/min via nasal canula. bilateral groins was prepped with chloroprep then draped in the usual sterile fashion. Physician notified. PERRLA. Strong, equal hand dockworker bilaterally. Lungs clear x 5 lobes. Baseline sample Acquired. HR: 87 BPM. Physician arrived. Physician scrubbed in. Immediate Pre-Procedure Time Out. Correct Patient: Yes; Correct Procedure: Yes; Correct Site: Yes; Correct Patient Position: Yes; Correct Supplies: Yes; Dried Flammable Prep: Yes; Blood Products Available: Yes;. Lidocaine 1% infiltrated to the right groin. Arterial access obtained with micropuncture set. A 5 uruguayan JL4 catheter in over wire. Multiple views taken of left coronary artery. Catheter removed over the standard wire. ACT drawn. Results 182 seconds. Therapeutic limits - pre-heparin administration 90-150 seconds and monitoring heparin during a vascular procedure >250 seconds. A 5 uruguayan JR4 catheter in over wire. Multiple views taken of right coronary artery. Catheter removed over the standard wire. PCI Indication: NSTE. 6 uruguayan XB 3.5 guide catheter was inserted over the wire. Runthrough guidewire was advanced through the guide catheter to lesion in the prox LAD. Runthrough wire out to reshape. Runthrough guidewire was advanced through the guide catheter to lesion in the prox LAD. Guidewire advanced across lesion. Balloon inserted to lesion in the prox LAD. Inflation number : 1 A AB TREK 2.50X15 RX BALLOON was prepped and advanced across the Prox LAD , then inflated to 8 ERNATA for 0:12 seconds. Inflation number: 2 The AB TREK 2.50X15 RX BALLOON was reinflated across the Prox LAD, to 12 RENATA for 0:18 seconds. Balloon out. Stent inserted to lesion in the prox LAD. Intact stent out over wire. 6fr Guideliner support catheter in over runthrough wire. Stent inserted to lesion in the prox LAD. Inflation Number : 3 A GILLES Card ERENDIRA 3.0X26 CANDI -Lot Number# [id number] EXP 07-09-2024 was prepped and advanced across the Prox LAD. The stent was deployed at 12 RENATA for 0:21 seconds. Stent balloon out over wire. Guideliner out over wire. Results checked. Runthrough wire out. ACT drawn. Results 396 seconds. Therapeutic limits - pre-heparin administration 90-150 seconds and monitoring heparin during a vascular procedure >250 seconds. Guide catheter out. 6 uruguayan JR 4 guide catheter was inserted over the wire. Defect in JR 4 guide. 2nd JR 4 guide catheter obtained. 6 uruguayan JR 4 guide catheter was inserted over the wire. Runthrough guidewire was advanced through the guide catheter to lesion in the ostial RCA. Guidewire advanced across lesion. IVUS catheter in over runthrough wire. IVUS run performed on proximal and ostial RCA. IVUS catheter removed. Balloon inserted to lesion in the mid RCA. Inflation number: 1 The AB TREK 2.50X15 RX BALLOON was reinflated across the Mid RCA, to 10 RENATA for 0:10 seconds. Inflation number: 2 The AB TREK 2.50X15 RX BALLOON was reinflated across the Mid RCA, to 10 RENATA for 0:10 seconds. Balloon out. Stent inserted to lesion in the mid RCA. Inflation Number : 3 A GILLES KRAFTYX 2.75X18 CANDI -Lot Number# [id number] EXP 01-13-2026 was prepped and advanced across the Mid RCA. The stent was deployed at 12 RENATA for 0:16 seconds. Stent balloon out over wire. Results checked. Wire out. Results checked. ACT drawn. Results 347 seconds. Therapeutic limits - pre-heparin administration 90-150 seconds and monitoring heparin during a vascular procedure >250 seconds. Guide catheter out. A Right femoral angiogram was performed to determine safe placement of closure device. A Suture was successful obtaining hemostatsis at the Right Femoral artery insertion site. Sheath(s) sutured into position with 2-0 silk and sterile 4x4's and Op-site applied over the site. No oozing or signs and symptoms of hematoma noted. Arterial sheath flushed and connected to tranducer and pressure bag with heparinized saline. Post Procedure: Pulses reassessed and unchanged. PERRLA. Strong, equal hand dockworker bilaterally. No VTE prophylaxis required. Post-op diagnosis: Severe prox LAD stenosis, status post pci placement of 1 stent. Severe mid RCA stenosis, status post PCI placement of 1 stent. Complications: None. Estimated blood loss: 5mL-10mL. Responsiveness - Normal response to verbal stimuli; alert and oriented, PERRLA. Airway - Unaffected, no intervention required; spontaneous ventilation. Circulation: W/N/L, pulses unchanged. Nausea/Vomiting: No. Medication's Wasted: Nitro = 49.8 mg. Medication's Wasted: Lidocaine 1% = 1 mL. Total IV fluids: 78 mL. Procedure completed. Patient transferred by bed to CPRU. Vital chart was stopped. Access Site Site: Right Femoral artery Sheath Size: 6 Fr Hemostasis Method: Suture Hemostasis Success: Successful Procedure Medications Start: 9:19 AM Stop: 9:19 AM Medication: Versed Amount: 1 mg Route: I.V. Start: 9:19 AM Stop: 9:19 AM Medication: Fentanyl Amount: 25 mcg Route: I.V. Start: 9:27 AM Stop: 9:27 AM Medication: Versed Amount: 1 mg Route: I.V. Start: 9:32 AM Stop: 9:32 AM Medication: Hydralazine Amount: 10 mg Route: I.V. Start: 9:35 AM Stop: 9:35 AM Medication: Heparin Amount: 4000 units Route: I.V. Start: 9:36 AM Stop: 9:36 AM Medication: Fentanyl Amount: 25 mcg Route: I.V. Start: 9:50 AM Stop: 9:50 AM Medication: Heparin Amount: 1000 units Route: I.V. Start: 9:53 AM Stop: 9:53 AM Medication: Versed Amount: 1 mg Route: I.V. Start: 9:56 AM Stop: 9:56 AM Medication: Nitrogylcerin Amount: 200 mcg Route: I.C. Start: 9:57 AM Stop: 9:57 AM Medication: Fentanyl Amount: 25 mcg Route: I.V. Start: 10:02 AM Stop: 10:02 AM Medication: Versed Amount: 1 mg Route: I.V. Start: 10:05 AM Stop: 10:05 AM Medication: Fentanyl Amount: 25 mcg Route: I.V. Start: 10:16 AM Stop: 10:16 AM Medication: Hydralazine Amount: 10 mg Route: I.V. Start: 10:21 AM Stop: 10:21 AM Medication: Plavix Amount: 600 mg Route: P.O. I, the attending physician, have reviewed and verified all procedure medications. Yes, all medications given per verbal order History/Risk Factors Hypertension: Yes Dyslipidemia: No Peripheral Arterial Disease (PAD): No Myocardial Infarction (OK): No Obesity: No Renal Disease: Yes Dialysis: Current Prior Interventions PCI: Yes CABG: No Valve Surgery: No Report Signatures Finalized by David Ochoa MD on 10/01/2023 12:16 PM
[2023-09-24] MEDS: insulin glargine 100 units/1 mL 22 UNIT SUBCUT (08:45)
--- NOTE | 2023-09-24 09:17 | W.PM.OPSUD ---
Surgery/Procedure H&P Update DATE OF PROCEDURE: September 24, 2023 DATE H&P PERFORMED: 09/24/23 H&P UPDATE INFORMATION: I have reviewed H&P completed within last 30 days, I have examined patient prior to procedure and No changes to prior documentation PREOP DIAGNOSIS: NSTEMI PRIMARY INDICATION FOR PROCEDURE: NSTEMI PLANNED PROCEDURE: Left heart cath with possible percutaneous coronary intervention PATIENT REASSESSED PRIOR TO SEDATION, WITH NO CHANGE NOTED: Yes PHYSICAL EXAM: alert, oriented x 3, clear to auscultation bilaterally and regular rate & rhythm AIRWAY EVAL/ANESTHESIA PLAN: normal airway, ASA IV, Local Anesthesia, Risks, benefits & alternatives of sedation and/or procedure discussed and Patient agrees to continue as planned ADDITIONAL INFORMATION: Moderate sedation
--- NOTE | 2023-09-24 11:04 | ECG_ITS ---
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 Measurements Intervals [place] Rate: 74 P: 53 GA: 164 QRS: 55 QRSD: 92 T: 90 QT: 483 QTc: 539 Interpretive Statements SINUS RHYTHM MODERATE VOLTAGE CRITERIA FOR LVH, CONSIDER NORMAL VARIANT [MEETS CRITERIA IN ONE OF: R(aVL), S(V1), R(V5), R(V5/V6)+S(V1)] T-WAVE ABNORMALITY, CONSIDER ANTERIOR ISCHEMIA [-0.5+ mV T-WAVE IN V3/V4] Compared to ECG 09/23/2023 16:12:41 T-wave abnormality now present Possible ischemia now present ST (T wave) deviation no longer present Electronically Signed On 09-24-2023 11:46:11 TECHNICAL OPERATIONS VICE PRESIDENT by David Ochoa M.D. [id number]
--- NOTE | 2023-09-24 11:05 | PC.NURSE ---
Chest pressure Patient complained of chest pressure 1-2/10. Reports same sensation as before cath. Dr. Ochoa notified via phone and received verbal orders to get EKG and give sublingual nitro.
--- NOTE | 2023-09-24 11:21 | PC.NURSE ---
Dr. Ochoa came to bedside to review EKG. Patient denies chest pain at this time after [address] Ochoa ordered to repeat EKG in 15 minutes and if patient is chest pain free may send back to floor.
--- NOTE | 2023-09-24 11:30 | ECG_ITS ---
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 Measurements Intervals [place] Rate: 73 P: 54 MD: 152 QRS: 55 QRSD: 96 T: 91 QT: 487 QTc: 540 Interpretive Statements SINUS RHYTHM ST DEVIATION AND T-WAVE ABNORMALITY, CONSIDER ANTERIOR ISCHEMIA [-0.5+ mV T-WAVE IN V3/V4] Compared to ECG 09/24/2023 11:12:29 No significant changes Electronically Signed On 09-24-2023 11:45:47 TEST TECHNICIAN by David Ochoa M.D. [id number]
--- NOTE | 2023-09-24 11:38 | PC.NURSE ---
Dr. Ochoa reviewed 2nd EKG. Patient denies CP at this time. Current BP 180/80. Dr. Ochoa called to give telephone orders to start nitro gtt for hypertension per protocol and may send to nursing floor if no complaints of chest pain. CITLALI Patrick called for updated report at this time.
--- NOTE | 2023-09-24 11:41 | PC.NURSE ---
Patient transferred to CSU room 112-2 via bed at this time.
[2023-09-24] MEDS: nitroglycerin drip 50 MG/250 ML PREMIX IV (11:49)
[2023-09-24] MEDS: cefTRIAXone 1,000 MG in sodium chloride 0.9% (plus) 50 ML 100 MG IV (12:19)
[2023-09-24 12:21] LABS: Iron 73 ug/dL (59-158); Thyroid Stimulating Hormone 4.67 uIU/mL (0.27-4.20); Total Iron Binding Capacity 221 mcg/dl; Unsaturated Iron Binding 148 ug/dL (112-347); Vitamin B12 714 pg/mL (232-1245)
--- NOTE | 2023-09-24 12:21 | PC.NURSE ---
Patient arrived back to [facility] from [facility]. Right sheath intact in right groin connected to pressure bag. Nurse will monitor Q15 and remove sheath per protocol. Patient is aware of activity restrictions and what to be alert for. No hematoma present on arrival.
[2023-09-24 12:25] LABS: Glucose Point of Care 134 mg/dL (70-110)
--- NOTE | 2023-09-24 13:56 | P.CONIM_ITS ---
Providers/Reason For Consult 2 Consulting Physician/Specialty*: kommana/Nephrology Reason for Consult*: ESRD Attending Physician: Asael Levi MD Primary Care Provider: Harjit Marc MD History of Present Illness History of Present Illness Quang Hunter is a 83 year old male 83-year-old male with past medical history of coronary artery disease CHF and end-stage renal disease on hemodialysis per TTS schedule, diabetes admitted to the hospital on 09/23/2023 due to chest pain. Patient underwent left heart cath and stent placement on 09/24/2023. Nephrology was consulted for continued hemodialysis. Lab data reviewed. Review of Systems 2 Narrative: negative Medications/Allergies Home Medications Medication Instructions Recorded Confirmed Last Taken Type tamsulosin 0.4 mg capsule 0.4 mg PO BEDTIME 03/07/20 09/23/23 09/22/23 History insulin lispro 100 unit/mL See Rx Instructions .Route 09/13/22 09/23/23 09/22/23 Rx subcutaneous pen (Humalog KwikPen .COMPLEX #15 mL (U-100) Insulin) clonidine HCl 0.1 mg tablet 0.1 mg PO BID 01/17/23 09/23/23 09/22/23 History finasteride 5 mg tablet 5 mg PO DAILY 01/17/23 09/23/23 09/22/23 History nitroglycerin 0.4 mg sublingual 0.4 mg sublingual Q5M PRN Chest 01/17/23 09/23/23 Unknown History tablet Pain pantoprazole 40 mg tablet,delayed 40 mg PO DAILY 01/17/23 09/23/23 09/22/23 History release spironolactone 25 mg tablet 25 mg PO DAILY 01/17/23 09/23/23 09/22/23 History bumetanide 1 mg tablet 1 mg PO BID 05/09/23 09/23/23 09/22/23 History aspirin 81 mg tablet,delayed 81 mg PO DAILY 09/23/23 09/23/23 09/22/23 History release atorvastatin 80 mg tablet 80 mg PO QPM 09/23/23 09/23/23 09/23/23 History hydralazine 50 mg tablet 50 mg PO DAILY 09/23/23 09/23/23 09/23/23 History insulin glargine 100 unit/mL 22 unit SUBCUT DAILY 09/23/23 09/23/23 09/22/23 History subcutaneous solution metoprolol tartrate 50 mg tablet 50 mg PO DAILY 09/23/23 09/23/23 09/22/23 History nifedipine 60 mg tablet,extended 60 mg PO DAILY 09/23/23 09/23/23 09/22/23 History release sevelamer carbonate 800 mg tablet 800 mg PO TID 09/23/23 09/23/23 09/23/23 History (Renvela) valsartan 40 mg tablet 40 mg PO DAILY 09/23/23 09/23/23 09/23/23 History Allergies Allergy/AdvReac Type Severity Reaction Status Date / Time [facility] Allergy Unknown Verified 09/23/23 11:43 sitagliptin [From Januvia] Allergy ADR-Blurry Verified 09/23/23 11:43 Vision Current Medications Generic Name Dose Route Start Last Admin Trade Name Freq PRN Reason Stop Dose Admin Bumetanide 1 mg 09/24/23 09:00 09/24/23 08:01 Bumetanide 1 Mg Tablet PO 1 mg BID STACIE Administration Clonidine HCl 0.05 mg 09/24/23 09:00 09/24/23 08:02 Clonidine 0.1 Mg Tablet PO 0.05 mg BID STACIE Administration Finasteride 5 mg 09/24/23 09:00 09/24/23 08:01 Finasteride 5 Mg Tablet PO 5 mg DAILY STACIE Administration Hydralazine HCl 50 mg 09/24/23 09:00 09/24/23 08:01 Hydralazine 50 Mg Tablet PO 50 mg DAILY STACIE Administration Ceftriaxone Sodium 1,000 mg/ 50 mls @ 100 mls/hr 09/24/23 11:45 09/24/23 12:49 Sodium Chloride IV Infused Q24H STACIE Infusion Protocol Nitroglycerin/Dextrose 50 mg in 250 mls @ 0 mls/hr 09/24/23 11:45 09/24/23 13:06 Nitroglycerin Drip IV 10 mcg/min .Q0M STACIE 3 mls/hr Titration Protocol Per Protocol Insulin Glargine 22 unit 09/24/23 09:00 09/24/23 08:45 Insulin Glargine 100 Units/1 Ml SUBCUT 22 unit DAILY STACIE Administration Insulin Human Lispro 0 unit 09/23/23 21:00 09/24/23 12:27 Insulin Lispro 100 Unit/1 Ml SUBCUT Not Given WM&BEDTIME STACIE Protocol Losartan Potassium 50 mg 09/24/23 09:00 09/24/23 08:02 Losartan 50 Mg Tablet PO 50 mg BID STACIE Administration Metoprolol Tartrate 50 mg 09/24/23 09:00 09/24/23 08:02 Metoprolol Tartrate 50 Mg Tablet PO 50 mg DAILY STACIE Administration Morphine Sulfate 2 mg 09/23/23 18:19 09/24/23 01:32 Morphine 4 Mg/Ml Sdv 1 Ml IVP 2 mg Q4H PRN Administration SEVERE PAIN Nifedipine 60 mg 09/24/23 09:00 09/24/23 08:01 Nifedipine Er (24 Hr) 30 Mg Tablet PO 60 mg DAILY STACIE Administration Nitroglycerin 0.4 mg 09/23/23 18:24 09/24/23 11:05 Nitroglycerin 0.4 Mg Sublingual Tablet SUBLINGUAL 0.4 mg Q5M PRN Administration Chest Pain Ondansetron HCl 4 mg 09/23/23 18:19 09/24/23 03:25 Ondansetron 2 Mg/Ml Sdv 2 Ml IVP 4 mg Q8H PRN Administration vomiting, or N/V if npo Pantoprazole Sodium 40 mg 09/24/23 09:00 09/24/23 08:[address] 40 Mg Tablet PO 40 mg DAILY STACIE Administration Sevelamer Carbonate 800 mg 09/24/23 08:00 09/24/23 08:01 Sevelamer 800 Mg Tablet PO 800 mg DAILY@0800 STACIE Administration Spironolactone 25 mg 09/24/23 09:00 09/24/23 08:01 Spironolactone 25 Mg Tablet PO 25 mg DAILY STACIE Administration Tamsulosin HCl 0.4 mg 09/23/23 21:00 09/23/23 20:20 Tamsulosin 0.4 Mg Capsule PO 0.4 mg BEDTIME STACIE Administration PFSH Acute 2 PFSH: Medical History End-stage renal disease on hemodialysis CAD (coronary artery disease) Lumbosacral radiculopathy Diabetes mellitus Hypertension Hypercholesterolemia DDD (degenerative disc disease), lumbar Surgical History History of hernia repair History of coronary artery stent placement (01/10/21) History of lumbar laminectomy (2021) Family History Father Cancer Other Diabetes Hypertension Social History Smoking and tobacco/nicotine status: former use of tobacco/nicotine Quit status (tobacco/nicotine): has quit using Former quit date comment: smoked x 1 year in teen years Second hand smoke exposure: No Alcohol intake: never Substance/Drug Use: never Lives independently: Yes Household members: spouse Marital status: Vitals/I&O/Wt Last Vital Signs Temp 98.2 F 09/24/23 07:58 Pulse 78 09/24/23 12:22 Resp 22 H 09/24/23 12:22 BP 164/66 09/24/23 12:22 Pulse Ox 90 09/24/23 12:22 O2 Del Method Room Air 09/24/23 11:30 09/23/23 09/24/23 09/24/23 22:59 06:59 14:59 Intake Total 500 / 500 214 / 714 171.925 / 171.925 Output Total 0 / 0 0 / 0 375 / 375 Balance 500 / 500 214 / 714 -203.075 / -203.075 Weight last 48 hrs Weight 85.729 kg Weight 85.729 kg Weight 83.915 kg Weight 83.915 kg Physical Exam 2 Narrative: awake , alert no distress no edema Data 09/25/23 03:41 09/25/23 03:41 A&P Assessment and plan (1) ESRD (end stage renal disease) on dialysis: Plan 1.ESRD : on HD per TTS schedule , plan for HD today due to contrast exposure 2. HTN : BP controlled 3. CAD , s/p LHC and stents 4. 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 Anemia : Hb 10.7 , monitor Consult Attestations 2 Medical Necessity Statement: per lissa Coding Level of Care Code Acute Code for Chg Fwd Diagnoses ESRD (end stage renal disease) on dialysis N18.6; Z99.2
--- NOTE | 2023-09-24 14:08 | PC.HD ---
Per landscape manager, pre- and intra-dialysis heparin to be held, due to presence of femoral sheath.
--- NOTE | 2023-09-24 14:18 | PC.NURSE ---
pt is off floor for dialysis currently. Sheath is still intact. Awaiting ptt results for removal.
[2023-09-24 14:48] LABS: Partial Thromboplastin Time 50.1 SECONDS (23.9-36.7)
[2023-09-24 15:51] LABS: Hepatitis B Surface AB 172.4 (11.5-1000); Hepatitis B Surface Antigen Non-Reactive (Nonreactive)
--- NOTE | 2023-09-24 16:25 | P.PN_ITS ---
Subjective 2 Subjective: Labs appreciated. Seen postcardiac catheterization. Patient complaining of mild chest pain. Blood pressure slightly elevated. Started on nitro drip. Vitals/I&O/Wt Last Vital Signs Temp 98.4 F 09/24/23 14:05 Pulse 77 09/24/23 14:05 Resp 16 09/24/23 14:05 BP 152/66 09/24/23 14:05 Pulse Ox 91 09/24/23 13:15 O2 Del Method Room Air 09/24/23 11:30 09/24/23 09/24/23 09/24/23 06:59 14:59 22:59 Intake Total 214 / 714 171.925 / 171.925 Output Total 0 / 0 375 / 375 Balance 214 / 714 -203.075 / -203.075 Weight last 48 hrs Weight 85.729 kg Weight 85.729 kg Weight 83.915 kg Weight 83.915 kg Physical Exam 2 Narrative: Accompanied by family. Const: COMMON NORMALS: patient oriented x3 and alert GENERAL APPEARANCE: c ooperative ORIENTATION/CONSCIOUSNESS: Yes awake HENMT: COMMON NORMALS: oropharynx normal Neck/C-Spine: COMMON NORMALS: no JVD Resp: COMMON NORMALS: normal respiratory effort and clear to auscultation bilaterally AUSCULTATION: clear to auscultation bilaterally Cardio: COMMON NORMALS: no JVD, regular rhythm, S1 normal heart sound present, S2 normal heart sound present and No murmurs present (Cardio) RHYTHM: regular rhythm HEART SOUNDS: S1 normal heart sound present and S2 normal heart sound present GI: COMMON NORMALS: Normal to inspection, nondistended, normoactive bowel sounds present, Soft to palpation and non-tender PALPATION: Yes Soft to palpation Extremity: COMMON NORMALS: no joint enlargement and no pedal edema N ARRATIVE EXTREMITY EXAM: Edema of right upper extremity. area of diffuse erythema, worse induration medially mid-arm. Neuro: COMMON NORMALS: patient oriented x3 and moves all extremities S ENSORIUM/ORIENTATION: Yes alert Skin: COMMON NORMALS: no rashes or lesions noted GENERAL SKIN EXAM: no rashes or lesions noted Data 09/24/23 04:38 09/24/23 04:38 A&P Assessment and plan (1) Non-ST elevation CT (NSTEMI): Appreciate cardiology recommendations. Postcardiac catheterization and PCI. Appreciate recent A1c and lipid panel. Continue aspirin, Plavix, statin. Appreciate echocardiogram. Hide blood pressure is elevated will add Imdur. Nitro drip as per cardiology. Wean as per blood pressures. (2) Hypertension: Goal blood pressure less than 140/90 mmHg. Continue with home dose of clonidine 0.5 mg twice daily a, hydralazine 50 mg daily, losartan 50 mg twice daily, nifedipine 60 mg daily. Add Imdur 30 mg twice daily and wean nitro drip accordingly. (3) Elevated d-dimer: Most likely in setting of non-ST elevation CT. PE ruled out with VQ scan. (4) Lymphedema of right arm: Appreciate limb Doppler to rule out DVT. Fistula working appropriately. Elevate right upper extremity. Currently appears to have superimposed cellulitis on the medial right arm above and below the elbow up to about mid upper and mid lower arm. Lymphedema occurred after creation of fistula on right arm for hemodialysis. Worsened recently. He states he was previously reassessed by vascular surgeon due to lymphedema and has a scheduled visit for dilation of more proximal vein. (5) Cellulitis: Medial mid arm superimposed on lymphedema erythema, warmth. Induration. No drainage. For now switch to IV ceftriaxone 1 g daily. Check MRSA swab. Plan ESRD: Dialysis TTS. Next dialysis on Sunday. Nephrology consulted for possibility of dialysis today as patient is postcardiac catheterization. Congestive heart failure: Currently does not appear in exacerbation. Continue bumetanide. Dialysis. Lumbosacral radiculopathy DM2: Monitor Accu-Cheks. Continue long-acting insulin. Add sliding scale insulin. Consistent carb diet. HTN: Continue HLD: Continue statin DDD Attestations 2 Medical Necessity Statement*: requires further hospitalization for management of non-ST elevation CT, hypertensive emergency patient was a history of end-stage renal disease on hemodialysis. Diagnoses Non-ST elevation CT (NSTEMI) I21.4 Hypertension I10 Elevated d-dimer R79.89 Lymphedema of right arm I89.0 Cellulitis L03.90
--- NOTE | 2023-09-24 16:54 | PC.HD ---
At conclusion of HD treatment, heparin 1800 units was instilled into each limb of patient's HD catheter per account executive [employer]'s orders.
[2023-09-24] MEDS: atorvastatin 40 mg Tablet 80 MG PO (18:28)
[2023-09-24 18:34] LABS: Glucose Point of Care 152 mg/dL (70-110)
[2023-09-24] MEDS: tamsulosin 0.4 mg Capsule PO (20:13)
--- NOTE | 2023-09-24 20:15 | NM_ITS ---
WS: [id number] NUCLEAR MEDICINE VENTILATION/PERFUSION LUNG SCAN HISTORY: Assess for PE COMPARISON: 09/11/2022 and chest radiograph 09/23/2023 TECHNIQUE: Ventilation: 32.2 mCi of Technetium 99 DTPA aerosol inhaled. Perfusion: 5.3 mCi of technetium 99m MAA IV. Bilateral matched peripheral defects in the RIGHT lung. There are a few additional matched defect carrie trally in the LEFT lung. No unmatched defects. Mild deposition of radionuclide centrally during venti lation. IMPRESSION: Low probability of PE.
[2023-09-24 21:09] LABS: Glucose Point of Care 248 mg/dL (70-110)
[2023-09-24 22:23] LABS: Glucose Point of Care 115 mg/dL (70-110)
[2023-09-25] VITALS (9 sets, daily range): BP systolic 127–169; BP diastolic 57–66; PULSE 65–78; RESP 10–18; TEMP 36.6–37.3; O2SAT 95–100; BMI 27.0
[2023-09-25 03:56] LABS: Basophils % 0.2 %; Eosinophils # 0.1 10^3/uL (0.0-0.8); Eosinophils % 1.3 %; Hematocrit 32.6 % (37-53); Lymphocytes # 0.7 10^3/uL (0.8-4.8); Lymphocytes % 13.4 %; Mean Corpuscular HGB Conc 32.8 g/dL (30-55); Mean Corpuscular Hemoglobin 31.3 pg (27-33); Mean Corpuscular Volume 95.3 fl (82-101); Mean Platelet Volume 9.2 fL (7.4-10.4); Monocytes # 0.6 10^3/uL (0.2-0.9); Monocytes % 10.6 %; Neutrophils # 3.99 10^3/uL (1.8-7.7); Neutrophils % 74.1 %; Nucleated Red Blood Cells % 0 %; Platelet Count 174 10^3/cmm (157-399); Red Blood Count 3.42 10^6/uL (3.85-5.65); Red Cell Distribution Width 13.3 % (12.1-15.1); White Blood Count 5.38 10^3/uL (3.29-11.43)
[2023-09-25 04:18] LABS: Alanine Aminotransferase 12 U/L (0-41); Albumin Level 3.9 g/dL (3.5-5.2); Alkaline Phosphatase 76 U/L (40-130); Anion Gap 17.9 (5-19); Aspartate Amino Transferase 28 U/L (0-40); Blood Urea Nitrogen 21 mg/dL (8-23); Carbon Dioxide 26 mmol/L (22-29); Chloride 97 mmol/L (98-107); Globulin 2.6 g/dL (1.3-4.6); Glucose 130 mg/dL (65-115); Osmolality Calculated 289 mOsm/kg (285-295); Potassium 3.9 mmol/L (3.5-5.1); Sodium 137 mmol/L (136-145); Total Bilirubin 0.4 mg/dL (0.15-1.2); Total Protein 6.5 g/dL (6.6-8.7)
[2023-09-25 04:51] LABS: Folate Level > 20.0 ng/mL (4.5-32.2)
[2023-09-25] MEDS: heparin 5,000 unit/mL INJ 1 mL 5000 UNIT SUBCUT (05:24)
[2023-09-25 06:29] LABS: Glucose Point of Care 136 mg/dL (70-110)
--- NOTE | 2023-09-25 07:52 | P.PN_ITS ---
Subjective 2 Subjective: Patient had severe proximal LAD stenosis status post PCI with 1 stent and severe mid RCA stenosis status post successful revascularization with 1 stent. Postprocedure he had mild pressure that resolved with 1 nitro. No chest pain since. This morning he is feeling well. Had dialysis yesterday Vitals/I&O/Wt Last Vital Signs Temp 97.9 F 09/25/23 07:40 Pulse 75 09/25/23 07:40 Resp 18 09/25/23 07:40 BP 169/64 09/25/23 07:40 Pulse Ox 100 09/25/23 07:40 O2 Del Method Room Air 09/25/23 07:40 09/24/23 09/25/23 09/25/23 22:59 06:59 14:59 Intake Total 640 / 811.925 Output Total 2900 / 3275 125 / 125 Balance -2260 / -2463.075 -125 / -125 Weight last 48 hrs Weight 188 lb 7 oz Weight 189 lb 2.506 oz Weight 189 lb Weight 189 lb Weight 185 lb Weight 185 lb Physical Exam 2 Narrative: GENERAL: Patient is alert, awake and oriented x3. [] NECK: No jugular vein distension. [] HEENT: No cyanosis. No icterus. No pallor. [] HEART: Regular S1 and S2. No murmur, rub or gallop. [] LUNGS: Clear to auscultate bilaterally. [] CENTRAL NERVOUS SYSTEM: Grossly nonfocal. [] EXTREMITIES: Lower extremities with 1+ edema bilaterally. Data 09/25/23 03:41 09/25/23 03:41 A&P Assessment and plan (1) Non-ST elevation AL (NSTEMI): (2) Hyperlipemia, mixed: (3) Hypertension: (4) Congestive heart failure: (5) Elevated d-dimer: (6) Lymphedema of right arm: Plan Patient remained successful revascularization of proximal LAD and RCA with 2 stents. He is doing well. We will continue with aspirin and Plavix for at least 1 year. High intensity statin therapy. Hydralazine has been uptitrated to 100 mg 3 times daily. Thank you for involving us with care of this patient. Patient is stable to be discharged from cardiology standpoint with close cardiology followup. Please call with questions. Attestations 2 Medical Necessity Statement*: Care expected to cross 2 midnights. Coding Level of Care Code Acute Code for Chg Fwd Diagnoses Non-ST elevation AL (NSTEMI) I21.4 Hyperlipemia, mixed E78.2 Hypertension I10 Congestive heart failure I50.9 Elevated d-dimer R79.89 Lymphedema of right arm I89.0
[2023-09-25] MEDS: NIFEdipine ER (24 hr) 30 mg Tablet 60 MG PO (08:51)
[2023-09-25] MEDS: ferrous sulfate EC 325 mg Tablet PO (08:53)
[2023-09-25] MEDS: aspirin 81 mg EC Tablet PO (08:53)
[2023-09-25] MEDS: clopidogrel 75 mg Tablet PO (08:53)
[2023-09-25] MEDS: spironolactone 25 mg Tablet PO (08:53)
[2023-09-25] MEDS: finasteride 5 mg Tablet PO (08:53)
[2023-09-25] MEDS: metoprolol tartrate 50 mg Tablet PO (08:53)
[2023-09-25] MEDS: hyDRALAzine 50 mg Tablet 100 MG PO (08:54)
[2023-09-25] MEDS: cloNIDine 0.1 mg Tablet 0.05 MG PO (08:54)
[2023-09-25] MEDS: sevelamer 800 mg Tablet PO (08:55)
[2023-09-25] MEDS: pantoprazole DR 40 mg Tablet PO (08:55)
[2023-09-25] MEDS: losartan 50 mg Tablet PO (08:55)
[2023-09-25] MEDS: insulin glargine 100 units/1 mL 22 UNIT SUBCUT (08:56)
--- NOTE | 2023-09-25 10:52 | P.PN_ITS ---
Subjective 2 Subjective: no new c/o Medications: Reviewed: Yes Vitals/I&O/Wt Last Vital Signs Temp 97.9 F 09/25/23 07:40 Pulse 75 09/25/23 07:40 Resp 18 09/25/23 07:40 BP 169/64 09/25/23 08:55 Pulse Ox 100 09/25/23 07:40 O2 Del Method Room Air 09/25/23 07:40 09/24/23 09/25/23 09/25/23 22:59 06:59 14:59 Intake Total 640 / 811.925 480 / 480 Output Total 2900 / 3275 125 / 125 Balance -2260 / -2463.075 355 / 355 Weight last 48 hrs Weight 85.474 kg Weight 85.8 kg Weight 85.729 kg Weight 85.729 kg Weight 83.915 kg Weight 83.915 kg Physical Exam 2 Narrative: awake , alert no distress no edema Data 09/25/23 03:41 09/25/23 03:41 A&P Assessment and plan (1) ESRD (end stage renal disease) on dialysis: Plan 1.ESRD : on HD per TTS schedule , s/p HD yesterday due to contrast exposure 2. HTN : BP controlled 3. CAD , s/p LHC and stents 4. 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 Anemia : Hb 10.7 , monitor Can DC if medically ready and can do HD on as out pt Attestations 2 Medical Necessity Statement*: per lissa Coding Level of Care Code Acute Code for Chg Fwd Diagnoses ESRD (end stage renal disease) on dialysis N18.6; Z99.2
--- NOTE | 2023-09-25 12:15 | P.DS_ITS ---
Discharge Providers Date of Admission: 09/23/23 15:18 Date of Discharge: September 25, 2023 Attending Provider at Admission: Louis Cruz Attending Provider at Discharge: Asael Levi MD Consults: Cardiology: Dr. Ochoa Telemetry nephrology Primary Care Provider: Harjit Marc MD Diagnoses at Discharge Discharge Diagnosis (1) ESRD (end stage renal disease) on dialysis: Status: Acute Reason for Visit Reason for Visit: chest pain Brief History: History as per HPI: Quang Hunter is a 83 year old male with history of coronary artery disease, prior stenting back in 2020, CHF, presented after episodes of chest pain, couple days back while walking to the mailbox, then again at [employer] today with pain and pressure centrally which took a while to resolve. He did not take a nitroglycerin. He has ESRD on hemodialysis TTS, has had a fistula created in his right arm back in July by vascular surgeon in [place], however, has had a complication with right upper extremity swelling postprocedure, was imaged without venous clots reportedly, but with concern for more proximal stenosis for which she has an appointment to be addressed with dilation on the . He does note that he has had worsening swelling in the right upper extremity. Also noted erythema on the medial mid arm which seems may have gotten worse, when pointed out he states does not remember it being this noticeable. Hospital Course Hospital Course Patient was admitted to the hospital for evaluation and management of non-ST elevation MT. He was started on treatment as per ACS protocol with heparin drip and dual antiplatelet therapy. Cardiology was consulted and he underwent cardiac angiogram and PCI to proximal LAD with 1 CANDI and severe mid RCA with 1 CANDI. Postprocedure patient complained of mild chest pain which was in setting of elevated blood pressures for which his antihypertensives were adjusted. Man medina underwent session of dialysis as well. Patient has not had any further chest pain after improvement in blood pressures. During hospitalization he was also found to have swelling and redness around the fistula for which Dopplers were done which ruled out DVT and were consistent with a working fistula. He remained hemodynamically stable and afebrile. Blood cultures remain negative. He is been discharged hemodynamically stable condition on dual antiplatelet therapy, increase dose of hydralazine to 50 mg twice daily and oral antibiotics with Augmentin and doxycycline for next 7 days. Physical Exam Narrative: Accompanied by family. Const: COMMON NORMALS: patient oriented x3 and alert GENERAL APPEARANCE: cooperative ORIENTATION/CONSCIOUSNESS: Yes awake HENMT: COMMON NORMALS: oropharynx normal Neck/C-Spine: COMMON NORMALS: no JVD Resp: COMMON NORMALS: normal respiratory effort and clear to auscultation bilaterally AUSCULTATION: clear to auscultation bilaterally Cardio: COMMON NORMALS: no JVD, regular rhythm, S1 normal heart sound present, S2 normal heart sound present and No murmurs present (Cardio) RHYTHM: regular rhythm HEART SOUNDS: S1 normal heart sound present and S2 normal heart sound present GI: COMMON NORMALS: Normal to inspection, nondistended, normoactive bowel sounds present, Soft to palpation and non-tender PALPATION: Yes Soft to palpation Extremity: COMMON NORMALS: no joint enlargement and no pedal edema NARRATIVE EXTREMITY EXAM: Edema of right upper extremity. area of diffuse erythema, worse induration medially mid-arm. Neuro: COMMON NORMALS: patient oriented x3 and moves all extremities SENSORIUM/ORIENTATION: Yes alert Skin: COMMON NORMALS: no rashes or lesions noted GENERAL SKIN EXAM: no rashes or lesions noted Discharge Data Studies Completed and Pending Completed Studies During Hospitalization Category Date Time Status XR abdomen 1V* [id number] Stat Exams 09/24/23 04:21 Completed XR chest 1V portable [id number] Stat Exams 09/23/23 11:38 Completed NM pul vent and perfus* [id number] Routine Nuc Med 09/24/23 20:15 Completed CV. echo complete* [id number] Routine Ultrasound 09/24/23 06:00 Completed US venous duplex upper extremity RT [CV venous duplex Ultrasound 09/23/23 15:21 [place] [id number]] Stat Pending at discharge Category Date Time Status [employer] request for service Routine Exams 09/24/23 08:40 Taken Complete Blood Count w/Auto AM LABS Lab 09/26/23 04:00 Ordered MAG [Magnesium] AM LABS Lab 09/26/23 04:00 Ordered MAG [Magnesium] AM LABS Lab 09/27/23 04:00 Ordered MRSA [Methicillin Resistant S.aureu] Routine Lab 09/24/23 11:35 Received Platelet Count Q2D Lab 09/27/23 04:00 Ordered Radiology Impressions Chest X-Ray 09/23/23 11:38 IMPRESSION: I see no acute abnormality. Venous Duplex 09/23/23 15:21 IMPRESSION: No evidence of deep vein thrombosis. Patent AV fistula Abdomen X-Ray 09/24/23 04:21 IMPRESSION: The bowel-gas pattern is nonobstructing. Echocardiogram: CONCLUSIONS LV systolic function is normal with EF of 50 to 55%. Grade 1 diastolic dysfunction. Mild tricuspid regurgitation Compared to prior echocardiogram from 2022, LV systolic function is slightly reduced. David Ochoa MD (Electronically Signed) Final Date: 24 September 2023 Laboratory Results WBC 5.38 10^3/uL (3.29-11.43) 09/25/23 03:41 RBC 3.42 10^6/uL (3.85-5.65) L 09/25/23 03:41 Hgb 10.70 g/dL (11.27-16.99) L 09/25/23 03:41 Hct 32.6 % (37-53) L 09/25/23 03:41 MCV 95.3 fl (82-101) 09/25/23 03:41 MCH 31.3 pg (27-33) 09/25/23 03:41 MCHC 32.8 g/dL (30-55) 09/25/23 03:41 RDW 13.3 % (12.1-15.1) 09/25/23 03:41 Plt Count 174 10^3/cmm (157-399) 09/25/23 03:41 MPV 9.2 fL (7.4-10.4) 09/25/23 03:41 Neut % (Auto) 74.1 % 09/25/23 03:41 Lymph % (Auto) 13.4 % 09/25/23 03:41 Lamar % (Auto) 10.6 % 09/25/23 03:41 Eos % (Auto) 1.3 % 09/25/23 03:41 Baso % (Auto) 0.2 % 09/25/23 03:41 Neut # (Auto) 3.99 10^3/uL (1.8-7.7) 09/25/23 03:41 Lymph # (Auto) 0.7 10^3/uL (0.8-4.8) L 09/25/23 03:41 Lamar # (Auto) 0.6 10^3/uL (0.2-0.9) 09/25/23 03:41 Eos # (Auto) 0.1 10^3/uL (0.0-0.8) 09/25/23 03:41 Baso # (Auto) 0.0 10^3/uL (0.0-0.1) 09/25/23 03:41 Nucleated RBC % (auto) 0 % 09/25/23 03:41 Nucleated RBCs # 0.0 /100WBC 09/25/23 03:41 PT 12.40 SECONDS (12.1-14.9) 09/23/23 12:10 INR 0.90 (0.8-1.2) 09/23/23 12:10 APTT 50.1 SECONDS (23.9-36.7) H 09/24/23 14:00 D-Dimer 1.23 ug/mLFEU (0-0.59) H 09/23/23 12:10 Sodium 137 mmol/L (136-145) 09/25/23 03:41 Potassium 3.9 mmol/L (3.5-5.1) 09/25/23 03:41 Chloride 97 mmol/L (98-107) L 09/25/23 03:41 Carbon Dioxide 26 mmol/L (22-29) 09/25/23 03:41 Anion Gap 17.9 (5-19) 09/25/23 03:41 BUN 21 mg/dL (8-23) 09/25/23 03:41 Creatinine 4.5 mg/dL (0.7-1.2) H 09/25/23 03:41 GFR Calculation Not Reportable 09/25/23 03:41 Glucose 130 mg/dL (65-115) H 09/25/23 03:41 POC Glucose 136 mg/dL (70-110) H 09/25/23 06:24 Calculated Osmolality 289 mOsm/kg (285-295) 09/25/23 03:41 Calcium 9.0 mg/dL (8.5-10.5) 09/25/23 03:41 Magnesium 2.0 mg/dL (1.7-2.3) 09/25/23 03:41 Iron 73 ug/dL (59-158) 09/24/23 04:38 TIBC 221 mcg/dl 09/24/23 04:38 % Saturation 33.0 % (20-50) 09/24/23 04:38 Unsat Iron Binding 148 ug/dL (112-347) 09/24/23 04:38 Total Bilirubin 0.4 mg/dL (0.15-1.2) 09/25/23 03:41 AST 28 U/L (0-40) 09/25/23 03:41 ALT 12 U/L (0-41) 09/25/23 03:41 Alkaline Phosphatase 76 U/L (40-130) 09/25/23 03:41 Troponin T Baseline 91 ng/L (0-15) H 09/23/23 12:10 Troponin T 120 Minute 103.6 ng/L (0-15) H 09/23/23 14:25 Delta Troponin T 12.6 ABS# (0-10) H* 09/23/23 14:25 Troponin T Hi Sens 6Hr 150.3 ng/L (0-15) H 09/23/23 18:06 Troponin T Hi Sens 6Hr Delta 59.3 ng/L (0-12) H* 09/23/23 18:06 Total Protein 6.5 g/dL (6.6-8.7) L 09/25/23 03:41 Albumin 3.9 g/dL (3.5-5.2) 09/25/23 03:41 Globulin 2.6 g/dL (1.3-4.6) 09/25/23 03:41 Lipase 25 U/L (13-60) 09/23/23 12:10 Vitamin B12 714 pg/mL (232-1245) 09/24/23 04:38 Folate > 20.0 ng/mL (4.5-32.2) 09/25/23 03:41 TSH 4.67 uIU/mL (0.27-4.20) H 09/24/23 04:38 Hep Bs Antigen Non-reactive (Nonreactive) 09/24/23 14:47 Hep Bs Antibody 172.4 (11.5-1000) 09/24/23 14:47 Vitals Last Vital Signs Temp 98.4 F 09/25/23 12:00 Pulse 65 09/25/23 12:00 Resp 18 09/25/23 12:00 BP 146/65 09/25/23 12:00 Pulse Ox 100 09/25/23 12:00 O2 Del Method Room Air 09/25/23 12:00 Discharge Plan Discharge Patient Disposition: Home Condition: Stable Prescriptions: New clopidogrel 75 mg Tablet 75 mg PO DAILY Qty: 30 0RF Augmentin 500-125 mg tablet 1 tab PO BID Qty: 14 0RF doxycycline hyclate 100 mg capsule 100 mg PO BID 14 Days Qty: 28 0RF Continued clonidine HCl 0.1 mg tablet 0.1 mg PO BID finasteride 5 mg tablet 5 mg PO DAILY spironolactone 25 mg tablet 25 mg PO DAILY pantoprazole 40 mg tablet,delayed release (DR/EC) 40 mg PO DAILY nitroglycerin 0.4 mg tablet, sublingual 0.4 mg sublingual Q5M PRN (Reason: Chest Pain) Rx Instructions: do not exceed 3 doses per episode bumetanide 1 mg tablet 1 mg PO BID tamsulosin 0.4 mg capsule 0.4 mg PO BEDTIME insulin lispro [Humalog KwikPen Insulin] 100 unit/mL insulin pen See Rx Instructions .ROUTE .COMPLEX MDD 40 Qty: 15 0RF Rx Instructions: Inject, subcu, 3 times daily, after meals, based on sliding scale provided aspirin 81 mg Tablet,Delayed Release (Dr/Ec) 81 mg PO DAILY nifedipine 60 mg tablet extended release 60 mg PO DAILY insulin glargine 100 unit/mL solution 22 unit SUBCUT DAILY metoprolol tartrate 50 mg tablet 50 mg PO DAILY atorvastatin 80 mg Tablet 80 mg PO QPM valsartan 40 mg Tablet 40 mg PO DAILY sevelamer carbonate [Renvela] 800 mg Tablet 800 mg PO TID Rx Instructions: must administer with a meal/food Changed hydralazine 50 mg Tablet 50 mg PO BID Qty: 15 0RF Discharge Orders: Discharge Order (Routine); Ordered 09/25/23 Ordered By: Asael Levi Referrals: Melissa Flores FNP [Nurse Practitioner] - 10/04/23 2:30 pm Harjit Marc MD [Primary Care Provider] - 10/03/23 1:20 pm (Please keep your appointment on @1:20P.M. ) Discharge Diet: Cardiac Discharge Activity: Resume usual activity and Increase activity as tolerated Patient Instructions: Amoxicillin (By mouth), Clopidogrel (By mouth) (Plavix), Coronary Angioplasty (DC), Cellulitis (GEN), End Stage Kidney Disease (DC), Opioid Safety, Post Angiogram Home Care Instructions Activity Restrictions/Additional Instructions: Please follow-up with your primary care provider and nurse practitioner in cardiology onsite appointments. Continue taking a oral antibiotics as prescribed for cellulitis of the arm. Dose of hydralazine has been changed to 50 mg twice daily. Discharge Attestations Time Spent in Discharge Care*: greater than 30 min Specific Discharge Activities: educating patient, educating and/or supporting family/caregiver, discussing with pcp/other providers, discussing with rn case manager/social workers/dc planners, documenting/other paperwork and evaluating patient/reviewing data Status at Discharge: Cognitive status at discharge: cognitively intact , Behavioral status at discharge: cooperative , Functional status at discharge: independent ambulation , Overall status at discharge: patient is back to baseline Quality Metrics Clinical Quality Measures [ No reported AMI, CVA or VTE this stay] Coding Level of Care Code 71274 Total time (in minutes) for Discharge: 60 Diagnoses ESRD (end stage renal disease) on dialysis N18.6; Z99.2
[2023-09-25 13:34] LABS: Glucose Point of Care 273 mg/dL (70-110)
--- NOTE | 2023-09-25 16:47 | PC.NURSE ---
a late prescription (doxycycline) was called in to [facility] [place] [id number]
[2023-09-26 14:10] LABS: Methicillin-Resist S.aureu PCR NOT DETECTED (NOT DETECTED)
== END 2023-09-25 13:24 | disposition home or self-care (01) | DRG 321 ==
LOC: ER 15:22 → CSU 16:42
PROVIDERS: Hospitalist; Internal Medicine; Admitting Provider Internal Medicine; Emergency Provider Emergency Medicine; PCP Family Medicine; Visit Provider Student in an Organized Health Care Education/Training Program
PROC: 027135Z Dilation of Coronary Artery, Two Arteries with Two Drug-eluting Intraluminal Devices, Percutaneous Approach (ICD-10-PCS; principal; 2023-09-24 10:30)
PROC: 027135Z Dilation of Coronary Artery, Two Arteries with Two Drug-eluting Intraluminal Devices, Percutaneous Approach (ICD-10-PCS; 2023-09-24 10:30)
DX: I21.4 Non-ST elevation (NSTEMI) myocardial infarction (principal); N18.6 End stage renal disease; I13.2 Hypertensive heart and chronic kidney disease with heart failure and with stage 5 chronic kidney disease, or end stage renal disease; L03.113 Cellulitis of right upper limb; T82.7XXA Infection and inflammatory reaction due to other cardiac and vascular devices, implants and grafts, initial encounter; I25.10 Atherosclerotic heart disease of native coronary artery without angina pectoris; Z95.5 Presence of coronary angioplasty implant and graft; E11.22 Type 2 diabetes mellitus with diabetic chronic kidney disease; Z99.2 Dependence on renal dialysis; I50.9 Heart failure, unspecified; Z79.4 Long term (current) use of insulin; I16.0 Hypertensive urgency; Z87.891 Personal history of nicotine dependence; D63.1 Anemia in chronic kidney disease; I89.0 Lymphedema, not elsewhere classified; Y83.8 Other surgical procedures as the cause of abnormal reaction of the patient, or of later complication, without mention of misadventure at the time of the procedure; E78.00 Pure hypercholesterolemia, unspecified; R79.1 Abnormal coagulation profile; Z79.82 Long term (current) use of aspirin
CPT/HCPCS: 36415; 36416; 71045; 74018; 78014; 80048; 80053; 82607; 82746; 82962; 83540; 83550; 83690; 83735; 84443; 84484; 85025; 85347; 85378; 85610; 85730; 86706; 87340; 87641; 90935; 92978; 93005; 93306; 93454; 93971; 96365; 96372; 96375; 96376; 99152; 99153; 99285; 99291; A9540; A9567; C1725; C1753; C1769; C1874; C1887; C1894; C9600; C9601; J0360; J0696; J1644; J1815; J2250; J2270; J2405; J3010; J3490; J7030; Q9967

== ENCOUNTER → 2023-10-01 08:28 | Outpatient (BNVA) | payer MEDICARE, SELFPAY | PROVIDERS: PCP Family Medicine; Visit Provider Internal Medicine | DX: R79.89 Other specified abnormal findings of blood chemistry (principal); E78.2 Mixed hyperlipidemia; I50.9 Heart failure, unspecified; I16.0 Hypertensive urgency; E11.59 Type 2 diabetes mellitus with other circulatory complications; Z79.4 Long term (current) use of insulin | CPT/HCPCS: 99214 ==

== ENCOUNTER → 2023-10-04 13:50 | Outpatient (BNVA) | payer MEDICARE, SELFPAY | PROVIDERS: PCP Family Medicine; Visit Provider Nurse Practitioner Family | DX: I13.2 Hypertensive heart and chronic kidney disease with heart failure and with stage 5 chronic kidney disease, or end stage renal disease (principal); E11.22 Type 2 diabetes mellitus with diabetic chronic kidney disease; N18.6 End stage renal disease; Z99.2 Dependence on renal dialysis; Z79.4 Long term (current) use of insulin; I50.32 Chronic diastolic (congestive) heart failure; I25.10 Atherosclerotic heart disease of native coronary artery without angina pectoris; Z87.891 Personal history of nicotine dependence | CPT/HCPCS: 99214 ==

== ENCOUNTER → 2023-12-06 14:23 | Outpatient (BNVA) | payer MEDICARE, SELFPAY | PROVIDERS: PCP Family Medicine; Visit Provider Internal Medicine | DX: I25.10 Atherosclerotic heart disease of native coronary artery without angina pectoris (principal); I13.2 Hypertensive heart and chronic kidney disease with heart failure and with stage 5 chronic kidney disease, or end stage renal disease; E11.22 Type 2 diabetes mellitus with diabetic chronic kidney disease; N18.6 End stage renal disease; I50.32 Chronic diastolic (congestive) heart failure; Z99.2 Dependence on renal dialysis; Z87.891 Personal history of nicotine dependence; Z79.4 Long term (current) use of insulin | CPT/HCPCS: 99214 ==

== ENCOUNTER 2023-12-24 10:19 | Outpatient (CLI) | payer MEDICARE, SELFPAY ==
[2023-12-24 11:10] LABS: Alanine Aminotransferase 14 U/L (0-41); Albumin Level 4.3 g/dL (3.5-5.2); Alkaline Phosphatase 80 U/L (40-130); Anion Gap 18.2 (5-19); Aspartate Amino Transferase 19 U/L (0-40); Blood Urea Nitrogen 47 mg/dL (8-23); Calcium 8.2 mg/dL (8.5-10.5); Carbon Dioxide 27 mmol/L (22-29); Chloride 99 mmol/L (98-107); Chol HDL Ratio 2.62 mg/dL (1.0-5.00); Cholesterol 110 mg/dL (0-200); Globulin 2.6 g/dL (1.3-4.6); Glucose 274 mg/dL (65-115); HDL Cholesterol 42 mg/dL (60-100); LDL Cholesterol Calculated 36 mg/dL (50-129); LDL HDL Ratio 0.86 RATIO (0.00-3.22); Osmolality Calculated 310 mOsm/kg (285-295); Potassium 5.2 mmol/L (3.5-5.1); Sodium 139 mmol/L (136-145); Total Bilirubin 0.5 mg/dL (0.15-1.2); Total Protein 6.9 g/dL (6.6-8.7); Triglycerides 162 mg/dL (0-150)
[2023-12-24 11:12] LABS: Estmated Average Glucose 126
[2023-12-24 11:13] LABS: Creatinine Urine, Random 65 mg/dL (39-259)
[2023-12-24 11:29] LABS: Microalbum Creatinine Ratio Ur 2154 mg/dL (0-20); Microalbumin Random Urine 140 ug/dL (0-20)
== END 2023-12-24 10:20 | disposition home or self-care (01) ==
LOC: LAB 10:21
PROVIDERS: PCP Family Medicine; Visit Provider Internal Medicine
DX: E11.9 Type 2 diabetes mellitus without complications (principal); E78.2 Mixed hyperlipidemia; R79.89 Other specified abnormal findings of blood chemistry; I50.9 Heart failure, unspecified
CPT/HCPCS: 36415; 80053; 80061; 82044; 83036

== ENCOUNTER → 2023-12-31 09:24 | Outpatient (BNVA) | payer MEDICARE, SELFPAY | PROVIDERS: PCP Family Medicine; Visit Provider Internal Medicine | DX: R79.89 Other specified abnormal findings of blood chemistry (principal); E78.2 Mixed hyperlipidemia; I50.32 Chronic diastolic (congestive) heart failure; I16.0 Hypertensive urgency; E11.59 Type 2 diabetes mellitus with other circulatory complications; Z79.4 Long term (current) use of insulin | CPT/HCPCS: 99214 ==

== ENCOUNTER 2024-03-21 11:07 | Outpatient (CLI) | payer MEDICARE, SELFPAY ==
[2024-03-21 11:49] LABS: Estmated Average Glucose 146; Hemoglobin A1C 6.7 % (4.0-6.0)
[2024-03-21 11:56] LABS: Creatinine Urine, Random 75 mg/dL (39-259)
[2024-03-21 12:07] LABS: Alanine Aminotransferase 13 U/L (0-41); Albumin Level 4.4 g/dL (3.5-5.2); Alkaline Phosphatase 91 U/L (40-130); Anion Gap 20.4 (5-19); Aspartate Amino Transferase 18 U/L (0-40); Blood Urea Nitrogen 24 mg/dL (8-23); Carbon Dioxide 28 mmol/L (22-29); Chloride 100 mmol/L (98-107); Chol HDL Ratio 2.32 mg/dL (1.0-5.00); Cholesterol 95 mg/dL (0-200); Free T4 Free Thyroxine 1.29 ng/dL (0.82-1.77); Globulin 2.5 g/dL (1.3-4.6); Glucose 305 mg/dL (65-115); HDL Cholesterol 41 mg/dL (60-100); LDL Cholesterol Calculated 14 mg/dL (50-129); LDL HDL Ratio 0.34 RATIO (0.00-3.22); Osmolality Calculated 314 mOsm/kg (285-295); Potassium 4.4 mmol/L (3.5-5.1); Sodium 144 mmol/L (136-145); Thyroid Stimulating Hormone 5.04 uIU/mL (0.27-4.20); Total Bilirubin 0.5 mg/dL (0.15-1.2); Total Protein 6.9 g/dL (6.6-8.7); Triglycerides 202 mg/dL (0-150)
[2024-03-21 12:11] LABS: Microalbum Creatinine Ratio Ur 3040 mg/dL (0-20); Microalbumin Random Urine 228 ug/dL (0-20)
== END 2024-03-21 11:08 | disposition home or self-care (01) ==
LOC: LAB 11:08
PROVIDERS: PCP Family Medicine; Visit Provider Internal Medicine
DX: E11.9 Type 2 diabetes mellitus without complications (principal); E78.2 Mixed hyperlipidemia; R79.89 Other specified abnormal findings of blood chemistry; I50.32 Chronic diastolic (congestive) heart failure
CPT/HCPCS: 80053; 80061; 82044; 83036; 84439; 84443

== ENCOUNTER → 2024-03-28 10:44 | Outpatient (BNVA) | payer MEDICARE, SELFPAY | PROVIDERS: PCP Family Medicine; Visit Provider Internal Medicine | DX: R79.89 Other specified abnormal findings of blood chemistry (principal); E11.9 Type 2 diabetes mellitus without complications; E78.2 Mixed hyperlipidemia; I50.32 Chronic diastolic (congestive) heart failure; I16.0 Hypertensive urgency; Z79.4 Long term (current) use of insulin | CPT/HCPCS: 99214 ==

== ENCOUNTER → 2024-04-10 10:40 | Outpatient (BNVA) | payer MEDICARE, SELFPAY | PROVIDERS: PCP Family Medicine; Visit Provider Nurse Practitioner Family | DX: I25.10 Atherosclerotic heart disease of native coronary artery without angina pectoris (principal); I10 Essential (primary) hypertension; Z87.891 Personal history of nicotine dependence | CPT/HCPCS: 99214 ==

== ENCOUNTER → 2024-05-07 12:48 | Outpatient (BNVA) | payer MEDICARE, SELFPAY | PROVIDERS: PCP Family Medicine; Visit Provider Internal Medicine | DX: I25.10 Atherosclerotic heart disease of native coronary artery without angina pectoris (principal); I11.0 Hypertensive heart disease with heart failure; I50.32 Chronic diastolic (congestive) heart failure; Z87.891 Personal history of nicotine dependence | CPT/HCPCS: 99214 ==

== ENCOUNTER 2024-07-28 09:55 | Outpatient (CLI) | payer MEDICARE, SELFPAY ==
[2024-07-28 10:54] LABS: Alanine Aminotransferase 15 U/L (0-41); Albumin Level 4.5 g/dL (3.5-5.2); Alkaline Phosphatase 88 U/L (40-130); Anion Gap 18.4 (5-19); Aspartate Amino Transferase 18 U/L (0-40); Blood Urea Nitrogen 43 mg/dL (8-23); Calcium 9.1 mg/dL (8.5-10.5); Carbon Dioxide 26 mmol/L (22-29); Chloride 98 mmol/L (98-107); Chol HDL Ratio 2.37 mg/dL (1.0-5.00); Cholesterol 102 mg/dL (0-200); Globulin 2.5 g/dL (1.3-4.6); Glucose 260 mg/dL (65-115); HDL Cholesterol 43 mg/dL (60-100); LDL Cholesterol Calculated 24 mg/dL (50-129); LDL HDL Ratio 0.56 RATIO (0.00-3.22); Osmolality Calculated 306 mOsm/kg (285-295); Potassium 4.4 mmol/L (3.5-5.1); Sodium 138 mmol/L (136-145); Thyroid Stimulating Hormone 4.09 uIU/mL (0.27-4.20); Total Bilirubin 0.5 mg/dL (0.15-1.2); Triglycerides 175 mg/dL (0-150)
[2024-07-28 11:20] LABS: Free T4 Free Thyroxine 1.23 ng/dL (0.82-1.77)
[2024-07-28 11:29] LABS: Estmated Average Glucose 146; Hemoglobin A1C 6.7 % (4.0-6.0)
[2024-07-28 12:24] LABS: Creatinine Urine, Random 66 mg/dL (39-259)
[2024-07-28 12:37] LABS: Microalbum Creatinine Ratio Ur 1091 mg/dL (0-20); Microalbumin Random Urine 72 ug/dL (0-20)
== END 2024-07-28 09:56 | disposition home or self-care (01) ==
PROVIDERS: PCP Family Medicine; Visit Provider Internal Medicine
DX: E11.9 Type 2 diabetes mellitus without complications (principal); E78.2 Mixed hyperlipidemia; I50.32 Chronic diastolic (congestive) heart failure; R79.89 Other specified abnormal findings of blood chemistry
CPT/HCPCS: 36415; 80053; 80061; 82044; 83036; 84439; 84443

== ENCOUNTER → 2024-07-30 10:54 | Outpatient (BNVA) | payer MEDICARE, SELFPAY | PROVIDERS: PCP Family Medicine; Visit Provider Internal Medicine | DX: E11.9 Type 2 diabetes mellitus without complications (principal); E78.2 Mixed hyperlipidemia; I16.0 Hypertensive urgency; Z79.4 Long term (current) use of insulin | CPT/HCPCS: 99214 ==

== ENCOUNTER → 2024-09-15 10:41 | Outpatient (BNVA) | payer MEDICARE, SELFPAY | PROVIDERS: PCP Family Medicine; Visit Provider Internal Medicine | DX: E11.9 Type 2 diabetes mellitus without complications (principal); E78.2 Mixed hyperlipidemia; I16.0 Hypertensive urgency | CPT/HCPCS: 99214 ==

== ENCOUNTER 2024-10-20 14:26 | Emergency (ER) | payer MEDICARE, SELFPAY ==
--- NOTE | 2024-10-20 14:29 | XRR_ITS ---
PROCEDURE INFORMATION: Exam: XR Abdomen Exam date and time: 10/20/2024 4:15 PM Age: 84 years old Clinical indication: Constipation TECHNIQUE: Imaging protocol: Radiologic exam of the abdomen. Views: Frontal supine view of the abdomen. 1 View. COMPARISON: CR XR abdomen 1V* [id number] 09/24/2023 4:56 AM FINDINGS: Gastrointestinal tract: There is a moderate amount of stool noted throughout the colon. No bowel distension. Bones/joints: Unremarkable. XR/XR KUB [id number] IMPRESSION: Constipation
[2024-10-20 14:43] VITALS: BP 173/77; PULSE 83; TEMP 36.8; O2SAT 98; BMI 26.5
== END 2024-10-20 19:20 | disposition left against medical advice (07) ==
LOC: ER 14:28
PROVIDERS: Emergency Provider Family Medicine; PCP Family Medicine
DX: K59.00 Constipation, unspecified (principal)
CPT/HCPCS: 74018

== ENCOUNTER → 2024-11-04 14:31 | Outpatient (BNVA) | payer MEDICARE, SELFPAY | PROVIDERS: PCP Family Medicine; Visit Provider Internal Medicine | DX: I25.10 Atherosclerotic heart disease of native coronary artery without angina pectoris (principal); Z87.891 Personal history of nicotine dependence; I13.2 Hypertensive heart and chronic kidney disease with heart failure and with stage 5 chronic kidney disease, or end stage renal disease; E11.22 Type 2 diabetes mellitus with diabetic chronic kidney disease; N18.6 End stage renal disease; I50.32 Chronic diastolic (congestive) heart failure; Z99.2 Dependence on renal dialysis; Z79.4 Long term (current) use of insulin | CPT/HCPCS: 99214 ==

== ENCOUNTER → 2025-01-16 09:55 | Outpatient (BNVA) | payer MEDICARE, SELFPAY | PROVIDERS: PCP Family Medicine; Visit Provider Internal Medicine | DX: E11.9 Type 2 diabetes mellitus without complications (principal); R79.89 Other specified abnormal findings of blood chemistry; E78.2 Mixed hyperlipidemia | CPT/HCPCS: 99214 ==

== ENCOUNTER 2025-03-25 08:33 | Outpatient (CLI) | payer MEDICARE, SELFPAY ==
--- NOTE | 2025-03-25 08:39 | MR_ITS ---
WS: [id number] MRI RIGHT SHOULDER NONCONTRAST TECHNIQUE: Sagittal T2, coronal T1, T2 and proton density imaging. Axial gradient PDE imaging. CLINICAL INFORMATION: R SHOULDER JOINT PAIN COMPARISON: None. FINDINGS: Advanced arthritis AC joint with mild downsloping acromion and subacromial spurring. Associated fluid and edema. Slight impingement distal supraspinatus. Advanced arthritis of the glenohumeral articulation. Diffuse synovial thickening with complex signal normality and suspected intra-articular loose bodies. This can be seen with synovial osteochondromatosis. PVNS, Osteoarthritis, and rheumatoid arthritis. Some areas of associated capsular hemosiderin can be seen with PVNS. Chronic thinning of the supraspinatus and infraspinatus which appear intact. Small interstitial and insertional tears involving the supraspinatus and infraspinatus distally. Associated calcific tendinitis. Undersurface tear distal infraspinatus extending approximate 1.5 cm. No tendon retraction. Normal teres minor. Tendinopathy with partial interstitial tears involving the subscapularis which remains intact. Biceps tendon intact within the bicipital groove. Subchondral cystic change involving the greater tuberosity. Intra-articular biceps tendon appears intact. MR/MR shoulder RT wo con* [id number] IMPRESSION: 1. Diffuse heterogeneous synovial thickening with complex signal abnormality a nd suspected intra-articular loose bodies. Differential considerations include synovial chondromatosis, PVNS, advanced osteoarthritis with synovitis, and rhe umatoid arthritis, 2. 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 3. Small interstitial tears and tendinopathy with calcific tendinitis involvin g the supraspinatus and infraspinatus with chronic thinning. No tendon retracti on. 4. Tendinopathy with interstitial tears involving the subscapularis which joaquim ins intact. 5. Biceps tendon is intact within the bicipital groove. 6. Advanced subchondral cystic changes involving the greater tuberosity.
== END 2025-03-25 08:34 | disposition home or self-care (01) ==
PROVIDERS: PCP Family Medicine; Visit Provider Family Medicine
DX: M19.011 Primary osteoarthritis, right shoulder (principal); M75.91 Shoulder lesion, unspecified, right shoulder; M85.611 Other cyst of bone, right shoulder
CPT/HCPCS: 73221

== ENCOUNTER 2025-04-01 08:09 | Outpatient (CLI) | payer MEDICARE, SELFPAY ==
[2025-04-01 10:05] LABS: Estmated Average Glucose 157; Hemoglobin A1C 7.1 % (4.0-6.0)
[2025-04-01 10:22] LABS: Alanine Aminotransferase 9 U/L (0-41); Albumin Level 4.3 g/dL (3.5-5.2); Alkaline Phosphatase 83 U/L (40-130); Anion Gap 17.8 (5-19); Aspartate Amino Transferase 15 U/L (0-40); Blood Urea Nitrogen 23 mg/dL (8-23); Calcium 8.7 mg/dL (8.5-10.5); Carbon Dioxide 29 mmol/L (22-29); Chloride 93 mmol/L (98-107); Cholesterol 85 mg/dL (0-200); Free T4 Free Thyroxine 1.39 ng/dL (0.82-1.77); Globulin 2.8 g/dL (1.3-4.6); Glucose 111 mg/dL (65-115); HDL Cholesterol 38 mg/dL (60-100); Osmolality Calculated 286 mOsm/kg (285-295); Potassium 3.8 mmol/L (3.5-5.1); Sodium 136 mmol/L (136-145); Thyroid Stimulating Hormone 3.12 uIU/mL (0.27-4.20); Total Protein 7.1 g/dL (6.6-8.7); Triglycerides 111 mg/dL (0-150)
[2025-04-01 10:34] LABS: Creatinine Urine, Random 50 mg/dL (39-259)
[2025-04-01 10:53] LABS: Microalbum Creatinine Ratio Ur 1900 mg/dL (0-20)
== END 2025-04-01 08:10 | disposition home or self-care (01) ==
PROVIDERS: PCP Family Medicine; Visit Provider Internal Medicine
DX: I16.0 Hypertensive urgency (principal); E78.2 Mixed hyperlipidemia; E11.9 Type 2 diabetes mellitus without complications; I50.32 Chronic diastolic (congestive) heart failure; R79.89 Other specified abnormal findings of blood chemistry
CPT/HCPCS: 36415; 73130; 80053; 80061; 82044; 83036; 84439; 84443

== ENCOUNTER → 2025-04-10 10:22 | Outpatient (BNVA) | payer MEDICARE, SELFPAY | PROVIDERS: PCP Family Medicine; Visit Provider Internal Medicine | DX: E11.9 Type 2 diabetes mellitus without complications (principal); E78.2 Mixed hyperlipidemia | CPT/HCPCS: 99214 ==

== ENCOUNTER → 2025-04-22 07:52 | Outpatient (BNVA) | payer MEDICARE, SELFPAY | PROVIDERS: PCP Family Medicine; Visit Provider Student in an Organized Health Care Education/Training Program | DX: M25.511 Pain in right shoulder (principal); M19.011 Primary osteoarthritis, right shoulder | CPT/HCPCS: 73030; 99214 ==

== ENCOUNTER → 2025-05-08 11:24 | Outpatient (BNVA) | payer MEDICARE, SELFPAY | PROVIDERS: PCP Family Medicine; Visit Provider Student in an Organized Health Care Education/Training Program | DX: M19.011 Primary osteoarthritis, right shoulder (principal); Z71.89 Other specified counseling | CPT/HCPCS: 20610; 77002; J3301; J9999 ==

== ENCOUNTER → 2025-05-12 14:54 | Outpatient (BNVA) | payer MEDICARE, SELFPAY | PROVIDERS: PCP Family Medicine; Visit Provider Internal Medicine | DX: I25.10 Atherosclerotic heart disease of native coronary artery without angina pectoris (principal); I11.0 Hypertensive heart disease with heart failure; I50.9 Heart failure, unspecified; Z95.5 Presence of coronary angioplasty implant and graft; Z87.891 Personal history of nicotine dependence | CPT/HCPCS: 99213 ==

== ENCOUNTER 2025-05-15 07:50 | Day surgery (SDC) | payer MEDICARE, SELFPAY ==
[2025-05-15] VITALS (7 sets, daily range): BP systolic 146–183; BP diastolic 62–85; PULSE 66–85; RESP 10–18; TEMP 36.1–36.5; O2SAT 95–100; BMI 26.1
--- NOTE | 2025-05-15 08:47 | ANES.PREANE2 ---
Pre-Anesthetic Assessment Height/Weight: Height 5 ft 10 in Weight 182 lb Temp Pulse Resp BP Pulse Ox O2 Del Method 97.7 F 85 17 183/85 98 Room Air 05/15/25 08:27 05/15/25 08:27 05/15/25 08:27 05/15/25 08:27 05/15/25 08:27 05/15/25 08:27 Preop Diagnosis: Trigger finger Operation Date: 05/15/25 09:40 Proposed Procedures p RIGHT Middle Finger Trigger Finger Release(Right) - Fritz Miami, DO Was Beta Sathish taken within 24 hours: N/A Was Clonidine taken within 24 hours: N/A Last intake: Intake Last Liquid Date 05/14/25 Last Liquid Time 21:00 Last Solid Date 05/14/25 Last Solid Time 21:00 Social No alcohol and No tobacco Exam alert, oriented x 3, clear to auscultation bilaterally and regular rate & rhythm Airway Submandibular: within normal limits Cervical ROM: within normal limits Mallampati: Class III Comments: Comments: Full bottom teeth, missing upper teeth. Denies any loose Anesthetic Plan ASA status: 4 Anesthesia: MAC Other: No prior issues with anesthesia NPO since yesterday evening Prior CAD history, s/p PCI in 2023. Patient is on chronic Plavix. Last taken 2 days ago ESRD. Dialysis MWF. BMP ordered. Patient has fistula in AC on surgical side. Plan to use small and # at wrist with no large tourniquet. Patient bent over yesterday to look under his bed and lost his balance and fell. Denies any loss of consciousness or dizziness. Patient also takes occasional nitro and took 1 dose 2 days ago after bringing his trash cans inside. Patient states that he believes it was chest wall pain which has been documented many times by cardiology. Patient recently saw cardiology and they did not change anything besides stopping his beta-sathish. Plan for MAC anesthesia with local via surgeon Medications/Allergies Home Medications ?Medication ?Instructions ?Recorded ?Confirmed ?Last Taken ?Type tamsulosin 0.4 mg capsule 0.4 mg PO BEDTIME 03/07/20 05/15/25 05/14/25 History finasteride 5 mg tablet 5 mg PO DAILY 01/17/23 05/15/25 05/15/25 History nitroglycerin 0.4 mg sublingual 0.4 mg sublingual Q5M PRN Chest 01/17/23 05/15/25 05/13/25 History tablet Pain bumetanide 1 mg tablet 1 mg PO BID 05/09/23 05/15/25 05/15/25 History atorvastatin 80 mg tablet 80 mg PO QPM 09/23/23 05/15/25 05/15/25 History insulin glargine 100 unit/mL 7 unit SUBCUT DAILY 09/23/23 05/15/25 05/15/25 History subcutaneous solution metoprolol tartrate 50 mg tablet 50 mg PO DAILY 09/23/23 05/15/25 05/14/25 History clopidogrel 75 mg tablet 75 mg PO DAILY #30 tabs 09/25/23 05/15/25 05/13/25 Rx hydralazine 100 mg tablet 100 mg PO TID #180 tabs 05/07/24 05/15/25 05/15/25 Rx valsartan 160 mg tablet 320 mg PO DAILY 05/07/24 05/15/25 05/14/25 History nifedipine 60 mg tablet,extended 90 mg PO DAILY 07/30/24 05/15/25 05/14/25 History release spironolactone 25 mg tablet 50 mg PO DAILY 07/30/24 05/15/25 05/15/25 History pen needle, diabetic 32 gauge x #300 ea 09/29/24 05/08/25 Unknown Rx (BD Breanne 2nd Gen Pen Needle) sevelamer carbonate 800 mg tablet 800 mg PO BID 11/04/24 05/15/25 05/14/25 History (Renvela) vit C,L-Et-lqjre-lutein-zeaxan PO 04/10/25 05/12/25 Unknown History [[facility] AREDS-2] clonidine HCl 0.1 mg tablet 0.1 mg PO QDAY 05/12/25 05/15/25 05/15/25 History doxazosin 1 mg tablet (Cardura) 1 mg PO DAILY 05/12/25 05/12/25 Unknown History insulin aspart U-100 100 unit/mL 10 unit SUBCUT TID 05/15/25 05/15/25 05/14/25 History (3 mL) subcutaneous pen (Novolog FlexPen U-100 Insulin aspart) tramadol 50 mg tablet 50 mg PO Q6H PRN pain 5 days #20 05/15/25 Unknown Rx tabs Allergies Allergy/AdvReac Type Severity Reaction Status Date / Time dulaglutide (From Trulicity) Allergy Unknown Verified 05/12/25 15:33 sitagliptin (From Januvia) Allergy ADR-Blurry Verified 05/12/25 15:33 Vision [facility] Anesthesia Medical History (Updated 04/26/25 @ 20:35 by Fritz Ling DO) Hyperlipemia, mixed End-stage renal disease on hemodialysis CAD (coronary artery disease) Lumbosacral radiculopathy Diabetes mellitus Hypertension Hypercholesterolemia DDD (degenerative disc disease), lumbar Surgical History History of hernia repair History of coronary artery stent placement (01/10/21) History of lumbar laminectomy (2021) Family History Father Cancer Other Diabetes Hypertension Social History Smoking and tobacco/nicotine status: never used tobacco/nicotine Quit status (tobacco/nicotine): has quit using Former quit date comment: smoked x 1 year in teen years Second hand smoke exposure: No Alcohol intake: never Substance/Drug Use: never Lives independently: Yes Household members: spouse Marital status: Data Anesthesia Cardiac Studies: Echocardiogram 09/24/23 Echocardiogram Limited Views 09/10/22
--- NOTE | 2025-05-15 09:10 | W.PM.OPSFHP ---
Same Day Surgery H&P Indication for Procedure/HPI DATE OF PROCEDURE: May 15, 2025 CHIEF COMPLAINT/INDICATIONFOR SURGICAL PROCEDURE: Right middle finger trigger PREOP DIAGNOSIS: Right middle finger trigger PLANNED PROCEDURE: Operation Date: 05/15/25 09:40 Proposed Procedures p RIGHT Middle Finger Trigger Finger Release(Right) - Fritz Ling, DO Medications/Allergies* Home Medications ?Medication ?Instructions ?Recorded ?Confirmed ?Type tamsulosin 0.4 mg capsule 0.4 mg PO BEDTIME 03/07/20 05/15/25 History finasteride 5 mg tablet 5 mg PO DAILY 01/17/23 05/15/25 History nitroglycerin 0.4 mg sublingual 0.4 mg sublingual Q5M PRN Chest 01/17/23 05/15/25 History tablet Pain bumetanide 1 mg tablet 1 mg PO BID 05/09/23 05/15/25 History atorvastatin 80 mg tablet 80 mg PO QPM 09/23/23 05/15/25 History insulin glargine 100 unit/mL 7 unit SUBCUT DAILY 09/23/23 05/15/25 History subcutaneous solution metoprolol tartrate 50 mg tablet 50 mg PO DAILY 09/23/23 05/15/25 History valsartan 160 mg tablet 320 mg PO DAILY 05/07/24 05/15/25 History nifedipine 60 mg tablet,extended 90 mg PO DAILY 07/30/24 05/15/25 History release spironolactone 25 mg tablet 50 mg PO DAILY 07/30/24 05/15/25 History sevelamer carbonate 800 mg tablet 800 mg PO BID 11/04/24 05/15/25 History (Renvela) vit C,K-Iq-fhwlb-lutein-zeaxan PO 04/10/25 05/12/25 History [[facility] AREDS-2] clonidine HCl 0.1 mg tablet 0.1 mg PO QDAY 05/12/25 05/15/25 History doxazosin 1 mg tablet (Cardura) 1 mg PO DAILY 05/12/25 05/12/25 History insulin aspart U-100 100 unit/mL 10 unit SUBCUT TID 05/15/25 05/15/25 History (3 mL) subcutaneous pen (Novolog FlexPen U-100 Insulin aspart) Allergies/Adverse Reactions Allergy/AdvReac Type Severity Reaction Status Date / Time dulaglutide (From [facility]) Allergy Unknown Verified 05/12/25 15:33 sitagliptin (From Januvia) Allergy ADR-Blurry Verified 05/12/25 15:33 Vision Pertinent History/Comorbid Conditions* Medical History (Updated 04/26/25 @ 20:35 by Fritz Ling DO) Hyperlipemia, mixed End-stage renal disease on hemodialysis CAD (coronary artery disease) Lumbosacral radiculopathy Diabetes mellitus Hypertension Hypercholesterolemia DDD (degenerative disc disease), lumbar Surgical History (Updated 09/26/23 @ 00:00 by CHRISTINE Lock) History of hernia repair History of coronary artery stent placement (01/10/21) History of lumbar laminectomy (2021) Family History (Updated 07/01/22 @ 01:43 by Louis Cruz MD) Diabetes Cancer Father Hypertension Social History Smoking and tobacco/nicotine status: never used tobacco/nicotine Quit status (tobacco/nicotine): has quit using Former quit date comment: smoked x 1 year in teen years Second hand smoke exposure: No Alcohol intake: never Substance/Drug Use: never Lives independently: Yes Household members: spouse Marital status: Pertinent Exam Findings alert, oriented x 3, operative site marked and procedure specific exam findings Please refer to detailed orthopedic examination on 04/01/2025 listed below: Right hand Trigger Finger Exam: -Negative Tinel's at wrist -Negative median nerve compression test -Good thenar strength, no appreciable atrophy -Good intrinsic strength, no atrophy noted -Slight decreased ROM compared to the other digits -When making a fist decreased ROM of right middle finger -TTP over A1 radha of right middle finger with mechanical triggering and catching noted -No TTP over remaining digit A1 radha's -Negative CMC grind test -No TTP over CMC joint Recommendations Risks and benefits of procedure reviewed and Patient/family agree to proceed Surgery/Procedure today Other Plans: Plan to proceed to the OR today for right middle finger trigger release. Patient understands the ins and outs of the procedure the risk benefits complication alternatives surgical nonsurgical treatment options. Understand risk of surgery patient elects proceed with surgical invention. All questions answered at this time. He does have a fistula in the AC fossa at this point in time verified with anesthesia or okay to utilizing just an Esmarch tourniquet just at the wrist distally to help with hemostasis. He is getting labs preoperatively to confirm safe to proceed with surgical intervention per anesthesia. Understands and agrees with current plan. Questions answered. Coding Level of Care Code Acute Code for Chg Fwsarbjit
[2025-05-15 09:27] LABS: Hematocrit 29.5 % (37-53); Hemoglobin 9.60 g/dL (11.27-16.99); Mean Corpuscular HGB Conc 32.5 g/dL (30-55); Mean Corpuscular Hemoglobin 29.7 pg (27-33); Mean Corpuscular Volume 91.3 fl (82-101); Nucleated Red Blood Cells % 0 %; Platelet Count 170 10^3/cmm (157-399); Red Blood Count 3.23 10^6/uL (3.85-5.65); White Blood Count 6.91 10^3/uL (3.29-11.43)
[2025-05-15] MEDS: acetaminophen 1,000 MG/100 ML PIGGYBACK 400 MG IV (09:30)
[2025-05-15 09:47] LABS: Anion Gap 20.1 (5-19); Blood Urea Nitrogen 38 mg/dL (8-23); Calcium 9.5 mg/dL (8.5-10.5); Carbon Dioxide 27 mmol/L (22-29); Chloride 94 mmol/L (98-107); Creatinine Clr Calc Pharmacy 13.5149; Glucose 208 mg/dL (65-115); Osmolality Calculated 299 mOsm/kg (285-295); Potassium 4.1 mmol/L (3.5-5.1); Sodium 137 mmol/L (136-145)
[2025-05-15] MEDS: ceFAZolin 2,000 MG in sodium chloride 0.9% (plus) 50 ML 100 MG IV (10:04)
[2025-05-15] MEDS: ROPivacaine 0.5% SDV 30 mL 150 MG INJECTION (10:30)
--- NOTE | 2025-05-15 10:32 | P.BOP_ITS ---
Date of Procedure: 05/15/2025 Surgeon: Fritz Ling DO Consulting It Architect(s): None Procedure(s) performed: Right middle finger trigger release Findings of the procedure(s): Patient underwent procedure as planned without issues or complications taken recovery in stable condition Estimated blood loss: 2 mL Specimen(s) removed: None Post-operative diagnosis: Right middle finger trigger
--- NOTE | 2025-05-15 10:33 | PM.OP ---
Operative Report Date of procedure: May 15, 2025 Surgeon: Fritz Ling DO Procedure: Preoperative diagnosis: Right middle finger trigger Post-op diagnosis: Same Procedure done: Right?middle?finger?trigger?release Surgeon: Fritz Ling DO Estimated blood loss: 2cc Tourniquet time 4mins Complications: None Condition: stable Disposition: same day Brief History: Patient's been seen and worked up in the outpatient setting and findings consistent with preoperative diagnosis of right?middle?finger?trigger.? He is failed conservative treatment.? Continues to have mechanical locking and catching.? Severe pain as well.? We talked about treatment options nonoperative versus operative intervention.? ?Patient understands the risk benefits complication alternatives of surgical nonsurgical treatment options.? Understanding his risks with surgery he elects proceed with surgical intervention.? Consent obtained in the preoperative holding area for right middle finger trigger release here today to proceed with surgical intervention.? All questions answered. Procedure: Patient was seen and evaluated in the preoperative holding area.? Consent was reviewed and signed with patient.? Seen evaluated by Anesthesia Department.? Once cleared for surgery was brought back to the operative suite.? Placed in supine position on the OR table all bony prominences well-padded patient properly secured to the bed.? Patient's right arm was then placed to the armboard.? A nonsterile tourniquet applied to the right upper arm.? Patient's right upper extremity was then prepped and draped in standard orthopedic fashion.? Final timeout performed.? Patient received appropriate preoperative antibiotics. Esmarch tourniquet was placed at the wrist distally to avoid patient's AV fistula in the AC fossa. Under sterile aseptic technique local digital block was performed to the right?middle?finger.? Once appropriately anesthetized a standard oblique incision was made centering over the A1 radha following patient's flexor crease.? Sharp scalpel incision was made only through skin and then switched to Littler dissection scissors and spread longitudinally directly over the flexor tendon sheath.? I then mobilized both radially and ulnarly and Kasdan retractors were used and placed by my life science research assistant to protect neurovascular bundle.? Next I visualized the A1 radha and this was incised with a scalpel.? I then switched to dissection scissors and released the A1 radha both proximally as well as distally to its entirety.? Significant tendon sheath fluid was noted consistent with inflammation.? Mild fraying of the flexor tendons noted but no tear.? At this point I utilized a rag nail and pulled the tendons FDS and FDP out of the incision and no?triggering was noted.? I then had anesthesia wake up the patient and patient was able to actively flex and extend with no?triggering.? This point thorough irrigation was performed.? Esmarch tourniquet was removed and hemostasis satisfactory with bipolar.? I then subsequently closed the incision with interrupted nylon suture.? Xeroform 4 x 4's, Kerlix and an Slick wrap was applied for a bulky soft dressing. Once again patient maintained his thrill of the AV fistula and this was not affected during the procedure. Patient was then subsequently awakened from anesthesia and taken to PACU in stable condition tolerated procedure without issues. Disposition: Patient taken back in stable condition recovering well.? Patient will receive appropriate discharge instruction as well as pain medication postoperatively.? Patient to follow-up with me in the office in 2 weeks for repeat evaluation and incision check.? Patient understands that any questions or concerns and contact the office.? All questions answered.
--- NOTE | 2025-05-15 11:40 | ANE.PACU2 ---
Inpatient post-anesthesia follow up: Airway intact: Yes Vital signs: Temperature 97.0 F Pulse Rate 70 Respiratory Rate 18 Blood Pressure 162/65 Pulse Oximetry 98 Oxygen Delivery Me thod Room Air Oxygen Flow Rate Fraction of Inspir ed Oxygen Hydration adequate: Yes Nausea and vomiting: No Pain level: 1 Mental status: Baseline
== END 2025-05-15 11:40 | disposition home or self-care (01) ==
PROVIDERS: Student in an Organized Health Care Education/Training Program; PCP Family Medicine; Visit Provider Student in an Organized Health Care Education/Training Program
PROC: (CPT 26055; principal; 2025-05-15 09:30)
DX: M65.331 Trigger finger, right middle finger (principal); Z79.4 Long term (current) use of insulin; E78.2 Mixed hyperlipidemia; E11.22 Type 2 diabetes mellitus with diabetic chronic kidney disease; I12.0 Hypertensive chronic kidney disease with stage 5 chronic kidney disease or end stage renal disease; N18.6 End stage renal disease; Z99.2 Dependence on renal dialysis; I25.10 Atherosclerotic heart disease of native coronary artery without angina pectoris
CPT/HCPCS: 26055; 36415; 36416; 80048; 82962; 85025; J0131; J0690; J2250; J2704; J2795; J3010; J7030; J9999

== ENCOUNTER → 2025-05-27 12:50 | Outpatient (BNVA) | payer MEDICARE, SELFPAY | PROVIDERS: PCP Family Medicine; Visit Provider Podiatrist Foot & Ankle Surgery | DX: E11.42 Type 2 diabetes mellitus with diabetic polyneuropathy (principal); L60.3 Nail dystrophy; I73.9 Peripheral vascular disease, unspecified; N18.6 End stage renal disease; Z99.2 Dependence on renal dialysis; Z79.4 Long term (current) use of insulin | CPT/HCPCS: 11721; 99204 ==

== ENCOUNTER 2025-05-29 18:35 | Emergency (ER) | payer MEDICARE, SELFPAY ==
[2025-05-29 19:10] LABS: Hematocrit 29.2 % (37-53); Hemoglobin 9.50 g/dL (11.27-16.99); Mean Corpuscular HGB Conc 32.5 g/dL (30-55); Mean Corpuscular Hemoglobin 29.6 pg (27-33); Mean Corpuscular Volume 91.0 fl (82-101); Nucleated Red Blood Cells % 0 %; Platelet Count 150 10^3/cmm (157-399); Red Blood Count 3.21 10^6/uL (3.85-5.65); White Blood Count 9.59 10^3/uL (3.29-11.43)
[2025-05-29 19:21] VITALS: BP 178/79; PULSE 84; RESP 17; TEMP 36.4; O2SAT 95
[2025-05-29 19:30] LABS: Alanine Aminotransferase 9 U/L (0-41); Albumin Level 4.4 g/dL (3.5-5.2); Alkaline Phosphatase 77 U/L (40-130); Anion Gap 23.1 (5-19); Aspartate Amino Transferase 19 U/L (0-40); Blood Urea Nitrogen 29 mg/dL (8-23); Calcium 8.9 mg/dL (8.5-10.5); Carbon Dioxide 23 mmol/L (22-29); Chloride 92 mmol/L (98-107); Globulin 2.8 g/dL (1.3-4.6); Glucose 107 mg/dL (65-115); Osmolality Calculated 284 mOsm/kg (285-295); Potassium 4.1 mmol/L (3.5-5.1); Sodium 134 mmol/L (136-145); Total Protein 7.2 g/dL (6.6-8.7)
[2025-05-29 19:35] LABS: Creatinine Clr Calc Pharmacy 13.0315
--- NOTE | 2025-05-29 20:04 | XRR_ITS ---
PROCEDURE INFORMATION: Exam: XR Abdomen Exam date and time: 05/29/2025 8:21 PM Age: 84 years old Clinical indication: Constipation; Prior surgery; Surgery date: 6+ months; Surgery type: Hernia, lumbar; Additional info: Constipated TECHNIQUE: Imaging protocol: Radiologic exam of the abdomen. Views: Frontal supine view of the abdomen. 1 View. COMPARISON: CR XR KUB [id number] 10/20/2024 4:15 PM FINDINGS: Gastrointestinal tract: Prominent stool in the colon. Nonobstructive bowel-gas pattern. Vasculature: Pelvic phleboliths. Bones/joints: Unremarkable. Other findings: Two views. XR/XR abdomen 1V* [id number] IMPRESSION: Prominent stool in the colon. Nonobstructive bowel-gas pattern.
[2025-05-30] MEDS: magnesium citrate Btl 296 mL PO (00:01)
[2025-05-30] MEDS: lactulose oral liq 20 gm/30 mL UDC 30 GM PO (00:02)
[2025-05-30 00:08] VITALS: BP 195/81; PULSE 78; O2SAT 96
--- NOTE | 2025-05-30 01:26 | W.ED.ABDPA2 ---
Documented by User: RAFFI Donahue 05/30/25 01:29 HPI - Abdominal Pain General: Chief Complaint: Abdominal Pain Stated Complaint: Constipated Time Seen by Provider: 05/29/25 19:55 Source: patient Mode of arrival: ambulatory Limitations: no limitations History of Present Illness: Patient is an 84-year-old male who presents to the emergency department complaining of constipation. States he has not had normal bowel movement since 05/17. Notes that he has been taking anos-qas-owdxwme laxatives with no relief, he did try to have bowel movement this morning but states it was just liquid. States that he started to have distention of his abdomen as well as abdominal cramping and today has not been able to get anything done due to his symptoms. He did try an enema at home as well with no relief. This patient is end-stage renal disease patient on dialysis. No history of bowel obstruction. He is not having any nausea or vomiting, chest pain or shortness of breath. Hypertensive at this time, rest of his vitals are stable he is nontoxic-appearing. MD elicited complaint: abdominal pain Pertinent past history: constipation Onset (ago): week(s) Pain Consistency: constant Location: Diffuse Quality: cramping Associated Symptoms: Reports bloating, constipation and GI cramping; Denies change in stool character, chills, diarrhea, dysuria, fever(s), hematochezia, nausea and vomiting Related Data Home Medications ?Medication ?Instructions ?Recorded ?Confirmed tamsulosin 0.4 mg capsule 0.4 mg PO BEDTIME 03/07/20 05/27/25 finasteride 5 mg tablet 5 mg PO DAILY 01/17/23 05/27/25 nitroglycerin 0.4 mg sublingual 0.4 mg sublingual Q5M PRN Chest 01/17/23 05/27/25 tablet Pain bumetanide 1 mg tablet 1 mg PO BID 05/09/23 05/27/25 atorvastatin 80 mg tablet 80 mg PO QPM 09/23/23 05/27/25 insulin glargine 100 unit/mL 7 unit SUBCUT DAILY 09/23/23 05/27/25 subcutaneous solution metoprolol tartrate 50 mg tablet 50 mg PO DAILY 09/23/23 05/27/25 valsartan 160 mg tablet 320 mg PO DAILY 05/07/24 05/27/25 nifedipine 60 mg tablet,extended 90 mg PO DAILY 07/30/24 05/27/25 release spironolactone 25 mg tablet 50 mg PO DAILY 07/30/24 05/27/25 sevelamer carbonate 800 mg tablet 800 mg PO BID 11/04/24 05/27/25 (Renvela) vit C,V-Jv-awwzn-lutein-zeaxan PO 04/10/25 05/27/25 [[facility] AREDS-2] clonidine HCl 0.1 mg tablet 0.1 mg PO QDAY 05/12/25 05/27/25 doxazosin 1 mg tablet (Cardura) 1 mg PO DAILY 05/12/25 05/27/25 insulin aspart U-100 100 unit/mL 10 unit SUBCUT TID 05/15/25 05/27/25 (3 mL) subcutaneous pen (Novolog FlexPen U-100 Insulin aspart) Previous Rx's ?Medication ?Instructions ?Recorded clopidogrel 75 mg tablet 75 mg PO DAILY #30 tabs 09/25/23 hydralazine 100 mg tablet 100 mg PO TID #180 tabs 05/07/24 pen needle, diabetic 32 gauge x #300 ea 09/29/24/32 (BD Breanne 2nd Gen Pen Needle) Diabetic shoe with 3 sets insoles #1 ea 05/27/25 glycerin (adult) 1 supp VT DAILY PRN constipation 05/29/25 #12 ea polyethylene glycol 3350 17 4 g PO DAILY #119 grams 05/29/25 gram/dose oral powder (Miralax) Allergies Allergy/AdvReac Type Severity Reaction Status Date / Time dulaglutide (From [facility]) Allergy Unknown Verified 05/29/25 19:24 sitagliptin (From [facility] [place]) Allergy ADR-Blurry Verified 05/29/25 19:24 Vision Review of Systems General: Reports: 10 or more systems reviewed and unremarkable except in HPI and below Const: Denies: fever(s), chills, change in appetite, change in weight or diaphoresis ENMT: Denies: throat pain or hoarseness Card: Denies: chest pain, palpitations or lightheadedness Resp: Denies: dyspnea, productive cough or wheezing GI: Reports: abdominal pain, constipation, bloating and GI cramping; Denies: nausea, vomiting, diarrhea, change in stool character or hematochezia : Denies: flank pain, difficulty urinating, dysuria, urinary frequency or urinary urgency Musc: Denies: neck pain or back pain Skin/Breast: Denies: rash or new lesions Neuro: Denies: headache(s) or dizziness PFSH ED PFSH: Medical History Hyperlipemia, mixed End-stage renal disease on hemodialysis CAD (coronary artery disease) Lumbosacral radiculopathy Diabetes mellitus Hypertension Hypercholesterolemia DDD (degenerative disc disease), lumbar Surgical History History of hernia repair History of coronary artery stent placement (01/10/21) History of lumbar laminectomy (2021) Family History Father Cancer Other Diabetes Hypertension Social History Smoking and tobacco/nicotine status: former use of tobacco/nicotine Quit status (tobacco/nicotine): has quit using Former quit date comment: smoked x 1 year in teen years Second hand smoke exposure: No Alcohol intake: never Substance/Drug Use: never Lives independently: Yes Household members: spouse Marital status: Physical Exam Const: COMMON NORMALS: no acute distress, average body habitus, patient oriented x3, no limitations, healthy appearing, alert and well nourished GENERAL APPEARANCE: cooperative and comfortable ORIENTATION/CONSCIOUSNESS: Yes awake OTHER: nontoxic Neck/C-Spine: COMMON NORMALS: full ROM, supple and no meningeal signs Resp: COMMON NORMALS: normal respiratory effort, No retractions, No use of accessory muscles and clear to auscultation bilaterally AUSCULTATION: clear to auscultation bilaterally, no crackles, no rales, no rhonchi and no wheezes Cardio: COMMON NORMALS: regular rate, regular rhythm, No gallops present (Cardio), No clicks present (Cardio), No murmurs present (Cardio) and No rub (Cardio) RATE: regular rate RHYTHM: regular rhythm GI: COMMON NORMALS: Soft to palpation, non-tender, No hepatosplenomegaly present and no masses INSPECTION: Yes abdominal distension AUSCULTATION: Yes normoactive bowel sounds PALPATION: Yes Soft to palpation, No Guarding due to palpation present (GI), No Rigid due to palpation and Yes No hepatosplenomegaly present RECTAL EXAM: Yes deferred Extremity: COMMON NORMALS: normal to inspection and full ROM Neuro: COMMON NORMALS: patient oriented x3, moves all extremities, no focal motor deficits and no sensory deficits noted SENSORIUM/ORIENTATION: Yes alert MENINGEAL SIGNS: Yes no meningeal signs Psych: COMMON NORMALS: mental status grossly normal, cooperative and speech normal SPEECH: Yes normal speech Skin: COMMON NORMALS: no rashes or lesions noted GENERAL SKIN EXAM: no rashes or lesions noted Procedures Rectal Disimpaction Indication: fecal impaction Procedural Sedation: No Sedation/Analgesia: none Technique: manual disimpaction with gloved finger Result: significant stool output Patient Tolerated Procedure: well Complications: none Course Vital Signs: Vital signs: Vital Signs Temperature 97.6 F 05/29/25 19:21 Pulse Rate 78 05/30/25 00:08 Respiratory Rate 17 05/29/25 19:21 Blood Pressure 195/81 05/30/25 00:08 Pulse Oximetry 96 05/30/25 00:08 MDM - Abdominal Pain Medical Decision Making Patient presenting for constipation had not have a normal bowel movement in weeks. He only tried taken bisacodyl xcqx-kxj-ptnhxhu, as well as 1 enema with no relief. Here glycerin suppository and enema was attempted with no relief. X-ray showing prominent stool but no obstruction. Lab work unremarkable. After about an hour of being monitored, deemed appropriate for disimpaction and this was performed with significant output. He will be sent home with combination of magnesium citrate, lactulose, and mineral oil for further clearance and will send MiraLAX and glycerin suppository to his pharmacy. Encouraged to follow-up with primary care for further evaluation, return with any new or worsening. Lab Data 05/29/25 18:56 05/29/25 18:56 Labs/Radiology: Radiology Impressions Abdomen X-Ray 05/29/25 20:04 IMPRESSION: Prominent stool in the colon. Nonobstructive bowel-gas pattern. Laboratory Results WBC 9.59 10^3/uL (3.29-11.43) 05/29/25 18:56 RBC 3.21 10^6/uL (3.85-5.65) L 05/29/25 18:56 Hgb 9.50 g/dL (11.27-16.99) L 05/29/25 18:56 Hct 29.2 % (37-53) L 05/29/25 18:56 MCV 91.0 fl (82-101) 05/29/25 18:56 MCH 29.6 pg (27-33) 05/29/25 18:56 MCHC 32.5 g/dL (30-55) 05/29/25 18:56 RDW 14.9 % (12.1-15.1) 05/29/25 18:56 Plt Count 150 10^3/cmm (157-399) L 05/29/25 18:56 MPV 9.2 fL (7.4-10.4) 05/29/25 18:56 Neut % (Auto) 83.2 % 05/29/25 18:56 Lymph % (Auto) 8.4 % 05/29/25 18:56 [place] % (Auto) 6.7 % 05/29/25 18:56 Eos % (Auto) 0.6 % 05/29/25 18:56 Baso % (Auto) 0.2 % 05/29/25 18:56 Neut # (Auto) 7.97 10^3/uL (1.8-7.7) H 05/29/25 18:56 Lymph # (Auto) 0.8 10^3/uL (0.8-4.8) 05/29/25 18:56 [place] # (Auto) 0.6 10^3/uL (0.2-0.9) 05/29/25 18:56 Eos # (Auto) 0.1 10^3/uL (0.0-0.8) 05/29/25 18:56 Baso # (Auto) 0.0 10^3/uL (0.0-0.1) 05/29/25 18:56 Nucleated RBC % (auto) 0 % 05/29/25 18:56 Nucleated RBCs # 0.0 /100WBC 05/29/25 18:56 Sodium 134 mmol/L (136-145) L 05/29/25 18:56 Potassium 4.1 mmol/L (3.5-5.1) 05/29/25 18:56 Chloride 92 mmol/L (98-107) L 05/29/25 18:56 Carbon Dioxide 23 mmol/L (22-29) 05/29/25 18:56 Anion Gap 23.1 (5-19) H 05/29/25 18:56 BUN 29 mg/dL (8-23) H 05/29/25 18:56 Creatinine 4.7 mg/dL (0.7-1.2) H 05/29/25 18:56 GFR Calculation Not Reportable 05/29/25 18:56 Glucose 107 mg/dL (65-115) 05/29/25 18:56 Calculated Osmolality 284 mOsm/kg (285-295) L 05/29/25 18:56 Calcium 8.9 mg/dL (8.5-10.5) 05/29/25 18:56 Total Bilirubin 0.7 mg/dL (0.15-1.2) 05/29/25 18:56 AST 19 U/L (0-40) 05/29/25 18:56 ALT 9 U/L (0-41) 05/29/25 18:56 Alkaline Phosphatase 77 U/L (40-130) 05/29/25 18:56 Total Protein 7.2 g/dL (6.6-8.7) 05/29/25 18:56 Albumin 4.4 g/dL (3.5-5.2) 05/29/25 18:56 Globulin 2.8 g/dL (1.3-4.6) 05/29/25 18:56 All radiology interpretation(s) finalized by discharge Discharge Plan Discharge Patient Disposition: Home Clinical Impression: Constipation Qualifiers: Constipation type: unspecified constipation type Qualified Code(s): K59.00 - Constipation, unspecified Condition: Stable Prescriptions: New polyethylene glycol 3350 [Miralax] 17 gram/dose powder 4 g PO DAILY Qty: 119 0RF glycerin (adult) Suppository 1 supp VT DAILY PRN (Reason: constipation) Qty: 12 0RF No Action doxazosin [Cardura] 1 mg tablet 1 mg PO DAILY (DME) Diabetic shoe with 3 sets insoles See Rx Instructions .Route .MEDSUPPLY Qty: 1 0RF Rx Instructions: As directed by [facility] finasteride 5 mg tablet 5 mg PO DAILY nitroglycerin 0.4 mg tablet, sublingual 0.4 mg sublingual Q5M PRN (Reason: Chest Pain) Rx Instructions: do not exceed 3 doses per episode spironolactone 25 mg tablet 50 mg PO DAILY clonidine HCl 0.1 mg tablet 0.1 mg PO QDAY bumetanide 1 mg tablet 1 mg PO BID valsartan 160 mg tablet 320 mg PO DAILY hydralazine 100 mg tablet 100 mg PO TID Qty: 180 3RF vit C,X-Li-kbgdu-lutein-zeaxan [[facility]] PO (DME) pen needle, diabetic [BD Breanne 2nd Gen Pen Needle] 32 gauge x 5/32 needle See Rx Instructions .ROUTE .COMPLEX Qty: 300 1RF Dose Instruction: USE DIRECTED Rx Instructions: USE DIRECTED tamsulosin 0.4 mg capsule 0.4 mg PO BEDTIME insulin aspart U-100 [Novolog FlexPen U-100 Insulin] 100 unit/mL (3 mL) insulin pen 10 unit SUBCUT TID insulin glargine 100 unit/mL solution 7 unit SUBCUT DAILY metoprolol tartrate 50 mg tablet 50 mg PO DAILY atorvastatin 80 mg Tablet 80 mg PO QPM clopidogrel 75 mg Tablet 75 mg PO DAILY Qty: 30 0RF nifedipine 60 mg tablet extended release 90 mg PO DAILY sevelamer carbonate [Renvela] 800 mg tablet 800 mg PO BID Rx Instructions: must administer with a meal/food Discharge Orders: Discharge ED (Routine); Ordered 05/29/25 Ordered By: Brandon Patel Referrals: Harjit Marc MD [Primary Care Provider, Family Practice] Patient Instructions: Patient Portal & [facility] Instructions Activity Restrictions/Additional Instructions: Constipation Discharge Instructions You were treated for constipation with a procedure to remove stool from your rectum. You are being prescribed MiraLAX (polyethylene glycol) and glycerin suppositories to help prevent future problems. Medications: - MiraLAX (polyethylene glycol): Take 17 grams (one capful) mixed in 4 to 8 ounces of water or other beverage once daily. MiraLAX usually produces a bowel movement in 1 to 3 days. Do not use for more than 7 days unless directed by your doctor. Stop use and contact your doctor if you have rectal bleeding, worsening abdominal pain, nausea, bloating, cramping, or diarrhea. - Glycerin suppository: Use as directed, typically if you have not had a bowel movement for 2 days. Insert one suppository into the rectum, preferably 30 minutes after a meal to take advantage of your body's natural response to eating. Lifestyle and Diet: - Increase fiber intake gradually with foods like fruits, vegetables, and whole grains, or with fiber supplements. Aim for 20?25 grams of fiber per day. - Drink plenty of fluids unless otherwise instructed by your doctor. - Stay active with regular walking or movement as tolerated. - Schedule toileting after meals and respond promptly to the urge to have a bowel movement. Avoid straining or spending excessive time on the toilet. What to Watch For: - Loose, watery, or more frequent stools may occur. - Contact your doctor if you experience severe abdominal pain, persistent nausea or vomiting, rectal bleeding, or if you do not have a bowel movement after several days of treatment. - If you need to use a laxative for longer than 1 week, consult your doctor. Follow-Up: - Schedule a follow-up appointment with your primary care provider or entomology professor. - Bring a list of all medications and supplements you are taking. When to Seek Help: - Go to the emergency department if you develop severe abdominal pain, vomiting, inability to pass stool or gas, or signs of dehydration. Additional Notes: - Avoid mineral oil by mouth, as it is not recommended for older adults. - If constipation persists despite these measures, further evaluation or alternative treatments may be needed. If you have any questions or concerns, contact your healthcare provider. Print Language: Wolof Coding Level of Care Code ED Mind Reader for Chg Fwd Documented by User: Shubham Dc DO 05/30/25 03:42 HPI - Abdominal Pain General: Chief Complaint: Abdominal Pain Stated Complaint: Constipated Time Seen by Provider: 05/29/25 19:55 Related Data Home Medications ?Medication ?Instructions ?Recorded ?Confirmed tamsulosin 0.4 mg capsule 0.4 mg PO BEDTIME 03/07/20 05/27/25 finasteride 5 mg tablet 5 mg PO DAILY 01/17/23 05/27/25 nitroglycerin 0.4 mg sublingual 0.4 mg sublingual Q5M PRN Chest 01/17/23 05/27/25 tablet Pain bumetanide 1 mg tablet 1 mg PO BID 05/09/23 05/27/25 atorvastatin 80 mg tablet 80 mg PO QPM 09/23/23 05/27/25 insulin glargine 100 unit/mL 7 unit SUBCUT DAILY 09/23/23 05/27/25 subcutaneous solution metoprolol tartrate 50 mg tablet 50 mg PO DAILY 09/23/23 05/27/25 valsartan 160 mg tablet 320 mg PO DAILY 05/07/24 05/27/25 nifedipine 60 mg tablet,extended 90 mg PO DAILY 07/30/24 05/27/25 release spironolactone 25 mg tablet 50 mg PO DAILY 07/30/24 05/27/25 sevelamer carbonate 800 mg tablet 800 mg PO BID 11/04/24 05/27/25 (Renvela) vit C,C-It-wzmog-lutein-zeaxan PO 04/10/25 05/27/25 [[facility]EDS-2] clonidine HCl 0.1 mg tablet 0.1 mg PO QDAY 05/12/25 05/27/25 doxazosin 1 mg tablet (Cardura) 1 mg PO DAILY 05/12/25 05/27/25 insulin aspart U-100 100 unit/mL 10 unit SUBCUT TID 05/15/25 05/27/25 (3 mL) subcutaneous pen (Novolog FlexPen U-100 Insulin aspart) Previous Rx's ?Medication ?Instructions ?Recorded clopidogrel 75 mg tablet 75 mg PO DAILY #30 tabs 09/25/23 hydralazine 100 mg tablet 100 mg PO TID #180 tabs 05/07/24 pen needle, diabetic 32 gauge x #300 ea 09/29/24 (BD Breanne 2nd Gen Pen Needle) Diabetic shoe with 3 sets insoles #1 ea 05/27/25 glycerin (adult) 1 supp VT DAILY PRN constipation 05/29/25 #12 ea polyethylene glycol 3350 17 4 g PO DAILY #119 grams 05/29/25 gram/dose oral powder (Miralax) Allergies Allergy/AdvReac Type Severity Reaction Status Date / Time dulaglutide (From [facility]) Allergy Unknown Verified 05/29/25 19:24 sitagliptin (From [facility]) Allergy ADR-Blurry Verified 05/29/25 19:24 Vision PFSH ED PFSH: Medical History Hyperlipemia, mixed End-stage renal disease on hemodialysis CAD (coronary artery disease) Lumbosacral radiculopathy Diabetes mellitus Hypertension Hypercholesterolemia DDD (degenerative disc disease), lumbar Surgical History History of hernia repair History of coronary artery stent placement (01/10/21) History of lumbar laminectomy (2021) Family History Father Cancer Other Diabetes Hypertension Social History Smoking and tobacco/nicotine status: former use of tobacco/nicotine Quit status (tobacco/nicotine): has quit using Former quit date comment: smoked x 1 year in teen years Second hand smoke exposure: No Alcohol intake: never Substance/Drug Use: never Lives independently: Yes Household members: spouse Marital status: Course Vital Signs: Vital signs: Vital Signs Temperature 97.6 F 05/29/25 19:21 Pulse Rate 78 05/30/25 00:08 Respiratory Rate 17 05/29/25 19:21 Blood Pressure 195/81 05/30/25 00:08 Pulse Oximetry 96 05/30/25 00:08 MDM - Abdominal Pain Medical Decision Making Patient presenting for constipation had not have a normal bowel movement in weeks. He only tried taken bisacodyl zkjb-dcb-noytrql, as well as 1 enema with no relief. Here glycerin suppository and enema was attempted with no relief. X-ray showing prominent stool but no obstruction. Lab work unremarkable. After about an hour of being monitored, deemed appropriate for disimpaction and this was performed with significant output. He will be sent home with combination of magnesium citrate, lactulose, and mineral oil for further clearance and will send MiraLAX and glycerin suppository to his pharmacy. Encouraged to follow-up with primary care for further evaluation, return with any new or worsening. This patient was originally seen by Mr. Jorge PA-C. I agree with his history, evaluation, and treatment. Lab Data 05/29/25 18:56 05/29/25 18:56 Labs/Radiology: Radiology Impressions Abdomen X-Ray 05/29/25 20:04 IMPRESSION: Prominent stool in the colon. Nonobstructive bowel-gas pattern. Laboratory Results WBC 9.59 10^3/uL (3.29-11.43) 05/29/25 18:56 RBC 3.21 10^6/uL (3.85-5.65) L 05/29/25 18:56 Hgb 9.50 g/dL (11.27-16.99) L 05/29/25 18:56 Hct 29.2 % (37-53) L 05/29/25 18:56 MCV 91.0 fl (82-101) 05/29/25 18:56 MCH 29.6 pg (27-33) 05/29/25 18:56 MCHC 32.5 g/dL (30-55) 05/29/25 18:56 RDW 14.9 % (12.1-15.1) 05/29/25 18:56 Plt Count 150 10^3/cmm (157-399) L 05/29/25 18:56 MPV 9.2 fL (7.4-10.4) 05/29/25 18:56 Neut % (Auto) 83.2 % 05/29/25 18:56 Lymph % (Auto) 8.4 % 05/29/25 18:56 [place] % (Auto) 6.7 % 05/29/25 18:56 Eos % (Auto) 0.6 % 05/29/25 18:56 Baso % (Auto) 0.2 % 05/29/25 18:56 Neut # (Auto) 7.97 10^3/uL (1.8-7.7) H 05/29/25 18:56 Lymph # (Auto) 0.8 10^3/uL (0.8-4.8) 05/29/25 18:56 [place] # (Auto) 0.6 10^3/uL (0.2-0.9) 05/29/25 18:56 Eos # (Auto) 0.1 10^3/uL (0.0-0.8) 05/29/25 18:56 Baso # (Auto) 0.0 10^3/uL (0.0-0.1) 05/29/25 18:56 Nucleated RBC % (auto) 0 % 05/29/25 18:56 Nucleated RBCs # 0.0 /100WBC 05/29/25 18:56 Sodium 134 mmol/L (136-145) L 05/29/25 18:56 Potassium 4.1 mmol/L (3.5-5.1) 05/29/25 18:56 Chloride 92 mmol/L (98-107) L 05/29/25 18:56 Carbon Dioxide 23 mmol/L (22-29) 05/29/25 18:56 Anion Gap 23.1 (5-19) H 05/29/25 18:56 BUN 29 mg/dL (8-23) H 05/29/25 18:56 Creatinine 4.7 mg/dL (0.7-1.2) H 05/29/25 18:56 GFR Calculation Not Reportable 05/29/25 18:56 Glucose 107 mg/dL (65-115) 05/29/25 18:56 Calculated Osmolality 284 mOsm/kg (285-295) L 05/29/25 18:56 Calcium 8.9 mg/dL (8.5-10.5) 05/29/25 18:56 Total Bilirubin 0.7 mg/dL (0.15-1.2) 05/29/25 18:56 AST 19 U/L (0-40) 05/29/25 18:56 ALT 9 U/L (0-41) 05/29/25 18:56 Alkaline Phosphatase 77 U/L (40-130) 05/29/25 18:56 Total Protein 7.2 g/dL (6.6-8.7) 05/29/25 18:56 Albumin 4.4 g/dL (3.5-5.2) 05/29/25 18:56 Globulin 2.8 g/dL (1.3-4.6) 05/29/25 18:56 Discharge Plan Discharge Patient Disposition: Home Clinical Impression: Constipation Qualifiers: Constipation type: unspecified constipation type Qualified Code(s): K59.00 - Constipation, unspecified Condition: Stable Prescriptions: New polyethylene glycol 3350 [Miralax] 17 gram/dose powder 4 g PO DAILY Qty: 119 0RF glycerin (adult) Suppository 1 supp [place] DAILY PRN (Reason: constipation) Qty: 12 0RF No Action doxazosin [Cardura] 1 mg tablet 1 mg PO DAILY (DME) Diabetic shoe with 3 sets insoles See Rx Instructions .Route .MEDSUPPLY Qty: 1 0RF Rx Instructions: As directed by [facility] finasteride 5 mg tablet 5 mg PO DAILY nitroglycerin 0.4 mg tablet, sublingual 0.4 mg sublingual Q5M PRN (Reason: Chest Pain) Rx Instructions: do not exceed 3 doses per episode spironolactone 25 mg tablet 50 mg PO DAILY clonidine HCl 0.1 mg tablet 0.1 mg PO QDAY bumetanide 1 mg tablet 1 mg PO BID valsartan 160 mg tablet 320 mg PO DAILY hydralazine 100 mg tablet 100 mg PO TID Qty: 180 3RF vit C,F-Ip-uovad-lutein-zeaxan [[facility]-2] PO (DME) pen needle, diabetic [BD Breanne 2nd Gen Pen Needle] 32 gauge x 5/32 needle See Rx Instructions .ROUTE .COMPLEX Qty: 300 1RF Dose Instruction: USE DIRECTED Rx Instructions: USE DIRECTED tamsulosin 0.4 mg capsule 0.4 mg PO BEDTIME insulin aspart U-100 [Novolog FlexPen U-100 Insulin] 100 unit/mL (3 mL) insulin pen 10 unit SUBCUT TID insulin glargine 100 unit/mL solution 7 unit SUBCUT DAILY metoprolol tartrate 50 mg tablet 50 mg PO DAILY atorvastatin 80 mg Tablet 80 mg PO QPM clopidogrel 75 mg Tablet 75 mg PO DAILY Qty: 30 0RF nifedipine 60 mg tablet extended release 90 mg PO DAILY sevelamer carbonate [Renvela] 800 mg tablet 800 mg PO BID Rx Instructions: must administer with a meal/food Discharge Orders: Discharge ED (Routine); Ordered 05/29/25 Ordered By: Brandon Patel Referrals: Harjit Marc MD [Primary Care Provider, Family Practice] Patient Instructions: Patient Portal & [facility] Instructions Activity Restrictions/Additional Instructions: Constipation Discharge Instructions You were treated for constipation with a procedure to remove stool from your rectum. You are being prescribed MiraLAX (polyethylene glycol) and glycerin suppositories to help prevent future problems. Medications: - MiraLAX (polyethylene glycol): Take 17 grams (one capful) mixed in 4 to 8 ounces of water or other beverage once daily. MiraLAX usually produces a bowel movement in 1 to 3 days. Do not use for more than 7 days unless directed by your doctor. Stop use and contact your doctor if you have rectal bleeding, worsening abdominal pain, nausea, bloating, cramping, or diarrhea. - Glycerin suppository: Use as directed, typically if you have not had a bowel movement for 2 days. Insert one suppository into the rectum, preferably 30 minutes after a meal to take advantage of your body's natural response to eating. Lifestyle and Diet: - Increase fiber intake gradually with foods like fruits, vegetables, and whole grains, or with fiber supplements. Aim for 20?25 grams of fiber per day. - Drink plenty of fluids unless otherwise instructed by your doctor. - Stay active with regular walking or movement as tolerated. - Schedule toileting after meals and respond promptly to the urge to have a bowel movement. Avoid straining or spending excessive time on the toilet. What to Watch For: - Loose, watery, or more frequent stools may occur. - Contact your doctor if you experience severe abdominal pain, persistent nausea or vomiting, rectal bleeding, or if you do not have a bowel movement after several days of treatment. - If you need to use a laxative for longer than 1 week, consult your doctor. Follow-Up: - Schedule a follow-up appointment with your primary care provider or entomology professor. - Bring a list of all medications and supplements you are taking. When to Seek Help: - Go to the emergency department if you develop severe abdominal pain, vomiting, inability to pass stool or gas, or signs of dehydration. Additional Notes: - Avoid mineral oil by mouth, as it is not recommended for older adults. - If constipation persists despite these measures, further evaluation or alternative treatments may be needed. If you have any questions or concerns, contact your healthcare provider. Print Language: Wolof Coding Level of Care Code ED Mind Reader for Mervat Ignacio
== END 2025-05-30 00:11 | disposition home or self-care (01) ==
PROVIDERS: Emergency Medicine; Emergency Provider Physician Assistant; PCP Family Medicine
DX: K59.00 Constipation, unspecified (principal); Z79.4 Long term (current) use of insulin; Z79.02 Long term (current) use of antithrombotics/antiplatelets; Z87.891 Personal history of nicotine dependence; I25.10 Atherosclerotic heart disease of native coronary artery without angina pectoris; E78.2 Mixed hyperlipidemia; E11.22 Type 2 diabetes mellitus with diabetic chronic kidney disease; I12.0 Hypertensive chronic kidney disease with stage 5 chronic kidney disease or end stage renal disease; N18.6 End stage renal disease; Z99.2 Dependence on renal dialysis
CPT/HCPCS: 36415; 74018; 80053; 85025; 99284; J9999

== ENCOUNTER → 2025-06-02 13:57 | Outpatient (BNVA) | payer MEDICARE, SELFPAY | PROVIDERS: PCP Family Medicine; Visit Provider Physician Assistant | DX: Z98.890 Other specified postprocedural states (principal) | CPT/HCPCS: 99024 ==

== ENCOUNTER 2025-07-20 16:51 | Emergency (ER) | payer MEDICARE, SELFPAY ==
[2025-07-20 16:58] VITALS: BP 132/77; PULSE 82; TEMP 36.4; O2SAT 100; BMI 26.1
--- OUTSIDE RECORDS SUMMARY | 2025-07-20 17:03 | XMS_ITS | Encounter Summary ---
Author Organization [facility] Address [address] [place] [address] Care Team Providers Care Director Of Revenue Name Role Phone Harjit Marc MD Primary Care Provider [phone] Encounter Details Date Type Department Care Team (Latest Contact Info) Description 02/19/2002 Outpatient Historical [facility] Dermatology- [facility] [place] [address] [place] [address] Arnol Madrigal MD NO ADDRESS ON FILE SEBACEOUS CYST (Primary Dx) Social History Tobacco Use Types Packs/Day Years Used Date Smoking Tobacco: Never Assessed Sex and Gender Information Value Date Recorded Sex Assigned at Not on file 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
--- OUTSIDE RECORDS SUMMARY | 2025-07-20 17:03 | XMS_ITS | Encounter Summary ---
Author Organization [facility] Address [address] [facility] [address] [place] [address] Phone Care Team Providers Care Stretching Press Operator Name Role Phone Harjit Marc MD Primary Care Provider + [phone] Encounter Details Date Type Department Care Team (Late st Contact Info) Description 07/13/2025 Treatment [facility] [address] [facility] [address] [place] [address] Gloria Ferguson NP [address] [facility] [address] [facility] [address] [place] [address] End stage renal disease; Dependence on renal dialysis Social History Tobacco Use Types Packs/Day Years Used Date Smoking Tobacco: Former Cigarettes Smokeless Tobacco: Never Alcohol Use Standard Drinks/Week Comments Never 0 (1 standard drink = 0.6 oz pur e alcohol) Sex and Gender Information Value Date Recorded Sex Assigned at Not on file Legal Sex Male 10:54 AM EDT Gender Identity Not on file Sexual Orientation Not on file documented as of this encounter Miscellaneous Notes * Dialysis Note - Gloria Ferguson NP - 07/13/2025 12:00 AM CST BASIC NOTE Patient: Quang Hunter : 1940 Note Author: GLORIA FERGUSON NP Service Date: 07/13/2025 This patient was personally seen [id number] for a basic visit as part of routine monthly dialysis care for end stage renal disease. Attending Spray Maker: BERENICE WEISS Dialysis Location: [facility] Schedule: Shift: 1 OVERVIEW Patient is stable. Patient has no complaints. COMMENTS: Seen on HD. No concerns. HOME MEDICATIONS [facility] atorvastatin 80 mg tablet Take 1 tablet by mouth every evening. bumetanide 1 mg tablet Take 1 mg by mouth twice a day. Cardura 2 mg tablet Take 1 tablet by mouth every night. carvedilol 25 mg tablet Take 1 tablet by mouth twice a day. clonidine HCl 0.1 mg tablet Take 1 tablet by mouth twice a day. [*Medication on Hold per Gloria*] clopidogrel 75 mg tablet Take 1 tablet by mouth once a day. finasteride 5 mg tablet Take 1 tablet by mouth once a day. Humalog KwikPen Insulin 100 unit/mL insulin pen Inject 0.1 unit subcutaneously three times a day. [per sliding scale] hydralazine 100 mg tablet Take 1 tablet by mouth twice a day. insulin glargine 100 unit/mL solution Inject 8 unit subcutaneously once a day. nifedipine 90 mg tablet extended release 1 tablet by mouth every night. nitroglycerin 0.4 mg tablet, sublingual Place 1 tablet under tongue as directed. [Dissolve 1 tablet under tongue every 5 minutes as needed for chest pain, up to 3 doses. Call 911 if no relief.] pantoprazole 40 mg tablet,delayed release (DR/EC) Take 1 tablet by mouth once a day. RenaPlex-D 800 mcg-12.5 mg-2,000 unit tablet [TAKE 1 TABLET BY MOUTH EVERY DAY] Sevelamer Carbonate Tablet 800 mg tablet Take 2 Tablet By Mouth Three times a day With Meals. spironolactone 50 mg tablet Take 1 tablet by mouth once a day. tamsulosin 0.4 mg capsule Take 1 capsule by mouth twice a day. valsartan 320 mg tablet Take 1 tablet by mouth every night. Current [facility] Allergies Allergen: No Known Allergies Allergen: No Known Drug Allergies Allergen: No Known Food Allergies DIALYSIS PRESCRIPTION Treatment Data Treatment Date: 07/13/2025 started at: 7:39 AM Dialysate / Machine Temp (prescribed): 37.0*C Dialysate / Machine Temp (actual): 35.1*C BFR (prescribed): 450 BFR (average delivered): 440 DFR (prescribed): Manual 800 DFR (average delivered): 800 Prescribed Time: 03:15 Actual Time: 03:33 EDW (kg): 79.5 Dialyzer: FX CorAL 60 Dialysate: 3.0 K, 2.5 Ca, 1.0 Mg, 100 Dextrose (G3251) Sodium: 135 Bicarb: 36 Pre Dialysis Vitals Pre BP Sit: 156/132 Pre Wt (kg): 79.5 EDW Deviation (kg): 0.0 Temp: 97.7*F Post Dialysis Vitals Post BP Sit: 138/81 Post Wt (kg): 79.3 TREATMENT MEDICATIONS ORDERS Iron Sucrose (Venofer) 50 mg IVP 1X Week 06/09/2025 - 06/08/2026 Vitamin D (Calcitriol) Oral 0.75 mcg ORAL 3X Week During Dialysis 04/30/2025 - 04/29/2026 BP AND FLUID ASSESSMENT COMMENTS: Hold clonidine: begin cardura 2 mg nightly 04/28. BP improved with above change IDWG (kg) 0.3 - 07/13/2025 1.9 - 07/11/2025 1.3 - 07/09/2025 Post BP Sit 138/81 - 07/13/2025 129/97 - 07/11/2025 140/65 - 07/09/2025 Post Wt (kg) 79.3 - 07/13/2025 79.2 - 07/11/2025 79.1 - 07/09/2025 EDW (kg) 79.5 - 07/13/2025 79.5 - 07/11/2025 79.5 - 07/09/2025 Deviation (kg) -0.2 - 07/13/2025 -0.3 - 07/11/2025 -0.4 - 07/09/2025 ADEQUACY ASSESSMENT spKt/V (Daugirdas II) 1.50 (06/25/25) 1.41 (05/21/25) 1.49 (04/23/25) eKdrt/V 1.26 (06/25/25) 1.19 (05/21/25) 1.25 (04/23/25) % Urea Reduction 72 (05/21/25) 74 (04/23/25) 71 (8/7/25) BUN 43 (06/25/25) 36 (05/21/25) 43 (04/23/25) BUN Post Dialysis 11 (06/25/25) 10 (05/21/25) 11 (04/23/25) Creatinine 6.24 (06/25/25) 6.45 (05/21/25) 6.05 (04/23/25) Bicarbonate (CO2) 24 (06/25/25) 26 (05/21/25) 24 (04/23/25) Sodium 134 (06/25/25) 138 (05/21/25) 140 (04/23/25) ACCESS ASSESSMENT Vascular access examined. AVF/AVG positive thrill/bruit. Current access is permanent and functioning well. AVFistula Standard Right Upper Arm Active (In Use) - 03/03/2024 Placed - 08/07/2023 Access Flow 1151 (07/07/25) 1228 (05/26/25) 1945 (04/09/25) ANEMIA ASSESSMENT Hemoglobin 10.3 (07/09/25) 9.8 (07/02/25) 9.7 (06/25/25) Iron Saturation (TSat) 33 (06/25/25) 18 (05/21/25) 17 (04/23/25) Ferritin 1,339 (06/04/25) 933 (04/23/25) 1,403 (02/12/25) Iron, Total 82 (06/25/25) Iron 42 (05/21/25) 43 (04/23/25) 42 (03/26/25) TIBC 251 (06/25/25) 234 (05/21/25) 247 (04/23/25) Reticulocyte Hemoglobin 32.5 (04/02/25) 35.2 (02/19/25) MCV 93.4 (06/25/25) 93 (05/21/25) 92 (04/23/25) Platelets 170 (06/25/25) 102 (05/21/25) 162 (04/23/25) BMM ASSESSMENT Calcium 8.9 06/25/25 8.2 05/21/25 8.7 04/23/25 Corrected Calcium 8.2 05/21/25 8.5 04/23/25 8.5 03/26/25 Phosphorus 4.9 06/25/25 4.9 05/21/25 6.0 04/23/25 Calcium Phosphorus Product 40 05/21/25 52 04/23/25 39 03/26/25 PTH 128 04/23/25 185 01/24/25 178 10/23/24 Vitamin D, 25-OH, Total 60.3 10/23/24 Magnesium 2.2 06/25/25 2.0 05/21/25 1.9 04/23/25 Alkaline Phosphatase 69 04/23/25 75 01/24/25 76 10/23/24 Aluminum 6 04/23/25 ?5 10/23/24 NUTRITION ASSESSMENT Albumin 4.5 06/25/25 4.0 05/21/25 4.3 04/23/25 Potassium 4.5 06/25/25 4.1 05/21/25 4.4 04/23/25 eNPCR 0.71 06/25/25 0.61 05/21/25 0.71 04/23/25 Glucose 199 06/25/25 214 05/21/25 176 04/23/25 Hemoglobin A1C 6.8 04/23/25 6.3 01/24/25 7.3 10/23/24 ADDITIONAL LABS WBC 3.4 (06/25/25) 3.4 (06/25/25) 4.12 (05/21/25) Hepatitis B Surface Ab 70 (10/23/24) Signed by: GLORIA FERGUSON NP on 07/13/2025 at 04:24:36 PM Transcribed by: GLORIA FERGUSON NP on 07/13/2025 at 04:24:36 PM documented in this encounter Plan of Treatment Not on file documented as of this encounter Visit Diagnoses Diagnosis End stage renal disease Dependence on renal dialysis documented in this encounter Care Teams Stretching Press Operator Relationship Specialty Start Date End Date Harjit Marc MD [address] [place], [place] [address] PCP - General Family Medicine 01/05/22 documented as of this encounter
--- OUTSIDE RECORDS SUMMARY | 2025-07-20 17:03 | XMS_ITS | Encounter Summary ---
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
--- OUTSIDE RECORDS SUMMARY | 2025-07-20 17:03 | XMS_ITS | Encounter Summary ---
Author Organization [facility] Address [address] [place] [address] Care Team Providers Care Shuttle Final Inspector Name Role Phone Harjit Marc MD Primary Care Provider [phone] Encounter Details Date Type Department Care Team (Latest Contact Info) Description 03/05/2002 Outpatient Historical [facility] Dermatology- [facility] [place] [address] [place] [address] Arnol Madrigal MD NO ADDRESS ON FILE ACTINIC KERATOSIS (Primary Dx) Social History Tobacco Use Types Packs/Day Years Used Date Smoking Tobacco: Never Assessed Sex and Gender Information Value Date Recorded Sex Assigned at Not on file 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
--- OUTSIDE RECORDS SUMMARY | 2025-07-20 17:03 | XMS_ITS | Clinical Summary ---
Author Organization [facility] Address [address] [place] [address] Care Team Providers Care Circular Knitter Name Role Phone Harjit Marc MD Primary Care Provider [phone] Allergies Active Allergy Reactions Criticality Noted Date Comments Adhesive Rash Low 08/23/2017 Sitagliptin Other (See Comments) 08/23/2017 Caused eyes to blur Medications METOPROLOL TARTRATE ORAL Take 200 mg by mouth daily at bedtime. Active lisinopril (PRINIVIL) 20 mg tablet Take 20 mg by mouth 2 times daily. Active amLODIPine (NORVASC) 10 mg tablet Take 15 mg by mouth daily Increase by 1/2 tab to 15 mg daily. Active metFORMIN (GLUCOPHAGE) 850 mg tablet Take 850 mg by mouth 2 times daily with meals. 2 tabs in AM and 1 in PM Active triamterene-hyd rochlorothiazid e (MAXZIDE 25) 37.5-25 mg tablet Take 1 Tab by mouth daily. Active glipiZIDE (GLUCOTROL XL) 10 mg Extended Release 24 hour tablet Take 10 mg by mouth daily with breakfast. Active gemfibrozil (LOPID) 600 mg tablet Take 600 mg by mouth daily. Active atorvastatin (LIPITOR) 80 mg tablet Take 80 mg by mouth Daily LATE. Active tamsulosin (FLOMAX) 0.4 mg Extended Release 24 hour capsule Take 0.4 mg by mouth daily. Active aspirin (ECOTRIN EC) 81 mg Tablet, Delayed Release (E.C.) Take 81 mg by mouth daily. Active Vit C-Vit J-Nfzzme-Hqj-OM -3 (OCUVITE) 967-08-2-150 yd-faap-vi-mg Capsule Take 1 Tab by mouth daily. Active OMEGA-3 FATTY ACIDS/FISH OIL (FISH OIL OMEGA 3-6-9 ORAL) Take by mouth. 3 caps in AM 3 caps in the Evening Active empagliflozin (JARDIANCE) 25 mg tablet Take by mouth daily coordinate measuring machine programmer. 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 Gender Identity Not on file Sexual Orientation Not on file Last Filed Vital Signs Vital Sign Reading Time Taken Comments Blood Pressure 143/77 02/21/2019 1:12 PM CDT Pulse 63 02/21/2019 1:12 PM CDT Temperature - - Respiratory Rate - - Oxygen Saturation - - Inhaled Oxygen Concentration - - Weight 83.5 kg (184 lb) 02/21/2019 1:12 PM CDT Height 180.3 cm (5' 11 ) 02/21/2019 1:12 PM CDT Body Mass Index 25.66 02/21/2019 1:12 PM CDT Plan of Treatment Health Maintenance Due Date Last Done Comments DTAP/TDAP/TD VACCINES (1 - Tdap) 1960 PNEUMOCOCCAL VACCINE 50+ YEARS (1 of 1 - PCV) 07/03/19 91 ZOSTER VACCINE (1 of 2) 1991 RSV VACCINE (60+ or ) (1 - 1-dose 75+ series) 2016 INFLUENZA VACCINE (#1) 2025 Insurance [facility] Care Teams Circular Knitter Relationship Specialty Start Date End Date Harjit Marc MD [address] [phone] PCP - General Family Practice 04/29/14
--- OUTSIDE RECORDS SUMMARY | 2025-07-20 17:03 | XMS_ITS | Continuity of Care Document ---
Author Organization [facility] Altagracia, LZuri, [facility] ([facility]) Address [address] [place] [address] Care Team Providers Care Lmsw Name Role Phone NICKOLAS MARC Primary Care Provider Assessment Encounter Date Assessment Date Assessment LastModified by Organization Details LastModified Time 07/20/2025 07/20/2025 Due to x-ray down and images needed advised pt to ED, family voiced understanding [email or web address] Not available 07/20/2025 17:44:53 Plan of Treatment Reminders Order Date Submit Date Provider Last Modified By Organization Details Last Modified Time Details Appointments ACUTE VISIT 2024 04:40P M WALK-IN Not available Not available Not available OFFICE VISIT 20 2025 10:30A M Nickolas Marc MD Not available Not available Not available Lab None recorded . Referral None recorded . Procedures None recorded . Surgeries None recorded . Imaging None recorded . Medication Orders None recorded . Patient TargetsNo targets recorded. Patient InstructionsNo instructions recorded. Reason for Referral None Reported. 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 5 11:28:06 Cellulit is 262453269 Active TREBA NEUSCHWAN JOE [facility] 5 11:28:06 Lumbar radiculo bello 691137736 Active TREBA NEUSCHWAN JOE [facility] 5 11:28:06 Acute kidney injury 25107307 Active TREBA NEUSCHWAN JOE null, [facility] 5 11:28:06 Constipa tion 27487324 Active TREBA NEUSCHWAN JOE null, [facility] 5 11:28:06 Lymphede ma of right upper limb [id number] 288777 Active TREBA NEUSCHWAN JOE null, [facility] 5 11:28:06 History of Spinal surgery 822670849 Active TREBA NEUSCHWAN JOE null, [facility] 5 11:28:06 Pulmonar y edema 87428537 Active TREBA NEUSCHWAN JOE null, [facility] 5 11:28:06 Open wound of external ear 311458031 Active TREBA NEUSCHWAN JOE null, [facility] 5 11:28:06 Accident al fall Active TREBA NEUSCHWAN JOE null, [facility] 5 11:28:06 Myocardi al infarcti on 45339852 Active TREBA NEUSCHWAN JOE null, [facility] 5 11:28:06 Pneumoni a 017354743 Active TREBA NEUSCHWAN JOE null, [facility] 5 11:28:06 Acute-on -chronic renal failure 612918057 Active TREBA NEUSCHWAN JOE null, [facility] 5 11:28:06 Acute retentio n of urine 519955200 Active TREBA NEUSCHWAN JOE null, [facility] 5 11:28:06 Obstruct ion of indwelli ng urinary catheter 271349579 Active TREBA NEUSCHWAN JOE null, [facility] 11:28:06 Lumbar spondylo sis 128547705 Active TREBA NEUSCHWAN JOE null, [facility] 11:28:06 Tear of the annulus fibrosus of interver tebral disc 014282485 Active TREBA NEUSCHWAN JOE null, [facility] 11:28:06 Lumbosac ral radiculo bello 6579237 Active TREBA NEUSCHWAN JOE null, [facility] 11:28:06 Degenera tion of lumbar interver tebral disc 50323787 Active TREBA NEUSCHWAN JOE [facility], [facility] 11:28:06 Mixed hyperlip idemia 815380927 Active TREBA NEUSCHWAN JOE null, [facility] 11:28:06 Anemia 809475088 Active TREBA NEUSCHWAN JOE [facility], [facility] 11:28:06 Low back pain 034740718 Active TREBA NEUSCHWAN JOE null, [facility] 11:28:06 Abrasion of head 211884384 Active TREBA NEUSCHWAN JOE null, [facility] 11:28:06 Contusio n of eye 097097307 Active TREBA NEUSCHWAN JOE null, [facility] 11:28:06 Hypoxia 299600397 Active TREBA NEUSCHWAN JOE null, [facility] 10/08/202 5 11:28:06 Congesti ve heart failure 53803481 Active TREBA NEUSCHWAN JOE [facility], [facility] 5 11:28:06 Bilatera l pleural effusion 502223989 Active TREBA NEUSCHWAN JOE [facility], [facility] 5 11:28:06 Complica tion of urinary catheter 184864344 Active TREBA NEUSCHWAN JEO [facility], [facility] 5 11:28:06 Hyperten sive urgency 405954832 Active TREBA NEUSCHWAN JOE [facility], [facility] 5 11:28:06 D-dimer above referenc e range 830871824 Active TREBA NEUSCHWAN JOE [facility] 5 11:28:06 Closed injury of head 91602336039 6 Active TREBA NEUSCHWAN JOE [facility] 5 11:28:06 Coronary arterios clerosis 53949789 Active TREBA NEUSCHWAN JOE [facility], [facility] 5 11:28:06 Subclini hugo hypothyr oidism 94078169 Active TREBA NEUSCHWAN JOE [facility], [facility] 5 11:28:06 Acute hyperkal emia 9524751 Active TREBA NEUSCHWAN JOE [facility] 5 11:28:06 Acute exacerba tion of chronic congesti ve heart failure 092028276 Active TREBA NEUSCHWAN JOE [facility], [facility] 5 11:28:07 Catheter -associa kun urinary tract infectio n 603943078 [facility] 5 11:28:07 Chronic kidney disease 967896937 Active TREBA NEUSCHWAN JOE [facility] 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 5 11:28:07 Hypovole patti 096907331 Active TREBA NEUSCHWAN JOE [facility] 5 11:28:07 Colonosc opy Completed 202201/07/2025 Colonosc opy; 06/07/20 11 @ [facility] by Dr. Marc ; 09/28/19 12:15PM by Blank Garcia, Office Visit; Promoted ; acuity set as *; PAMELLA GORDON [facility] 14:16:47 Hyperten sive disorder 24978547 Active 2022 HYPERTEN EZEQUIEL; Recorded 09/28/19 12:15PM by Blank Garcia, Office Visit; Promoted ; acuity set as *; REY KNOX JOE [facility] 5 11:28:06 Hypercho lesterol emia 10053911 Active 2022 Hypercho lesterol emia; 09/28/19 12:15PM by Blank Garcia, Office Visit; Promoted ; acuity set as *; REY KNOX JOE [facility], [facility] 5 14:10:03 Placemen t of stent Completed 202203/11/2025 Stent; 04/2010; 09/28/19 12:15PM by Blank Garcia, Office Visit; Promoted ; acuity set as *; REY CHAVEZN JOE [facility], [facility] 5 14:10:11 Diabetes mellitus 17336906 Active 2022 [facility] 5 14:09:38 Essjeremias curryen ezequiel 53930431 Active 2022 [facility] 5 14:09:49 History of myocardi al infarcti on 359150111 Completed 202203/11/2025 REY KNOX JOE [facility], [facility] 14:09:54 End stage renal failure on dialysis 221328090 Active 2023 REY KNOX [facility], [facility] 5 14:09:43 Pain of right shoulder region Active 2024 REY KNOX [facility] 5 14:09:58 Triggeri ng of digit 254548340 Active 2024 REY KNOX [facility], [facility] 14:10:18 Pain of right shoulder joint 72540803265 357533 Active 2024 Nickolas Marc MD [address] [place] [address], [phone] [place] [address], LuciaL.[facility]len 14:44:19 Problem Notes None recorded. Procedures Surgical History Date Name Laterality Status Provider Name and Address Organization Details Recorded Time release of trigger finger of right hand completed REY MATHEW [facility] [place] 05/27/2025 12:01:38 Prostate Surgery completed PAMELLA GORDON [facility] [place] 05/28/2023 12:55:21 placement of stent completed SYBIL PRIYANKA [facility] 10/03/2023 14:47:55 Imaging Results None recorded. Procedure Notes None recorded. Medical Equipment None Reported. Allergies Allergen ID Allergen Name Allergen Category Reaction Reaction Severity Criticality Documentation Date Start Date Code Code System Note Provider Name and Address Organization Details Recorded Time 87938 Sports Tape medicatio n Not available Not available Not available 03/17/2023 Comme nt: Recor ded 10/31 9:19A M by Kimber Gordon RN, Offic e Visit ; Promo kun; Zaki britton ce: *; ; Not Available [facility] 02:23:27 631 Trulicity medicatio n Not available Not available Not available 11/15/2022 58593 96 RxNorm TREBA NEUSCHWAN JOE null, [facility] 3 10:39:42 13247 sitaglipt in medicatio n Not available Not available Not available 03/11/20252024 56808 1 RxNorm TREBA NEUSCHWAN JOE null, [facility] 14:08:39 67239 dulagluti de medicatio n Not available Not available Not available 03/11/20252024 41900 91 RxNorm TREBA NEUSCHWAN JOE null, [facility] 14:08:39 94963 Adhesive agent (substanc e) environme nt,medica tion rash Not available [facility] 07/20/20252017 12091 0007 SNOMED Not Available lashonda - External Data Service - prod 17:32:49 40664 clonidine medicatio n other Not available Not available 07/20/20252021 2599 RxNorm Blurr ed visio n Not Available [employer]ashonda - External Data Service - prod 17:32:54 86111 dostarlim ab-gxly medicatio n Not available Not available Not available 07/20/2025 09116 68 RxNorm Not Available lashonda - External Data Service - prod 17:33:24 Medications Name Sig Start Date Stop Date Status Note LastModified by Organization Details LastModified Time furosemid e 40 mg tablet TAKE 1 TABLET BY MOUTH TWICE DAILY 02/27 completed Not Available Not Available Not Available atorvasta tin 80 mg tablet TAKE 1 TABLET BY MOUTH ONCE DAILY active Not Available Not Available No t Available carvedilo l 25 mg tablet TAKE 1 TABLET BY MOUTH TWICE DAILY active Not Available Not Available No t Available clonidine HCl 0.1 mg tablet TAKE 1 TABLET BY MOUTH THREE TIMES DAILY active Not Available Not Available No t Available doxycycli ne hyclate 100 mg capsule TAKE 1 CAPSULE BY MOUTH TWICE DAILY FOR 7 DAYS 12/09 completed Not Available Not Available Not Available nifedipin e ER 90 mg tablet,ex tended release TAKE 1 TABLET BY MOUTH ONCE DAILY AT BEDTIME active Not Available Not Available No t Available hydrocodo ne 5 mg-acetam inophen 325 mg tablet TAKE 1 TABLET BY MOUTH EVERY 6 HOURS NEEDED 05/27 completed Not Available Not Available Not Available prazosin 1 mg capsule TAKE 1 CAPSULE BY MOUTH TWICE DAILY 01/24 completed Not Available Not Available Not Available sucralfat e 100 mg/mL oral suspensio n Take 10 mL twice a day by oral route for 60 days. 01/24 completed Not Available Not Available Not Available sucralfat e 1 gram tablet TAKE 1 TABLET BY MOUTH TWICE A DAY 11/15 completed Not Available Not Available Not Available prednison e 20 mg tablet TAKE 3 TABLETS BY MOUTH ONCE DAILY FOR 3 DAYS THE 2 TABS DAILY FOR 2 DAYS THEN 1 TAB DAILY FOR 2 DAYS 11/15 completed Not Available Not Available Not Available isosorbid e mononitra te ER 30 mg tablet,ex tended release 24 hr TAKE 1 TABLET BY MOUTH ONCE DAILY IN THE MORNING 03/22 completed Not Available Not Available Not Available clonazepa m 0.5 mg tablet TAKE ONE-HALF TABLET BY MOUTH EVERY 24 HOURS NEEDED FOR ANXIETY FOR 8 DAYS 11/15 completed Not Available Not Available Not Available fluoroura cil 5 % topical cream APPLY A THIN LAYER TWICE DAILY TO FOREHEAD SCALP AND EARS 12/09 completed Not Available Not Available Not Available Lantus U-100 Insulin 100 unit/mL subcutane ous solution INJECT 10 TO 12 UNITS SUBCUTAN EOUSLY ONCE DAILY 01/24 completed Not Available Not Available Not Available valsartan 80 mg tablet TAKE 1 TABLET BY MOUTH ONCE DAILY IN THE EVENING 05/05 completed Not Available Not Available Not Available potassium chloride ER 10 mEq tablet,ex tended release 11/15 completed Not Available Not Available Not Available nifedipin e ER 30 mg tablet,ex tended release Take 3 tablets by mouth once daily 10/03 completed Not Available Not Available Not Available clopidogr el 75 mg tablet Take 1 tablet by mouth once daily 2024 active Not Available Not Available Not Avai lable ciproflox acin 500 mg tablet 10/03 completed Not Available Not Available Not Available sulfameth oxazole 800 mg-trimet hoprim 160 mg tablet TAKE 1 TABLET BY MOUTH TWICE DAILY 01/24 completed Not Available Not Available Not Available tramadol 50 mg tablet TAKE ONE TABLET BY MOUTH EVERY 6 HOURS NEEDED FOR PAIN FOR 5 DAYS active Not Available Not Available No t Available spironola ctone 25 mg tablet TAKE 1 TABLET BY MOUTH ONCE DAILY 07/09 completed dose increase Not Available Not Available Not Available isosorbid e mononitra te ER 60 mg tablet,ex tended release 24 hr daily 03/22 completed Not Available Not Available Not Available potassium chloride ER 20 mEq tablet,ex tended release(p art/cryst ) TAKE TWO TABLETS BY MOUTH DAILY FOR 30 DAYS 10/03 completed Not Available Not Available Not Available tamsulosi n 0.4 mg capsule TAKE 1 CAPSULE BY MOUTH TWICE DAILY active Not Available Not Available No t Available nifedipin e ER 90 mg tablet,ex tended release 24 hr TAKE 1 TABLET BY MOUTH ONCE DAILY AT BEDTIME active Not Available Not Available No t Available benzonata te 100 mg capsule TAKE 1 CAPSULE BY MOUTH THREE TIMES DAILY NEEDED 10/04 completed Not Available Not Available Not Available cephalexi n 500 mg capsule TAKE 1 CAPSULE BY MOUTH TWICE DAILY 01/24 completed Not Available Not Available Not Available hydralazi ne 100 mg tablet TAKE 1 TABLET BY MOUTH TWICE DAILY active Not Available Not Available No t Available pantopraz ole 40 mg tablet,de layed release TAKE 1 TABLET BY MOUTH ONCE DAILY active Not Available Not Available No t Available valsartan 320 mg tablet TAKE 1 TABLET BY MOUTH ONCE DAILY AT BEDTIME active Not Available Not Available No t Available Humulin N NPH U-100 Insulin (isophane susp) 100 unit/mL subcutane ous INJECT 10 UNITS SUBCUTAN EOUSLY ONCE DAILY PRIOR TO LUNCH 12/31 completed Not Available Not Available Not Available metoprolo l tartrate 50 mg tablet TAKE 1 TABLET BY MOUTH TWICE DAILY 05/23 completed Not Available Not Available Not Available bumetanid e 1 mg tablet Take 1 tablet by mouth twice daily 2024 active vo JR/tn Not Available Not Available Not Avai lable hydralazi ne 50 mg tablet TAKE 1 TABLET BY MOUTH THREE TIMES DAILY 07/09 completed dose increase d Not Available Not Available Not Available ergocalci ferol (vitamin D2) 1,250 mcg (50,000 unit) capsule TAKE 1 CAPSULE BY MOUTH ONCE A WEEK FOR 12 WEEKS 10/03 completed Not Available Not Available Not Available albuterol sulfate HFA 90 mcg/actua tion aerosol inhaler INHALE 2 PUFFS BY MOUTH EVERY 4 HOURS NEEDED FOR COUGH 11/15 completed Not Available Not Available Not Available nifedipin e ER 60 mg tablet,ex tended release Take 1 tablet every day by oral route at bedtime. 07/09 completed dose increase Not Available Not Available Not Available ondansetr on 4 mg disintegr ating tablet DISSOLVE ONE TABLET ON top of THE TONGUE EVERY 8 HOURS NEEDED FOR NAUSEA AND vomiting postop FOR 3 DAYS active Not Available Not Available No t Available calcitrio l 0.25 mcg capsule TAKE 1 CAPSULE BY MOUTH THREE TIMES WEEKLY 02/05 completed Not Available Not Available Not Available finasteri de 5 mg tablet TAKE 1 TABLET BY MOUTH ONCE DAILY active Not Available Not Available No t Available spironola ctone 50 mg tablet TAKE 1 TABLET BY MOUTH ONCE DAILY active Not Available Not Available No t Available doxazosin 2 mg tablet TAKE 1 TABLET BY MOUTH ONCE DAILY IN THE EVENING active Not Available Not Available No t Available amoxicill in 875 mg-potass ium clavulana te 125 mg tablet TAKE 1 TABLET BY MOUTH EVERY 12 HOURS FOR 7 DAYS 02/24 completed Not Available Not Available Not Available amoxicill in 500 mg-potass ium clavulana te 125 mg tablet 12/31 completed Not Available Not Available Not Available valsartan 160 mg tablet TAKE 2 TABLET BY MOUTH ONCE DAILY AT NIGHT 07/09 completed dose increase Not Available Not Available Not Available ertapenem 1 gram solution for injection 02/24 completed Not Available Not Available Not Available valsartan 40 mg tablet Take 1 tablet every day by oral route. 05/05 completed Not Available Not Available Not Available Novolog FlexPen U-100 Insulin aspart 100 unit/mL (3 mL) subcutane ous 12/09 completed Not Available Not Available Not Available nitrofura ntoin monohydra te/macroc rystals 100 mg capsule TAKE 1 CAPSULE BY MOUTH TWICE DAILY 01/24 completed Not Available Not Available Not Available Vitamin C TAKE 1 TABLET BY MOUTH DAILY 01/07 completed Not Available Not Available Not Available atorvasta tin 01/24 completed Not Available Not Available Not Available hydralazi ne three times daily 06/27 completed VO JR/bh; 173; Recorded 08/11/20 11:12AM by Pamella Gordon RN (Authori celested through Nickolas Marc MD), Refill Request; Refill Quantity : 90; Tablet; Not Available Not Available Not Available Vitamin D TAKE 1 DOSE BY MOUTH DAILY 01/07 completed Not Available Not Available Not Available Nitrostat Q5 minutes up to 3 times prn Chest pressure 2021 active Not Available Not Available Not Avai lable metoprolo l succinate daily 05/27 completed Recorded 07/31/20 11:45AM by Nickolas Marc MD, Office Visit; Mail Order Quantity : 100 Tablet; Refill Quantity : 100; Tablet; Not Available Not Available Not Available Aspirin Child TAKE 1 TABLET BY MOUTH DAILY 05/27 completed Not Available Not Available Not Available Humulin N Pen prior to lunch 06/27 completed Please give syringes as needed. Give QS for 30 day supply; 173; Recorded 09/04/19 12:55PM by Pamella Gordon RN (Authori earle through Nickolas Marc MD), Refill Request; Refill Quantity : 1; Each; Not Available Not Available Not Available Sucralfat e Suspensio n bid 04/27 completed vo /tn; Recorded 11/01/19 23 9:14AM by Pamella Gordon RN, Office Visit; Refill Quantity : 0; Not Available Not Available Not Available Potassium Chloride ER BID 03/22 completed Recorded 11/01/19 23 9:15AM by Pamella Gordon RN, Office Visit; Refill Quantity : 200; Tablet; Not Available Not Available Not Available FeroSul 325 mg (65 mg iron) tablet TAKE 2 TABLET BY MOUTH 3 times per week at Dialysis 2023 active Not Available Not Available Not Avai lable Lantus Solostar U-100 Insulin 100 unit/mL (3 mL) subcutane ous pen INJECT 20 UNITS UNDER THE SKIN ONCE DAILY active Not Available Not Available No t Available sevelamer carbonate 800 mg tablet TAKE 2 TABLETS BY MOUTH THREE TIMES DAILY WITH MEALS active Not Available Not Available No t Available Humalog KwikPen (U-100) Insulin 100 unit/mL subcutane ous INJECT THREE TIMES DAILY UNDER THE SKIN AFTER MEALS BASED ON SLIDING SCALE (MAX DOSE OF 40 UNITS IN 24 HOURS) 2024 active agustin Interiano Not Available Not Available Not Avai lable Accu-Chek Active BID 04/27 completed Recorded 11/11/19 21 2:24PM by Pamella Gordon RN, Historic al Summary; Mail Order Quantity : 180 Each; Mail Order Days: 90 Days; Refill Quantity : 0; Not Available Not Available Not Available amlodipin e besylate (bulk) qd 03/22 completed 173; Recorded 01/12/20 22 3:52PM by Pamella Godron RN (Authori earle through Nickolas Marc MD), Annotati on/Mariola dum; Mail Order Quantity : 100 Tablet; Refill Quantity : 0; Not Available Not Available Not Available Ginger Allergy 60 mg tablet Take 1 tablet twice a day by oral route as needed. 2022 active Not Available Not Available Not Avai lable Brilinta 90 mg tablet TAKE 1 TABLET BY MOUTH TWICE DAILY 11/15 completed Not Available Not Available Not Available Farxiga 10 mg tablet Take 1 tablet by mouth once daily for 90 days 02/27 completed Not Available Not Available Not Available Farxiga qd 03/22 completed 0; Recorded 11/01/19 23 9:16AM by Pamella Gordon RN, Office Visit; Not Available Not Available Not Available RenaPlex- D 800 mcg-12.5 mg-2,000 unit tablet TAKE 1 TABLET BY MOUTH EVERY DAY active Not Available Not Available No t Available BD Veo Insulin Syringe Ultra-Fin e 1/2 mL 31 gauge x / USE DIRECTED WITH HUMULIN N active Not Available Not Available No t Available BD Breanne 2nd Gen Pen Needle 32 gauge x USE DIRECTED active Not Available Not Available No t Available Paxlovid 300 mg (150 mg x 2)-100 mg tablets in a dose pack USE DIRECTED ON PACKAGE LABELING FOR 5 DAYS 11/15 completed Not Available Not Available Not Available Dexcom G7 Sensor device USE DIRECTED AND CHANGE EVERY 10 DAYS active Not Available Not Available No t Available Vitals None Recorded Social History Question Answer Notes LastModified by Organizat ion Details LastModified Time Tobacco Smoking Status Never Smoker PAMELLA GORDON [facility] 03/22/2023 10:22:00 Are You Blind Or Do You Have Difficulty Seeing? No Information not available 01/07/2025 Are You Deaf Or Do You Have Serious Difficulty Hearing? No Information not available 01/07/2025 What Was The Date Of Your Most Recent Tobacco Screening? 07/20/2025 [email or web address] Information not available 07/20/2025 What Is Your Relationship Status? Information not available 05/28/2023 Do You Have Difficulty Walking Or Climbing Stairs? No Information not available 01/07/2025 Sex: Unknown Functional Status Question Answer Note LastModified by Organizat ion Details LastModified Time Do you use any illicit or recreational drugs? No Information not available 05/28/2023 Do you or have you ever used any other forms of tobacco or nicotine? No Information not available 05/28/2023 What is your level of alcohol consumption? None Information not available 05/28/2023 Are you currently employed? No Information not available 01/07/2025 Do you have transportation difficulties? No Information not available 01/07/2025 Are you able to walk independently without assistance or assistive devices? YESWOREST Information not available 01/07/2025 Do you have difficulty doing errands alone? No Information not available 01/07/2025 Are you able to care for yourself independently? Yes Information not available 01/07/2025 Do you have difficulty dressing, bathing, grooming, or toileting? No Information not available 01/07/2025 Mental Status Question Answer Note LastModified by Organization D etails LastModified Time Do you have difficulty concentrating, remembering or making decisions? No Information no t available 01/07/2025 Family History Nothing Reported Notes:ACUTE MYOCARDIAL INFAR CTION Father: Myocardial Infarction, Cancer Mother: Hypertension, Arthritis Son: Diabetes Medical History No medical history recorded. Immunizations Vaccine Type Date Status Note Provider Nam e and Address Organization Details Recorded Time Influenza, adjuvanted, trivalent, PF [address] [facility] 05/27/2025 12:19:17 Influenza, high-dose, quadrivalent, PF [address] [facility] 05/28/2023 12:54:17 Influenza, high-dose, trivalent, PF [address] [facility] 07/09/2024 14:48:21 Influenza, high-dose, quadrivalent, PF [address] [facility] 01/24/2023 16:13:37 Influenza, high-dose, trivalent, PF [address] [facility] 01/24/2023 16:13:37 Influenza, high-dose, trivalent, PF [address] [facility], [place] 01/24/2023 16:13:37 Influenza, split virus, trivalent, preservative [address] [facility], [place] 01/24/2023 16:13:37 Influenza, split virus, trivalent, preservative [address] [facility], [place] 01/24/2023 16:13:37 pneumococcal, unspecified formulation 3 completed Not Available [facility] 10/03/2023 14:04:35 Influenza, split virus, trivalent, preservative 3 completed Not Available [facility] 10/03/2023 14:04:35 Influenza, split virus, trivalent, preservative 2 completed Not Available [facility] 10/03/2023 14:04:35 Influenza, split virus, trivalent, preservative 2 completed Not Available [facility] 10/03/2023 14:04:35 Influenza, split virus, trivalent, preservative 8 completed Not Available [facility] 10/03/2023 14:04:35 Influenza, split virus, trivalent, preservative 3 completed Not Available [facility] 10/03/2023 14:04:35 Influenza, split virus, trivalent, preservative 4 completed Not Available [facility] 10/03/2023 14:04:35 Influenza, split virus, trivalent, preservative 9 completed Not Available [facility] 10/03/2023 14:04:35 Past Encounters Encounter ID Performer Location Encounter Start Date Encounter Closed Date Diagnosis/Indication Diagnosis SNOMED-CT Code Diagnosis ICD10 Code Diagnosis IMO Codes Diagnosis Note [id number] GABI ARCE [facility] ([facility]) [address] [phone] 07/20/2025 17:32:05 07/20/2025 17:45:11 Health Concerns Section Related Observation LastModified by Organization Detai ls LastModified Time None Recorded Concern Status LastModified by Organization Details LastModified Time None Recorded Payers Encounter Date Sequence Insurance Name Policy Number Policy San Covered Member ID San Member ID Guarantor Name 07/20/2025 1 [facility] (MEDICARE REPLACEMENT/A DVANTAGE - HMO) [id number] Quang Hunter [id number] Quang Hunter Notes Date Note Type Note Provider Name and Address Organization Details Recorded Time 07/20/2025 text/html walk inx2 hours ago fell at home falling to right side c/o pain to ribs, neck, arm. Worried about dialysis port [place]ES Yanes [facility] [address], [place] 07/20/2025 17:45:10
--- OUTSIDE RECORDS SUMMARY | 2025-07-20 17:03 | XMS_ITS | Encounter Summary ---
Author Organization [facility] Address [address] [place] [address] Care Team Providers Care Front Desk Agent Name Role Phone Harjit Marc MD Primary Care Provider [phone] Encounter Details Date Type Department Care Team (Latest Contact Info) Description 2003 Outpatient Historical [facility] Dermatology- [facility] [address] [place] [address] Arnol Madrigal MD NO ADDRESS ON FILE ACTINIC KERATOSIS (Primary Dx); DYSCHROMIA OTHER Social History Tobacco Use Types Packs/Day Years Used Date Smoking Tobacco: Never Assessed Sex and Gender Information Value Date Recorded Sex Assigned at Not on file Legal Sex Male 5:18 AM [employer] Gender Identity Not on file Sexual Orientation Not on file documented as of this encounter Plan of Treatment Not on file documented as of this encounter Visit Diagnoses Diagnosis Actinic keratosis- Primary Other dyschromia documented in this encounter Care Teams Front Desk Agent Relationship Specialty Start Date End Date Harjit Marc MD [address] [address] PCP - General Family Practice 04/29/14 documented as of this encounter
--- OUTSIDE RECORDS SUMMARY | 2025-07-20 17:03 | XMS_ITS | Encounter Summary ---
Author Organization [facility] Address [address] [facility] [address] [place] [address] Phone Care Team Providers Care Erection Shop Supervisor Name Role Phone Harjit Marc MD Primary Care Provider + [phone] Reason for Visit * Reason Comments Med Refill Encounter Details Date Type Department Care Team (Late st Contact Info) Description 04/25/2023 Refill [facility] [address] [address] Lashawn Friedman BLOOD BANK LABORATORY TECHNOLOGIST [address] [facility] [address] [place] [address] Social History Tobacco Use Types [...] on filedocumented in this encounter Care Teams Erection Shop Supervisor Relationship Specialty Start Date End Date Harjit Marc MD [address] [place], [place] [phone] PCP - General Family Medicine 01/05/22 documented as of this encounter
--- OUTSIDE RECORDS SUMMARY | 2025-07-20 17:03 | XMS_ITS | Clinical Summary ---
Author Organization [employer] [facility] [employer] Address [address] [place] [address] Phone Care Team Providers Care Director Clinical Research Name Role Phone Harjit Marc MD Primary Care Provider Allergies Active Allergy Reactions Criticality Noted Date Comments Adhesive Tape Rash Low 08/23/2017 Clonidine Other (see comments) 06/05/2022 Blurred vision Medications amLODIPine (NORVASC) 10 MG tablet Take 15 mg by mouth in the morning. Active glipiZIDE (GLUCOTROL XL) 10 MG 24 hr tablet Take 10 mg by mouth Active atorvastatin (LIPITOR) 80 MG tablet Take 80 mg by mouth Active metFORMIN (GLUCOPHAGE) 850 MG tablet Take 850 mg by mouth Active Metoprolol Succinate 200 MG capsule extended-releas e 24 hour sprinkle Take 200 mg by mouth Active lisinopril 20 MG tablet Take 20 mg by mouth in the morning and 20 mg in the evening. Active tamsulosin (FLOMAX) 0.4 MG 24 hr capsule Take 0.4 mg by mouth in the morning. Active [place]-3 Fatty Acids (OMEGA-3 FISH OIL PO) Take 1,000 mg by mouth Active Empagliflozin 25 MG tablet Take 25 mg by mouth 02/11/2018 Active aspirin (ST CHERELLE) 81 MG EC tablet Take 81 mg by mouth in the morning. Active Ascorbic Acid (VITAMIN C PO) Take by mouth Active VITAMIN D PO Take by mouth Active POTASSIUM CHLORIDE ER PO Take 20 mEq by mouth 3 times a day Active Encounters Date Type Department Care Team Description 07/15/2025 Orders Only [facility] [address] [place] [address] Beatriz Valverde MD 07/13/2025 Treatment [facility], [facility] [address] [place] [address] Lashawn Friedman NP End stage renal disease; Dependence on renal dialysis 07/09/2025 [facility] [address] [place] [address] Beatriz Valverde MD 07/07/[address] [place], [place] [address]rology [facility], [facility] [address] [place] [address] Beatriz Valverde MD End stage renal disease; Dependence on renal dialysis 07/02/2025 [facility] [address] [place] [address] Beatriz Valverde MD 06/30/[address] [place] [address], [facility] [address] [place] [address] Lashawn Friedman NP End stage renal disease; Dependence on renal dialysis 06/25/2025 Orders Only [facility] [address] [place] [address] Beatriz Valverde MD 06/23/[address] [place], [place] [address]rology [facility], [facility] [address] [place] [address] Lashawn Friedman NP End stage renal disease; Dependence on renal dialysis 06/18/2025 [facility] [address] [place] [address] Beatriz Valverde MD 06/16/[address] [place], [place] [address]rology [facility], [facility] [address] [place] [address] Beatriz Valverde MD End stage renal disease; Dependence on renal dialysis 06/11/2025 Refill [facility] [address] [place] [address] Beatriz Valverde MD 06/09/[address] [place] [address] [facility] [address] [place] [address] Lashawn Friedman, MARGY End stage renal disease; Dependence on renal dialysis 06/08/2025 [facility] [address] [place] [address] Beatriz Valverde MD 06/04/2025 Orders Only [facility], [facility] [address] [place] [address] Beatriz Valverde MD 05/30/2025 [facility] [address] [place] [address] Beatriz Valverde MD 05/28/2025 [facility] [address] [place] [address] Beatriz Valverde MD 05/26/[address] [place], [place] [address]rology [facility], [facility] [address] [place] [phone] Radha Harding, MARGY End stage renal disease; Dependence on renal dialysis 05/21/[address] [place], [place] [address]rology [facility], [facility] [address] [place] [address] Lashawn Friedman NP End stage renal disease; Dependence on renal dialysis 05/21/2025 Orders Only [facility], [facility] [address] [place] [address] Beatriz Valverde MD 05/14/2025 Orders Only [facility], [facility] [address] [place] [address] Beatriz Valverde MD 05/13/2025 Refill [facility] [address] [place] [address] Beatriz Valverde MD 05/12/[address] [place] [address] [facility] [address] [place] [address] Beatriz Valverde MD End stage renal disease; Dependence on renal dialysis 05/07/2025 Orders Only [facility], [facility] [address] [place] [address] Beatriz Valverde MD [facility]/05[facility] [address] [place] [address] Beatriz Valverde MD 05/05/[address] [place] [address] [facility] [address] [place] [address] Lashawn Friedman NP End stage renal disease; Dependence on renal dialysis 04/30/2025 Orders [facility] [address] [place] [address] Beatriz Valverde MD 04/28/[address] [place] [address] Ne[facility]rology [facility], [facility] [address] [place] [address] Lashawn Friedman NP End stage renal disease; Dependence on renal dialysis 04/28/2025 [facility] [address] [place] [address] Beatriz Valverde MD 04/23/2025 Orders Only [facility], [facility] [address] [place] [address] Beatriz Valverde MD 04/21/[address] [place] [address] [facility] [address] [place] [address] Radha Harding NP End stage renal disease; Dependence on renal dialysis from Last 3 Months Family History Medical History Relation Comments Cancer Father Heart attack Father Arthritis Mother Hypertension Mother Relation Status Comments Father Mother Social History Tobacco Use Types Packs/Day Years Used Date Smoking Tobacco: Former Cigarettes Smokeless Tobacco: Never Tobacco Cessation:Counseling Given: Not Answered Alcohol Use Standard Drinks/Week Comments Never 0 (1 standard drink = 0.6 oz pur e alcohol) Sex and Gender Information Value Date Recorded Sex Assigned at Not on file Legal Sex Male 10:54 AM EDT Gender Identity Not on file Sexual Orientation Not on file Plan of Treatment Health Maintenance Due Date Last Done Comments Hepatitis B Vaccine (1 of 5 - Risk Dialysis 4-dose series) 1960 Diabetes: Ophthalmology Exam 01/05/2022 Diabetes: Pedal Pulse Checked 01/05/2022 Diabetes: Sensory Foot Exam 01/05/2022 Diabetes: Visual Foot Exam 01/05/2022 Pneumococcal Vaccine: 50+ Ye ars (2 of 2 - PCV) 03/22/2024 03/22/2023, 09/28/2022 Diabetes: Hemoglobin A1C 07/23/2025 025, 01/24/2025, 10/23/2024, Additional history exists Influenza Vaccine Completed 05/27/2025, , 07/11/2019, Additional history exists Procedures Procedure Name Priority Date/Time Associated Diagnosis Comments HEMOGLOBIN Routine 07/15/2025 HEMOGLOBIN Routine 07/09/2025 HEMOGLOBIN Routine 07/02/2025 [facility] LAB RESULTS Routine 06/25/2025 DIFFERENTIAL WITH WBC Routine 06/25/2025 CBC Routine 06/25/2025 PLATELET COUNT Routine 06/25/2025 POST DIALYSIS BUN Routine 06/25/2025 IRON AND TIBC Routine 06/25/2025 MAGNESIUM Routine 06/25/2025 GLUCOSE, RANDOM Routine 06/25/2025 ALBUMIN Routine 06/25/2025 PROTEIN, TOTAL, SERUM Routine 06/25/2025 PHOSPHATE ( PHOSPHORUS) Routine 06/25/2025 CALCIUM Routine 06/25/2025 CO2, TOTAL Routine 06/25/2025 CHLORIDE Routine 06/25/2025 SODIUM Routine 06/25/2025 BUN Routine 06/25/2025 CREATININE, SERUM Routine 06/25/2025 POTASSIUM Routine 06/25/2025 HEMATOLOGY Routine 06/18/2025 HEMATOLOGY Routine 06/11/2025 CHEMISTRY Routine 06/04/2025 HEMATOLOGY Routine 06/04/2025 HEMATOLOGY Routine 05/28/2025 S[facility] LAB RESULTS Routine 05/21/2025 HD KINETICS Routine 05/21/2025 POST CHEMISTRY Routine 05/21/2025 CHEMISTRY Routine 05/21/2025 HEMATOLOGY Routine 05/21/2025 HEMATOLOGY Routine 05/14/2025 HEMATOLOGY Routine 05/07/2025 HEMATOLOGY Routine 04/30/2025 SPECTRA MARYANN LAB RESULTS Routine 04/23/2025 SPECIAL CHEMISTRY Routine 04/23/2025 CHEMISTRY Routine 04/23/2025 HD KINETICS Routine 04/23/2025 POST CHEMISTRY Routine 04/23/2025 TRACE ELEMENTS Routine 04/23/2025 IMMUNO CHEMISTRY Routine 04/23/2025 CHEMISTRY Routine 04/23/2025 HEMATOLOGY Routine 04/23/2025 from Last 3 Months Results * (ABNORMAL) Hemoglobin (07/15/2025) Only the most recent of3 resultswithin the time period is included. Hemoglobin 10.3(L) 13.2 - 14.0 g/dL [facility] 07/15/2025 07/14/2025 1:2 1 PM ELEMENTARY TEACHER Narrative Resulting Agency Comment Performing Organization Information: Site ID: [id number] Name: [facility] Address: [address] [place] [phone] Director: Lexus Kumar MD Beatriz Valverde MD LAB BLOOD ORDERABLES Final Re sult [facility] [address] * Iron and TIBC (06/25/2025) Iron, Total 82 50 - 180 mcg/dL [facility] TIBC 251 250 - 425 mcg/dL (calc) [facility] Iron Saturation (TSat) 33 20 - 48 % (calc) [facility] 06/25/2025 06/24/2025 11: 59 AM ELEMENTARY TEACHER Narrative Resulting Agency Comment Performing Organization Information: Site ID: [id number] Name: [facility] Address: [address] [place] [phone] Director: Lexus Kumar MD us Beatriz Valverde MD LAB BLOOD ORDERABLES Final Re sult Performing Organization Address City/[facility] Co de Phone Number [facility] [address] [place] [address] * [facility]ARY[facility] Lab Results (06/25/2025) Only the most recent of3 resultswithin the time period is included. eKt/V (Tattersall) 1.27 [facility] spKt/V Gotch 1.50 [facility] ge Center eKt/V Gotch 1.26 [facility] e Center WSTDKT/V 2.4 [facility] spKt/V (Daugirdas II) 1.50 [facility] nPCR_HD 0.77 [facility] eNPCR 0.71 [facility] PCR 52.21 [facility] eKdrt/V 1.26 [facility] 06/25/2025 06/25/2025 [facility] Ordering Provider LAB BLOOD ORDERABLES Final Result Performing Organization Address [facility] Co de Phone Number [facility] Contact Performing lab Unknown, [place] * Post Dialysis BUN (06/25/2025) BUN Post Dialysis 11 7 - 25 mg/dL [facility] 06/25/2025 06/24/2025 11: 59 AM ELEMENTARY TEACHER Narrative Resulting Agency Comment Performing Organization Information: Site ID: [id number] Name: [facility] Address: [address] [place] [phone] Director: Lexus Kumar MD Beatriz Valverde MD LAB BLOOD ORDERABLES Final Re sult Performing Organization Address City/[facility]/ZIP Co de Phone Number [facility] [address] [place] [address] * (ABNORMAL) Differential with WBC (06/25/2025) [facility] WBC 3.4(L) 3.8 - 10.8 Thousand/ uL [facility] Neutrophils Absolute 2,179 1,500 - 7,800 cells/uL [facility] Band Neutrophils Absolute, Manual Count CANCELED 0 - 750 cells/uL [facility] Comment:Result canceled by t he ancillary. Metamyelocytes Absolute CANCELED 0 cells/uL [facility] Comment:Result canceled by t he ancillary. Absolute Myelocytes CANCELED 0 cells/uL [facility] Comment:Result canceled by t he ancillary. Absolute Promyelocytes CANCELED 0 cells/uL [facility] Comment:Result canceled by t he ancillary. Lymphocytes Absolute 816(L) 850 - 3,900 cells/uL [facility] Monocytes Absolute 313 200 - 950 cells/uL [facility] Eosinophils Absolute 61 15 - 500 cells/uL [facility] Basophils Absolute 31 0 - 200 cells/uL [facility] Blasts Absolute CANCELED 0 cells/uL [facility] Comment:Result canceled by t he ancillary. NRBC Absolute CANCELED 0 cells/uL [facility] Comment:Result canceled by t he ancillary. Neutrophils Relative 64.1 % [facility] Bands Absolute CANCELED % [facility] Comment:Result canceled by t he ancillary. Metamyelocytes Percent CANCELED % [facility] Comment:Result canceled by t he ancillary. Myelocytes Relative CANCELED % [facility] Comment:Result canceled by t he ancillary. Promyelocytes Relative CANCELED % [facility] Comment:Result canceled by t he ancillary. Lymphocytes 24.0 % [facility] Variant lymphocytes/100 WBC (Bld) CANCELED 0 - 10 % [facility] Comment:Result canceled by t he ancillary. Monocytes 9.2 % [facility] Eosinophils 1.8 % [facility] Basophils Relative 0.9 % [facility] Blasts CANCELED % [facility] Comment:Result canceled by t ancillary. nRBC CANCELED 0 /100 WBC [facility] Comment:Result canceled by t he ancillary. Comment(s) CANCELED [facility] Comment:Result canceled by [facility] ancillary. 06/25/2025 06/24/2025 11: 59 AM ELEMENTARY TEACHER Narrative Resulting Agency Comment Performing Organization Information: Site ID: SARAH Name: [facility] Address: [address] [place] [phone] Director: Lexus Kumar MD Beatriz Valverde MD LAB BLOOD ORDERABLES Final Re [facility] Performing Organization Address [facility] Co de Phone Number [facility] [address] [place] [phone] * Platelet count (06/25/2025) Pathologist [facility] Platelets 170 140 - 400 Thousand/uL [facility] 06/25/2025 06/24/2025 11: 59 AM ELEMENTARY TEACHER Narrative Resulting Agency Comment Performing Organization Information: Site ID: SARAH Name: [facility] Address: [address] [place] [phone] Director: Lexus Kumar MD Beatriz Valverde MD LAB BLOOD ORDERABLES Final Re sult Performing Organization Address [facility]/ZIP Co de Phone Number [facility] [phone] [place] [phone] * (ABNORMAL) CBC (06/25/2025) WBC 3.4(L) 3.8 - 10.8 Thousand/u L [facility] RBC 3.17(L) 4.20 - 5.80 Million/uL [facility] Hemoglobin 9.7(L) 13.2 - 14.0 g/dL [facility] Hematocrit 29.6(L) 38.5 - 50.0 % [facility] MCV 93.4 80.0 - 100.0 fL [facility] MCH 30.6 27.0 - 33.0 pg [facility] MCHC 32.8 32.0 - 36.0 g/dL [facility] Comment: For adults, a slight decrease in the calculated MCHC value (in the range of 30 to 32 g/dL) is most likely not clinically significant; however, it should be interpreted with caution in correlation with other red cell parameters and the patient's clinical condition. RDW 14.3 11.0 - 15.0 % [facility] 06/25/2025 06/24/2025 11: 59 AM ELEMENTARY TEACHER Narrative Resulting Agency Comment Performing Organization Information: Site ID: [id number] Name: [email or web address] Address: [address] [place] [phone] Director: Lexus Kumar MD Beatriz Valverde MD LAB BLOOD ORDERABLES Final Re sult Performing Organization Address City/[facility]/ZIP Co de Phone Number [facility] [address] [place] [phone] * (ABNORMAL) BUN (06/25/2025) BUN 43(H) 7 - 25 mg/dL [facility] 06/25/2025 06/24/2025 11: 59 AM ELEMENTARY TEACHER Narrative Resulting Agency Comment Performing Organization Information: Site ID: [id number] Name: [email or web address] Address: [address] [place] [phone] Director: Lexus Kumar MD Beatriz Valverde MD LAB BLOOD ORDERABLES Final Re sult Performing Organization Address City/[facility]/ZIP Co de Phone Number [facility] [address] [facility] [place] [address] * (ABNORMAL) Sodium (06/25/2025) Sodium 134(L) 135 - 146 mmol/L [facility] 06/25/2025 06/24/2025 11: 59 AM ELEMENTARY TEACHER Narrative Resulting Agency Comment Performing Organization Information: Site ID: SARAH Name: [facility] Address: [address] [place] [phone] Director: Lexus Kumar MD us Beatriz Valverde MD LAB BLOOD ORDERABLES Final Re sult Performing Organization Address [facility] Co de Phone Number [facility] [address] [place] [phone] * Protein, total (06/25/2025) Total Protein 6.7 6.1 - 8.1 g/dL [facility] 06/25/2025 06/24/2025 11: 59 AM ELEMENTARY TEACHER Narrative Resulting Agency Comment Performing Organization Information: Site ID: SARAH Name: [facility] Address: [address] [place] [phone] Director: Lexus Kumar MD us Beatriz Valverde MD LAB BLOOD ORDERABLES Final Re sult Performing Organization Address [facility] Co de Phone Number [facility] [address] [place] [phone] * Potassium (06/25/2025) Potassium 4.5 3.5 - 5.3 mmol/L [facility] 06/25/2025 06/24/2025 11: 59 AM ELEMENTARY TEACHER Narrative Resulting Agency Comment Performing Organization Information: Site ID: SARAH Name: [facility] Address: [address] [place] [phone] Director: Lexus Kumar MD us Beatriz Valverde MD LAB BLOOD ORDERABLES Final Re sult Performing Organization Address [facility] Co de Phone Number [facility] [phone] [place] [phone] * (ABNORMAL) Phosphorus (06/25/2025) Phosphorus 4.9(H) 3.0 - 4.3 mg/dL [facility] 06/25/2025 06/24/2025 11: 59 AM ELEMENTARY TEACHER Narrative Resulting Agency Comment Performing Organization Information: Site ID: SARAH Name: [email or web address] Address: [address] [place] [phone] Director: Lexus Kumar MD Beatriz Valverde MD LAB BLOOD ORDERABLES Final Re sult Performing Organization Address [facility] de Phone Number [facility] [address] [place] [phone] * Magnesium (06/25/2025) Magnesium 2.2 1.6 - 2.5 mg/dL [facility] 06/25/2025 06/24/2025 11: 59 AM ELEMENTARY TEACHER Narrative Resulting Agency Comment Performing Organization Information: Site ID: SARAH Name: [facility] Address: [address] [place] [phone] Director: Lexus Kumar MD Beatriz Valverde MD LAB BLOOD ORDERABLES Final Re sult Performing Organization Address [facility] Co de Phone Number [facility] [address] [place] [phone] * (ABNORMAL) Glucose, random (06/25/2025) Glucose 199(H) 65 - 99 mg/dL [facility] Comment: For someone without known diabetes, a glucose value >125 mg/dL indicates that they may have diabetes and this should be confirmed with a follow-up test. 06/25/2025 06/24/2025 11: 59 AM ELEMENTARY TEACHER Narrative Resulting Agency Comment Performing Organization Information: Site ID: SARAH Name: [facility] Address: [address] [place] [phone] Director: Lexus Kumar MD us Beatriz Valverde MD LAB BLOOD ORDERABLES Final Re sult Performing Organization Address [facility]/ZIP Co de Phone Number [facility] [address] [place] [address] * (ABNORMAL) Creatinine, serum (06/25/2025) Creatinine 6.24(H) 0.70 - 1.22 mg/dL [facility] 06/25/2025 06/24/2025 11: 59 AM ELEMENTARY TEACHER Narrative Resulting Agency Comment Performing Organization Information: Site ID: SARAH Name: [facility] Address: [address] [place] [phone] Director: Lexus Kumar MD us Beatriz Valverde MD LAB BLOOD ORDERABLES Final Re sult Performing Organization Address [facility] de Phone Number [facility] [address] [place] [phone] * Chloride (06/25/2025) Chloride 98 98 - 110 mmol/L [facility] 06/25/2025 06/24/2025 11: 59 AM ELEMENTARY TEACHER Narrative Resulting Agency Comment Performing Organization Information: Site ID: SARAH Name: [facility] Address: [address] [place] [phone] Director: Lexus Kumar MD us Beatriz Valverde MD LAB BLOOD ORDERABLES Final Re sult Performing Organization Address City/[facility]/ZIP Co de Phone Number [facility] [address] [place] [phone] * CO2 (06/25/2025) Bicarbonate (CO2) 24 20 - 29 mmol/L [facility] 06/25/2025 06/24/2025 11: 59 AM ELEMENTARY TEACHER Narrative Resulting Agency Comment Performing Organization Information: Site ID: SARAH Name: [facility] Address: [address] [place] [address] Director: Lexus Kumar MD us Beatriz Valverde MD LAB BLOOD ORDERABLES Final Re sult [facility] [address] [place], [place] [address] [address] * Calcium (06/25/2025) Calcium 8.9 8.6 - 10.0 mg/dL [facility] 06/25/2025 06/24/2025 11: 59 AM ELEMENTARY TEACHER Narrative Resulting Agency Comment Performing Organization Information: Site ID: SARAH Name: [facility] Address: [facility] [place] [address] Director: Lexus Kumar MD us Beatriz Valverde MD LAB BLOOD ORDERABLES Final Re sult [facility] [address] [place] [address] [place] [address] * Albumin (06/25/2025) Albumin 4.5 3.6 - 5.1 g/dL [facility] 06/25/2025 06/24/2025 11: 59 AM ELEMENTARY TEACHER Narrative Resulting Agency Comment Performing Organization Information: Site ID: SARAH Name: [facility] Address: [address] [place], [place] [address]ner [facility] [place] [address] Director: Lexus Kumar MD us Beatriz E Valverde MD LAB BLOOD ORDERABLES Final Re sult [facility] [address] [place] [address] * (ABNORMAL) HEMATOLOGY (06/18/2025) Only the most recent of9 resultswithin the time period is included. Pathologist [facility] Hemoglobin 10.1(L) 14.0 - 18.0 g/dL [facility] Hemoglobin x 3 30.3(L) 42.0 - 54.0 % [facility] 06/18/2025 06/19/2025 9:1 0 AM CDT Narrative [facility] - 06/19/2025 Unless otherwise specified, test(s) performed at: [facility], [address] [place] [address] BIOSECURITY OFFICER: Eran Luciano M.D. For any questions, please call customer service at FREQUENCY:OTHER Resulting Agency Comment Specimen source: Blood us Beatriz Valverde MD LAB BLOOD ORDERABLES Final Re sult Performing Organization Address [facility] de Phone Number [employer] See order comments or contact performing lab Unknown, [place] * (ABNORMAL) [facility] (06/04/2025) Only the most recent of4 resultswithin the time period is included. Pathologist [facility] Ferritin 1,339(H) 22 - 322 ng/mL [facility] 06/04/2025 06/05/2025 10: 31 AM CDT Narrative [facility] - 06/05/2025 Unless otherwise specified, test(s) performed at: [facility], [address] [place], [place] [id number] BIOSECURITY OFFICER: Eran Luciano M.D. For any questions, please call customer service at FREQUENCY:OTHER Resulting Agency Comment Specimen source: Serum us Beatriz Valverde MD LAB BLOOD ORDERABLES Final Re sult Performing Organization Address City/[facility]/ZIP Co de Phone Number [facility] See order comments or contact performing lab Unknown, [place] * HD KINETICS (05/21/2025) Only the most recent of2 resultswithin the time period is included. % Urea Reduction 72 65 - 80 % [facility] 05/21/2025 05/22/2025 10: 56 AM CDT Narrative Resulting Agency Comment Specimen source: Plasma us Beatriz Valverde MD LAB BLOOD ORDERABLES Final Re sult Performing Organization Address [facility]/ZIP Co de Phone Number [facility] See order comments or contact performing lab Unknown, [place] * POST CHEMISTRY (05/21/2025) Only the most recent of2 resultswithin the time period is included. BUN Post Dialysis 10 6 - 19 mg/dL [facility] 05/21/2025 05/22/2025 10: 56 AM CDT Narrative [facility] - 05/22/2025 Unless otherwise specified, test(s) performed at: [facility], [address] [place], [place] [id number] BIOSECURITY OFFICER: Eran Luciano M.D. For any questions, please call customer service at FREQUENCY:MONTHLY Resulting Agency Comment Specimen source: Plasma us Beatriz Valverde MD LAB BLOOD ORDERABLES Final Re sul Performing Organization Address [facility] de Phone Number [employer] See order comments or contact performing lab Unknown, [place] * (ABNORMAL) SPECIAL CHEMISTRY (04/23/2025) Hemoglobin A1C 6.8(H) 4.8 - 5.9 % [facility] 04/23/2025 04/24/2025 10: 27 AM CDT Narrative [facility] - 04/24/2025 Unless otherwise specified, test(s) performed at: [facility], [address] [place] [address] BIOSECURITY OFFICER: Eran Luciano M.D. For any questions, please call customer service at FREQUENCY:MONTHLY Resulting Agency Comment Specimen source: Blood Beatriz Valverde MD LAB BLOOD BANK TEST ORDERABLE S Final Result Performing Organization Address [facility] de Phone Number [facility] [email or web address] [facility] See order comments or contact performing lab Unknown, [place] * IMMUNO CHEMISTRY (04/23/2025) [facility] Hepatitis C Antibody Nonreactive Nonreactive [facility] Comment: No HCV antibody detected. The above test result was obtained using Siemens Centaur XP chemiluminescent method. Results obtained with different assay methods or kits cannot be used interchangeably. S/CO Ratio <0.02 0.00 - 0.79 [facility] Comment: s/co ratio Interpretation Supplemental testing <0.80 Nonreactive No further testing required. 0.80-0.99 Equivocal HCV RNA Quantitative Real-Time PCR is recommended. 1.00->11.00 Reactive HCV RNA Quantitative Real-Time PCR is recommended to distinguish active from resolved cases. 04/23/2025 04/24/2025 10: 47 AM CDT Narrative Resulting Agency Comment Specimen source: Serum Beatriz Valverde MD LAB BLOOD ORDERABLES Final Re sult Performing Organization Address [facility] de Phone Number [facility] [email or web address] See order comments or contact performing lab Unknown, [place] * TRACE ELEMENTS (04/23/2025) Pathologist [facility] Aluminum 6 0 - 10 mcg/L [facility] Comment: This test was developed and its performance characteristics determined by [facility]. It has not been cleared or approved by the FDA. The laboratory is regulated under CLIA as qualified to perform high complexity testing. This test is used for clinical purposes. It should not be regarded as investigational or for research. 04/23/2025 04/24/2025 9:1 0 AM CDT Narrative [facility] - 04/24/2025 Unless otherwise specified, test(s) performed at: [facility], [address] [place] [id number] BIOSECURITY OFFICER: Eran Luciano M.D. For any questions, please call customer service at FREQUENCY:MONTHLY Resulting Agency Comment Specimen source: Serum us Beatriz Valverde MD LAB BLOOD ORDERABLES Final Re sult [facility] See order comments or contact performing lab Unknown, [place] from Last 3 Months Insurance [facility] Medicare Care Teams Director Clinical Research Relationship Specialty Start Date End Date Harjit Marc MD [address] [place] [address] PCP - General Family Medicine 01/05/22
--- OUTSIDE RECORDS SUMMARY | 2025-07-20 17:03 | XMS_ITS | Encounter Summary ---
Author Organization [facility] Address [address] [place] [address] Care Team Providers Care Security Attendant Name Role Phone Harjit Marc MD Primary Care Provider +1- [phone] Encounter Details Date Type Department Care Team (Latest Contact Info) Description 01/14/2004 Outpatient Historical [facility] Dermatology- [facility] [place] [address] [place] [address] Arnol Madrigal MD NO ADDRESS ON FILE ACTINIC KERATOSIS (Primary Dx); Hemangioma skin Social History Tobacco Use Types Packs/Day Years Used Date Smoking Tobacco: Never Assessed Sex and Gender Information Value Date Recorded Sex Assigned at Not on file 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
--- OUTSIDE RECORDS SUMMARY | 2025-07-20 17:03 | XMS_ITS | Encounter Summary ---
Author Organization [facility] Address [address] 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
--- OUTSIDE RECORDS SUMMARY | 2025-07-20 17:03 | XMS_ITS | Encounter Summary ---
Author Organization [facility] Address [address] [place] [address] Care Team Providers Care Media Manager Name Role Phone Harjit Marc MD Primary Care Provider +1- [phone] Encounter Details Date Type Department Care Team (Latest Contact Info) Description 12/19/2001 Outpatient Historical [facility] Dermatology- [facility] [place] [address] [place] [address] Arnol Madrigal MD NO ADDRESS ON FILE ACTINIC KERATOSIS (Primary Dx); SEBACEOUS CYST Social History Tobacco Use Types Packs/Day Years Used Date Smoking Tobacco: Never Assessed Sex and Gender Information Value Date Recorded Sex Assigned at Not on file 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
--- OUTSIDE RECORDS SUMMARY | 2025-07-20 17:03 | XMS_ITS | Encounter Summary ---
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
--- OUTSIDE RECORDS SUMMARY | 2025-07-20 17:03 | XMS_ITS | Encounter Summary ---
Author Organization [facility] Address [address] [place] [address] Care Team Providers Care Roof Cement And Paint Maker Name Role Phone Harjit Marc MD Primary Care Provider +1- [phone] Encounter Details Date Type Department Care Team (Latest Contact Info) Description 03/05/2003 Outpatient Historical [facility] Dermatology- [facility] [place] [address] [place] [address] Arnol Madrigal MD NO ADDRESS ON FILE Hemangioma skin (Primary Dx); ACTINIC KERATOSIS Social History Tobacco Use Types Packs/Day Years Used Date Smoking Tobacco: Never Assessed Sex and Gender Information Value Date Recorded Sex Assigned at Not on file 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
--- OUTSIDE RECORDS SUMMARY | 2025-07-20 17:03 | XMS_ITS | Encounter Summary ---
Author Organization [facility] Address [address] [place] [address] Phone Care Team Providers Care Digital Composer Name Role Phone Harjit Marc MD Primary Care Provider + [phone] Encounter Details Date Type Department Care Team (Late st Contact Info) Description 07/15/2025 Orders Only [facility] [address] [place] [address] Beatriz Valverde MD [address] [place] [address] Social History Tobacco Use Types [...] on file documented as of this encounter Procedures Procedure Name Priority Date/Time Associated Diagnosis Comments HEMOGLOBIN Routine 07/15/2025 documented in this encounter Results * (ABNORMAL) Hemoglobin (07/15/2025) Hemoglobin 10.3(L) 13.2 - 14.0 g/dL [facility] 07/15/2025 07/14/2025 1:2 1 PM PREPPER Narrative Resulting Agency Comment Performing Organization Information: Site ID: [place] Name: [facility] Address: [address] [place] [address] Director: Lexus Kumar MD us Beatriz Valverde MD LAB BLOOD ORDERABLES Final Re sult [facility] [address] [place] [address] documented in this encounter Visit Diagnoses Not on filedocumented in this encounter Care Teams Digital Composer Relationship Specialty Start Date End Date Harjit Marc MD [address] [place] [address] PCP - General Family Medicine 01/05/22 documented as of this encounter
--- OUTSIDE RECORDS SUMMARY | 2025-07-20 17:04 | XMS_ITS | Continuity of Care Document ---
Author Organization [place] - [facility] Mahsa Frias, [facility] ([facility]) Address [address] [facility] [place] [place] [address] Care Team Providers Care Cut Off Machine Unloader Name Role Phone NICKOLAS GUTIÉRREZ Primary Care Provider Assessment Encounter Date Assessment Date Assessment LastModified by Organization Details LastModified Time 05/27/2025 05/27/2025 - 84-year-old male with a history of diabetes mellitus and hypertension, presenting with chronic right shoulder pain. - Blood glucose levels remain elevated; consider reviewing diabetic management. - Reported elevated blood pressure during dialysis requires assessment for hypertensive management. - Shoulder MRI reveals arthritis and potential foreign bodies, suggesting possible need for orthopedic referral. - Renal disease managed with dialysis continuation and nephrological input. [email or web address] Not available 05/27/2025 12:37:50 Plan of Treatment Reminders Order Date Submit Date Provider Last Modified By Organization Details Last Modified Time Details Appointments ACUTE VISIT 2024 04:40P M WALK-IN Not available Not available Not available OFFICE VISIT 20 2025 10:30A M Nickolas Gutiérrez MD Not available Not available Not available Lab None recorded. Referral orthopedi c surgeon referral 2024 025 [email or web address] Fritz Ling DO, [address] [place], [address], 06/04/2025 13:56:31 Procedures None recorded. Surgeries None recorded. Imaging None recorded. Medication Orders None recorded. Patient TargetsNo targets recorded. Patient Instructions Encounter Date Encounter Id Patient Instructions Last Modified By Organization Details Last Modified Time 05/27/2025 [id number] - Monitor blood sugar levels regularly and maintain contact with your dependency program director. - Continue prescribed medications and follow up on any changes with your healthcare provider. - Discuss blood pressure readings during dialysis with the nephrology team. - Consider orthopedic follow-up for shoulder pain based on MRI results. - Maintain regular dialysis treatments and coordinate with your medical services coordinator for ongoing care. - Return for follow-up appointment as scheduled or sooner if conditions worsen. [email or web address] Not available 05/27/2025 12:37:54 I discussed with the patient the challenges in managing diabetes and hypertension, particularly given his reliance on dialysis. The complexity of his shoulder condition as indicated by the MRI was explained, highlighting the possibility of orthopedic evaluation due to severe pain and limited range of motion. We agreed on maintaining close coordination with his dependency program director for blood sugar management and with nephrology for his dialysis care, while also exploring adjustments to his hypertensive medication regimen. I reiterated the importance of following up for ongoing management of these chronic conditions. 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 11:28:06 Cellulit is 361426467 Active TREBA NEUSCHWAN JOE [facility] 11:28:06 Lumbar radiculo bello 276498055 Active TREBA NEUSCHWAN JOE [facility] 11:28:06 Acute kidney injury 05481082 Active TREBA NEUSCHWAN JOE [facility] 5 11:28:06 Constipa tion 27841699 Active TREBA NEUSCHWAN [facility]E [facility] 5 11:28:06 Lymphede ma of right upper limb 50047126925 300590 Active TREBA NEUSCHWAN JOE null, [facility] 5 11:28:06 History of Spinal surgery 855634751 Active TREBA NEUSCHWAN JOE [facility], [facility] 5 11:28:06 Pulmonar y edema 04208437 Active TREBA NEUSCHWAN [facility]E [facility] 5 11:28:06 Open wound of external ear 385274881 Active TREBA NEUSCHWAN JOE [facility] 11:28:06 Accident al fall Active TREBA NEUSCHWAN JOE [facility], [facility] 5 11:28:06 Myocardi al infarcti on 41417892 Active TREBA NEUSCHWAN JOE null, [facility] 11:28:06 Pneumoni a 689366578 Active TREBA NEUSCHWAN [facility] 11:28:06 Acute-on -chronic renal failure 260027394 Active TREBA NEUSCHWAN [facility] 11:28:06 Acute retentio n of urine 716793607 Active TREBA NEUSCHWAN [facility]E [facility] 11:28:06 Obstruct ion of indwelli ng urinary catheter 950098394 Active TREBA NEUSCHWAN [facility] 11:28:06 Lumbar spondylo sis 129671205 Active TREBA NEUSCHWAN [facility], [facility] 5 11:28:06 Tear of the annulus fibrosus of interver tebral disc 170446413 Active TREBA NEUSCHWAN JOE null, [facility] 5 11:28:06 Lumbosac ral radiculo bello 2020539 Active TREBA NEUSCHWAN JOE null, [facility] 11:28:06 Degenera tion of lumbar interver tebral disc 95902320 Active TREBA NEUSCHWAN JOE null, [facility] 11:28:06 Mixed hyperlip idemia 296905419 Active TREBA NEUSCHWAN JOE null, [facility] 11:28:06 Anemia 284380420 Active TREBA NEUSCHWAN JOE [facility] 11:28:06 Low back pain 917997473 Active TREBA NEUSCHWAN [facility] 11:28:06 Abrasion of head 393096836 Active TREBA NEUSCHWAN [facility] 11:28:06 Contusio n of eye 923942224 Active TREBA NEUSCHWAN JOE [facility] 11:28:06 Hypoxia 876069722 Active TREBA NEUSCHWAN [facility] 11:28:06 Congesti ve heart failure 51872677 Active TREBA NEUSCHWAN JOE null, [facility] 11:28:06 Bilatera l pleural effusion 059238598 Active TREBA NEUSCHWAN JOE [facility] 5 11:28:06 Complica tion of urinary catheter 420265866 Active TREBA NEUSCHWAN JOE [facility] 5 11:28:06 Hyperten sive urgency 611015781 Active TREBA NEUSCHWAN JOE [facility] 5 11:28:06 D-dimer above referenc e range 153279530 Active TREBA NEUSCHWAN [facility] 5 11:28:06 Closed injury of head 30935133436 6 Active TREBA NEUSCHWAN JOE [facility] 5 11:28:06 Coronary arterios clerosis 52383253 Active TREBA NEUSCHWAN JOE [facility] 5 11:28:06 Subclini hugo hypothyr oidism 95003294 Active TREBA NEUSCHWAN JOE [facility] 5 11:28:06 Acute hyperkal emia 3331364 Active TREBA NEUSCHWAN [facility] 5 11:28:06 Acute exacerba tion of chronic congesti ve heart failure 041744380 Active TREBA NEUSCHWAN JOE [facility] 5 11:28:07 Catheter -associa kun urinary tract infectio n 978062217 Active TREBA NEUSCHWAN JOE [facility] 5 11:28:07 Chronic kidney disease 556896149 Active TREBA NEUSCHWAN JOE [facility] 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 5 11:28:07 Hypovole patti 306014898 Active REY DIAZ null, [facility] 5 11:28:07 Colonosc opy Completed 202201/07/2025 Colonosc opy; 06/07/20 11 @ [facility] by Dr. Gutiérrez ; 09/28/19 12:15PM by Blank Garcia, Office Visit; Promoted ; acuity set as *; PAMELLA GORDON null, [facility] 5 14:16:47 Hyperten sive disorder 53031731 Active 2022 HYPERTEN EZEQUIEL; Recorded 09/28/19 12:15PM by Blank Garcia, Office Visit; Promoted ; acuity set as *; [facility] 5 11:28:06 Hypercho lesterol emia 03855438 Active 2022 Hypercho lesterol emia; 09/28/19 12:15PM by Blank Garcia, Office Visit; Promoted ; acuity set as *; REY DIAZ null, [facility] 5 14:10:03 Placemen t of stent Completed 202203/11/2025 Stent; 04/2010; 09/28/19 12:15PM by Blank Garcia, Office Visit; Promoted ; acuity set as *; REY DIAZ null, [facility] 5 14:10:11 Diabetes mellitus 34148299 Active 2022 REY DIAZ null, [facility] 5 14:09:38 [facility] hyperten ezequiel 55213891 Active 2022 REY DIAZ null, [facility] 5 14:09:49 History of myocardi al infarcti on 973158144 Completed 202203/11/2025 REY AMADORCECILLE Parson, [facility] 5 14:09:54 End stage renal failure on dialysis 237003690 Active 2023 SYBIL KHAIJAME JOE [facility] 5 14:09:43 Pain of right shoulder region Active 2024 REY AMADORCECILLE JOE null, [facility] 5 14:09:58 Triggeri ng of digit 033325977 Active 2024 REY AMADORCECILLE JOE null, [facility] 14:10:18 Pain of right shoulder joint 58508576874 361785 Active 2024 Nickolas Gutiérrez MD [address] [place] [address], [phone] , [facility] 14:44:19 Problem Notes None recorded. Procedures Surgical History Date Name Laterality Status Provider Name and Address Organization Details Recorded Time release of trigger finger of right hand [facility] 05/27/2025 12:01:38 Prostate Surgery completed PAMELLA GORDON [facility] 05/28/2023 12:55:21 placement of stent completed [facility] 10/03/2023 14:47:55 Imaging Results None recorded. Procedure Notes None recorded. Medical Equipment None Reported. Allergies Allergen ID Allergen Name Allergen Category Reaction Reaction Severity Criticality Documentation Date Start Date Code Code System Note Provider Name and Address Organization Details Recorded Time 66031 Sports Tape medicatio n Not available Not available Not available 03/17/2023 Comme nt: Recor ded 10/31 9:19A M by Kimber Gordon RN, Offic e Visit ; Nguyen tristan; Zaki britton ce: *; ; Not Available [facility] 02:23:27 631 Trulicity medicatio n Not available Not available Not available 11/15/2022 17314 96 RxNorm [facility] 10:39:42 93997 sitaglipt in medicatio n Not available Not available Not available 03/11/20252024 35865 1 RxNorm TREBA NEUSCHWAN JOE null, [facility] 14:08:39 22429 dulagluti de medicatio n Not available Not available Not available 03/11/20252024 87325 91 RxNorm [facility]AN [facility] 14:08:39 67925 Adhesive agent (substanc e) environme nt,medica tion rash Not available low 07/20/20252017 36743 0007 SNOMED Not Available lashonda - External Data Service - prod 17:32:49 71361 clonidine medicatio n other Not available Not available 07/20/20252021 2599 RxNorm Blurr ed visio n Not Available lashonda - External Data Service - prod 17:32:54 66525 dostarlim ab-gxly medicatio n Not available Not available Not available 07/20/2025 62504 68 RxNorm Not Available lashonda - External [...] 08/11/20 11:12AM by Pamella Gordon RN (Authori zed through Nickolas Gutiérrez MD), Refill Request; Refill Quantity : 90; Tablet; Not Available Not Available Not Available Vitamin D TAKE 1 DOSE BY MOUTH DAILY 01/07 completed Not Available Not Available Not Available Nitrostat Q5 minutes up to 3 times prn Chest pressure 2021 active Not Available Not Available Not Avai lable metoprolo l succinate daily 05/27 completed Recorded 07/31/20 11:45AM by Nickolas Gutiérrez MD, Office Visit; Mail Order Quantity : [...] 09/04/19 12:55PM by Pamella Gordon RN (Authori zed through Nickolas Gutiérrez MD), Refill Request; Refill Quantity : 1; Each; Not Available Not Available Not Available Sucralfat e Suspensio n bid 04/27 completed vo JR/tn; Recorded 11/01/19 9:14AM by Pamella Gordon RN, Office Visit; Refill Quantity : 0; Not Available Not Available Not Available Potassium Chloride ER BID 03/22 completed Recorded 03/14/20 23 9:15AM by Pamella Gordon RN, Office [...] 40 UNITS IN 24 HOURS) 2024 active vo JR.tn Not Available Not Available Not Avai lable Accu-Chek Active BID 04/27 completed Recorded 11/11/19 21 2:24PM by Pamella Gordon RN, Historic al Summary; Mail Order Quantity : 180 Each; Mail Order Days: 90 Days; Refill Quantity : 0; Not Available Not Available Not Available amlodipin e besylate (bulk) qd 03/22 completed 173; Recorded 01/12/20 22 3:52PM by Pamella Gordon RN (Authori celested through Nickolas Gutiérrez MD), Annotati on/Adden dum; Mail Order Quantity : 100 Tablet; [...] Ultra-Fin e 1/2 mL 31 gauge x USE DIRECTED WITH HUMULIN N active Not [...] Available Not Available No t Available Vitals Date Recorded Body height Body mass index (BMI) Body weight Oxygen saturation Heart rate Respiratory rate Body temperature Systolic And Diastolic Provider Name and Address Organization Details Last Updated DateTime 5 177.8 cm 26.6 kg/m2 83132.2 9 g 97 % 67 /min 18 /min 98.1 [degF] 130/70 mm[Hg] REY DIAZ [facility] 5 11:47:10 Social History Question Answer Notes LastModified by ELENZAizLessons Only ion Details LastModified Time Tobacco Smoking Status Never Smoker PAMELLA hanks [facility] 03/22/2023 10:22:00 Are You Blind Or Do [...] difficulty concentrating, remembering or making decisions? [place] [address] Information no t available 01/07/2025 Family History Nothing Reported Notes:ACUTE MYOCARDIAL INFAR CTION Father: Myocardial Infarction, Cancer Mother: Hypertension, Arthritis Son: Diabetes Medical History No medical history recorded. Immunizations Vaccine Type Date Status Note Provider Nam e and Address Organization Details Recorded Time Influenza, adjuvanted, trivalent, PF 5 completed REY hanks [facility] 05/27/2025 12:19:17 Influenza, high-dose, quadrivalent, PF 3 completed PAMELLA hanks [facility] 05/28/2023 12:54:17 Influenza, high-dose, trivalent, PF 4 completed REY hanks [facility] 07/09/2024 14:48:21 Influenza, high-dose, quadrivalent, PF 2 completed PAMELLA hanks [facility] 01/24/2023 16:13:37 Influenza, high-dose, trivalent, PF 8 completed PAMELLA hanks [facility] 01/24/2023 16:13:37 Influenza, high-dose, trivalent, PF 9 completed PAMELLA hanks, [facility] 01/24/2023 16:13:37 Influenza, split virus, trivalent, preservative 0 completed PAMELLA hanks [facility] 01/24/2023 16:13:37 Influenza, split virus, trivalent, preservative 1 completed PAMELLA hanks [facility] 01/24/2023 16:13:37 pneumococcal, unspecified formulation 3 completed Not Available [facility] 10/03/2023 14:04:35 Influenza, split virus, trivalent, preservative 3 completed Not Available [facility] 10/03/2023 14:04:35 Influenza, split virus, trivalent, preservative 2 completed Not Available [facility] 10/03/2023 14:04:35 Influenza, split virus, trivalent, preservative 2 completed Not Available [facility] 10/03/2023 14:04:35 Influenza, split virus, trivalent, preservative 8 completed Not Available [facility] 10/03/2023 14:04:35 Influenza, split virus, trivalent, preservative 3 completed Not Available [facility] 10/03/2023 14:04:35 Influenza, split virus, trivalent, preservative 4 completed Not Available [facility] 10/03/2023 14:04:35 Influenza, split virus, trivalent, preservative 9 completed Not Available [facility] 10/03/2023 14:04:35 Past Encounters Encounter ID Performer Location Encounter Start Date Encounter Closed Date Diagnosis/Indication Diagnosis SNOMED-CT Code Diagnosis ICD10 Code Diagnosis IMO Codes Diagnosis Note [id number] AZEB MALAVE APRN [facility] ([facility]) [address] [place] [address] 05/23/2025 18:11:46 06/16/2025 08:23:58 Acute constipation 305218233 K59.00 558324 [id number] Nickolas Gutiérrez MD [facility] ([facility]) [address] [place] [address] 05/27/2025 11:24:24 06/02/2025 10:04:35 Hypercholesterolemia 87895439 E78.00 End stage renal failure on dialysis 830259633 Z99.2 - Continue dialysis coordinati on with nephrology department . Hypertensive disorder 38 051594 I10 - Considerat ion for adjustment of hypertensi ve therapy, particular ly during dialysis. Diabetes mellitus 062153 09 E13.42 - Plan includes monitoring and possible modificati on of diabetic treatment under endocrinol ogist's guidance. Hypertensi ve heart AND renal disease 41751495 I13.0 [id number] End-stage renal disease 79829280 N18.6 03230 Dependence on renal dialysis 661199355 Z99.2 793063 Chronic anemia 134078884 D64.9 978181 Chronic pa in of right upper limb 7199457689 6421263 G89.29 M25.511 215491 - Orthopedic consultati on advised following MRI results. Requires i nfluenza virus vaccination 664526585 Z23 869823 Health Concerns Section Related Observation LastModified by Organization Detai ls LastModified Time None Recorded Concern Status LastModified by Organization Details LastModified Time None Recorded Payers Encounter Date Sequence Insurance Name Policy Number Policy San Covered Member ID San Member ID Guarantor Name 05/27/2025 1 [facility] (MEDICARE REPLACEMENT/A DVANTAGE - HMO) [id number] Quang Hunter [id number] Quang Hunter Notes Date Note Type Note Provider Name and Address Organization Details Recorded Time 5 text/html DiabetesReported by PatientHPIFor control, patient reportsusually poorly controlledbut reportstreated with insulin. For self care, patient reportsnot taking aspirin daily (stopped by dr de oliveira)but reportsmonitoring glucose 4 times per day. For associated symptoms, patient reportsnumbness of feet,fatigue (after dialysis), andparesthesiasbut reportsno dizziness,no sweats,no headaches,no increased thirst,no increased appetite, andno increased urination. For duration, patient reportschronic. For compliance, patient reportscompliant with medicationsandcompliant with follow-up visits. For review finger sticks, (80-400. pt uses dexcom).Complications and Co-morbiditiesFor chronic complications, patient reportshypertension: yesandkidney disease: yes. For comorbidities, patient reportscoronary artery disease: yes. Hypertension IM/FMReported by PatientHPIFor severity, patient reportsstage 1 (130-139/80-89 mmhg)andstage 2 (>140/>90 mmhg)but reportsmoderate. For self care, patient reportsunder emotional stress. For associated symptoms, patient reportsshortness of breath (occ)andfatiguebut reportsno chest pain. For quality, patient reportshere for check-up. For onset/timing, patient reportsgradual onset. For alleviating factors, patient reportsmedication. For risk factors, patient reportsend-stage renal diseaseanddiabetes. The patient is an 84-year-old male presenting with chronic pain in the right shoulder. Diabetes Mellitus: - Reports blood glucose readings of 197 mg/dL in the morning and levels in the 300s in the evening. - Experienced a drop in glucose levels at 2 AM, requiring him to eat. Essential Hypertension: - Noted elevated blood pressure readings at the dialysis center. Chronic Pain of Right Upper Limb: - Ongoing significant pain in the right shoulder. - Had an MRI in late March showing several issues, including arthritis. Dependence on Renal Dialysis: - Continues renal dialysis for end-stage renal disease. - MRI of the right shoulder showed multiple issues, including arthritis and foreign bodies in the synovial area. Nickolas Gutiérrez MD [address] [place] [address], [phone], [facility] [place] [facility] 05/28/2025 14:20:38
--- OUTSIDE RECORDS SUMMARY | 2025-07-20 17:04 | XMS_ITS | Encounter Summary ---
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) Social History Tobacco Use Types Packs/Day Years Used Date Smoking Tobacco: Never Assessed Sex and Gender Information Value Date Recorded Sex Assigned at Not on file Legal Sex Male 10:54 AM EDT Gender Identity Not on file Sexual Orientation Not on file documented as of this encounter Plan of Treatment Not on file documented as of this encounter Visit Diagnoses Diagnosis 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
--- OUTSIDE RECORDS SUMMARY | 2025-07-20 17:04 | XMS_ITS | Continuity of Care Document ---
Author Organization [facility] Altagrac[facility], [facility], [facility] (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 Plan of Treatment Reminders Order Date Submit [...] recorded . Patient TargetsNo targets recorded. Patient Instructions Encounter Date Encounter Id Patient Instructions Last Modified By Organization Details Last Modified Time 05/23/2025 [id number] We discussed MOM and prune juice if ok with welcome hostess. Continue colace. Stay active. Follow up with PCP [email or web address] Not available 06/15/2025 16:39:11 Reason for Referral None Reported. 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 5 11:28:06 Lumbar radiculo bello 452136873 Active TREBA NEUSCHWAN JOE null [facility] 5 11:28:06 Acute kidney injury 27590057 Active TREBA NEUSCHWAN JOE null, [facility] 5 11:28:06 Constipa tion 86369004 Active TREBA NEUSCHWAN JOE null, [facility] 5 11:28:06 Lymphede ma of right upper limb 41139218024 698156 Active TREBA NEUSCHWAN JOE null, [facility] 5 11:28:06 History of Spinal surgery 986255163 Active TREBA NEUSCHWAN JOE null, [facility] 5 11:28:06 Pulmonar y edema 95267783 Active TREBA NEUSCHWAN JOE null, [facility] 5 11:28:06 Open wound of external ear 590233408 Active TREBA NEUSCHWAN JOE null, [facility] 5 11:28:06 Accident al fall Active TREBA NEUSCHWAN JOE null, [facility] 5 11:28:06 Myocardi al infarcti on 16507747 Active TREBA NEUSCHWAN JOE null, [facility] 5 11:28:06 Pneumoni a 018437326 Active TREBA NEUSCHWAN JOE null, [facility] 5 11:28:06 Acute-on -chronic renal failure 961478173 Active TREBA NEUSCHWAN JOE null, [facility] 5 11:28:06 Acute retentio n of urine 872840859 Active TREBA NEUSCHWAN JOE null, [facility] 11:28:06 Obstruct ion of indwelli ng urinary catheter 214888014 Active TREBA NEUSCHWAN JOE null, [facility] 11:28:06 Lumbar spondylo sis 733274728 Active TREBA NEUSCHWAN JOE [facility], [facility] 11:28:06 Tear of the annulus fibrosus of interver tebral disc 194956778 Active TREBA NEUSCHWAN JOE null, [facility] 11:28:06 Lumbosac ral radiculo bello 3007821 Active TREBA NEUSCHWAN JOE null, [facility] 11:28:06 Degenera tion of lumbar interver tebral disc 61294015 Active TREBA NEUSCHWAN JOE [facility], [facility] 11:28:06 Mixed hyperlip idemia 089414743 Active TREBA NEUSCHWAN JOE [facility], [facility] 11:28:06 Anemia 473688303 Active TREBA NEUSCHWAN JOE [facility], [facility] 11:28:06 Low back pain 583439593 Active TREBA NEUSCHWAN JOE [facility], [facility] 11:28:06 Abrasion of head 111598004 Active TREBA NEUSCHWAN JOE [facility], [facility] 11:28:06 Contusio n of eye 864575446 Active TREBA NEUSCHWAN JOE [facility], [facility] 11:28:06 Hypoxia 496649073 Active TREBA NEUSCHWAN JOE [facility], [facility] 5 11:28:06 Congesti ve heart failure 50966685 Active TREBA NEUSCHWAN JOE [facility], [facility] 5 11:28:06 Bilatera l pleural effusion 154215842 Active TREBA NEUSCHWAN JOE [facility], [facility] 5 11:28:06 Complica tion of urinary catheter 307726069 Active TREBA NEUSCHWAN JOE [facility], [facility] 11:28:06 Hyperten sive urgency 297121266 Active TREBA NEUSCHWAN JOE [facility], [facility] 5 11:28:06 D-dimer above referenc e range 413395882 Active TREBA NEUSCHWAN JOE [facility] 5 11:28:06 Closed injury of head 39744042794 6 Active TREBA NEUSCHWAN JOE [facility], [facility] 5 11:28:06 Coronary arterios clerosis 09761128 Active TREBA NEUSCHWAN JOE [facility], [facility] 5 11:28:06 Subclini hugo hypothyr oidism 31884434 Active TREBA NEUSCHWAN JOE [facility], [facility] 5 11:28:06 Acute hyperkal emia 5776383 Active TREBA NEUSCHWAN JOE [facility], [facility] 5 11:28:06 Acute exacerba tion of chronic congesti ve heart failure 873410510 Active TREBA NEUSCHWAN JOE [facility], [facility] 5 11:28:07 Catheter -associa kun urinary tract infectio n 964698994 Active TREBA NEUSCHWAN JOE [facility], [facility] 5 11:28:07 Chronic kidney disease 416925261 Active TREBA NEUSCHWAN [facility], [facility] 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 5 11:28:07 Hypovole patti 919133768 Active TREBA NEUSCHWAN JOE [facility] 5 11:28:07 Colonosc opy Completed 202201/07/2025 Colonosc opy; 06/07/20 11 @ [facility] by Dr. Marc ; 09/28/19 12:15PM by Blank Garcia, Office Visit; Promoted ; acuity set as *; PAMELLA GORDON [facility] 5 14:16:47 Hyperten sive disorder 91421043 Active 2022 HYPERTEN EZEQUIEL; Recorded 09/28/19 12:15PM by Blank Garcia, Office Visit; Promoted ; acuity set as *; REY KNOX JOE [facility] 5 11:28:06 Hypercho lesterol emia 45275900 Active 2022 Hypercho lesterol emia; 09/28/19 12:15PM by Blank Garcia, Office Visit; Promoted ; acuity set as *; SYBILBA LISETTE [facility] 5 14:10:03 Placemen t of stent Completed 202203/11/2025 Stent; 04/2010; 09/28/19 12:15PM by Blank Garcia, Office Visit; Promoted ; acuity set as *; SYBILBA SCOTTN JOE [facility], [facility] 14:10:11 Diabetes mellitus 72564528 Active 2022 REY KNOX [facility] 5 14:09:38 Oh wyman sion 43977440 Active 2022 REY KNOX [facility] 5 14:09:49 History of myocardi al infarcti on 156811966 Completed 202203/11/2025 REY KNOX [facility], Lucia[facility] 14:09:54 End stage renal failure on dialysis 833463920 Active 2023 REY KNOX [facility] 5 14:09:43 Pain of right shoulder region Active 2024 REY KNOX [facility] 14:09:58 Triggeri ng of digit 950603732 Active 2024 REY KNOX [facility] 14:10:18 Pain of right shoulder joint 56896175932 203811 Active 2024 Nickolas Marc MD [address] [place] [address], [phone] [place] [address], L.L.[facility]len 14:44:19 Problem Notes None recorded. Procedures Surgical History Date Name Laterality Status Provider Name and Address Organization Details Recorded Time release of trigger finger of right hand completed [facility] PRIYANKA [facility] 05/27/2025 12:01:38 Prostate Surgery completed PAMELLA GORDON [facility], [facility] 05/28/2023 12:55:21 placement of stent completed [facility] NEUSCHWANDER [facility] 10/03/2023 14:47:55 Imaging Results None recorded. Procedure Notes None recorded. Medical Equipment None Reported. Allergies Allergen ID Allergen Name Allergen Category Reaction Reaction Severity Criticality Documentation Date Start Date Code Code System Note Provider Name and Address Organization Details Recorded Time 44646 Sports Tape medicatio n Not available Not available Not available 03/17/2023 Comme nt: Recor ded 10/31 9:19A M by Kimber Gordon RN, Offic e Visit ; Promo kun; Zaki britton ce: *; ; Not Available [facility] 02:23:27 631 Trulicity medicatio n Not available Not available Not available 11/15/2022 54773 96 RxNorm REY KNOX JOE demario, [facility] 3 10:39:42 22746 sitaglipt in medicatio n Not available Not available Not available 03/11/20252024 37788 1 RxNorm TREBA AMADORSCHWAN JOE null, [facility] 5 14:08:39 99750 dulagluti de medicatio n Not available Not available Not available 03/11/20252024 03404 91 RxNorm TRECONCEPCION RIDLEYWAN JOE null, [facility] 5 14:08:39 23576 Adhesive agent (substanc e) environme nt,medica tion rash Not available low 07/20/20252017 93585 0007 SNOMED Not Available lashonda - External Data Service - prod 17:32:49 72229 clonidine medicatio n other Not available Not available 07/20/20252021 2599 RxNorm Blurr ed visio n Not Available lashonda - External Data Service - prod 17:32:54 37770 dostarlim ab-gxly medicatio n Not available Not available Not available 07/20/2025 09872 68 RxNorm Not Available [facility] - External Data Service - prod 17:33:24 [...] Pamella Gordon RN (Authori zed through Nickolas Marc MD), Refill Request; Refill [...] Pamella Gordon RN (Authori zed through Nickolas Marc MD), Refill Request; Refill Quantity : 1; Each; Not Available Not Available Not Available Sucralfat e Suspensio n bid 04/27 completed vo JR/tn; Recorded 11/01/19 23 9:14AM by Pamella Gordon, RN, Office Visit; Refill Quantity : 0; [...] UNITS IN 24 HOURS) 2024 active vo tn Not Available Not Available Not Avai lable [...] RN (Authori celested through Nickolas Marc MD), Annotati on/Adden dum; Mail Order Quantity [...] Ultra-Fin e 1/2 mL 31 gauge x 15/64 USE DIRECTED WITH HUMULIN N active Not Available Not Available No t Available BD Breanne 2nd Gen Pen Needle 32 gauge x /32 USE DIRECTED active Not Available Not Available [...] height Body mass index (BMI) Body weight Body temperature Heart rate Oxygen saturation Provider Name and Address Organization Details Last Updated DateTime 5 177.8 cm 26.4 kg/m2 78105.4 g 98.7 [degF] 84 /min 97 % Mitzi Aguero [facility] 5 18:22:48 Date Recorded Body height Body mass index (BMI) Body weight Oxygen saturation Heart rate Respiratory rate Body temperature Systolic And Diastolic Provider Name and Address Organization Details Last Updated DateTime 5 177.8 cm 26.6 kg/m2 24398.2 9 g 97 % 67 /min 18 /min 98.1 [degF] 130/70 mm[Hg] REY DIAZ [facility] 5 11:47:10 Social History Question Answer Notes LastModified by Organizat ion Details LastModified Time Tobacco Smoking Status Never Smoker [facility]A [facility]anks [facility] 03/22/2023 10:22:00 Are You Blind Or Do [...] Immunizations Vaccine Type Date Status Note Provider Leonid bustos and Address Organization Details Recorded Time Influenza, adjuvanted, trivalent, PF completed REY hanks [facility] 05/27/2025 12:19:17 Influenza, high-dose, quadrivalent, PF 3 completed PAMELLA GORDON [facility] 05/28/2023 12:54:17 Influenza, high-dose, trivalent, PF [facility] 07/09/2024 14:48:21 Influenza, high-dose, quadrivalent, PF 2 completed PAMELLA GORDON [facility] 01/24/2023 16:13:37 Influenza, high-dose, trivalent, PF 8 [facility] 01/24/2023 16:13:37 Influenza, high-dose, trivalent, PF 9 completed PAMELLA GORDON [facility] 01/24/2023 16:13:37 Influenza, split virus, trivalent, preservative 0 completed PAMELLA GORDON [facility] 01/24/2023 16:13:37 Influenza, split virus, trivalent, preservative 1 completed PAMELLA GORDON [facility] 01/24/2023 16:13:37 pneumococcal, unspecified formulation 3 completed Not Available [facility] 10/03/2023 14:04:35 Influenza, split virus, trivalent, preservative 3 completed Not Available [facility] 10/03/2023 14:04:35 Influenza, split virus, trivalent, preservative 2 completed Not Available [facility] 10/03/2023 14:04:35 Influenza, split virus, trivalent, preservative 2 completed Not Available [facility] 10/03/2023 14:04:35 Influenza, split virus, trivalent, preservative 8 completed Not Available [facility] 10/03/2023 14:04:35 Influenza, split virus, trivalent, preservative 3 completed Not Available [facility] 10/03/2023 14:04:35 Influenza, split virus, trivalent, preservative 4 completed Not Available [facility] 10/03/2023 14:04:35 Influenza, split virus, trivalent, preservative 9 completed Not Available [facility] 10/03/2023 14:04:35 Past Encounters Encounter ID Performer Location Encounter Start Date Encounter Closed Date Diagnosis/Indication Diagnosis SNOMED-CT Code Diagnosis ICD10 Code Diagnosis IMO Codes Diagnosis Note [id number] AZEB MALAVE APRN [facility] ([facility]) [address] [place] [address] 05/23/2025 18:11:46 06/16/2025 08:23:58 Acute constipation 072038340 K59.00 039616 Health Concerns Section Related Observation LastModified by Organization Detai ls LastModified Time None Recorded Concern Status LastModified by Organization Details LastModified Time None Recorded Payers Encounter Date Sequence Insurance Name Policy Number Policy San Covered Member ID San Member ID Guarantor Name 05/23/2025 1 [facility] (MEDICARE REPLACEMENT/A DVANTAGE - HMO) [id number] Quang Hunter [id number] Quang Hunter Notes Date Note Type Note Provider Name and Address Organization Details Recorded Time 5 text/html walk in ptPt is constipated and hasn't had a BM since Sunday, pt is on dialysis every other day. He has also bee taking pain meds due to recent surgery AZEB MALAVE APRN [address] [place] [address], [phone], [facility] 06/15/2025 16:39:25 5 text/html DiabetesReported by PatientHPIFor control, patient [...] foreign bodies in the synovial area. Nickolas Marc MD [address] [place] [address], [phone], [facility] 05/28/2025 14:20:38
--- OUTSIDE RECORDS SUMMARY | 2025-07-20 17:04 | XMS_ITS | Data Portability ---
Author Organization [place] - [facility] [place] Frias, [facility] Address [address] [facility] [address] [place] [address] Care Team Providers Care Tire Classifier Name Role Phone NICKOLAS GUTIÉRREZ Primary Care Provider [phone] Assessment Encounter Date Assessment Date Assessment LastModified by Organization Details LastModified Time 03/11/2025 03/11/2025 He still has severe limitation with ROM and pain in right shoulder despite PT. Will order and MRI and consult Orthopedics. [email or web address] Not available 03/11/2025 14:45:31 05/27/2025 05/27/2025 - 84-year-old male with a [...] nephrological input. [email or web address] Not available 05/27/2025 12:37:50 07/20/2025 07/20/2025 Due to x-ray down and [...] Referral orthopedi c surgeon referral 2024 [id number] [email or web address] Fritz Kidder DO, [address] [place], [address], 06/04/2025 13:56:31 orthopedi c surgeon referral 2024 025 [email or web address] [facility], [address] [place], [address], 03/12/2025 17:27:19 Procedures None recorded. Surgeries None recorded. Imaging MRI, shoulder, w/o contrast 2024 025 asurface [facility] (Scheduling Orders), [address] [place], [address], 03/23/2025 12:30:30 Medication Orders None recorded. Patient TargetsNo targets recorded. Patient Instructions Encounter Date Encounter Id Patient Instructions Last Modified By Organization Details Last Modified Time 05/23/2025 [id number] We discussed MOM and prune juice if ok with weatherization field technician. Continue colace. Stay active. Follow up with PCP ashu Not available 06/15/2025 16:39:11 05/27/2025 [id number] - Monitor blood sugar levels regularly and maintain contact with your labor trainer. - Continue prescribed medications and follow up on any changes with your healthcare provider. - Discuss blood pressure readings during dialysis with the nephrology team. - Consider orthopedic follow-up for shoulder pain based on MRI results. - Maintain regular dialysis treatments and coordinate with your weatherization field technician for ongoing care. - Return for follow-up [...] agreed on maintaining close coordination with his labor trainer for blood sugar management and with nephrology for his dialysis care, while also exploring adjustments to his hypertensive medication regimen. I reiterated the importance of following up for ongoing management of these chronic conditions. [email or web address] Not available 05/27/2025 12:37:54 Reason for Referral Orthopedic Surgeon Referral for Pain of right shoulder joint Referring Physician: Nickolas Gutiérrez [facility], Encounter Date: 03/11/2025 Orthopedic Surgeon Referral for Chronic pain of right upper limb Referring Physician: Nickolas Gutiérrez [facility], Encounter Date: 05/27/2025 Results Created Date Observation Date Name Description Value Unit Range Abnormal Flag Note LastModifiedBy Organization Detail LastModifiedTime 06/17/20 25 06/18/2025 PSA, TOTAL PSA, total 2.92 NG/mL < or = 4.00 normal The total PSA value from this assay syste m is stand ardiz ed again st the WHO stand annia. The test resul t will be appro ximat steffi 20% lower when tay red to the equim olar- stand ardiz ed total PSA (Carr man Coult er). Tay rison of seria l PSA resul ts shoul d be inter prete d with this fact in mind. This test was perfo rmed using the [employer] chemi lumin escen t metho d. Value s obtai armaan from diffe rent assay metho ds canno t be used inter damon eably . PSA level s, regar dless of value , shoul d not be inter prete d as absol melania evide nce of the prese nce or absen ce of disea se. Not Available [employer] [facility] [address] [place], [address], 06/18/2025 07:22:18 03/06/2003/05/2025 XR, knee, 3 view No observ ation record ed. [email or web address] [facility] [address] [place], [address], 03/06/2025 17:57:47 03/25/2003/25/2025 MRI, shoul shelley, w/o contr ast No observ ation record ed. [facility] [address] [place], [address], 03/27/2025 11:21:19 Result Notes None recorded. Problems Name Problem SNOMED Code Status Onset Date Resolution Date Notes Provider Name and Address Organization Details Recorded Time Monoclon al gammopat hy (clinica l) 476320363 Active TREBA NEUSCHWAN SHELLEY null, [facility] 5 11:28:06 Cellulit is 690974457 Active TREBA NEUSCHWAN SHELLEY null, [facility] 5 11:28:06 Lumbar radiculo bello 195788448 Active TREBA NEUSCHWAN SHELLEY null, [facility] 5 11:28:06 Acute kidney injury 51010855 Active TREBA NEUSCHWAN SHELLEY null, [facility] 5 11:28:06 Constipa tion 37083653 Active TREBA NEUSCHWAN SHELLEY null, [facility] 5 11:28:06 Lymphede ma of right upper limb 52401527828 262585 Active TREBA NEUSCHWAN SHELLEY [facility], [facility] 5 11:28:06 History of Spinal surgery 637427587 Active TREBA NEUSCHWAN SHELLEY null, [facility] 5 11:28:06 Pulmonar y edema 80429738 Active TREBA NEUSCHWAN SHELLEY [facility], [facility] 5 11:28:06 Open wound of external ear 284462480 Active TREBA NEUSCHWAN SHELLEY null, [facility] 5 11:28:06 Accident al fall Active TREBA NEUSCHWAN SHELLEY null, [facility] 5 11:28:06 Myocardi al infarcti on 82976116 Active TREBA NEUSCHWAN SHELLEY null, [facility] 5 11:28:06 Pneumoni a 603106969 Active TREBA NEUSCHWAN SHELLEY [facility], [facility] 5 11:28:06 Acute-on -chronic renal failure 504565948 Active TREBA NEUSCHWAN SHELLEY [facility], [facility] 5 11:28:06 Acute retentio n of urine 625743043 Active TREBA NEUSCHWAN SHELLEY [facility], [facility] 11:28:06 Obstruct ion of indwelli ng urinary catheter 611508576 Active TREBA NEUSCHWAN SHELLEY [facility], [facility] 11:28:06 Lumbar spondylo sis 272535165 Active TREBA NEUSCHWAN [facility] 11:28:06 Tear of the annulus fibrosus of interver tebral disc 811940897 Active TREBA NEUSCHWAN SHELLEY [facility], [facility] 11:28:06 Lumbosac ral radiculo bello 9879618 Active TREBA NEUSCHWAN SHELLEY [facility], [facility] 11:28:06 Degenera tion of lumbar interver tebral disc 13230861 Active TREBA NEUSCHWAN SHELLEY [facility], [facility] 11:28:06 Mixed hyperlip idemia 693772232 Active TREBA NEUSCHWAN SHELLEY [facility], [facility] 11:28:06 Anemia 522754907 Active TREBA NEUSCHWAN SHELLEY [facility], [facility] 11:28:06 Low back pain 798538904 Active TREBA NEUSCHWAN SHELLEY [facility] 5 11:28:06 Abrasion of head 941109829 Active TREBA NEUSCHWAN SHELLEY [facility] 5 11:28:06 Contusio n of eye 523024191 Active TREBA NEUSCHWAN SHELLEY [facility], [facility] 5 11:28:06 Hypoxia 396648082 Active TREBA NEUSCHWAN SHELLEY [facility], [facility] 5 11:28:06 Congesti ve heart failure 36832422 Active TREBA NEUSCHWAN SHELLEY [facility], [facility] 5 11:28:06 Bilatera l pleural effusion 115391410 Active TREBA NEUSCHWAN SHELLEY [facility] 5 11:28:06 Complica tion of urinary catheter 691062812 Active TREBA NEUSCHWAN SHELLEY [facility] 5 11:28:06 Hyperten sive urgency 097809028 Active TREBA NEUSCHWAN SHELLEY [facility] 5 11:28:06 D-dimer above referenc e range 743332245 Active TREBA NEUSCHWAN SHELLEY [facility] 5 11:28:06 Closed injury of head 22453694780 6 Active TREBA NEUSCHWAN SHELLEY [facility] 5 11:28:06 Coronary arterios clerosis 33638178 Active TREBA NEUSCHWAN SHELLEY [facility] 5 11:28:06 Subclini hugo hypothyr oidism 09715965 Active TREBA NEUSCHWAN SHELLEY [facility] 5 11:28:06 Acute hyperkal emia 9244369 Active TREBA NEUSCHWAN SHELLEY [facility], [facility] 5 11:28:06 Acute exacerba tion of chronic congesti ve heart failure 489329567 Active TREBA NEUSCHWAN SHELLEY [facility], [facility] 5 11:28:07 Catheter -associa kun urinary tract infectio n 029982973 Active TREBA NEUSCHWAN SHELLEY null, [facility] 5 11:28:07 Chronic kidney disease 800119281 Active TREBA NEUSCHWAN SHELLEY null, [facility] 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 11:28:07 Hypovole patti 743654056 Active TREBA NEUSCHWAN SHELLEY [facility], [facility] 11:28:07 Colonosc opy Completed 202201/07/2025 Colonosc opy; 06/07/20 11 @ [facility] by Dr. Gutiérrez ; 09/28/19 12:15PM by Blank Garcia, Office Visit; Promoted ; acuity set as *; PAMELLA GORDON [facility] 14:16:47 Hyperten sive disorder 63835809 Active 2022 HYPERTEN EZEQUIEL; Recorded 09/28/19 12:15PM by Blank Garcia, Office Visit; Promoted ; acuity set as *; REY KNOX SHELLEY [facility] 5 11:28:06 Hypercho lesterol emia 25211897 Active 2022 Hypercho lesterol emia; 09/28/19 12:15PM by Blank Garcia, Office Visit; Promoted ; acuity set as *; TREBA NEUSCHWAN SHELLEY null, [facility] 14:10:03 Placemen t of stent Completed 202203/11/2025 Stent; 04/2010; 09/28/19 12:15PM by Blank Garcia, Office Visit; Promoted ; acuity set as *; TREBA NEUSCHWAN SHELLEY null, [facility] 5 14:10:11 Diabetes mellitus 65075694 Active 2022 SYBILBA NEUSCHWAN SHELLEY null, [facility] 5 14:09:38 Essentia l hyperten ezequiel 54441095 Active 2022 SYBILBA NEUSCHWAN SHELLEY null, [facility] 5 14:09:49 History of myocardi al infarcti on 247927882 Completed 202203/11/2025 TREBA NEUSCHWAN SHELLEY null, [facility] 5 14:09:54 End stage renal failure on dialysis 313668370 Active 2023 TREBA NEUSCHWAN SHELLEY null, [facility] 5 14:09:43 Pain of right shoulder region Active 2024 TREBA NEUSCHWAN SHELLEY null, [facility] 5 14:09:58 Triggeri ng of digit 538668844 Active 2024 TREBA NEUSCHWAN SHELLEY null, [facility] 5 14:10:18 Pain of right shoulder joint 67265581784 445962 Active 2024 Nickolas Gutiérrez MD [address] [place] [address], [phone], [facility], [place] 5 14:44:19 Problem Notes None recorded. Procedures Surgical History Date Name Laterality Status Provider Name and Address Organization Details Recorded Time release of trigger finger of right hand completed REY MATHEW [facility] [place] 05/27/2025 12:01:38 Prostate Surgery completed PAMELLA GORDON [facility] [place] 05/28/2023 12:55:21 placement of stent completed [facility] [place] 10/03/2023 14:47:55 Imaging Results None recorded. Procedure Notes None recorded. Medical Equipment None Reported. Allergies Allergen ID Allergen Name Allergen Category Reaction Reaction Severity Criticality Documentation Date Start Date Code Code System Note Provider Name and Address Organization Details Recorded Time 45310 Sports Tape medicatio n Not available Not available Not available 03/17/2023 Comme nt: Recor ded 10/31 9:19A M by Kimber Gordon RN, Offic e Visit ; Promo kun; Signi fican ce: *; ; Not Available [employer] 3 02:23:27 631 Trulicity medicatio n Not available Not available Not available 11/15/2022 63401 96 RxNorm [facility]WAN [facility] 3 10:39:42 82008 sitaglipt in medicatio n Not available Not available Not available 03/11/20252024 94217 1 RxNorm TREBA NEUSCHWAN SHELLEY demario [facility] 5 14:08:39 81123 dulagluti de medicatio n Not available Not available Not available 03/11/20252024 98851 91 RxNorm TREBA NEUSCHWAN SHELLEY demario [facility]len[facility] 5 14:08:39 36160 Adhesive agent (substanc e) environme nt,medica tion rash Not available low 07/20/2025 01/04/ 2018 62372 0007 SNOMED Not Available lashonda - External Data Service - prod 17:32:49 39866 clonidine medicatio n other Not available Not available 07/20/20252021 2599 RxNorm Blurr ed visio n Not Available lashonda - External Data Service - prod 17:32:54 13728 dostarlim ab-gxly medicatio n Not available Not available Not available 07/20/2025 09237 68 RxNorm Not Available lashonda - External [...] Pamella Gordon RN (Authori earle through Nickolas Gutiérrez MD), Refill Request; Refill Quantity : 1; Each; Not Available Not Available Not Available Sucralfat e Suspensio n bid 04/27 completed vo /judie; Recorded 11/01/19 23 9:14AM by Pamella Gordon [...] UNITS IN 24 HOURS) 2024 active vo Not Available Not Available Not Avai lable Accu-Chek Active BID 04/27 completed Recorded 11/11/19 21 2:24PM by Pamella Gordon RN, Historic al Summary; Mail Order Quantity : 180 Each; Mail Order Days: 90 Days; Refill Quantity : 0; Not Available Not Available Not Available amlodipin e besylate (bulk) qd 03/22 completed 173; Recorded 01/12/20 22 3:52PM by Pamella Gordon RN (Authori earle through Nickolas Gutiérrez MD), Annotati on/Adden dum; [...] 2nd Gen Pen Needle 32 gauge x 5/32 USE DIRECTED active Not Available Not Available [...] Details Last Updated DateTime 5 177.8 cm 26.9 kg/m2 70496.1 7 g 96 % 68 /min 18 /min 98.5 [degF] 142/60 mm[Hg] REY DIAZ [facility] 5 14:24:41 Date Recorded Body height Body mass index (BMI) Body weight Body temperature Heart rate Oxygen saturation Provider Name and Address Organization Details Last Updated DateTime 5 177.8 cm 26.4 kg/m2 15587.4 g 98.7 [degF] 84 /min 97 % Mitzi Laci [facility] 5 18:22:48 Date Recorded Body height Body mass index (BMI) Body weight Oxygen saturation Heart rate Respiratory rate Body temperature Systolic And Diastolic Provider Name and Address Organization Details Last Updated DateTime 5 177.8 cm 26.6 kg/m2 56184.2 9 g 97 % 67 /min 18 /min 98.1 [degF] 130/70 mm[Hg] REY DIAZ [facility] 5 11:47:10 Social History Question Answer Notes LastModified by [employer] Details LastModified Time Tobacco Smoking Status Never Smoker [facility] 03/22/2023 10:22:00 Are You [...] Functional Status Question Answer Note LastModified by [employer] Return ion Details LastModified Time Do you use [...] adjuvanted, trivalent, PF 5 completed REY hanks [facility] 05/27/2025 12:19:17 Influenza, high-dose, quadrivalent, PF 3 completed PAMELLA hanks [facility] 05/28/2023 12:54:17 Influenza, high-dose, trivalent, PF 4 completed REY hanks [facility] 07/09/2024 14:48:21 Influenza, high-dose, quadrivalent, PF 2 completed PAMELLA hanks [facility] 01/24/2023 16:13:37 Influenza, high-dose, trivalent, PF 8 completed PAMELLA hanks [facility] 01/24/2023 16:13:37 Influenza, high-dose, trivalent, PF 9 completed PAMELLA hanks [facility] 01/24/2023 16:13:37 Influenza, split virus, trivalent, preservative 0 completed PAMELLAMATT hanks [facility] [place] 01/24/2023 16:13:37 Influenza, split virus, trivalent, preservative 1 completed PAMELLASusi hanks [facility] [place] 01/24/2023 16:13:37 pneumococcal, unspecified formulation 3 completed Not Available [facility] 10/03/2023 14:04:35 Influenza, split virus, trivalent, preservative 3 completed Not Available [facility] 10/03/2023 14:04:35 Influenza, split virus, trivalent, preservative 2 completed Not Available [facility] 10/03/2023 14:04:35 Influenza, split virus, trivalent, preservative 2 completed Not Available [facility] 10/03/2023 14:04:35 Influenza, split virus, trivalent, preservative 8 completed Not Available [facility] 10/03/2023 14:04:35 Influenza, split virus, trivalent, preservative 3 completed Not Available [facility] 10/03/2023 14:04:35 Influenza, split virus, trivalent, preservative 4 completed Not Available [facility] 10/03/2023 14:04:35 Influenza, split virus, trivalent, preservative 9 completed Not Available [facility] 10/03/2023 14:04:35 Past Encounters Encounter ID Performer Location Encounter Start Date Encounter Closed Date Diagnosis/Indication Diagnosis SNOMED-CT Code Diagnosis ICD10 Code Diagnosis IMO Codes Diagnosis Note [id number] Nickolas Gutiérrez MD [facility] ([facility]) [address] [place] [id number] 11/15/2022 10:25:20 11/24/2022 18:24:20 Dyspnea 179401527 R06.00 Essential hypertension 32865716 I10 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 2148376566 08 E11.22 Diabetes mellitus 795972 09 E13.42 Gastroesop hageal reflux disease 306193241 K21.9 [id number] Nickolas Gutiérrez MD [facility] ([facility]) [address] [place] [address] 5 01/24/2023 16:09:57 01/24/2023 16:44:36 Diabetes mellitus 65923550 E13.42 Essential hypertension 09834631 I10 History of placement of stent for coronary artery disease 238467141 Z95.5 Chronic ki dney disease 793954046 N18.9 [id number] Nickolas Gutiérrez MD [facility] ([facility]) [address] [place] [address] 5 03/22/2023 09:42:07 03/22/2023 11:08:47 Diabetes mellitus 77235782 E13.42 Essential hypertension 42096714 I10 [id number] Nickolas Gutiérrez MD [facility] ([facility]) [address] [place] [address] 5 04/27/2023 12:06:16 05/05/2023 22:52:08 Hypertensive disorder 52534375 I10 Diabetes mellitus 190630 09 E13.42 [id number] Randy Aleman MD [facility] ([facility]) [address] [place] [address] 5 05/08/2023 17:54:28 05/08/2023 18:42:12 [id number] Nickolas Gutiérrez MD [facility] ([facility]) [address] [place] [address] 5 05/28/2023 11:48:25 06/11/2023 17:16:24 Hypertensive disorder 55343716 I10 Diabetes mellitus 051205 09 E13.42 [id number] Nickolas Gutiérrez MD [facility] ([facility]) [address] [place] [address] 5 06/27/2023 10:15:59 06/27/2023 12:45:43 Hypertensive disorder 12276841 I10 Hypercholesterolemia 136 01333 E78.00 Gastroesop hageal reflux disease 218890111 K21.9 Essential hypertension 94448507 I10 Pruritic disorder 832545 002 L29.9 [id number] Nickolas Gutiérrez MD [facility] ([facility]) [address] [place] [id number] 5 10/03/2023 14:04:26 10/03/2023 17:42:23 Diabetes mellitus 11406995 E13.42 Essential hypertension 81904109 I10 Coronary atherosclerosis 312512516 I25.10 [id number] Nickolas Gutiérrez MD [facility] ([facility]) [address] [place] [id number] 5 01/01/2024 14:47:45 01/01/2024 16:06:26 Hypertensive disorder 45594550 I10 Diabetes mellitus 501991 09 E13.42 Hypercholesterolemia 136 61442 E78.00 End stage renal failure on dialysis 303590178 Z99.2 History of placement of stent for coronary artery disease 135579458 Z95.5 [id number] GABI ALEXANDER [facility] ([facility]) [address] [place] [address] 5 02/06/2024 15:18:45 02/06/2024 16:01:18 Acute bacterial bronchitis 382590763 J20.9 Discussed use of antibiotic . Take with food.May use Juan's nasal inserts and also apply on chest. Push oral fluids. Consider nasal saline rinses and otc decongesta nt.Use tylenol/mo stu for bowser. 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 9639991498 08 E11.22 [id number] Nickolas Gutiérrez MD [facility] ([facility]) [address] [place] [id number] 5 07/09/2024 14:32:24 07/09/2024 16:54:07 End stage renal failure on dialysis 636201914 Z99.2 Essential hypertension 31024070 I10 Diabetes mellitus 050459 09 E13.42 [id number] GABI ARCE [facility] ([facility]) [address] [place] [id number] 5 10/04/2024 11:40:23 10/04/2024 15:03:13 Fever 379332039 R50.9 Atypical pneumonia 86039 6009 J18.9 Increase po fluids per nephrology recommenda tions. Rest. Return to clinic with any new or worsening symptoms. Check BP at home after BP meds this afternoon. Call with any unusual readings. [id number] GABI ALEXANDER [facility] ([facility]) [address] [place] [id number] 5 12/09/2024 14:06:34 12/09/2024 15:43:12 Pain of right shoulder joint 7365967545 6433334 M25.511 [id number] Discussed sleeping in a recliner with pillow behind the shoulder for support. Apply an ice pack for 15 minutes every 2 hours while awake. PT referral sent today and scheduled f/u appt with PCP December 31. [id number] Nickolas Gutiérrez MD [facility] ([facility]) [address] [place] [id number] 5 01/07/2025 13:41:03 02/16/2025 08:52:09 Pain of right shoulder region 2492593888 M25.511 [id number] Diabetes mellitus 017433 09 E13.42 Hypertensive disorder 38 787979 I10 Triggering of digit 2399 24158 M65.414 [id number] GABI ARCE [facility] ([facility]) [address] [place] [id number] 5 02/07/2025 12:29:56 02/09/2025 11:19:24 Surgical wound finding 641881559 T14.8XXA 0270205919 Dressing was removed and dried blood was cleaned. May use petroleum jelly to incisions as per Goyo dermatolog y instructio ns. RTC with any new or worsening symptoms. [id number] GABI ARCE [facility] ([facility]) [address] [place] [id number] 5 03/05/2025 15:38:39 03/05/2025 17:51:41 Pain of knee region 3135180803 M25.561 [id number] No redness or swelling noted on exam. Will send X ray to radiology. RICE. OTC tylenol as needed for pain. RTC with any new or worsening symptoms. [id number] Nickolas Gutiérrez MD [facility] ([facility]) [address] [place] [id number] 5 03/11/2025 13:57:48 03/11/2025 14:52:22 Pain of right shoulder joint [id number] M25.511 [id number] PT done with minimal improvemen t [id number] AZEB MALAVE APRN [facility] ([facility]) [address] [place] [phone] 5 05/23/2025 18:11:46 06/16/2025 08:23:58 Acute constipation [id number] K59.00 [id number] Nickolas Gutiérrez MD [facility] ([facility]) [address] [place] [address] 99612-742 5 05/27/2025 11:24:24 06/02/2025 10:04:35 Hypercholesterolemia [id number] E78.00 End stage renal failure on dialysis [id number] Z99.2 - Continue dialysis coordinati on with nephrology department . Hypertensive disorder 38 443844 I10 - Considerat ion for adjustment of hypertensi ve therapy, particular ly during dialysis. Diabetes mellitus 921865 09 E13.42 - Plan includes monitoring and possible modificati on of diabetic treatment under endocrinol ogist's guidance. Hypertensi ve heart AND renal disease 32468107 I13.0 3391482 End-stage renal disease 64621152 N18.6 74348 Dependence on renal dialysis [id number] Z99.2 081154 Chronic anemia [id number] D64.9 165057 Chronic pa in of right upper limb [id number] 0052628 G89.29 M25.511 051965 - Orthopedic consultati on advised following MRI results. Requires i nfluenza virus vaccination [id number] Z23 340123 [id number] Nickolas Gutiérrez MD [facility] ([facility]) [address] [place] [address] [phone] 06/17/2025 09:31:30 07/13/2025 08:05:10 [id number] GABI ARCE [facility] ([facility]) [address] [place] [address] 07/20/2025 17:32:05 07/20/2025 17:45:11 Health Concerns Section Related Observation LastModified by Organization Detai ls LastModified Time None Recorded Concern Status LastModified by Organization Details LastModified Time None Recorded Advance Directives Directive None Recorded Payers Insurance Date Sequence Insurance Name Policy Number Policy San Covered Member ID San Member ID Guarantor Name 05/23/2025 1 [employer] (MEDICARE REPLACEMENT/A DVANTAGE - PPO) Quang Hunter [id number] Quang Hunter 05/23/2025 1 [employer] (MEDICARE REPLACEMENT/A DVANTAGE - PPO) [id number] Quang Hunter [id number] Quang Hunter 06/17/2025 1 [facility] (MEDICARE REPLACEMENT/A DVANTAGE - HMO) [id number] Quang Hunter [id number] Quang Hunter Notes Date Note Type Note Provider Name and Address Organization Details Recorded Time text/html Joint PainReported by PatientHPIFor severity, patient reportsworsening. For location, patient reportsright shoulder(pain radiating down to his right elbow). For timing, patient reportsconstant. For context, patient reportsunusual activity(pt was reaching behind him for a door and with that movement he has sudden onset of pain). For aggravating factors, patient reportsmovement/positioning . For associated symptoms, patient reportsno fever. For quality, (achy dull and sharp). For duration, (3 months). F/U on right shoulder pain, pt states PT released him today they could not help him, pt states his right shoulder is a 1 when he is just sitting but if he goes to move it the pain goes to a to 9. Pt has to use both hands to put his seat belt on. Putting a shirt on is painful. Pt receives dialysis on Tu//Sat. Fistula is in the right arm. Nickolas Gutiérrez MD [address] [place], [address], [facility] 03/11/2025 14:48:46 5 text/html walk in ptPt is constipated and hasn't had a BM since Sunday, pt is on dialysis every other day. He has also bee taking pain meds due to recent surgery AZEBJennifer KINGTE, NURSE WOUND CARE [address] [place], [address], [facility], [place] 06/15/2025 16:39:25 5 text/html DiabetesReported by PatientHPIFor [...] in the synovial area. Nickolas Gutiérrez MD [address] [place] [address], [phone], [facility] 05/28/2025 14:20:38 5 text/html walk inx2 hours ago fell at home falling to right side c/o pain to ribs, neck, arm. Worried about dialysis port Wanda hanks [place] [facility], [place] 07/20/2025 17:45:10
--- OUTSIDE RECORDS SUMMARY | 2025-07-20 17:04 | XMS_ITS | Encounter Summary ---
Author Organization [facility] Address [address] [facility] [address] [place] [address] Phone Care Team Providers Care Carbonation Tester Name Role Phone Harjit Marc MD Primary Care Provider + [phone] Reason for Visit * Reason Comments Med Refill Encounter Details Date Type Department Care Team (Late st Contact Info) Description 04/04/2024 Refill [facility] [address] [address] Beatriz Valverde MD [address] [facility] [address] [place] [address] Social History Tobacco Use Types [...] on filedocumented in this encounter Care Teams Carbonation Tester Relationship Specialty Start Date End Date Harjit Marc MD [address] [place], [place] [address] PCP - General Family Medicine 01/05/22 documented as of this encounter
--- OUTSIDE RECORDS SUMMARY | 2025-07-20 17:04 | XMS_ITS | Clinical Summary ---
Author Organization [facility] Address [address] [facility] Attn: Epic Prelude ADT [place] [address] Care Team Providers Care Integration Software Engineer Name Role Phone Harjit Marc MD Primary Care Provider [phone] Allergies Active Allergy Reactions Criticality Noted Date Comments Adhesive Rash Low 08/23/2017 Sitagliptin Other (See Comments) 08/23/2017 Caused eyes to blur Medications aspirin 81 mg tablet,delayed release Take 1 Tablet by mouth. 3 Active Lipitor 80 mg tablet Take 1 Tablet by mouth. 3 Active cloNIDine HCL (CATAPRES) 0.1 mg tablet Take 1 Tablet by mouth 2 times daily. 3 Active finasteride (PROSCAR) 5 mg tablet Take 1 Tablet by mouth. 3 Active HumaLOG KwikPen Insulin 100 unit/mL pen syringe Inject by subcutaneous injection 4 times daily with meals and at bedtime. Sliding scale 3 Active metoprolol tartrate (LOPRESSOR) 50 mg tablet Take 1 Tablet by mouth 2 times daily. 3 Active nitroglycerin 0.[address] 1 Tablet under tongue. 3 Active NIFEdipine (ADALAT CC) 30 mg Extended Release tablet Take 60 mg by mouth daily. 3 Active RenaPlex-D 800 mcg-12.5 mg -2,000 unit Tablet Take 1 Tablet by mouth late in the day. 3 Active spironolactone (ALDACTONE) 25 mg tablet Take 1 Tablet by mouth. 3 Active tamsulosin (FLOMAX) 0.4 mg capsule Take by mouth. 3 Active hydrALAZINE (APRESOLINE) 50 mg tablet Take 50 mg by mouth 2 times daily. 3 Active bumetanide (BUMEX) 1 mg tablet Take 1 mg by mouth 2 times daily. Active vits A,C,E/lutein/mi nerals (OCUVITE WITH LUTEIN ORAL) Take 1 Tablet by mouth daily. Active insulin glargine (LANTUS) 100 unit/mL injection Inject 21 Units by subcutaneous injection daily with breakfast. Active amoxicillin-cla vulanate (AUGMENTIN) 500-125 mg tablet Take 1 Tablet by mouth every 8 hours. Active clopidogreL (PLAVIX) 75 mg Tablet Take 75 mg by mouth. Active Active Problems Problem Noted Date Diagnosed Date Encounter regarding vascular access for dialysis for end-stage renal disease 08/07/2023 Essential hypertension with goal blood pressure less than 130/80 02/19/2023 Hypercholesterolemia 02/19/2023 Actinic keratosis 02/19/2023 BPH (benign prostatic hyperplasia) 02/19/2023 Atherosclerotic heart diseas e of 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 02/19/2023 End stage renal disease on dialysis 02/19/2023 Iron deficiency anemia, unspecified 02/19/2023 Mixed hyperlipidemia 02/19/2023 Sciatica of right side 02/19/2023 Secondary hyperparathyroidism, renal 02/19/2023 Encounters Date Type Department Care Team Description 05/05/2025 External Device Data ST[facility] ABSTRACTION Provider, Abstract from Last 3 Months Social History Tobacco Use Types Packs/Day Years Used Date Smoking Tobacco: Never Smokeless Tobacco: Never Tobacco Cessation:Counseling Given: Not Answered Alcohol Use Standard Drinks/Week Comments Never 0 (1 standard drink = 0.6 oz pur e alcohol) Feeling Safe Answer Date Recorded Are you in a relationship wi th someone who hurts you emotionally and/or physically? No 08/07/2023 Food Insecurity Answer Date Recorded Patient needs follow up regarding: Not on file 10/23/2023 Transportation Needs Answer Date Record ed Patient needs follow up regarding: Not on file 10/23/2023 Housing Stability Answer Date Recorded Patient needs follow up regarding: Not on file 10/23/2023 Utility Needs Answer Date Recorded Patient needs follow up regarding: Not on file 10/23/2023 Sex and Gender Information Value Date Recorded Sex Assigned at Not on file Legal Sex Male 4:09 PM [employer]IN [employer] Gender Identity Not on file Sexual Orientation Not on file Last Filed Vital Signs Vital Sign Reading Time Taken Comments Blood Pressure 151/54 02/12/2025 3:15 PM CDT Pulse 59 02/12/2025 3:15 PM CDT Temperature 36.7 C (98 F) 02/12/2025 3:15 PM CDT Respiratory Rate 16 02/12/2025 3:15 PM CDT Oxygen Saturation 93% 02/12/2025 3:15 PM CDT Inhaled Oxygen Concentration - - Weight 83.9 kg (185 lb) 02/12/2025 12:19 PM CDT Height 177.8 cm (5' 10 ) 12/26/2024 11:27 AM CDT Body Mass Index 26.54 12/26/2024 11:27 AM CDT Plan of Treatment Upcoming Encounters Date Type Department Care Team (Late st Contact Info) Description 07/30/2025 11:30 AM [facility]IN [employer] SEWER Appointment [facility] [address] [place] [address] Beatriz Valverde MD [address] [address] Ramos Arnold MD [address] [place] [address] Health Maintenance Due Date Last Done Comments DIABETES ANNUAL FOOT EXAM 1959 DIABETES ANNUAL RETINAL EXAM 1959 DIABETES MICROALBUMIN ANNUAL SCREEN 1959 LDL CHOLESTEROL ANNUAL 1959 DTAP/TDAP/TD VACCINES (1 - Tdap) 1960 ZOSTER VACCINE (1 of 2) 1991 RSV VACCINE (60+ or ) (1 - 1-dose 75+ series) 2016 PNEUMOCOCCAL VACCINE 50+ YEA RS (2 of 2 - PCV) 03/22/2024 03/22/2023, 09/28/2022 INFLUENZA VACCINE (#1) 2025 , 05/16/2023, 09/28/2022, Additional history exists DIABETES HBA1C Q 6 MONTHS 07/26/2025 01/24/2025, 10/2022 Medical Devices Implanted Type Area Basket Filler Device Identifier Shelf Expiration Date Model / Serial / Lot Clip Ligating Horizon Red [id number] - [facility] - [id number] Implanted:Qty: 1 on 08/07/2023 by Armani Kapadia MD at [facility] Clip Right: Arm [employer] [id number] 02/28/2028 [id number] / / [id number] Clip Ligating Horizon Med Ti [id number] - [facility] - [id number] Implanted:Qty: 1 on 08/07/2023 by Armani Kapadia MD at [facility] Clip Right: Arm [employer] [id number] 03/13/2028 [id number] / / [id number] Agent Hemostat Surgic[employer] 2x3in - [id number] Implanted:Qty: 1 on 08/07/2023 by Armani Kapadia MD at [facility] Hemostatic Right: Arm [employer] [id number] 01/18/20281952S / / [id number] Insurance [facility] [id number] Advance Directives For more information, please contact: [phone] * Full Code (Latest Code Status on File) Date Activated Date Inactivated Comments 08/07/2023 9:40 AM 08/07/2023 6:48 PM Care Teams Integration Software Engineer Relationship Specialty Start Date End Date Harjit Marc MD [address] [place] [phone] PCP - General Family Practice 04/29/14
--- OUTSIDE RECORDS SUMMARY | 2025-07-20 17:04 | XMS_ITS | Continuity of Care Document ---
Author Organization [facility] [place]sa Frias, [facility] Address [address] [place] [address] Care Team Providers Care Stop Attacher Name Role Phone NICKOLAS GUTIÉRREZ Primary Care Provider [phone] Assessment No assessment recorded. Plan of Treatment [...] instructions recorded. Reason for Referral None Reported. Results Created Date Observation Date Name Description [...] This test was perfo rmed using the Sieme ns chemi lumin escen t metho d. Value s obtai armaan from diffe rent assay metho ds canno t be used inter damon eably . PSA level s, regar dless of value , shoul d not be inter prete d as absol [place] evide nce of the prese nce or absen ce of disea se. Not Available [facility] [address] [place], [address], 06/18/2025 07:22:18 Result Notes None recorded. Problems Name Problem SNOMED Code Status Onset Date Resolution Date Notes Provider Name and Address Organization Details Recorded Time Monoclon al gammopat hy (clinica l) 992769293 Active TREBA NEUSCHWAN JOE [facility], [facility] 5 11:28:06 Cellulit is 121393656 Active TREBA NEUSCHWAN JOE [facility] 5 11:28:06 Lumbar radiculo bello 589405652 Active TREBA NEUSCHWAN JOE [facility] 5 11:28:06 Acute kidney injury 51176693 Active TREBA NEUSCHWAN JOE [facility] 5 11:28:06 Constipa tion 92227275 Active TREBA NEUSCHWAN JOE null, [facility] 5 11:28:06 Lymphede ma of right upper limb 30556518270 423987 Active TREBA NEUSCHWAN JOE [facility] 5 11:28:06 History of Spinal surgery 430815866 Active TREBA NEUSCHWAN JOE [facility] 5 11:28:06 Pulmonar y edema 98043873 [facility] 11:28:06 Open wound of external ear 185254790 Active TREBA NEUSCHWAN JOE [facility] 11:28:06 Accident al fall Active TREBA NEUSCHWAN JOE null, [facility] 5 11:28:06 Myocardi al infarcti on 49004425 Active TREBA NEUSCHWAN JOE null, [facility] 5 11:28:06 Pneumoni a 628333695 Active TREBA NEUSCHWAN JOE null, [facility] 11:28:06 Acute-on -chronic renal failure 379704456 Active TREBA NEUSCHWAN JOE null, [facility] 11:28:06 Acute retentio n of urine 375976823 Active SYBILBA KHAIWAN JOE [facility], [facility] 11:28:06 Obstruct ion of indwelli ng urinary catheter 306100630 Active TREBA NEUSCHWAN JOE null, [facility] 11:28:06 Lumbar spondylo sis 943056061 Active TREBA NEUSCHWAN JOE null, [facility] 11:28:06 Tear of the annulus fibrosus of interver tebral disc 589066638 Active TREBA NEUSCHWAN JOE [facility], [facility] 11:28:06 Lumbosac ral radiculo bello 4372713 Active TREBA NEUSCHWAN JOE null, [facility] 11:28:06 Degenera tion of lumbar interver tebral disc 73329601 Active TREBA NEUSCHWAN JOE [facility], [facility] 11:28:06 Mixed hyperlip idemia 128999948 Active TREBA NEUSCHWAN JOE null, [facility] 5 11:28:06 Anemia 614205093 Active TREBA NEUSCHWAN JOE [facility], [facility] 5 11:28:06 Low back pain 301739879 Active TREBA NEUSCHWAN JOE [facility], [facility] 5 11:28:06 Abrasion of head 100920646 Active TREBA NEUSCHWAN JOE [facility], [facility] 5 11:28:06 Contusio n of eye 890312812 Active TREBA NEUSCHWAN JOE [facility], [facility] 5 11:28:06 Hypoxia 824981446 Active TREBA NEUSCHWAN JOE [facility] 5 11:28:06 Congesti ve heart failure 18304264 Active TREBA NEUSCHWAN JOE [facility] 5 11:28:06 Bilatera l pleural effusion 730941527 Active TREBA NEUSCHWAN JOE [facility], [facility] 5 11:28:06 Complica tion of urinary catheter 854562836 Active TREBA NEUSCHWAN JOE [facility], [facility] 5 11:28:06 Hyperten sive urgency 037640641 Active TREBA NEUSCHWAN JOE [facility] 5 11:28:06 D-dimer above referenc e range 405785637 Active TREBA NEUSCHWAN JOE [facility], [facility] 5 11:28:06 Closed injury of head 25453199873 6 Active TREBA NEUSCHWAN JOE [facility] 5 11:28:06 Coronary arterios clerosis 55656629 Active TREBA NEUSCHWAN JOE [facility], [facility] 5 11:28:06 Subclini hugo hypothyr oidism 45892948 Active TREBA NEUSCHWAN JOE null, [facility] 5 11:28:06 Acute hyperkal emia 7841334 Active TREBA NEUSCHWAN JOE [facility], [facility] 5 11:28:06 Acute exacerba tion of chronic congesti ve heart failure 246527919 Active TREBA NEUSCHWAN JOE [facility], [facility] 5 11:28:07 Catheter -associa kun urinary tract infectio n 421247644 Active TREBA NEUSCHWAN JOE [facility], [facility] 5 11:28:07 Chronic kidney disease 708874387 Active TREBA NEUSCHWAN JOE [facility], [facility] 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 5 11:28:07 Hypovole patti 434604865 Active TREBA NEUSCHWAN JOE [facility], [facility] 5 11:28:07 Colonosc opy Completed 202201/07/2025 Colonosc opy; 06/07/20 11 @ [facility] by Dr. Gutiérrez ; 09/28/19 12:15PM by Blank Garcia, Office Visit; Promoted ; acuity set as *; PAMELLA CATHI [facility] 5 14:16:47 Hyperten sive disorder 05717675 Active 02/09/ 2023 HYPERTEN EZEQUIEL; Recorded 09/28/19 12:15PM by Blank Garcia, Office Visit; Promoted ; acuity set as *; REY KNOX JOE null, [facility] 5 11:28:06 Hypercho lesterol emia 15395189 Active 2022 Hypercho lesterol emia; 09/28/19 12:15PM by Blank Garcia, Office Visit; Promoted ; acuity set as *; REY KNOX JOE [facility], [facility] 5 14:10:03 Placemen t of stent Completed 202203/11/2025 Stent; 04/2010; 09/28/19 12:15PM by Blank Garcia, Office Visit; Promoted ; acuity set as *; REY KNOX JOE [facility], [facility] 5 14:10:11 Diabetes mellitus 18019527 Active 2022 REY ENGLISHSCHWAN JOE null, [facility] 5 14:09:38 [facility] hyperten ezequiel 19569809 Active 2022 [facility] 14:09:49 History of myocardi al infarcti on 548106455 Completed 202203/11/2025 REY RIDLEYWAN JOE null, [facility] 5 14:09:54 End stage renal failure on dialysis 815758828 Active 2023 RE[facility]WAN [facility] 14:09:43 Pain of right shoulder region Active 2024 REY RIDLEYWAPierre JOE null, [facility] 5 14:09:58 Triggeri ng of digit 880049402 Active 2024 REY Parson [facility], [facility] 14:10:18 Pain of right shoulder joint 42728708019 889224 Active 2024 Nickolas Gutiérrez MD [address] [place] [address], [phone], [facility], [place] 14:44:19 Problem Notes None recorded. Procedures Surgical History Date Name Laterality Status Provider Name and Address Organization Details Recorded Time release of trigger finger of right hand [facility], [place] 05/27/2025 12:01:38 Prostate Surgery completed [facility]ORDON [facility] 05/28/2023 12:55:21 placement of stent completed [facility] PRIYANKA [facility] 10/03/2023 14:47:55 Imaging Results None recorded. Procedure Notes None recorded. Medical Equipment None Reported. Allergies Allergen ID Allergen Name Allergen Category Reaction Reaction Severity Criticality Documentation Date Start Date Code Code System Note Provider Name and Address Organization Details Recorded Time 80917 Sports Tape medicatio n Not available Not available Not available 03/17/2023 Comme nt: Recor ded 10/31 9:19A M by iKmber Gordon RN, Offic e Visit ; Promo kun; Signi reba ce: *; ; Not Available [employer] 02:23:27 631 Trulicity medicatio n Not available Not available Not available 11/15/2022 65111 96 RxNorm REY Parson [facility], [facility] 10:39:42 77904 sitaglipt in medicatio n Not available Not available Not available 03/11/20252024 49984 1 RxNorm REY Parson [facility], [facility] 14:08:39 97175 dulagluti de medicatio n Not available Not available Not available 03/11/20252024 21337 91 RxNorm REY DIAZ [facility] 14:08:39 49653 Adhesive agent (substanc e) environme nt,medica tion rash Not available low 07/20/20252017 83472 0007 SNOMED Not Available [employer]ash[employer] - External Data [employer] - prod 17:32:49 17589 clonidine medicatio n other Not available Not available 07/20/20252021 2599 RxNorm Blurr ed visio n Not Available [employer] External Data Service - prod 17:32:54 08874 dostarlim ab-gxly medicatio n Not available Not available Not available 07/20/2025 07635 68 RxNorm Not Available [employer] - prod 17:33:24 Medications Name [...] l succinate daily 05/27 completed Recorded 07/31/20 22 11:45AM by Nickolas Gutiérrez MD, Office Visit; Mail Order Quantity : 100 Tablet; Refill Quantity : 100; Tablet; Not Available Not Available Not Available Aspirin Child TAKE 1 TABLET BY MOUTH DAILY 05/27 completed Not Available Not Available Not Available Humulin N Pen prior to lunch 06/27 completed Please give syringes as needed. Give QS for 30 day supply; 173; Recorded 09/04/19 23 12:55PM by Pamella Gordon RN (Authori zed through Nickolas Gutiérrez MD), Refill Request; Refill Quantity : 1; Each; Not Available Not Available Not Available Sucralfat e Suspensio n bid 04/27 completed vo JR/tn; Recorded 11/01/19 23 9:14AM by Pamella Gordon [...] 22 3:52PM by Pamella Gordon RN (Authori zed through Nickolas Gutiérrez MD), Annotati on/Adden dum; [...] Ultra-Fin e 1/2 mL 31 gauge x 15 USE DIRECTED WITH HUMULIN N active Not [...] Time Tobacco Smoking Status Never Smoker PAMELLA CATHI [facility], [facility] 03/22/2023 10:22:00 Are You Blind Or Do [...] Details Recorded Time Influenza, adjuvanted, trivalent, PF 10/08/202 5 completed REY SANFORDER null, [facility] 05/27/2025 12:19:17 Influenza, high-dose, quadrivalent, PF 3 completed PAMELLA GORDON null, [facility] 05/28/2023 12:54:17 Influenza, high-dose, trivalent, PF 4 completed REY SANFORDER null, [facility] 07/09/2024 14:48:21 Influenza, high-dose, quadrivalent, PF 2 completed PAMELLA GORDON null, [facility] 01/24/2023 16:13:37 Influenza, high-dose, trivalent, PF 8 completed PAMELLA GORDON null, [facility] 01/24/2023 16:13:37 Influenza, high-dose, trivalent, PF 9 completed PAMELLA GORDON null, [facility] 01/24/2023 16:13:37 Influenza, split virus, trivalent, preservative 0 completed APMELLA GORDON null, [facility] 01/24/2023 16:13:37 Influenza, split virus, trivalent, preservative 1 completed PAMELLA GORDON null, [facility] 01/24/2023 16:13:37 pneumococcal, unspecified formulation 3 completed Not Available [facility] 10/03/2023 14:04:35 Influenza, split virus, trivalent, preservative 3 completed Not Available [facility] 10/03/2023 14:04:35 Influenza, split virus, trivalent, preservative 2 completed Not Available [facility] 10/03/2023 14:04:35 Influenza, split virus, trivalent, preservative 2 completed Not Available [facility] 10/03/2023 14:04:35 Influenza, split virus, trivalent, preservative 8 completed Not Available [facility] 10/03/2023 14:04:35 Influenza, split virus, trivalent, preservative 3 completed Not Available [facility] 10/03/2023 14:04:35 Influenza, split virus, trivalent, preservative 4 completed Not Available [facility] 10/03/2023 14:04:35 Influenza, split virus, trivalent, preservative 9 completed Not Available [facility] 10/03/2023 14:04:35 Past Encounters Encounter ID Performer Location Encounter Start Date Encounter Closed Date Diagnosis/Indication Diagnosis SNOMED-CT Code Diagnosis ICD10 Code Diagnosis IMO Codes Diagnosis Note [id number] AZEB MALAVE APRN [facility] [address] [place] [address] 05/23/2025 18:11:46 06/16/2025 08:23:58 Acute constipation 656082413 K59.00 405057 [id number] Nickolas Gutiérrez MD [facility] [address] [place] [phone] 05/27/2025 11:24:24 06/02/2025 10:04:35 Hypercholesterolemia 57990520 E78.00 End stage renal failure on dialysis 682005591 Z99.2 - Continue dialysis coordinati on with nephrology department . Hypertensive disorder 38 027739 I10 - Considerat ion for adjustment of hypertensi ve therapy, particular ly during dialysis. Diabetes mellitus 809567 09 E13.42 - Plan includes monitoring and possible modificati on of diabetic treatment under endocrinol ogist's guidance. 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 Requires i nfluenza virus vaccination 230126045 Z23 290194 [id number] Nickolas Gutiérrez MD [facility] [address] [place] [address] 06/17/2025 09:31:30 07/13/2025 08:05:10 Health Concerns Section Related Observation LastModified by Organization Detai ls LastModified Time None Recorded Concern Status LastModified by Organization Details LastModified Time None Recorded Payers Encounter Date Sequence Insurance Name Policy Number Policy San Covered Member ID San Member ID Guarantor Name 06/17/2025 1 [facility] (MEDICARE REPLACEMENT/A DVANTAGE - HMO) [id number] Quang Hunter [id number] Quang Hunter
--- OUTSIDE RECORDS SUMMARY | 2025-07-20 17:04 | XMS_ITS | Encounter Summary ---
Author Organization [facility] Address [address] [place] [address] Phone Care Team Providers Care Credit Checker Name Role Phone Harjit Marc MD Primary Care Provider + [phone] Reason for Visit * Reason Comments Med Refill Encounter Details Date Type Department Care Team (Late st Contact Info) Description 04/02/2024 Refill [facility] [address] [address] Beatriz Valverde MD [address] [place] [address] Social History Tobacco Use Types [...] on filedocumented in this encounter Care Teams Credit Checker Relationship Specialty Start Date End Date Harjit Marc MD [address] [place], [place] [phone] PCP - General Family Medicine 01/05/22 documented as of this encounter
--- NOTE | 2025-07-20 17:07 | W.ED.FALL ---
HPI - Fall General: Chief Complaint: Fall Stated Complaint: fell- pain on right side Time Seen by Provider: 07/20/25 17:06 History of Present Illness: 85-year-old male presents emergency room complaining of a fall. Patient is a dialysis patient goes on Sunday and Sunday he has not missed any of his dialysis he did have a slightly longer run 4 days ago. He has noticed that when he gets up he gets a little bit lightheaded and dizzy. He had gotten up and got somewhat dizzy shortly after standing and then fell landed on his right side he is complaining of right shoulder pain and right rib pain has some mild neck pain as well there is no loss of consciousness. No vision change no vomiting, no headache Associated symptoms-after fall: Reports neck pain; Denies abdominal pain or chest pain Related Data Home Medications ?Medication ?Instructions ?Recorded ?Confirmed tamsulosin 0.4 mg capsule 0.4 mg PO BEDTIME 03/07/20 06/02/25 finasteride 5 mg tablet 5 mg PO DAILY 01/17/23 06/02/25 nitroglycerin 0.4 mg sublingual 0.4 mg sublingual Q5M PRN Chest 01/17/23 06/02/25 tablet Pain bumetanide 1 mg tablet 1 mg PO BID 05/09/23 06/02/25 atorvastatin 80 mg tablet 80 mg PO QPM 09/23/23 06/02/25 insulin glargine 100 unit/mL 7 unit SUBCUT DAILY 09/23/23 06/02/25 subcutaneous solution metoprolol tartrate 50 mg tablet 50 mg PO DAILY 09/23/23 06/02/25 valsartan 160 mg tablet 320 mg PO DAILY 05/07/24 06/02/25 nifedipine 60 mg tablet,extended 90 mg PO DAILY 07/30/24 06/02/25 release spironolactone 25 mg tablet 50 mg PO DAILY 07/30/24 06/02/25 sevelamer carbonate 800 mg tablet 800 mg PO BID 11/04/24 06/02/25 (Renvela) vit C,E-Za-ikiyd-lutein-zeaxan PO 04/10/25 06/02/25 [[facility] AREDS-2] clonidine HCl 0.1 mg tablet 0.1 mg PO QDAY 05/12/25 06/02/25 doxazosin 1 mg tablet (Cardura) 1 mg PO DAILY 05/12/25 06/02/25 insulin aspart U-100 100 unit/mL 10 unit SUBCUT TID 05/15/25 06/02/25 (3 mL) subcutaneous pen (Novolog FlexPen U-100 Insulin aspart) Previous Rx's ?Medication ?Instructions ?Recorded clopidogrel 75 mg tablet 75 mg PO DAILY #30 tabs 09/25/23 hydralazine 100 mg tablet 100 mg PO TID #180 tabs 05/07/24 pen needle, diabetic 32 gauge x #300 ea 09/29/24 (BD Breanne 2nd Gen Pen Needle) Diabetic shoe with 3 sets insoles #1 ea 05/27/25 glycerin (adult) 1 supp NH DAILY PRN constipation 05/29/25 #12 ea polyethylene glycol 3350 17 4 g PO DAILY #119 grams 05/29/25 gram/dose oral powder (Miralax) Allergies Allergy/AdvReac Type Severity Reaction Status Date / Time dulaglutide (From [facility]) Allergy Unknown Verified 07/20/25 17:04 sitagliptin (From [employer]) Allergy ADR-Blurry Verified 07/20/25 17:04 Vision Review of Systems Const: Denies: fever(s) or chills Card: Denies: chest pain Resp: Denies: dyspnea GI: Denies: abdominal pain : Denies: dysuria, urinary frequency or urinary urgency Musc: Reports: neck pain and joint pain; Denies: back pain Skin/Breast: Denies: rash PFSH ED PFSH: Medical History Hyperlipemia, mixed End-stage renal disease on hemodialysis CAD (coronary artery disease) Lumbosacral radiculopathy Diabetes mellitus Hypertension Hypercholesterolemia DDD (degenerative disc disease), lumbar Surgical History History of hernia repair History of coronary artery stent placement (01/10/21) History of lumbar laminectomy (2021) Family History Father Cancer Other Diabetes Hypertension Social History Smoking and tobacco/nicotine status: never used tobacco/nicotine Quit status (tobacco/nicotine): has quit using Former quit date comment: smoked x 1 year in teen years Second hand smoke exposure: No Alcohol intake: never Substance/Drug Use: never Lives independently: Yes Household members: spouse Marital status: Physical Exam Const: GENERAL APPEARANCE: cooperative ORIENTATION/CONSCIOUSNESS: Yes awake, Yes oriented to person, Yes oriented to place and Yes oriented to time HENMT: COMMON NORMALS: normocephalic, atraumatic and hearing grossly normal bilaterally HEAD & SCALP: normocephalic and atraumatic Chest: OTHER: Point tenderness on the right lateral chest wall at the posterior axillary line no crepitus noted no subcutaneous emphysema no ecchymosis No crepitus or deformity or pain with palpation of the right clavicle Resp: COMMON NORMALS: normal respiratory effort, No retractions, No use of accessory muscles and clear to auscultation bilaterally AUSCULTATION: clear to auscultation bilaterally Cardio: COMMON NORMALS: regular rate, regular rhythm and No murmurs present (Cardio) RATE: regular rate RHYTHM: regular rhythm GI: COMMON NORMALS: Soft to palpation and No hepatosplenomegaly present AUSCULTATION: Yes normoactive bowel sounds PALPATION: Yes Soft to palpation, No Tenderness to palpation present (GI), No Guarding due to palpation present (GI) and Yes No hepatosplenomegaly present Extremity: OTHER: Right shoulder is poor abduction. Pain in flexion extension internal/external rotation. Difficult to fully assess because of the degree of pain. Examination of the fistula the patient still has good thrill in the fistula by auscultation and palpation. No ecchymosis no signs of injury to the fistula itself from the fall Neuro: SENSORIUM/ORIENTATION: Yes oriented to person, Yes oriented to place and Yes oriented to time Skin: COMMON NORMALS: no rashes or lesions noted GENERAL SKIN EXAM: no rashes or lesions noted Course Vital Signs: Vital signs: Vital Signs Temperature 97.5 F L 07/20/25 16:58 Pulse Rate 82 07/20/25 20:35 Respiratory Rate 16 07/20/25 18:07 Blood Pressure 159/67 07/20/25 20:35 Pulse Oximetry 100 07/20/25 20:35 Oxygen Delivery Me thod Room Air 07/20/25 20:04 MDM - Fall Medical Decision Making Medical decision making Social determinants: Patient's age and moderate limitations on ability to maintain ADLs I reviewed the patient's medical record. I reviewed the patient's current home meds> Alternate historians: Son who is accompanies him to the ER visit Differential diagnosis: Humerus or clavicle fracture fracture, rotator cuff tendinopathy, AC joint disruption, rib. Intracranial bleeding cervical spine injury Lab Review: Labs reviewed mild anemia consistent with chronic renal disease. Anion gap of 22.4 creatinine 6.7 BUN 52 patient is due for dialysis tomorrow. Imaging: X-ray of the ribs does not show any acute fractures no pneumothorax no infiltrates or effusions. CT cervical spine negative hip x-ray no acute fractures osteoarthritic changes. . Shoulder x-ray chronic arthritic changes no acute fractures. Assessment of risk Level of risk: Moderate Hospitalization considerations: Pending results of imaging fractures or intracranial injury could warrant hospitalization. Ultimately was negative patient with did not need to be hospitalized Reexamination: Patient has persistent right shoulder pain that is the most prominent of his symptoms at this time this was partially relieved by sling. He has poor range of motion. Difficult to fully assess due to pain. Assessment and plan: Discussed findings with patient. No rib fractures think it is contused today I am concerned he likely may have precipitated a rotator cuff injury with the fall. He had some limitation of the shoulder prior to the fall will refer to orthopedics for further evaluation patient placed in a sling and given hydrocodone for pain. Discharged with 2 tablets to use overnight until he is able to fill the prescription in the morning Lab Data 07/20/25 17:26 07/20/25 17:[address] 07/20/25 17:08 IMPRESSION: No acute intracranial abnormality. Shoulder X-Ray 07/20/25 17:08 IMPRESSION: 1. No acute fractures or malalignment. 2. Small chronic appearing Hill-Sachs deformity in the humeral head. 3. Decreased osseous mineralization subjectively. Cervical Spine CT 07/20/25 17:27 IMPRESSION: 1. No acute cervical spine fracture. 2. Irregular nodule in the right apex measuring 7-8 mm. Per Fleischner society criteria, follow-up CT in 6-12 months, then 18-24 months. Hip/Pelvis X-Ray 07/20/25 17:27 IMPRESSION: 1. No acute fractures or malalignment. 2. Decreased osseous mineralization. 3. Atherosclerotic vascular calcifications. Ribs X-Ray 07/20/25 17:27 IMPRESSION: 1. No acute cardiopulmonary findings radiographically. 2. No fractures identified radiographically. Laboratory Results WBC 6.09 10^3/uL (3.29-11.43) 07/20/25 17:26 RBC 3.53 10^6/uL (3.85-5.65) L 07/20/25 17:26 Hgb 10.80 g/dL (11.27-16.99) L 07/20/25 17:26 Hct 32.5 % (37-53) L 07/20/25 17:26 MCV 92.1 fl (82-101) 07/20/25 17:26 MCH 30.6 pg (27-33) 07/20/25 17:26 MCHC 33.2 g/dL (30-55) 07/20/25 17:26 RDW 14.6 % (12.1-15.1) 07/20/25 17:26 Plt Count 150 10^3/cmm (157-399) L 07/20/25 17:26 MPV 9.1 fL (7.4-10.4) 07/20/25 17:26 Neut % (Auto) 75.1 % 07/20/25 17:26 Lymph % (Auto) 16.1 % 07/20/25 17:26 Gregory % (Auto) 6.9 % 07/20/25 17:26 Eos % (Auto) 1.1 % 07/20/25 17:26 Baso % (Auto) 0.3 % 07/20/25 17:26 Neut # (Auto) 4.57 10^3/uL (1.8-7.7) 07/20/25 17:26 Lymph # (Auto) 1.0 10^3/uL (0.8-4.8) 07/20/25 17:26 Gregory # (Auto) 0.4 10^3/uL (0.2-0.9) 07/20/25 17:26 Eos # (Auto) 0.1 10^3/uL (0.0-0.8) 07/20/25 17:26 Baso # (Auto) 0.0 10^3/uL (0.0-0.1) 07/20/25 17:26 Nucleated RBC % (auto) 0 % 07/20/25 17:26 Nucleated RBCs # 0.0 /100WBC 07/20/25 17:26 Sodium 137 mmol/L (136-145) 07/20/25 17:26 Potassium 4.4 mmol/L (3.5-5.1) 07/20/25 17:26 Chloride 98 mmol/L (98-107) 07/20/25 17:26 Carbon Dioxide 21 mmol/L (22-29) L 07/20/25 17:26 Anion Gap 22.4 (5-19) H 07/20/25 17:26 BUN 52 mg/dL (8-23) H 07/20/25 17:26 Creatinine 6.7 mg/dL (0.7-1.2) H* 07/20/25 17:26 GFR Calculation Not Reportable 07/20/25 17:26 Glucose 325 mg/dL (65-115) H 07/20/25 17:26 Calculated Osmolality 311 mOsm/kg (285-295) H 07/20/25 17:26 Calcium 8.8 mg/dL (8.5-10.5) 07/20/25 17:26 Total Bilirubin 0.4 mg/dL (0.15-1.2) 07/20/25 17:26 AST 15 U/L (0-40) 07/20/25 17:26 ALT 9 U/L (0-41) 07/20/25 17:26 Alkaline Phosphatase 93 U/L (40-130) 07/20/25 17:26 Total Protein 7.3 g/dL (6.6-8.7) 07/20/25 17:26 Albumin 4.5 g/dL (3.5-5.2) 07/20/25 17:26 Globulin 2.8 g/dL (1.3-4.6) 07/20/25 17:26 All radiology interpretation(s) finalized by discharge Discharge Plan Discharge Patient Disposition: Home Condition: Stable Prescriptions: No Action doxazosin [Cardura] 1 mg tablet 1 mg PO DAILY (DME) Diabetic shoe with 3 sets insoles See Rx Instructions .Route .MEDSUPPLY Qty: 1 0RF Rx Instructions: As directed by [facility] finasteride 5 mg tablet 5 mg PO DAILY nitroglycerin 0.4 mg tablet, sublingual 0.4 mg sublingual Q5M PRN (Reason: Chest Pain) Rx Instructions: do not exceed 3 doses per episode spironolactone 25 mg tablet 50 mg PO DAILY clonidine HCl 0.1 mg tablet 0.1 mg PO QDAY bumetanide 1 mg tablet 1 mg PO BID valsartan 160 mg tablet 320 mg PO DAILY hydralazine 100 mg tablet 100 mg PO TID Qty: 180 3RF vit C,W-Xb-vyqcs-lutein-zeaxan [[facility] AREDS-2] PO (DME) pen needle, diabetic [BD Breanne 2nd Gen Pen Needle] 32 gauge x 5/32 needle See Rx Instructions .ROUTE .COMPLEX Qty: 300 1RF Dose Instruction: USE DIRECTED Rx Instructions: USE DIRECTED tamsulosin 0.4 mg capsule 0.4 mg PO BEDTIME insulin aspart U-100 [Novolog FlexPen U-100 Insulin] 100 unit/mL (3 mL) insulin pen 10 unit SUBCUT TID insulin glargine 100 unit/mL solution 7 unit SUBCUT DAILY metoprolol tartrate 50 mg tablet 50 mg PO DAILY atorvastatin 80 mg Tablet 80 mg PO QPM clopidogrel 75 mg Tablet 75 mg PO DAILY Qty: 30 0RF nifedipine 60 mg tablet extended release 90 mg PO DAILY sevelamer carbonate [Renvela] 800 mg tablet 800 mg PO BID Rx Instructions: must administer with a meal/food polyethylene glycol 3350 [Miralax] 17 gram/dose powder 4 g PO DAILY Qty: 119 0RF glycerin (adult) Suppository 1 supp NH DAILY PRN (Reason: constipation) Qty: 12 0RF Discharge Orders: Discharge ED (Routine); Ordered 07/20/25 Ordered By: Jn Betancourt Referrals: Harjit Marc MD [Primary Care Provider, Family Practice] Patient Instructions: Opioid Safety, Pain Management, Patient Portal & [facility] Instructions Print Language: Bahraini Coding Level of Care Code ED Water Registrar for Mervat Ignacio
--- NOTE | 2025-07-20 17:08 | XRR_ITS ---
PROCEDURE INFORMATION: Exam: XR Right Shoulder Exam date and time: 07/20/2025 5:40 PM Age: 85 years old Clinical indication: Injury or trauma; Fall; Blunt trauma (contusions or hematomas); Shoulder; Right; Injury details: Fell after dialysis/began feeling dizzy TECHNIQUE: Imaging protocol: Radiologic exam of the right shoulder. Views: 2 or more views. COMPARISON: MR shoulder RT wo con* [id number] 03/25/2025 8:55 AM FINDINGS: Bones/joints: No acute fractures. Small chronic appearing Hill-Sachs deformity in the humeral head. Decreased osseous mineralization subjectively. No dislocations. No significant osseous lesions. Soft tissues: No significant soft tissue abnormalities. XR/XR shoulder RT min 2V* [id number] IMPRESSION: 1. No acute fractures or malalignment. 2. Small chronic appearing Hill-Sachs deformity in the humeral head. 3. Decreased osseous mineralization subjectively.
--- NOTE | 2025-07-20 17:08 | CTR_ITS ---
PROCEDURE INFORMATION: Exam: CT Head Without Contrast Exam date and time: 07/20/2025 5:29 PM Age: 85 years old Clinical indication: Injury or trauma; Fall TECHNIQUE: Imaging protocol: Computed tomography of the head without contrast. Radiation optimization: All CT scans at this facility use at least one of these dose optimization techniques: automated exposure control; mA and/or kV adjustment per patient size (includes targeted exams where dose is matched to clinical indication); or iterative reconstruction. COMPARISON: CT head wo con* [id number] 03/07/2020 3:16 PM RADIATION DOSE METRICS: Total DLP (mGy-cm): 1194.61 FINDINGS: Brain: No acute infarction, hemorrhage, mass, or extra-axial fluid collection is identified. No midline shift. Mild generalized senescent change. Cerebral ventricles: No hydrocephalus. Paranasal sinuses: Minimal mucosal thickening of paranasal sinuses. No air-fluid levels. Mastoid air cells: Mastoid air cells are grossly clear. Bones: Calvarium appears intact. Soft tissues: Unremarkable. CT/CT head wo con* [id number] IMPRESSION: No acute intracranial abnormality.
--- NOTE | 2025-07-20 17:27 | XRR_ITS ---
PROCEDURE INFORMATION: Exam: XR Right Hip Exam date and time: 07/20/2025 5:37 PM Age: 85 years old Clinical indication: Injury or trauma; Fall; Blunt trauma (contusions or hematomas); Right; Hip; Injury details: Fell after dialysis/began feeling dizzy TECHNIQUE: Imaging protocol: Radiologic exam of the right hip. Views: 1 view hip with pelvis when performed. COMPARISON: CR XR abdomen 1V* [id number] 05/29/2025 8:21 PM FINDINGS: Bones/joints: Decreased osseous mineralization. No acute fracture. No dislocations or subluxations. Soft tissues: Unremarkable. Vasculature: Atherosclerotic vascular calcifications. XR/XR hip RT 2-3V wo/w pel* [id number] IMPRESSION: 1. No acute fractures or malalignment. 2. Decreased osseous mineralization. 3. Atherosclerotic vascular calcifications.
--- NOTE | 2025-07-20 17:27 | XRR_ITS ---
PROCEDURE INFORMATION: Exam: XR Right Ribs with PA Chest Exam date and time: 07/20/2025 5:44 PM Age: 85 years old Clinical indication: Injury or trauma; Fall; Rib area; Blunt trauma (contusions or hematomas); Injury details: Fell after dialysis/began feeling dizzy TECHNIQUE: Imaging protocol: Radiologic exam of the right ribs with PA chest. Views: 3 views COMPARISON: CR XR chest 1V portable [id number] 09/23/2023 12:22 PM FINDINGS: Lungs: No infiltrates. No suspicious masses or nodules. Pleural spaces: No pleural effusions or pneumothorax. Heart/Mediastinum: Heart size within normal limits. No pulmonary vascular congestion. Vasculature: Atherosclerotic calcifications of the thoracic aorta. Bones/joints: No significant osseous lesion. No fractures identified radiographically. XR/XR ribs RT mn 3V w CXR1V [id number] IMPRESSION: 1. No acute cardiopulmonary findings radiographically. 2. No fractures identified radiographically.
--- NOTE | 2025-07-20 17:27 | CTR_ITS ---
PROCEDURE INFORMATION: Exam: CT Cervical Spine Without Contrast Exam date and time: 07/20/2025 5:29 PM Age: 85 years old Clinical indication: Injury or trauma; Fall TECHNIQUE: Imaging protocol: Computed tomography of the cervical spine without contrast. Radiation optimization: All CT scans at this facility use at least one of these dose optimization techniques: automated exposure control; mA and/or kV adjustment per patient size (includes targeted exams where dose is matched to clinical indication); or iterative reconstruction. COMPARISON: CT neck without contrast 06/12/2022, CT cervical spin wo con* [id number] 03/07/2020 3:22 PM RADIATION DOSE METRICS: Total DLP (mGy-cm): 202.2 FINDINGS: Bones: No acute fracture. Normal alignment. Multilevel degenerative change, primarily anterior osteophytosis but some trace dorsal spondylosis. Multiple Schmorl's nodes noted throughout the midcervical spine. No severe spinal canal stenosis. Multilevel facet arthropathy bilaterally is mild overall. On the left at C4-C5 there is a prominent osteophyte extending into the neural foramen. Some left C5 radiculopathy symptoms could potentially result. Lungs: Lung apices reveal a calcification with some scarring at the left apex and an irregular nodular finding at the right apex measuring 7-8 mm in greatest dimensions. Soft tissues: Unremarkable. CT/CT cervical spin wo con* [id number] IMPRESSION: 1. No acute cervical spine fracture. 2. Irregular nodule in the right apex measuring 7-8 mm. Per Fleischner society criteria, follow-up CT in 6-12 months, then 18-24 months.
[2025-07-20 17:33] LABS: Hematocrit 32.5 % (37-53); Hemoglobin 10.80 g/dL (11.27-16.99); Mean Corpuscular HGB Conc 33.2 g/dL (30-55); Mean Corpuscular Hemoglobin 30.6 pg (27-33); Mean Corpuscular Volume 92.1 fl (82-101); Nucleated Red Blood Cells % 0 %; Platelet Count 150 10^3/cmm (157-399); Red Blood Count 3.53 10^6/uL (3.85-5.65); White Blood Count 6.09 10^3/uL (3.29-11.43)
[2025-07-20 17:55] LABS: Alanine Aminotransferase 9 U/L (0-41); Albumin Level 4.5 g/dL (3.5-5.2); Alkaline Phosphatase 93 U/L (40-130); Anion Gap 22.4 (5-19); Aspartate Amino Transferase 15 U/L (0-40); Blood Urea Nitrogen 52 mg/dL (8-23); Calcium 8.8 mg/dL (8.5-10.5); Carbon Dioxide 21 mmol/L (22-29); Chloride 98 mmol/L (98-107); Globulin 2.8 g/dL (1.3-4.6); Glucose 325 mg/dL (65-115); Osmolality Calculated 311 mOsm/kg (285-295); Potassium 4.4 mmol/L (3.5-5.1); Sodium 137 mmol/L (136-145); Total Protein 7.3 g/dL (6.6-8.7)
[2025-07-20 18:07] VITALS: BP 178/70; PULSE 79; RESP 16; O2SAT 96
[2025-07-20 18:30] VITALS: BP 170/68; PULSE 79; O2SAT 95
[2025-07-20 19:22] VITALS: BP 185/100; PULSE 80; O2SAT 97
[2025-07-20 20:04] VITALS: BP 170/68; PULSE 84; O2SAT 100
[2025-07-20] MEDS: HYDROcodone-acetaminophen 5-325 mg Tablet 2 TAB PO (20:24)
--- NOTE | 2025-07-20 20:27 | PC.NURSE ---
PT SENT HOME WITH HYDROCODONE 5MG/325MG X2
[2025-07-20 20:35] VITALS: BP 159/67; PULSE 82; O2SAT 100
== END 2025-07-20 20:43 | disposition home or self-care (01) ==
PROVIDERS: Emergency Provider Family Medicine; PCP Family Medicine
DX: M25.551 Pain in right hip (principal); R07.89 Other chest pain; M54.2 Cervicalgia; E11.22 Type 2 diabetes mellitus with diabetic chronic kidney disease; I12.0 Hypertensive chronic kidney disease with stage 5 chronic kidney disease or end stage renal disease; N18.6 End stage renal disease; Z99.2 Dependence on renal dialysis; E78.2 Mixed hyperlipidemia; I25.10 Atherosclerotic heart disease of native coronary artery without angina pectoris; Z79.4 Long term (current) use of insulin; Z79.02 Long term (current) use of antithrombotics/antiplatelets
CPT/HCPCS: 70450; 71101; 72125; 73030; 73502; 80053; 85025; 99284; J9999

== ENCOUNTER → 2025-07-28 13:41 | Outpatient (BNVA) | payer MEDICARE, SELFPAY | PROVIDERS: PCP Family Medicine; Visit Provider Student in an Organized Health Care Education/Training Program | DX: M12.811 Other specific arthropathies, not elsewhere classified, right shoulder (principal) | CPT/HCPCS: 99213 ==

== ENCOUNTER → 2025-08-17 14:00 | Outpatient (BNVA) | payer MEDICARE, SELFPAY | PROVIDERS: PCP Family Medicine; Visit Provider Podiatrist Foot & Ankle Surgery | DX: E11.42 Type 2 diabetes mellitus with diabetic polyneuropathy (principal); L60.3 Nail dystrophy; I73.9 Peripheral vascular disease, unspecified; N18.6 End stage renal disease; Z99.2 Dependence on renal dialysis; Z79.4 Long term (current) use of insulin | CPT/HCPCS: 11721 ==

== ENCOUNTER → 2025-08-18 14:50 | Outpatient (BNVA) | payer MEDICARE, SELFPAY | PROVIDERS: PCP Family Medicine; Visit Provider Physician Assistant | DX: M19.011 Primary osteoarthritis, right shoulder (principal) | CPT/HCPCS: 20610; 99213; J3301; J9999 ==